=== PATIENT | female | born 1960 | race Asian ===

== ENCOUNTER 2022-07-06 08:22 | Outpatient (REF) | payer MEDICAID, SELFPAY ==
[2022-07-06 11:43] LABS: Cholesterol 134 mg/dL; HDL Cholesterol 52 mg/dL; LDL Cholesterol Calculated 68 mg/dl; Triglycerides 71 mg/dL
== END 2022-07-06 08:23 | disposition home or self-care (01) ==
LOC: HO.HMGCLDS 08:22
PROVIDERS: PCP Family Medicine; Visit Provider Family Medicine
DX: E78.2 Mixed hyperlipidemia (principal)
CPT/HCPCS: 36415; 80061

== ENCOUNTER 2022-10-05 15:08 | Outpatient (REF) | payer MEDICAID, SELFPAY ==
--- NOTE | ~2022-10-05 | XR_ITS ---
EXAMINATION: XR FOOT, RIGHT CLINICAL INFORMATION: Bunion of great toe of right foot COMPARISON: None available. TECHNIQUE: AP, lateral, and oblique views of the right foot. FINDINGS: Bones are diffusely demineralized. Metatarsus adductus, hallux valgus. Mild degenerative changes first metatarsophalangeal joint with joint space narrowing, and hypertrophic change. Tiny plantar calcaneal spur. XR/XR foot RT min 3V IMPRESSION: Metatarsus adductus, hallux valgus with mild degenerative changes first metatarsophalangeal joint. No displaced fracture. Recommend follow-up imaging in 10-14 days if fracture is suspected.
== END 2022-10-05 15:09 | disposition home or self-care (01) ==
LOC: HO.HMGCX 15:08
PROVIDERS: PCP Family Medicine; Visit Provider Family Medicine
DX: M21.611 Bunion of right foot (principal)
CPT/HCPCS: 73630

== ENCOUNTER 2023-01-04 08:44 | Outpatient (REF) | payer MEDICAID, OTHER, SELFPAY ==
[2023-01-04 14:29] LABS: MANUAL DIFF FLAG NO
[2023-01-04 14:40] LABS: Basophils Percent Auto 0.8 % (0-2); Eosinophils Absolute Auto 0.1 X10*3/uL (0.0-0.4); Eosinophils Percent Auto 1.1 % (0-4); Hematocrit 39.4 % (37.0-47.0); Imm Gran Abs Auto 0.01 X10*3/uL (0.00-0.03); Imm Gran Pct Auto 0.2 % (0.0-0.4); Lymphocytes Absolute Auto 1.7 X10*3/uL (1.2-4.9); Lymphocytes Percent Auto 36.1 % (20-40); Mean Corpuscular Hemoglobin 27.2 pg (27.0-33.0); Mean Corpuscular Volume 82.4 fL (80.0-98.0); Mean Platelet Volume 10.3 fL (9.4-12.3); Monocytes Absolute Auto 0.3 X10*3/uL (0.1-1.2); Monocytes Percent Auto 6.1 % (2-11); Neutrophils Absolute Auto 2.7 x10*3/uL (2.0-8.3); Neutrophils Percent Auto 55.7 % (45-73); Platelet Count 214 X10*3/uL (160-400); Red Blood Count 4.78 X10*6/uL (4.20-5.50); Red Cell Distribution Width 11.7 % (11.0-16.0); White Blood Count 4.8 X10*3/uL (4.8-10.8)
[2023-01-04 14:44] LABS: Estimated Average Glucose 154 mg/dL
[2023-01-04 15:02] LABS: Alanine Aminotransferase 19 U/L (0-31); Albumin Level 4.6 g/dL (3.5-5.0); Alkaline Phosphatase 57 U/L (39-117); Anion Gap 13 (12-20); Aspartate Amino Transferase 18 U/L (5-31); Bilirubin Total 0.6 mg/dL (0.0-1.0); Blood Urea Nitrogen 14 mg/dL (9-16); Calcium 9.6 mg/dL (8.4-10.2); Carbon Dioxide 26 mmol/L (22-29); Chloride 105 mmol/L (96-108); Cholesterol 132 mg/dL (<200); Estimated Glomerular Filt Rate > 60; Glucose Fasting 119 mg/dL (60-99); HDL Cholesterol 56 mg/dL (>40); LDL Cholesterol Calculated 59 mg/dL (<100); Potassium 3.8 mmol/L (3.3-5.1); Sodium 140 mmol/L (135-145); Total Protein 7.2 g/dL (6.5-8.0); Triglycerides 88 mg/dL (<150)
== END 2023-01-04 08:45 | disposition home or self-care (01) ==
LOC: HO.CHCLDS 08:44
PROVIDERS: Visit Provider Family Medicine
DX: E11.65 Type 2 diabetes mellitus with hyperglycemia (principal)
CPT/HCPCS: 36415; 80053; 80061; 83036; 85025

== ENCOUNTER 2023-01-11 11:16 | Outpatient (REF) | payer OTHER, SELFPAY ==
[2023-01-11 14:41] LABS: Uric Acid 4.4 mg/dL (2.4-5.7)
== END 2023-01-11 11:17 | disposition home or self-care (01) ==
LOC: HO.CHCLDS 11:16
PROVIDERS: Visit Provider Family Medicine
DX: M25.50 Pain in unspecified joint (principal)
CPT/HCPCS: 36415; 84550

== ENCOUNTER 2023-02-08 13:01 | Outpatient (REF) | payer OTHER, SELFPAY ==
--- NOTE | ~2023-02-08 | XR_ITS ---
EXAMINATION: XR BILATERAL HANDS CLINICAL INFORMATION: Numbness and tingling COMPARISON: None available. TECHNIQUE: AP, lateral, and oblique views of the bilateral hands. FINDINGS: RIGHT HAND: No displaced fracture. Mild degenerative changes in the second metacarpophalangeal joint with hypertrophic change. Moderate degenerative changes in the first carpometacarpal joint with joint space narrowing and hypertrophic change. LEFT HAND: No displaced fracture. Mild degenerative changes in the second metacarpophalangeal joint with hypertrophic change. Moderate degenerative changes in the first carpometacarpal joint with joint space narrowing and hypertrophic change. XR/XR hand RT min 3V IMPRESSION: 1. Moderate degenerative changes in the bilateral first carpometacarpal joints. 2. No displaced fracture. Recommend follow-up imaging in 10-14 days if fracture is suspected.
--- NOTE | ~2023-02-08 | XR_ITS ---
EXAMINATION: XR BILATERAL HANDS CLINICAL INFORMATION: Numbness and tingling COMPARISON: None available. TECHNIQUE: AP, lateral, and oblique views of the bilateral hands. FINDINGS: RIGHT HAND: No displaced fracture. Mild degenerative changes in the second metacarpophalangeal joint with hypertrophic change. Moderate degenerative changes in the first carpometacarpal joint with joint space narrowing and hypertrophic change. LEFT HAND: No displaced fracture. Mild degenerative changes in the second metacarpophalangeal joint with hypertrophic change. Moderate degenerative changes in the first carpometacarpal joint with joint space narrowing and hypertrophic change. XR/XR hand LT min 3V IMPRESSION: 1. Moderate degenerative changes in the bilateral first carpometacarpal joints. 2. No displaced fracture. Recommend follow-up imaging in 10-14 days if fracture is suspected.
== END 2023-02-08 13:02 | disposition home or self-care (01) ==
LOC: HO.HMGCX 13:01
PROVIDERS: PCP Family Medicine; Visit Provider Family Medicine
DX: R20.0 Anesthesia of skin (principal); R20.2 Paresthesia of skin
CPT/HCPCS: 73130

== ENCOUNTER → 2023-05-17 08:51 | Outpatient (REF) | payer OTHER, SELFPAY ==
--- NOTE | 2023-05-17 08:55 | ECG_ITS ---
Test Reason : PALPITATIONS Blood Pressure : / mmHG Vent. Rate : 063 BPM Atrial Rate : 063 BPM P-R Int : 166 ms QRS Dur : 078 ms QT Int : 438 ms P-R-T Axes : 058 031 055 degrees QTc Int : 448 ms Normal sinus rhythm T wave abnormality, consider anterior ischemia Abnormal ECG No previous ECGs available Referred By: Naomi Montague Electronically Signed By:VOLODYMYR HUFF MD
--- NOTE | 2023-05-17 09:01 | HM_ITS ---
* Total monitoring time 1 day. * Underlying rhythm is sinus with an average ventricular rate of 62/Min. Range 45 to 123/Min. * Very rare supraventricular ectopy. * No significant pauses or AV blocks. * No patient markers or diary events. MTDD
== END ==
LOC: HO.CARD 08:51
PROVIDERS: PCP Family Medicine; Visit Provider Family Medicine
DX: R00.2 Palpitations (principal)
CPT/HCPCS: 93005; 93225

== ENCOUNTER → 2023-05-17 08:55 | Outpatient (BNV) | payer OTHER, SELFPAY | PROVIDERS: PCP Family Medicine; Visit Provider Internal Medicine Cardiovascular Disease | DX: I47.10 Supraventricular tachycardia, unspecified (principal) | CPT/HCPCS: 93227 ==

== ENCOUNTER 2023-07-23 08:07 | Outpatient (REF) | payer OTHER, SELFPAY ==
[2023-07-23 14:27] LABS: MANUAL DIFF FLAG NO
[2023-07-23 14:37] LABS: Estimated Average Glucose 146 mg/dL; Hemoglobin A1c % 6.7 % (<6.0)
[2023-07-23 14:50] LABS: Basophils Absolute Auto 0.1 X10*3/uL (0.0-0.2); Basophils Percent Auto 0.9 % (0-2); Eosinophils Absolute Auto 0.1 X10*3/uL (0.0-0.4); Eosinophils Percent Auto 1.6 % (0-4); Hemoglobin 12.4 g/dl (12.0-16.0); Imm Gran Abs Auto 0.01 X10*3/uL (0.00-0.03); Imm Gran Pct Auto 0.2 % (0.0-0.4); Lymphocytes Absolute Auto 2.2 X10*3/uL (1.2-4.9); Lymphocytes Percent Auto 38.3 % (20-40); Mean Corpuscular HGB Conc 33.5 g/dl (31.0-35.0); Mean Corpuscular Hemoglobin 27.2 pg (27.0-33.0); Mean Corpuscular Volume 81.1 fL (80.0-98.0); Mean Platelet Volume 10.1 fL (9.4-12.3); Monocytes Absolute Auto 0.3 X10*3/uL (0.1-1.2); Monocytes Percent Auto 5.2 % (2-11); Neutrophils Percent Auto 53.8 % (45-73); Platelet Count 213 X10*3/uL (160-400); Red Blood Count 4.56 X10*6/uL (4.20-5.50); White Blood Count 5.6 X10*3/uL (4.8-10.8)
[2023-07-23 14:51] LABS: Alanine Aminotransferase 18 U/L (0-31); Albumin Level 4.6 g/dL (3.5-5.0); Alkaline Phosphatase 57 U/L (39-117); Anion Gap 15 (12-20); Aspartate Amino Transferase 16 U/L (5-31); Bilirubin Total 0.6 mg/dL (0.0-1.0); Blood Urea Nitrogen 12 mg/dL (9-16); Calcium 9.5 mg/dL (8.4-10.2); Carbon Dioxide 27 mmol/L (22-29); Chloride 105 mmol/L (96-108); Cholesterol 122 mg/dL (<200); Estimated Glomerular Filt Rate > 60; Glucose Random 100 mg/dL (60-115); HDL Cholesterol 53 mg/dL (>40); LDL Cholesterol Calculated 54 mg/dL (<100); Potassium 3.7 mmol/L (3.3-5.1); Sodium 143 mmol/L (135-145); Total Protein 7.3 g/dL (6.5-8.0); Triglycerides 75 mg/dL (<150)
[2023-07-23 15:08] LABS: TSH reflex Free T4 1.86 uIU/mL (0.32-4.0)
== END 2023-07-23 08:08 | disposition home or self-care (01) ==
LOC: HO.CHCLDS 08:07
PROVIDERS: Visit Provider Family Medicine
DX: E11.65 Type 2 diabetes mellitus with hyperglycemia (principal)
CPT/HCPCS: 36415; 80053; 80061; 83036; 84443; 85025

== ENCOUNTER 2024-03-27 09:45 | Outpatient (REF) | payer OTHER, SELFPAY ==
[2024-03-27 14:18] LABS: MANUAL DIFF FLAG NO
[2024-03-27 14:23] LABS: Basophils Absolute Auto 0.1 X10*3/uL (0.0-0.2); Basophils Percent Auto 1.1 % (0-2); Eosinophils Absolute Auto 0.2 X10*3/uL (0.0-0.4); Eosinophils Percent Auto 3.6 % (0-4); Hemoglobin 12.9 g/dl (12.0-16.0); Imm Gran Abs Auto 0.01 X10*3/uL (0.00-0.03); Imm Gran Pct Auto 0.2 % (0.0-0.4); Lymphocytes Absolute Auto 1.8 X10*3/uL (1.2-4.9); Mean Corpuscular HGB Conc 33.1 g/dl (31.0-35.0); Mean Corpuscular Hemoglobin 27.3 pg (27.0-33.0); Mean Corpuscular Volume 82.6 fL (80.0-98.0); Monocytes Absolute Auto 0.3 X10*3/uL (0.1-1.2); Monocytes Percent Auto 5.6 % (2-11); Neutrophils Percent Auto 56.5 % (45-73); Platelet Count 208 X10*3/uL (160-400); Red Blood Count 4.72 X10*6/uL (4.20-5.50); Red Cell Distribution Width 11.7 % (11.0-16.0); White Blood Count 5.3 X10*3/uL (4.8-10.8)
[2024-03-27 14:34] LABS: Estimated Average Glucose 146 mg/dL; Hemoglobin A1C 166.9097 umol/L; Hemoglobin A1c % 6.7 % (<6.0)
[2024-03-27 14:42] LABS: Albumin Level 4.7 g/dL (3.5-5.0); Anion Gap 13 (12-20); Aspartate Amino Transferase 25 U/L (5-31); Bilirubin Total 0.5 mg/dL (0.0-1.0); Blood Urea Nitrogen 11 mg/dL (9-16); Calcium 9.4 mg/dL (8.4-10.2); Carbon Dioxide 27 mmol/L (22-29); Chloride 106 mmol/L (96-108); Cholesterol 114 mg/dL (<200); Estimated Glomerular Filt Rate > 60; Glucose Random 110 mg/dL (60-115); HDL Cholesterol 53 mg/dL (>40); LDL Cholesterol Calculated 46 mg/dL (<100); Lipase 33 U/L (8-78); Sodium 142 mmol/L (135-145); Triglycerides 77 mg/dL (<150)
[2024-03-27 15:01] LABS: Alanine Aminotransferase 25 U/L (0-31); Alkaline Phosphatase 57 U/L (39-117)
[2024-03-27 15:05] LABS: TSH reflex Free T4 1.83 uIU/mL (0.32-4.0)
== END 2024-03-27 09:46 | disposition home or self-care (01) ==
LOC: HO.CHCLDS 09:45
PROVIDERS: Visit Provider Family Medicine
DX: E11.65 Type 2 diabetes mellitus with hyperglycemia (principal); R10.11 Right upper quadrant pain
CPT/HCPCS: 36415; 80053; 80061; 83036; 83690; 84443; 85025

== ENCOUNTER 2024-04-10 07:41 | Outpatient (REF) | payer OTHER, SELFPAY ==
--- NOTE | ~2024-04-10 | US_ITS ---
EXAMINATION: US ABDOMEN COMPLETE CLINICAL INFORMATION: Right upper quadrant pain. COMPARISON: None available. TECHNIQUE: Real-time imaging of the abdominal viscera. Limited visualization due to bowel gas. FINDINGS: PANCREAS: Limited visualization. Imaged portion of the pancreas demonstrates heterogeneous echotexture. ABDOMINAL AORTA: Limited visualization of the distal abdominal aorta. Imaged portion of mid to proximal aorta unremarkable. INFERIOR VENA CAVA: Visualized portions are normal. LIVER: Increased hepatic parenchymal heterogeneity and echogenicity could be associated with hepatocellular disease/hepatic steatosis and substantially limits visualization. Correlation with liver function tests and clinical exam recommended to determine further management. Multiple complex hepatic cysts, many with multiple septations. 5.7 x 3.7 x 5.9 cm left hepatic lobe with multiple thin and thick septations with possible nodular components. 2.8 x 1.9 x 2.4 cm right lower hepatic lobe with thin septations. GALLBLADDER: No gallstones. No gallbladder wall thickening. COMMON BILE DUCT: Normal in caliber measuring 0.4 cm in diameter. RIGHT KIDNEY: Right renal 0.2 cm midpole calculus. No hydronephrosis. Scattered tiny renal echogenic foci may represent punctate calcifications. Limited visualization. The kidney measures 11.2 cm in maximum dimension. LEFT KIDNEY: No hydronephrosis. Scattered tiny renal echogenic foci may represent punctate calcifications. Limited visualization. The kidney measures 11.8 cm in maximum dimension. SPLEEN: The spleen measures 10.3 cm in maximum dimension. FREE FLUID: None. US/US abdomen complete IMPRESSION: 1. Increased hepatic parenchymal heterogeneity and echogenicity could be associated with hepatocellular disease/hepatic steatosis and substantially limits visualization. Correlation with liver function tests and clinical exam recommended to determine further management. 2. Multiple complex hepatic cysts, many with multiple septations. 5.7 x 3.7 x 5.9 cm left hepatic lobe with multiple thin and thick septations with possible nodular components. 2.8 x 1.9 x 2.4 cm right lower hepatic lobe with thin septations. 3. Right renal 0.2 cm midpole calculus. No hydronephrosis. 4. Bilateral tiny scattered renal echogenic foci may represent punctate calcifications. No hydronephrosis. 5. Limited visualization of the pancreas, although imaged portion of the pancreas demonstrates heterogeneous echotexture. 6. CT scan recommended for further evaluation. Electronically signed by: Geovanna Vega MD 04/12/2024 10:10 AM EST
== END 2024-04-10 07:42 | disposition home or self-care (01) ==
LOC: HO.US 07:41
PROVIDERS: PCP Family Medicine; Visit Provider Family Medicine
DX: R10.11 Right upper quadrant pain (principal)
CPT/HCPCS: 76700

== ENCOUNTER 2024-06-05 23:22 | Emergency (ER) | payer OTHER, SELFPAY ==
--- NOTE | ~2024-06-05 | CT_ITS ---
CLINICAL HISTORY: epigastric pain Exam: CT abdomen and pelvis with intravenous contrast. Comparison: Abdominal ultrasound April 10, 2024. Findings: CT abdomen: No infiltrates within the lung bases. Bones are osteopenic. No acute fracture. Mild de leon chamber cardiac dilation. Concentric wall thickening distal esophagus with small hiatal hernia. [id number] fluid distention of the stomach with areas of gastric wall thickening along the proximal to mid gastric body. Fluid-filled loops of borderline dilated small bowel is seen within the abdomen pelvis. Small bowel loops are dilated to 0.8 cm. There are scattered small bowel air-fluid levels. Small-bowel wall thickening and small-bowel wall hyperenhancement is seen in association with these fluid-filled loops of small bowel. Generalized low attenuation throughout the liver indicative of fatty infiltration. Numerous hypodense lesions within the liver corresponding to the ultrasound abnormalities. The largest is within the lateral segment of the left lobe measuring 6.5 x 6.9 cm in size. These are all fluid attenuation lesions. No solid hepatic mass lesions identified. Main portal vein is patent. Spleen, pancreas, gallbladder, and adrenal glands are unremarkable. Symmetric enhancement of the kidneys without mass or hydronephrosis. CT pelvis: Suture material seen of the anal rectal junction. Mild fluid distention of the cecum and ascending colon. Fluid-filled small bowel is seen within the pelvis as discussed above. Appendix is normal. No free fluid or free air. Uterus is surgically absent. Fluid attenuation structure is seen at the level of the vaginal cuff measuring 4.2 x 2.5 x 2.6 cm in size. No enlarged lymph nodes. Impression: 1. Wall thickening of the distal esophagus extending to the proximal to mid gastric body with fluid distention of the stomach. This suggest gastritis and esophagitis. 2. Fluid-filled small bowel with liquid stool within the proximal colon. Infectious or inflammatory enterocolitis is favored. 3. Prior hysterectomy with nonspecific cystic collection at the vaginal cuff. Clinical correlation advised with the timing of the patient's hysterectomy. Pelvic ultrasound could further evaluate. This document has been electronically signed by: Glen Ivy MD on 06/06/2024 02:50:08
[2024-06-05 23:33] VITALS: BP 142/68; PULSE 73; RESP 18; TEMP 36.7; O2SAT 95; BMI 27.3
[2024-06-05 23:51] LABS: MANUAL DIFF FLAG NO
[2024-06-05 23:52] LABS: Basophils Absolute Auto 0.1 X10*3/uL (0.0-0.2); Basophils Percent Auto 0.5 % (0-2); Eosinophils Absolute Auto 0.2 X10*3/uL (0.0-0.4); Eosinophils Percent Auto 0.9 % (0-4); Hematocrit 39.8 % (37.0-47.0); Hemoglobin 14.2 g/dl (12.0-16.0); Imm Gran Pct Auto 0.5 % (0.0-0.4); Lymphocytes Absolute Auto 4.8 X10*3/uL (1.2-4.9); Lymphocytes Percent Auto 23.7 % (20-40); Mean Corpuscular HGB Conc 35.7 g/dl (31.0-35.0); Mean Corpuscular Hemoglobin 27.8 pg (27.0-33.0); Mean Platelet Volume 9.7 fL (9.4-12.3); Monocytes Absolute Auto 0.9 X10*3/uL (0.1-1.2); Monocytes Percent Auto 4.7 % (2-11); Neutrophils Percent Auto 69.7 % (45-73); Platelet Count 233 X10*3/uL (160-400); Red Cell Distribution Width 11.7 % (11.0-16.0)
[2024-06-06 00:07] LABS: Alanine Aminotransferase 38 U/L (0-31); Albumin Level 4.8 g/dL (3.5-5.0); Alkaline Phosphatase 78 U/L (39-117); Anion Gap 16 (12-20); Aspartate Amino Transferase 28 U/L (5-31); Bilirubin Total 0.5 mg/dL (0.0-1.0); Blood Urea Nitrogen 19 mg/dL (9-16); Carbon Dioxide 23 mmol/L (22-29); Chloride 107 mmol/L (96-108); Creatinine Clr Calc Pharmacy 64.6; Estimated Glomerular Filt Rate > 60; Glucose Random 211 mg/dL (60-115); Lipase 45 U/L (8-78); Potassium 3.5 mmol/L (3.3-5.1); Sodium 142 mmol/L (135-145); Total Protein 8.1 g/dL (6.5-8.0)
--- NOTE | 2024-06-06 00:08 | ECG_ITS ---
Test Reason : ABDOMINAL PAIN Blood Pressure : */* mmHG Vent. Rate : 65 BPM Atrial Rate : 65 BPM P-R Int : 160 ms QRS Dur : 84 ms QT Int : 452 ms P-R-T Axes : -23 36 43 degrees QTcB Int : 470 ms Normal sinus rhythm T wave abnormality, consider anterior ischemia Prolonged QT Abnormal ECG When compared with ECG of 17-May-2023 09:07, No significant change was found Referred By: Kristen Medrano Electronically Signed By: OLYA ALLRED
--- NOTE | 2024-06-06 00:16 | ED.ABDPAIN ---
HPI - Abdominal Pain General Chief Complaint: Abdominal Pain Stated Complaint: n/v, abd pain Time Seen by Provider: 06/06/24 00:07 Source: patient and family Mode of arrival: ambulatory Limitations: no limitations History of Present Illness ED Provider: Dr. Kristen Medrano HPI narrative: Patient comes to the emergency room complaining of epigastric pain, nausea vomiting and diarrhea that started approximately 3 hours ago. Patient states that she has been having epigastric burning sensation and pain for several months. Patient states that she has an appointment pending in couple of months with gastroenterology. Patient does not take any medication for GERD. Patient denies any lower abdominal pain, denies any flank pain or burning with urination. Denies fever or chills. Related Data Previous Rx's ?Medication ?Instructions ?Recorded amoxicillin 500 mg-potassium 1 tab PO BID #14 tabs 06/06/24 clavulanate 125 mg tablet (Augmentin) omeprazole 40 mg capsule,delayed 40 mg PO DAILY #30 caps 06/06/24 release tramadol 50 mg tablet 50 mg PO BID PRN pain #7 tabs 06/06/24 Allergies Allergy/AdvReac Type Severity Reaction Status Date / Time No Known Allergies Allergy Verified 06/05/24 23:35 Review of Systems Review of Systems Constitutional : No Weight loss, No Fever, No Chills, No Night Sweats, No Fatigue, No Malaise ENT/Mouth : No Hearing loss, No Ear Pain, No Nasal Congestion, No Sinus Pain, No Hoarseness, No sore throat, No Rhinorrhea, No Swallowing Difficulty Eyes: No Eye Pain, No Swelling, No Redness, No Foreign Body, No Discharge, No Vision Changes Cardiovascular : No Chest Pain, No SOB, No Dyspnea on Exertion, No Orthopnea, No Edema, No Palpitations Respiratory : No Cough, No Sputum, No Wheezing, No Smoke Exposure, No Dyspnea Gastrointestinal : Complaining of nausea vomiting and diarrhea, complaining of epigastric pain. Genitourinary : no irregular bleeding, No Dysuria, No Urinary Frequency, No Hematuria, No Urinary Incontinence, No Urgency, No Flank Pain, No Urinary Flow Changes, No Hesitancy Musculoskeletal : No joint pain, No Myalgias, No Joint Swelling Skin : No Skin Lesions, No rash Neuro : No Weakness, No Numbness, No Paresthesias, No Loss of Consciousness, No Dizziness, No Headache Psych : No Anxiety/Panic, No Depression, No SI/HI/AH/VH, No Social Issues, Heme/Lymph: No Bruising, No Bleeding,No Lymphadenopathy Endocrine : No Polyuria, No Polydipsia, No Temperature Intolerance [facility] Past Medical History Medical History (Updated 06/06/24 @ 03:42 by Kristen Medrano MD) Hyperlipidemia Hypertension Social History Social History Smoked in Last 30 Days: No Use of substances other than those prescribed or required for medical reasons: No Advance Directives: No Advance Directives Information Provided: Yes Patient : No Physical Exam ED Vital Signs: Vital Signs - 24 hr 06/05/24 23:33 06/06/24 00:59 06/06/24 02:04 Temperature 98.0 F 98.8 F Pulse Rate 73 69 76 Respiratory Rate 18 16 16 Blood Pressure 142/68 H 135/56 L 127/58 L Pulse Oximetry 95 96 96 Oxygen Delivery Method Room Air Room Air Room Air BMI result Body Mass Index 27.3 Const Other: Appearance: Alert. Oriented X3. A bit uncomfortable Eyes: Pupils equal, round and reactive to light. ENT: Pharynx normal. Neck: Normal inspection. Neck supple. No lymph nodes noted. No crepitus CVS: Normal heart rate and rhythm. Pulses normal. Normal S1 and S2 Respiratory: No respiratory distress. Breath sounds normal. No Wheezing. No rales Abdomen: Soft , moderate tenderness to palpation in epigastric area, no rebound or guarding. Skin: Skin warm and dry. Normal skin color. Normal skin turgor. Extremities: No lower extremity edema. No Lacerations. No Rash Neuro: Oriented X 3. No motor deficit. No sensory deficit. Moving all extremities. No slurred speech. CN 2 through 12 grossly intact Psych: calm, cooperative, normal affect Course Course Course Narrative: Patient receiving IV fluids, Zofran and morphine for symptomatic relief Some of patient's labs pending CT scan pending Medical Decision Making Medical Decision Making [facility] Narrative: My interpretation of labs: Patient's white blood cell count 20, rest of hematology no significant acute abnormality, chemistry within normal limits, glucose slightly bumped at 02:11, LFTs normal, lipase normal, troponin negative EKG: My interpretation of EKG: Normal sinus rhythm, heart rate 65, no ST segment depressions or elevations, T-wave inversions in V3 to V5, chronic, QTC 470, previous changes seen on EKGs from May of 2023 CT scan of the abdomen shows wall thickening of the distal esophagus extending into the proximal mid gastric body with fluid distention of the stomach. Which will small bowel with liquid stool within the proximal colon, infectious or infectious enterocolitis Patient was given Augmentin and omeprazole in the emergency room. 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 06/05/24 23:45 06/05/24 23:45 Labs: Lab Results 06/05/24 06/06/24 06/06/24 Range/Units 23:45 00:36 02:06 WBC 20.0 H (4.8-10.8) X10*3/uL RBC 5.10 (4.20-5.50) X10*6/uL Hgb 14.2 (12.0-16.0) g/dl Hct 39.8 (37.0-47.0) % MCV 78.0 L (80.0-98.0) fL MCH 27.8 (27.0-33.0) pg MCHC 35.7 H (31.0-35.0) g/dl RDW 11.7 (11.0-16.0) % Plt Count 233 (160-400) X10*3/uL MPV 9.7 (9.4-12.3) fL Immature Gran % (Auto) 0.5 H (0.0-0.4) % Neut % (Auto) 69.7 (45-73) % Lymph % (Auto) 23.7 (20-40) % [place] % (Auto) 4.7 (2-11) % Eos % (Auto) 0.9 (0-4) % Baso % (Auto) 0.5 (0-2) % Lymph # (Auto) 4.8 (1.2-4.9) X10*3/uL [place] # (Auto) 0.9 (0.1-1.2) X10*3/uL Eos # (Auto) 0.2 (0.0-0.4) X10*3/uL Baso # (Auto) 0.1 (0.0-0.2) X10*3/uL Abs Immat Gran (auto) 0.10 H (0.00-0.03) X10*3/uL Absolute Neuts (auto) 14.0 H (2.0-8.3) x10*3/uL Absolute Nucleated RBC 0.000 (0.0-0.012) X10*3/uL Nucleated RBC % (auto) 0.0 (0.0-0.2) /100WBC Sodium 142 (135-145) mmol/L Potassium 3.5 (3.3-5.1) mmol/L Chloride 107 (96-108) mmol/L Carbon Dioxide 23 (22-29) mmol/L Anion Gap 16 (12-20) BUN 19 H (9-16) mg/dL Creatinine 0.76 (0.5-1.4) mg/dL Estim Creat Clear Calc 64.6 Estimated GFR > 60 Random Glucose 211 H (60-115) mg/dL Lactic Acid 2.1 H* (0.5-2.0) mmol/L Lactic Acid F/U @ 2Hr (0.5-2.0) mmol/L Calcium 10.0 D (8.4-10.2) mg/dL Total Bilirubin 0.5 (0.0-1.0) mg/dL AST 28 (5-31) U/L ALT 38 H (0-31) U/L Alkaline Phosphatase 78 (39-117) U/L Troponin I High Sens < 2.7 (<3.5-17.0) ng/L Total Protein 8.1 H (6.5-8.0) g/dL Albumin 4.8 (3.5-5.0) g/dL Lipase 45 (8-78) U/L Urine Color Yellow Urine Appearance Clear Urine pH 6.5 (5.0-9.0) Ur Specific [place] >= 1.030 H (1.005-1.025) Urine Protein Trace (Neg-Trace) mg/dL Urine Glucose (UA) Negative (Negative) mg/dL Urine Ketones Negative (Negative) mg/dL Urine Blood Negative (Negative) Urine Nitrite Negative (Negative) Ur Leukocyte Esterase Negative (Negative) Urine RBC 0-2 (0-2) /HPF Urine WBC 0-5 (0-5) /HPF Ur Squamous Epith Cells 0-2 (0-2) /HPF Urine Bacteria None Seen (None Seen) Hyaline Casts 0-2 (0-2) /LPF Influenza Type A (PCR) NEGATIVE (Negative) Influenza Type B (PCR) NEGATIVE (Negative) RSV RNA Qual (PCR) NEGATIVE (Negative) SARS-CoV-2 RNA (RT-PCR) NEGATIVE (Negative) 06/06/24 Range/Units 03:06 WBC (4.8-10.8) X10*3/uL RBC (4.20-5.50) X10*6/uL Hgb (12.0-16.0) g/dl Hct (37.0-47.0) % MCV (80.0-98.0) fL MCH (27.0-33.0) pg MCHC (31.0-35.0) g/dl RDW (11.0-16.0) % Plt Count (160-400) X10*3/uL MPV (9.4-12.3) fL Immature Gran % (Auto) (0.0-0.4) % Neut % (Auto) (45-73) % Lymph % (Auto) (20-40) % [place] % (Auto) (2-11) % Eos % (Auto) (0-4) % Baso % (Auto) (0-2) % Lymph # (Auto) (1.2-4.9) X10*3/uL [place] # (Auto) (0.1-1.2) X10*3/uL Eos # (Auto) (0.0-0.4) X10*3/uL Baso # (Auto) (0.0-0.2) X10*3/uL Abs Immat Gran (auto) (0.00-0.03) X10*3/uL Absolute Neuts (auto) (2.0-8.3) x10*3/uL Absolute Nucleated RBC (0.0-0.012) X10*3/uL Nucleated RBC % (auto) (0.0-0.2) /100WBC Sodium (135-145) mmol/L Potassium (3.3-5.1) mmol/L Chloride (96-108) mmol/L Carbon Dioxide (22-29) mmol/L Anion Gap (12-20) BUN (9-16) mg/dL Creatinine (0.5-1.4) mg/dL Estim Creat Clear Calc Estimated GFR Random Glucose (60-115) mg/dL Lactic Acid (0.5-2.0) mmol/L Lactic Acid F/U @ 2Hr 1.8 (0.5-2.0) mmol/L Calcium (8.4-10.2) mg/dL Total Bilirubin (0.0-1.0) mg/dL AST (5-31) U/L ALT (0-31) U/L Alkaline Phosphatase (39-117) U/L Troponin I High Sens (<3.5-17.0) ng/L Total Protein (6.5-8.0) g/dL Albumin (3.5-5.0) g/dL Lipase (8-78) U/L Urine Color Urine Appearance Urine pH (5.0-9.0) Ur Specific [place] (1.005-1.025) Urine Protein (Neg-Trace) mg/dL Urine Glucose (UA) (Negative) mg/dL Urine Ketones (Negative) mg/dL Urine Blood (Negative) Urine Nitrite (Negative) Ur Leukocyte Esterase (Negative) Urine RBC (0-2) /HPF Urine WBC (0-5) /HPF Ur Squamous Epith Cells (0-2) /HPF Urine Bacteria (None Seen) Hyaline Casts (0-2) /LPF Influenza Type A (PCR) (Negative) Influenza Type B (PCR) (Negative) RSV RNA Qual (PCR) (Negative) SARS-CoV-2 RNA (RT-PCR) (Negative) Independent Interpretation I performed an independent interpretation of an: CT Scan Radiology Impression Discussion of test interpretation with radiology: I have reviewed the radiologist's reading. Radiologist Impression: No infiltrates within the lung bases. Bones are osteopenic. No acute fracture. Mild de leon chamber cardiac dilation. Concentric wall thickening distal esophagus with small hiatal hernia. [id number] fluid distention of the stomach with areas of gastric wall thickening along the proximal to mid gastric body. Fluid-filled loops of borderline dilated small bowel is seen within the abdomen pelvis. Small bowel loops are dilated to 0.8 cm. There are scattered small bowel air-fluid levels. Small-bowel wall thickening and small-bowel wall hyperenhancement is seen in association with these fluid-filled loops of small bowel. Generalized low attenuation throughout the liver indicative of fatty infiltration. Numerous hypodense lesions within the liver corresponding to the ultrasound abnormalities. The largest is within the lateral segment of the left lobe measuring 6.5 x 6.9 cm in size. These are all fluid attenuation lesions. No solid hepatic mass lesions identified. Main portal vein is patent. Spleen, pancreas, gallbladder, and adrenal glands are unremarkable. Symmetric enhancement of the kidneys without mass or hydronephrosis. CT pelvis: Suture material seen of the anal rectal junction. Mild fluid distention of the cecum and ascending colon. Fluid-filled small bowel is seen within the pelvis as discussed above. Appendix is normal. No free fluid or free air. Uterus is surgically absent. Fluid attenuation structure is seen at the level of the vaginal cuff measuring 4.2 x 2.5 x 2.6 cm in size. No enlarged lymph nodes. Impression: 1. Wall thickening of the distal esophagus extending to the proximal to mid gastric body with fluid distention of the stomach. This suggest gastritis and esophagitis. 2. Fluid-filled small bowel with liquid stool within the proximal colon. Infectious or inflammatory enterocolitis is favored. 3. Prior hysterectomy with nonspecific cystic collection at the vaginal cuff. Clinical correlation advised with the timing of the patient's hysterectomy. Pelvic ultrasound could further evaluate. Medications Administered Discontinued Medications Generic Name Dose Route Start Last Admin Trade Name Freq PRN Reason Stop Dose Admin Sodium Chloride 1,000 mls @ 999 mls/hr 06/06/24 00:17 06/06/24 02:32 Ns IVCONT 06/06/24 01:17 Infused .Q1H1M ONE Infusion Iohexol 85 ml 06/06/24 01:17 06/06/24 01:18 Iohexol 350 Mg/Ml 100 Ml Infus..Btl IV 06/06/24 01:18 85 ml ONCE ONE Administration Morphine Sulfate 2 mg 06/06/24 00:17 06/06/24 01:02 Morphine Sulfate 2 Mg/Ml Cartridge IVPUSH 06/06/24 00:18 2 mg ONCE ONE Administration Protocol Ondansetron HCl 4 mg 06/06/24 00:17 06/06/24 01:02 Ondansetron Hcl 4 Mg/2 Ml Vial IVPUSH 06/06/24 00:18 4 mg ONCE ONE Administration Critical Care Time Critical Care Time Critical Care Time: Yes Total Critical Care Time: 45 Attestation: I have personally provided critical care time. Time includes review of lab data, radiology results, discussion with consultants, and monitoring for potential decompensation. Intervention performed as documented. Discharge Plan Discharge Clinical Impression: Esophagitis with gastritis, Enteritis Patient Disposition: Home, Self-Care Instructions: Gastritis (ED), Enteritis (ED) Additional Instructions: Please follow-up with your primary care physician tomorrow. If you have any worsening or new symptoms, please return to the emergency room or call 911 Prescriptions: New amoxicillin-pot clavulanate [Augmentin] 500-125 mg tablet 1 tab PO BID Qty: 14 0RF omeprazole 40 mg capsule,delayed release(DR/EC) 40 mg PO DAILY Qty: 30 2RF tramadol 50 mg tablet 50 mg PO BID PRN (Reason: pain) Qty: 7 0RF Print Language: [place]ican
[2024-06-06 00:29] LABS: Influenza A PCR NEGATIVE (Negative); Influenza B PCR NEGATIVE (Negative); Resp Syncy Virus RNA Qual PCR NEGATIVE (Negative); SARS COV2 PCR INHOUSE NEGATIVE (Negative)
[2024-06-06 00:54] LABS: Troponin-I High Sensitivity < 2.7 ng/L (<3.5-17.0)
[2024-06-06 00:59] VITALS: BP 135/56; PULSE 69; RESP 16; TEMP 37.1; O2SAT 96
[2024-06-06] MEDS: 0.9 % Sodium Chloride 1,000 ML 999 ML IVCONT (01:01)
[2024-06-06] MEDS: ondansetron HCL 4 MG/2 ML VIAL IVPUSH (01:02)
[2024-06-06] MEDS: Morphine Sulfate 2 MG/ML CARTRIDGE IVPUSH (01:02)
[2024-06-06 01:18] LABS: Lactic Acid 2.1 mmol/L (0.5-2.0)
[2024-06-06] MEDS: iohexoL 350 MG/ML 100 ML INFUS..BTL 85 ML IV (01:18)
--- OUTSIDE RECORDS SUMMARY | 2024-06-06 01:31 | XMS_ITS | Encounter Summary ---
Author Organization [employer] Address [address] [facility] [address] [place] [address] Care Team Providers Care School Bus Attendant Name Role Phone Naomi Montague MD Primary Care Provider [phone] Reason for Visit * Reason Comments Med Refill Encounter Details Date Type Department Care Team ([facility] Contact Info) Description 05/30/2024 Refill [facility] CHC MED & PEDS [address] [place] [address] Naomi Montague MD [address] [place] [address] Social History Tobacco Use Types Packs/Day Years Used Date Smoking Tobacco: Never Passive Smoke Exposure: Never Smokeless Tobacco: Never Alcohol Use Standard Drinks/Week Comments Never 0 (1 standard drink = 0.6 oz pur e alcohol) Depression Answer Date Recorded Patient Health Questionnaire-9 Score 2 04/30/2024 Patient Health Questionnaire-9 Score 2 04/30/2024 Last PHQ-9: Questionnaire Data Not on file 0 04/30/2024 Housing Stability Answer Date Recorded What is your housing situation today? I have conrado marin 04/30/[address] you li ve. Do you have problems with any of the following? None of the above 04/30/2024 Food Insecurity Answer Date Recorded Within the past 12 months, y ou worried that your food would run out before you got money to buy more: Never True 04/30/2024 Within the past 12 months,th e food you bought just didn't last and you didn't have enough money to get more: Never True Transportation Answer Date Recorded In the past 12 months, has l ack of transportation kept you from medical appts, meetings, work or from getting things needed for daily living? No 04/30/2024 Utilities Answer Date Recorded In the past 12 months, has t he electric, gas, oil or water company threatened to shut off services in your home? No 04/30/2024 Depression Answer Date Recorded Patient Health Questionnaire-2 Score 0 04/30/2024 Internet Access Answer Date Recorded Internet Access Q1 Yes 04/30/2024 Internet Access Q2 Not on file 04/30/2024 Comments Unknown Sex and Gender Information Value Date Recorded Sex Assigned at Female 02/12/2022 10:40 AM EDT Legal Sex Female 10:40 AM EDT Gender Identity Female 02/12/2022 10:40 AM EDT Sexual Orientation Don't know 02/12/2022 10 :40 AM EDT documented as of this encounter Plan of Treatment Upcoming Encounters Date Type Department Care Team (Late st Contact Info) Description 06/19/2024 3:30 PM EST Office Visit [facility] OPTOMETRY [address] [place] [address] Kristi Craty, OD [address] [place] [address] 07/24/2024 10:00 AM EDT Office Visit [facility] CHC ADULT DENTAL [address] [place] [address] Gaurang Stevenson documented as of this encounter Visit Diagnoses Not on filedocumented in this encounter Additional Health Concerns Assessment Noted Time PHQ-9 Depression Total Score: 2 04/30/19 25 9:35 AM EST documented as of this encounter Care Teams School Bus Attendant Relationship Specialty Start Date End Date Naomi Montague MD [address] [place] [address] PCP - General Family Medicine 02/01/22 documented as of this encounter
--- OUTSIDE RECORDS SUMMARY | 2024-06-06 01:31 | XMS_ITS | Encounter Summary ---
Author Organization [employer] Address [address] [facility] [address] [place] [address] Care Team Providers Care Seo Manager Name Role Phone Naomi Montague MD Primary Care Provider [phone] Reason for Visit * Reason Comments Med Refill Encounter Details Date Type Department Care Team ([facility] Contact Info) Description 05/14/2024 Refill [facility] CHC MED & PEDS [address] [place] [address] Pushpa Osorio MD [address] [place] [address] Mixed hyperlipidemia Social History Tobacco Use Types Packs/Day Years [...] Description 06/19/2024 3:30 PM EST Office Visit [facility] OPTOMETRY [address] [place] [address] Kristi Carty, OD [address] [place] [address] 07/24/2024 10:00 AM EDT Office Visit [facility] CHC ADULT DENTAL [address] [place] [address] Gaurang Stevenson documented as of this encounter Visit Diagnoses Diagnosis Mixed hyperlipidemia documented in this encounter Additional Health Concerns Assessment Noted Time PHQ-9 Depression Total Score: 2 04/30/19 25 9:35 AM EST documented as of this encounter Care Teams Seo Manager Relationship Specialty Start Date End Date Naomi Montague MD [address] [place] [address] PCP - General Family Medicine 02/01/22 documented as of this encounter
--- OUTSIDE RECORDS SUMMARY | 2024-06-06 01:31 | XMS_ITS | Clinical Summary ---
Author Organization [employer] Address [address] [facility] [address] [place] [address] Care Team Providers Care Manager Policy Name Role Phone Naomi Montague MD Primary Care Provider [phone] Allergies Active Allergy Reactions Criticality Noted Date Comments Tolterodine Swelling 04/02/2022 Ubidecarenone Itching 02/08/2023 Medications Lancets 33G misc Use to check blood sugar daily as directed Active Blood Glucose Monitoring Suppl (FreeStyle [place] Lite) w/Device kit TEST BLOOD SUGAR DAILY 02/02/20 22 Active cetirizine (ZyrTEC) 10 MG tabletIndications: Cough, unspecified type Take 1 tablet (10 mg) by mouth in the morning. 30 tablet 2 02/09/20 23 Active cholecalciferol (Vitamin D-3) 50 MCG (1999 UT) tablet TAKE ONE TABLET DAILY 120 tablet 4 08/08/19 24 Active FREESTYLE LITE test strip TEST BLOOD SUGAR DAILY DIRECTED 50 strip 11 11/28/19 24 Active doxepin (SINEquan) 10 MG capsuleIndications :Primary insomnia Take 1 capsule (10 mg) by mouth at bedtime. 90 capsule 1 03/27/20 24 Active rosuvastatin (Crestor) 10 MG tabletIndications: Mixed hyperlipidemia TAKE ONE TABLET BY MOUTH EVERY DAY 90 tablet 1 05/15/19 25 Active metFORMIN XR (Glucophage-XR) 750 MG 24 hr tablet TAKE ONE TABLET TWICE DAILY. DO NOT BREAK, CRUSH, DISSOLVE OR CHEW 60 tablet 2 06/02/19 25 Active rosuvastatin (Crestor) 10 MG tabletIndications: Mixed hyperlipidemia TAKE ONE TABLET DAILY 90 tablet 1 10/25/19 24 025 Discontinued metFORMIN XR (Glucophage-XR) 750 MG 24 hr tablet TAKE ONE TABLET BY MOUTH TWICE DAILY DO NOT BREAK, CRUSH, DISSOLVE OR CHEW 60 tablet 2 03/09/20 24 025 Discontinued Active Problems Problem Noted Date Diagnosed Date Primary insomnia 03/27/2024 Overview (03/27/2024): Sleep latency issues Assessment & Plan (04/30/2024 10:10 AM EST): Continue current medications. Follow up in 4 months. Assessment & Plan (03/27/2024 9:22 AM EST): Prescribing Sinequan for Sx. Follow up on 04/30 via telephone. RUQ pain 03/27/2024 Assessment & Plan (03/27/2024 9:22 AM EST): Ordering lab work and US of Abdomen for further evaluation. Palpitations 05/10/2023 Assessment & Plan (05/14/2023 9:47 AM EST): Patient that presented visit with concerns of palpitations will be sent for a 24 hr Holter monitor, and an ECG. Followup with results, consider referral to cards. Left wrist pain 05/10/2023 Assessment & Plan (05/14/2023 9:47 AM EST): Patient presents visit with complaints of L wrist pain, reviewed x ray with patient, declined OT, referred to ortho. Eye swelling, right 02/08/2023 Numbness and tingling in both hands 02/08/2023 Assessment & Plan (02/08/2023 10:55 AM EDT): Patient will be sent for hand X-Rays. Recommended patient to use braise at nighttime to diminish the numbness and pain. Acute viral syndrome 02/08/2023 Plantar fasciitis of right foot 01/11/2023 Bunion of great toe of right foot 01/11/2023 Mass of upper outer quadrant of right breast Mass of neck 05/21/2022 Assessment & Plan (10/05/2022 2:46 PM EDT): Patient seen by smocker and had FNA done for mass on neck. Biopsy results given to patient and was recommended for surgery with no diagnoses. Per insurance account representative at [facility], Appointment scheduled with general surgeon for Jan 04 @ 9:30 Dr. Connolly at [facility], General surgeon specialty in thyroid. Assessment & Plan (05/21/2022 5:34 PM EST): Reports has not had FNA given office she was referred does not have an MD, will refer elsewhere since this referral was submitted since Feb 2022 and we still don't have an appt. Mixed hyperlipidemia 05/21/2022 Assessment & Plan (05/21/2022 5:36 PM EST): Reviewed labs at this moment will start on low-mod intensity statin. Mixed stress and urge urinary incontinence 05/21 Assessment & Plan (05/21/2022 5:35 PM EST): Patient reports side effects with mybetriq, reports she felt hunger when trying. Reports hives with tolterodine. At this moment printed referral for urology for them to call and do appt. Type 2 diabetes mellitus wit h hyperglycemia, without long-term current use of insulin 05/21/2022 Assessment & Plan (03/27/2024 9:23 AM EST): A1c is at 6.7%, not at goal yet but much improved. Ordering lab work for further evaluation. Assessment & Plan (08/02/2023 3:01 PM EDT): Continue on current medications, f/u in 4 months. Assessment & Plan (05/10/2023 9:31 AM EST): Uncontrolled: A1C levels are above 8%. As a result, patient will have an increase of medication, and recommended to keep monitoring glucose levels at home. in addition, patient will be sent for labs for further evaluation. -Labs: CBC, Comp. Metabolic Panel, Hem. A1C, Lipid Panel, TSH/FT4. Assessment & Plan (02/08/2023 10:55 AM EDT): Uncontrolled: will keep treating with medications. Recommended to keep monitoring at home. Assessment & Plan (10/05/2022 2:47 PM EDT): Uncontrolled. Glucose at time of visit 221 mg/dL. POC a1c 6.9%. At this point will start on metformin 500 mg, nightly. Will follow up in 3 month to re evaluate. Assessment & Plan (05/21/2022 5:36 PM EST): POC a1c 6.1%, improved. Continue lifestyle and diet control, repeat a1c in 3 months Feeling grief 05/21/2022 Assessment & Plan (05/21/2022 5:38 PM EST): Recent passing of mother, episode of hyperalertness and also some heart racing, these are normal reactions given her situation. She had a close del angel with her mother and had lived with her for 15 years. Will f/u in 6 weeks to assess how she is doing. Encounters Date Type Department Care Team Description 05/30/2024 Refill [facility] [address] [place] [address] Naomi Montague MD 05/14/2024 Refill [facility] [address] [place] [address] Pushpa Osorio MD Mixed hyperlipidemia 04/30/2024 10:00 AM EST Telemedicine [facility] [address] [place] [address] Naomi Montague MD Hepatic cyst (Primary Dx); Breast cancer screening by mammogram; Primary insomnia 04/30/2024 Travel 04/24/2024 9:00 AM EST Office Visit [facility] [address] [place], [place] [phone] Kristi Carty, OD Diabetes type 2, no ocular involvement (CMS/HCC) (Primary Dx); Peripapillary atrophy of both eyes; Reduced visual acuity; Nuclear sclerotic cataract of both eyes; Myopia of both eyes 04/24/2024 Telephone [facility] [address] [place] [address] Naomi Montague MD CHART PREP 04/24/2024 Travel 04/10/2024 Orders Only [facility] [address] [facility] [place] [address] Naomi Montague MD 03/27/2024 8:45 AM EST Office Visit [facility] [address] [facility] [place] [address] Naomi Montague MD Type 2 diabetes mellitus with hyperglycemia, without long-term current use of insulin ([facility]) (Primary Dx); Primary insomnia; RUQ pain; Encounter for immunization 03/27/2024 Travel 03/25/2024 Telephone [facility] [address] [facility] [place] [address] Naomi Montague MD CHART PREP 03/17/2024 Patient Outreach [facility] [address] [facility] [place] [address] Naomi Montague MD Pre-visit Planning ([facility] unable to reach [facility]) 03/09/2024 Refill [facility] [address] [place] [address] Naomi Montague MD from Last 3 Months Immunizations Name Administration Dates Next Due Hep A, Adult 06/22/2015 Hep A, Unspecified 12/28/2015 Hep B, Unspecified 12/28/2015,08/17/2015 Hep B, adult 06/22/2015 Influenza Injectable Quadriv alant Preservative Free IIV4 MDCK 06/28/2023 Influenza injectable quadriv alent preservative free 01/11/2023,02/01/2022,01/27/2021,2019 Influenza, seasonal, injecta ble, preservative free 03/27/2024 Pfizer Covid-19 Vaccine 12+ 07/12/2023,1 05/18/2020,08/13/2020,2020 Pneumococcal Conjugate PCV 20 03/27/2024 RSV Bivalent 06/28/2023 Tdap 03/27/2024,10/29/2011 Zoster, Recombinant 04/06/2022,02/02/2022 Family History Medical History Relation Name Comments Colon cancer Brother Pancreatic cancer Father Diabetes Mother Heart failure Mother Hypertension Mother Relation Name Status Comments Brother Father Mother Social History Tobacco Use Types Packs/Day Years Used Date Smoking Tobacco: Never Passive Smoke Exposure: Never Smokeless Tobacco: Never Tobacco Cessation:Counseling Given: Not Answered Alcohol Use Standard Drinks/Week Comments Never 0 [...] Don't know 02/12/2022 10 :40 AM EDT Last Filed Vital Signs Vital Sign Reading Time Taken Comments Blood Pressure 128/70 03/27/2024 8:48 AM EST Pulse 61 03/27/2024 8:48 AM EST Temperature 36.5 ??C (97.7 ??F) 03/27/2024 8:48 AM ES T Respiratory Rate 20 03/27/2024 8:48 AM EST Oxygen Saturation 98% 03/27/2024 8:48 AM EST Inhaled Oxygen Concentration - - Weight 62.6 kg (138 lb) 03/27/2024 8:48 AM EST Height 161 cm (5' 3.39 ) 03/27/2024 8:48 AM EST Body Mass Index 24.15 03/27/2024 8:48 AM EST Plan of Treatment Upcoming Encounters Date Type Department Care Team (Late st Contact Info) Description 06/19/2024 3:30 PM EST Office Visit [facility] [address] [place], [place] [phone] Carloz, Kristi, OD [address] [place] [address] 07/24/2024 10:00 AM EDT Office Visit [facility] [address] [place] [address] Gaurang Stevenson Health Maintenance Due Date Last Done Comments CT Colonography 1960 Colonoscopy 1960 FIT 1960 FOBT 1960 HIV Screening 1960 Sigmoidoscopy 1960 Hepatitis C Screening 1980 Pap Smear 07/28/1983 HPV/Cotest 1992 Diabetes: Foot Exam 12/19/2022 Diabetes: Urine Protein Screening 02/02/2023 02/02/2022 COVID-19 Vaccine ( season) 2023 07/12/2023, 03/10/2022, 03/17/2021, Additional history exists Dental Oral Exam 07/18/2024 01/17/2024, , 11/30/2022 Dental Prophylaxis 07/18/2024 01/17/2024, 0 07/12/2023, 11/30/2022 Diabetes: Hemoglobin A1C 09/25/2024 024, 03/27/2024, 07/23/2023, Additional history exists Dental X-Ray: Bitewings 01/17/2025 01/17/2024, 11/30 Mammogram 01/30/2025 Lipid Panel 03/27/2025 03/27/2024, 04/0 12/2023, 01/04/2023, Additional history exists Alcohol/Substance Use Screening 04/30/2025 04/30/2024 Depression Screening 04/30/2025 04/30/2024, 04/30/19 25 SDOH Screening 04/30/2025 04/30/2024 Tobacco Screening 05/08/2025 05/08/2024 Dental X-Ray: Full Mouth 12/01/2025 11/30/2022 Colorectal Cancer Screening 02/05/2026 FIT DNA/Cologuard 02/05/2026 02/05/2023 Eye Exam 04/24/2026 04/24/2024, 04/15, 04/24/2024, Additional history exists DTaP/Tdap/Td Vaccines (3 - Td or Tdap) 03/27/2034 03/27/2024, 10/29/2011 Hepatitis A Vaccines Completed 12/28/2015, 06/22/19 16 Hepatitis B Vaccines Completed 12/28/2015, 08/17/2015, 06/22/2015 Zoster Vaccines Completed 04/06/2022, 02/02/2022 RSV Patients and Patients Aged 60 years or older Completed 06/28/2023 Influenza Vaccine Completed 03/27/2024, , 01/11/2023, Additional history exists Pneumococcal Vaccine: 50+ Years Completed 03/27/2024 Cervical Cancer Screening Discontinued HIB Vaccines Aged Out No longer eligi ble based on patient's age to complete this topic HPV Vaccines Aged Out No longer eligi ble based on patient's age to complete this topic IPV Vaccines Aged Out No longer eligi ble based on patient's age to complete this topic Meningococcal Vaccine Aged Out No dinah mayuri eligible based on patient's age to complete this topic RSV under 20 months Aged Out No longe r eligible based on patient's age to complete this topic Rotavirus Vaccines Aged Out No longer eligible based on patient's age to complete this topic Procedures Procedure Name Priority Date/Time Associated Diagnosis Comments OCT, RETINA - OU - BOTH EYES Routine 04/24/2024 9:00 AM EST Reduced visual acuity US ABDOMEN COMPLETE Routine 04/10/2024 8 :04 AM EST POCT GLUCOSE Routine 03/27/2024 10:18 AM EST Type 2 diabetes mellitus with hyperglycemia, without long-term current use of insulin (CMS/HCC) POCT GLYCATED HEMOGLOBIN, TOTAL Routine 03/27/2024 10:17 AM EST Type 2 diabetes mellitus with hyperglycemia, without long-term current use of insulin (CMS/HCC) LIPASE Routine 03/27/2024 9:46 AM EST RUQ pain LIPID PANEL, STANDARD Routine 03/27/2024 9:46 AM EST Type 2 diabetes mellitus with hyperglycemia, without long-term current use of insulin (CMS/HCC) HEMOGLOBIN A1C Routine 03/27/2024 9:46 AM EST Type 2 diabetes mellitus with hyperglycemia, without long-term current use of insulin (CMS/HCC) TSH W/REFLEX TO FT4 Routine 03/27/2024 9 :46 AM EST Type 2 diabetes mellitus with hyperglycemia, without long-term current use of insulin (CMS/HCC) COMPREHENSIVE METABOLIC PANEL Routine 03/27/2024 9:46 AM EST Type 2 diabetes mellitus with hyperglycemia, without long-term current use of insulin (CMS/HCC) CBC WITH AUTO DIFFERENTIAL Routine 03/27/2024 9:46 AM EST Type 2 diabetes mellitus with hyperglycemia, without long-term current use of insulin (CMS/HCC) Full PROPHYLAXIS - ADULT Routine 01/17/2024 8:00 AM EDT BITEWINGS - 4 RADIOGRAPHIC IMAGES Routine 01/17/2024 8:00 AM EDT PERIODIC ORAL EVALUATION - ESTABLISHED PATIENT Routine 01/17/2024 8:00 AM EDT LAB COLOGUARD?? COLON CANCER SCREEN Routine 02/05/2023 5:40 AM EDT Colon cancer screening INTRAORAL - COMPLETE SERIES OF RADIOGRAPHIC IMAGES Routine 11/30/2022 8:00 AM EDT ALBUMIN, RANDOM URINE W/CREATININE Routine 02/02/2022 8:49 AM EDT from Last 3 Months or Most Recently Relevant to Health Maintenance Results * US Abdomen Complete (04/10/2024 8:04 AM EST) Anatomical Region Laterality Modality Abdomen Ultrasound 04/10/2024 8:04 AM EST Narrative 04/12/2024 10:13 AM EST ? [facility] ?[address] ?[place] [address] ? Ultrasound Report ? Signed ? Patient: Chi,Ru ?MR#: [id number] ? : 1960 ?Acct:[id number] ? Age/Sex: 63 / F ?ADM Date: 04/10/24 ? Loc: HO.US ? Attending Dr: Naomi Montague MD ? Ordering Physician: Naomi Montague MD ?? Date of Service: 04/10/24 ?? Procedure(s): US abdomen complete ?? Accession Number(s): [id number] ? cc: Naomi Montague MD ? EXAMINATION: ?? US ABDOMEN COMPLETE ? CLINICAL INFORMATION: ?? Right upper quadrant pain. ? COMPARISON: ?? None available. ? TECHNIQUE: ?? Real-time imaging of the abdominal viscera. Limited visualization due ?? to bowel gas. ? FINDINGS: ? PANCREAS: Limited visualization. Imaged portion of the pancreas ?? demonstrates heterogeneous echotexture. ? ABDOMINAL AORTA: Limited visualization of the distal abdominal aorta. ?? Imaged portion of mid to proximal aorta unremarkable. ? INFERIOR VENA CAVA: Visualized portions are normal. ? LIVER: Increased hepatic parenchymal heterogeneity and echogenicity ?? could be associated with hepatocellular disease/hepatic steatosis and ?? substantially limits visualization. Correlation with liver function ?? tests and clinical exam recommended to determine further management. ? Multiple complex hepatic cysts, many with multiple septations. 5.7 x ?? 3.7 x 5.9 cm left hepatic lobe with multiple thin and thick septations ?? with possible nodular components. 2.8 x 1.9 x 2.4 cm right lower ?? hepatic lobe with thin septations. ? GALLBLADDER: No gallstones. No gallbladder wall thickening. ? COMMON BILE DUCT: Normal in caliber measuring 0.4 cm in diameter. ? RIGHT KIDNEY: Right renal 0.2 cm midpole calculus. No hydronephrosis. ?? Scattered tiny renal echogenic foci may represent punctate ?? calcifications. Limited visualization. The kidney measures 11.2 cm in ?? maximum dimension. ? LEFT KIDNEY: No hydronephrosis. Scattered tiny renal echogenic foci may ?? represent punctate calcifications. Limited visualization. The kidney ?? measures 11.8 cm in maximum dimension. ? SPLEEN: The spleen measures 10.3 cm in maximum dimension. ? FREE FLUID: None. ? US/US abdomen complete ?? IMPRESSION: ?? 1. Increased hepatic parenchymal heterogeneity and echogenicity could ?? be associated with hepatocellular disease/hepatic steatosis and ?? substantially limits visualization. Correlation with liver function ?? tests and clinical exam recommended to determine further management. ? 2. Multiple complex hepatic cysts, many with multiple septations. 5.7 x ?? 3.7 x 5.9 cm left hepatic lobe with multiple thin and thick septations ?? with possible nodular components. 2.8 x 1.9 x 2.4 cm right lower ?? hepatic lobe with thin septations. ? 3. Right renal 0.2 cm midpole calculus. No hydronephrosis. ? 4. Bilateral tiny scattered renal echogenic foci may represent punctate ?? calcifications. No hydronephrosis. ? 5. Limited visualization of the pancreas, although imaged portion of ?? the pancreas demonstrates heterogeneous echotexture. ? 6. CT scan recommended for further evaluation. ? Electronically signed by: ??Geovanna Vega MD ??04/12/2024 10:10 AM EST ?? RP ? Dictated By: ?Geovanna Vega MD ? Signed By: ?<Electronically signed by Geovanna Vega MD in OV> ? 04/12/24 1010 ? DD/ 0804 ? TD/TT: 04/10/24 0832 ? Take Out Waiter: ? Procedure Note Mayelin Daley - 04/12/2024 [address] [place] [address] Ultrasound Report Signed Patient: Raciel SunAnita#: [id number] : 1960Acct:[id number] Age/Sex: 63 / FADM Date: 04/10/24 Loc: HO.US Attending Dr: Naomi Montague MD Ordering Physician: Naomi Montague MD Date of Service: 04/10/24 Procedure(s): US abdomen complete Accession Number(s): [id number] cc: Naomi Montague MD EXAMINATION: US ABDOMEN COMPLETE CLINICAL INFORMATION: Right upper quadrant pain. COMPARISON: None available. TECHNIQUE: Real-time imaging of the abdominal viscera. Limited visualization due to bowel gas. FINDINGS: PANCREAS: Limited visualization. Imaged portion of the pancreas demonstrates heterogeneous echotexture. ABDOMINAL AORTA: Limited visualization of the distal abdominal aorta. Imaged portion of mid to proximal aorta unremarkable. INFERIOR VENA CAVA: Visualized portions are normal. LIVER: Increased hepatic parenchymal heterogeneity and echogenicity could be associated with hepatocellular disease/hepatic steatosis and substantially limits visualization. Correlation with liver function tests and clinical exam recommended to determine further management. Multiple complex hepatic cysts, many with multiple septations. 5.7 x 3.7 x 5.9 cm left hepatic lobe with multiple thin and thick septations with possible nodular components. 2.8 x 1.9 x 2.4 cm right lower hepatic lobe with thin septations. GALLBLADDER: No gallstones. No gallbladder wall thickening. COMMON BILE DUCT: Normal in caliber measuring 0.4 cm in diameter. RIGHT KIDNEY: Right renal 0.2 cm midpole calculus. No hydronephrosis. Scattered tiny renal echogenic foci may represent punctate calcifications. Limited visualization. The kidney measures 11.2 cm in maximum dimension. LEFT KIDNEY: No hydronephrosis. Scattered tiny renal echogenic foci may represent punctate calcifications. Limited visualization. The kidney measures 11.8 cm in maximum dimension. SPLEEN: The spleen measures 10.3 cm in maximum dimension. FREE FLUID: None. US/US abdomen complete IMPRESSION: 1. Increased hepatic parenchymal heterogeneity and echogenicity could be associated with hepatocellular disease/hepatic steatosis and substantially limits visualization. Correlation with liver function tests and clinical exam recommended to determine further management. 2. Multiple complex hepatic cysts, many with multiple septations. 5.7 x 3.7 x 5.9 cm left hepatic lobe with multiple thin and thick septations with possible nodular components. 2.8 x 1.9 x 2.4 cm right lower hepatic lobe with thin septations. 3. Right renal 0.2 cm midpole calculus. No hydronephrosis. 4. Bilateral tiny scattered renal echogenic foci may represent punctate calcifications. No hydronephrosis. 5. Limited visualization of the pancreas, although imaged portion of the pancreas demonstrates heterogeneous echotexture. 6. CT scan recommended for further evaluation. Electronically signed by: Geovanna Vega MD 04/12/2024 10:10 AM EST Dictated By: Geovanna Vega MD Signed By: <Electronically signed by Geovanna Vega MD in OV> 04/12/24 1010 DD/ 0804 TD/TT: 04/10/24 0832 Take Out Waiter: Naomi Montague MD IMG US PROCEDURES Final Resul t * POCT Glucose (03/27/2024 10:18 AM EST) Pathologist [facility] Glucose Blood, POC 129 60 - 200 mg/dL QC Media Lot # [id number] Comment:fasting Lot# Expiration Date [id number] ,222,[id number] 00,000,000 Blood Capillary blood specimen / Unknown 03/27/2024 10:18 AM EST Result [facility] Naomi Montague MD POINT OF CARE TEST ENTER/EDIT ORDERABLES Final Result * (ABNORMAL) POCT HGB A1C (03/27/2024 10:17 AM EST) [facility] Hemoglobin A1C 6.7(A) 4.0 - 6.0 % QC Media Lot # [id number] Lot# Expiration Date [id number] Blood 03/27/2024 10:1 7 AM EST Naomi Montague MD POINT OF CARE TEST ENTER/EDIT ORDERABLES Final Result * TSH W/Reflex to FT4 (03/27/2024 9:46 AM EST) Pathologist [facility] TSH reflex Free T4 1.83 0.32 - 4.0 uIU/mL [facility] Blood Venous blood specimen / Unknown 03/27/2024 9:46 AM EST 03/27/2024 2:18 PM EST us Naomi Montague MD LAB BLOOD ORDERABLES Final Re sult [facility] [address] [place] [address] [phone] * CBC auto differential (03/27/2024 9:46 AM EST) White Blood Count 5.3 4.8 - 10.8 X10*3/uL [facility] Red Blood Count 4.72 4.20 - 5.50 X10*6/uL [facility] Hemoglobin 12.9 12.0 - 16.0 g/dl [facility] Hematocrit 39.0 37.0 - 47.0 % [facility] Mean Corpuscular Volume 82.6 80.0 - 98.0 fL [facility] Mean Corpuscular Hemoglobin 27.3 27.0 - 33.0 pg [facility] Mean Corpuscular HGB Conc 33.1 31.0 - 35.0 g/dl [facility] Red Cell Distribution Width 11.7 11.0 - 16.0 % [facility] Platelet Count 208 160 - 400 X10*3/uL [facility] Mean Platelet Volume 10.0 9.4 - 12.3 fL [facility] Neutrophils Percent Auto 56.5 45 - 73 % [facility] Imm Gran Pct Auto 0.2 0.0 - 0.4 % [facility] Lymphocytes Percent Auto 33.0 20 - 40 % [facility] Monocytes Percent Auto 5.6 2 - 11 % [facility] Eosinophils Percent Auto 3.6 0 - 4 % [facility] Basophils Percent Auto 1.1 0 - 2 % [facility] NRBC Pct Auto 0.0 0.0 - 0.2 /100WBC [facility] Neutrophils Absolute Auto 3.0 2.0 - 8.3 x10*3/uL [facility] Imm Gran Abs Auto 0.01 0.00 - 0.03 X10*3/uL [facility] Lymphocytes Absolute Auto 1.8 1.2 - 4.9 X10*3/uL [facility] Monocytes Absolute Auto 0.3 0.1 - 1.2 X10*3/uL [facility] Eosinophils Absolute Auto 0.2 0.0 - 0.4 X10*3/uL [facility] Basophils Absolute Auto 0.1 0.0 - 0.2 X10*3/uL [facility] NRBC Abs Auto 0.000 0.0 - 0.012 X10*3/uL [facility] Blood Venous blood specimen / Unknown 03/27/2024 9:46 AM EST 03/27/2024 2:14 PM EST Naomi Montague MD LAB BLOOD ORDERABLES Final Re sult Performing Organization Address City/[facility]/ZIP Co de Phone Number [facility] [address] [place] [phone] * Lipase (03/27/2024 9:46 AM EST) Lipase 33 8 - 78 U/L [facility] Blood Venous blood specimen / Unknown 03/27/2024 9:46 AM EST 03/27/2024 2:18 PM EST Naomi Montague MD LAB BLOOD ORDERABLES Final Re sult Performing Organization Address City/[facility]/ZIP Co de Phone Number [facility] [address] [place] [address] [phone] * (ABNORMAL) Hemoglobin A1c (03/27/2024 9:46 AM EST) Hemoglobin A1c 6.7(H) <6.0 % [facility] Comment:Hemoglobin A1C Refer ence Range Adults: 4.8 - 6.0 % Non diabetic: < 6.0 % Goal: < 7.0 %Additional Action Suggested: > 8.0 %Note: Hemoglobin A1c results are invalid for patients with abnormal amounts of HbF. Blood transfusions may impact the HbA1c concentration in the patient sample. Estimated Average Glucose 146 mg/dL [facility] Comment:eAG = Estimated ave rage glucose which is %A1C expressed asaverage glucose, using the formula of the I4N-TjvdeniHsnjpul Glucose study (ADAG), Diabetes Care, Vol.31,#8,2007 Blood Venous blood specimen / Unknown 03/27/2024 9:46 AM EST 03/27/2024 2:14 PM EST us Naomi Montague MD LAB BLOOD ORDERABLES Final Re sult [facility] [address] [place] [address] [phone] * Lipid Panel, Standard (03/27/2024 9:46 AM EST) Triglycerides 77 <150 mg/dL [facility] Comment:Desirable Triglyceri de: less than 150 mg/dLBorderline High Triglyceride 150-199 mg/dLHigh Triglyceride: 200-499 mg/dLVery High Triglyceride: greater than or equal to 5OO mg/dL Cholesterol 114 <200 mg/dL [facility] Comment:Desirable Cholestero l: less than 200 mg/dLBorderline High Cholesterol: 200-239 mg/dLHigh Cholesterol: greater than 239 mg/dL LDL Cholesterol Calculated 46 <100 mg/dL [facility] Comment:Desirable LDL: less than 100 mg/dLNear Optimal/Above Optimal LDL: 110- 129 mg/dLBorderline High LDL: 130-159 mg/dLHigh LDL: 160-189 mg/dLVery High LDL: greater than or equal to 190 mg/dL HDL Cholesterol 53 >40 mg/dL [facility] Comment:Desirable HDL: great er than 40 mg/dL Note: This HDL assay may give artificially low results in patients with liver disease. Blood Venous blood specimen / Unknown 03/27/2024 9:46 AM EST 03/27/2024 2:18 PM EST us Naomi Montague MD LAB BLOOD ORDERABLES Final Re sult [facility] [address] [place] [address] [phone] * Comprehensive Metabolic Panel (03/27/2024 9:46 AM EST) Sodium 142 135 - 145 mmol/L [facility] Potassium 4.0 3.3 - 5.1 mmol/L [facility] Chloride 106 96 - 108 mmol/L [facility] Carbon Dioxide 27 22 - 29 mmol/L [facility] Anion Gap 13 12 - 20 [facility] Urea Nitrogen (BUN) 11 9 - 16 mg/dL [facility] Creatinine, Serum 0.83 0.5 - 1.4 mg/dL [facility] Estimated Glomerular Filt Rate >60 [facility] Comment:Chronic Kidney Disea se: Estimated GFR < 60 mL/min/[id number] Kidney Disease: Estimated GFR < 15 mL/min/1.73m2 Glucose 110 60 - 115 mg/dL [facility] Calcium 9.4 8.4 - 10.2 mg/dL [facility] Bilirubin, Total 0.5 0.0 - 1.0 mg/dL [facility] Aspartate Amino Transferase 25 5 - 31 U/L [facility] Alanine Aminotransferase 25 0 - 31 U/L [facility] Total Protein 7.0 6.5 - 8.0 g/dL [facility] Albumin Level 4.7 3.5 - 5.0 g/dL [facility] Alkaline Phosphatase 57 39 - 117 U/L [facility] Blood Venous blood specimen / Unknown 03/27/2024 9:46 AM EST 03/27/2024 2:18 PM EST us Naomi Montague MD LAB BLOOD ORDERABLES Final Re sult [facility] [address] [place] [address] [phone] * Cologuard?? colon cancer screening (02/05/2023 5:40 AM EDT) Cologuard Result Negative Negative 02/14/20 2:34 AM EDT [facility] (CLIA #:[id number]) Comment: NEGATIVE TEST RESULT. A negative Cologuard result indicates a low likelihood that a colorectal cancer (CRC) or advanced adenoma (adenomatous polyps with more advanced pre-malignant features) ??is present. The chance that a person with a negative Cologuard test has a colorectal cancer is less than 1 in 1500 (negative predictive value >99.9%) or has an ??advanced adenoma is less than ??5.3% (negative predictive value 94.7%). These data are based on a prospective cross-sectional study of 10,000 individuals at average risk for colorectal cancer who were screened with both Cologuard and colonoscopy. (Dickson Ruiz. et al, N Engl J Med 2014;370(14):1286- 1297) The normal value (reference range) for this assay is negative. COLOGUARD RE-SCREENING RECOMMENDATION: Periodic colorectal cancer screening is an important part of preventive healthcare for asymptomatic individuals at average risk for colorectal cancer. ??Following a negative Cologuard result, the [place] Cancer Society and U.S. Multi-Society Task Force screening guidelines recommend a Cologuard re-screening interval of 3 years. References: [employer] Cancer Society Guideline for Colorectal Cancer Screening: https://www.cancer.org/cancer/jaxuf-oppdll-kpzfoy/wmhpepubk-jiqdojxgc-nxkfbfc/ac s-rec ommendations.html.; Abdulkadir ISAACS, Zi FERNANDEZ, Luzmaria PrakashK, Colorectal Cancer Screening: Recommendations for Physicians and Patients from the U.S. Multi-Society Task Force on Colorectal Cancer Screening , Am J Gastroenterology 2017; 112:7946-5133. TEST DESCRIPTION: Composite algorithmic analysis of stool DNA-biomarkers with hemoglobin immunoassay. ?? Quantitative values of individual biomarkers are not reportable and are not associated with individual biomarker result reference ranges. Cologuard is intended for colorectal cancer screening of adults of either sex, 45 years or older, who are at average-risk for colorectal cancer (CRC). Cologuard has been approved for use by the U.S. FDA. The performance of Cologuard was established in a cross sectional study of average-risk adults aged 50-84. Cologuard performance in patients ages 45 to 49 years was estimated by sub-group analysis of near-age groups. Colonoscopies performed for a positive result may find as the most clinically significant lesion: colorectal cancer [4.0%], advanced adenoma (including sessile serrated polyps greater than or equal to 1cm diameter) [20%] or non- advanced adenoma [31%]; or no colorectal neoplasia [45%]. These estimates are derived from a prospective cross-sectional screening study of 10,000 individuals at average risk for colorectal cancer who were screened with both Cologuard and colonoscopy. (Dickson Sampson al, N Engl J Med 2014;370(14):2615-5483.) Cologuard may produce a false negative or false positive result (no colorectal cancer or precancerous polyp present at colonoscopy follow up). A negative Cologuard test result does not guarantee the absence of CRC or advanced adenoma (pre-cancer). The current Cologuard screening interval is every 3 years. ([employer] Cancer Society and U.S. Multi-Society Task Force). Cologuard performance data in a 10,000 patient pivotal study using colonoscopy as the reference method can be accessed at the following location: www.iList/results. Additional description of the Cologuard test process, warnings and precautions can be found at www.[employer].com. Stool specimen (specimen) 02/05/2023 5:40 AM EDT 02/06/2023 9:11 PM EDT us Naomi Montague MD LAB MOLECULAR DIAGNOSTICS ORD ERABLES Final Result [facility] (CLIA #:[id number]) [place] [address], [place] [phone] * ALBUMIN, RANDOM URINE W/CREATININE (02/02/2022 8:49 AM EDT) Microalbumin Urine 1.0 See Note: mg/dL [facility] Comment: Reference Range: ?? Reference Range Not established Microalb/Creat Ratio 9 <30 mcg/mg creat [facility] Comment: ?? The ADA defines abnormalities in albumin excretion as follows: ?? Albuminuria Category ?Result (mcg/mg creatinine) ?? Normal to Mildly increased ?? <30 Moderately increased ? 30-299 ?? Severely increased ? > OR = 300 ?? The ADA recommends that at least two of three specimens collected within a 3-6 month period be abnormal before considering a patient to be within a diagnostic category. Creatinine, Urine 109 20 - 275 mg/dL [facility] 02/02/2022 8:49 AM EDT us Naomi Montague MD LAB URINE ORDERABLES Final Re sult [facility] from Last 3 Months or Most Recently Relevant to Health Maintenance Insurance [facility] DENT[facility] - HSN PARTIAL (MEDICAID) DENTAL - HSN PARTIAL (MEDICAID) Care Teams Manager Policy Relationship Specialty Start Date End Date Naomi Montague MD [address] [place] [phone] PCP - General Family Medicine 02/01/22
[2024-06-06 02:04] VITALS: BP 127/58; PULSE 76; RESP 16; O2SAT 96
[2024-06-06 02:17] LABS: Appearance Urine Clear; Color Urine Yellow; Glucose Urine UA Negative (Negative); Leukocyte Esterase Urine Negative (Negative); Nitrite Urine Negative (Negative); PH 6.5 (5.0-9.0); Specific Gravity - Urine >= 1.030 (1.005-1.025); Urine Blood Negative (Negative); Urine Ketones Negative (Negative); Urine Protein Trace mg/dL (Neg-Trace)
[2024-06-06 02:23] LABS: Bacteria Urine None Seen (None Seen); Hyaline Casts Urine 0-2 /LPF (0-2); RBC Urine 0-2 /HPF (0-2); Squamous Epithelial Cell Urine 0-2 /HPF (0-2); WBC Urine 0-5 /HPF (0-5)
[2024-06-06 02:41] LABS: Reflex Lactate? Lactic Acid Added
[2024-06-06 03:24] LABS: ~Lactic Acid-LAB USE ONLY 1.8 mmol/L (0.5-2.0)
[2024-06-06] MEDS: Omeprazole 40 MG CAPSULE.DR PO (03:52)
[2024-06-06] MEDS: Amoxicillin/Potassium Clav 500 MG TABLET PO (03:52)
[2024-06-06 03:54] VITALS: BP 123/54; PULSE 71; RESP 16; TEMP 36.9; O2SAT 96
== END 2024-06-06 03:55 | disposition home or self-care (01) ==
PROVIDERS: Emergency Provider Emergency Medicine; PCP Family Medicine
DX: K52.9 Noninfective gastroenteritis and colitis, unspecified (principal); K20.90 Esophagitis, unspecified without bleeding; K29.70 Gastritis, unspecified, without bleeding; R11.2 Nausea with vomiting, unspecified; Z03.818 Encounter for observation for suspected exposure to other biological agents ruled out; I10 Essential (primary) hypertension; E78.5 Hyperlipidemia, unspecified
CPT/HCPCS: 0241U; 36415; 74177; 80053; 81001; 83605; 83690; 84484; 85025; 87040; 93005; 96361; 96374; 96375; 99284; J2270; J2405; Q9967

== ENCOUNTER → 2024-06-06 00:08 | Outpatient (BNV) | payer OTHER, SELFPAY | PROVIDERS: Emergency Provider Emergency Medicine; PCP Family Medicine; Visit Provider Internal Medicine | DX: R94.31 Abnormal electrocardiogram [ECG] [EKG] (principal) | CPT/HCPCS: 93010 ==

== ENCOUNTER → 2024-06-06 00:09 | Outpatient (BNV) | payer OTHER, SELFPAY | PROVIDERS: Emergency Provider Emergency Medicine; PCP Family Medicine; Visit Provider Radiology Diagnostic Radiology | DX: R10.13 Epigastric pain (principal); K29.70 Gastritis, unspecified, without bleeding; K20.90 Esophagitis, unspecified without bleeding | CPT/HCPCS: 74177 ==

== ENCOUNTER 2024-07-24 12:07 | Outpatient (REF) | payer OTHER, SELFPAY ==
--- OUTSIDE RECORDS SUMMARY | 2024-07-24 13:44 | XMS_ITS | Clinical Summary ---
Author Organization [employer] Address [address] [facility] [address] [place] [address] Care Team Providers Care Beer Maker Name Role Phone Naomi Montague MD Primary Care Provider [phone] Allergies Active Allergy Reactions Criticality Noted Date Comments Tolterodine Swelling 04/02/2022 Ubidecarenone Itching 02/08/2023 Medications Lancets 33G misc Use to check blood sugar daily as directed Active Blood Glucose Monitoring Suppl (FreeStyle [place] Lite) w/Device kit TEST BLOOD SUGAR DAILY [...] (10/05/2022 2:46 PM EDT): Patient seen by ball sorter and had FNA done for mass on neck. Biopsy results given to patient and was recommended for surgery with no diagnoses. Per field representative at [facility], Appointment scheduled with general surgeon for Jan 04 @ 9:30 Dr. Connolly at [facility], General surgeon specialty in thyroid. Assessment [...] Description 06/19/2024 3:30 PM EST Office Visit [facility] [address] [place] [address] Carloz, Kristi, OD Peripapillary atrophy of both eyes (Primary Dx) 06/19/2024 Travel 06/16/2024 Telephone [facility] [address] [place] [address] Naomi Montague MD came to clinic with questions about CT Pelvis 06/06/2024 Orders Only [facility] External Provider, [facility] 05/30/2024 Refill [facility] [address] [place] [address] Naomi Montague MD 05/14/2024 Refill [facility] [address] [place] [address] Pushpa Osorio MD Mixed hyperlipidemia 04/30/2024 10:00 AM EST Telemedicine [facility] [address] [place] [address] Naomi Montague MD Hepatic cyst (Primary Dx); [...] Description 08/21/2024 9:00 AM EDT Office Visit [facility] [address] [place] [address] Gaurang Stevenson 10/23/2024 3:00 PM EDT Office Visit [facility] [address] [place] [address] Carloz, Kristi, OD [address] [place] [address] Health Maintenance Due Date Last Done Comments [...] Acid 1.8 0.5 - 2.0 mmol/L [facility] 06/06/2024 3:06 AM EST 06/06/2024 3:08 AM EST us Generic External Data Provider LAB BLOOD ORDERAB LES Final Result [facility] [address] [place] [phone] * CT Abdomen Pelvis w/ Contrast (06/06/2024 2:50 AM EST) Anatomical Region Laterality Modality Body, Pelvis, Abdomen Computed T omography 06/06/2024 2:50 AM EST Narrative 06/06/2024 2:51 AM EST ? [facility] ?[address] ?[place] [address] ? CT Scan Report ? Signed ? Patient: Chi,Ru ?MR#: [id number] ? : 1960 ?Acct:[id number] ? Age/Sex: 63 / F ?ADM Date: 06/06/24 ? Loc: HO.ED ? Attending Dr: ? Ordering Physician: Kristen Medrano MD ?? Date of Service: 06/06/24 ?? Procedure(s): CT abdomen pelvis w IV con ?? Accession Number(s): [id number] ? cc: Kristen Medrano MD; Naomi Montague MD ? Report Number: ?? [id number]: Total DLP = ??438.00 mGy-cm ? CLINICAL HISTORY: epigastric pain ? Exam: CT abdomen and pelvis with intravenous contrast. ? Comparison: Abdominal ultrasound April 10, 2024. ? Findings: ? CT abdomen: ? No infiltrates within the lung bases. ?? Bones are osteopenic. No acute fracture. ?? Mild de leon chamber cardiac dilation. ?? Concentric wall thickening distal esophagus with small hiatal hernia. ?? Adsb-ft-txkfzwoo fluid distention of the stomach with areas [...] DD/ 0250 ? TD/TT: 06/06/24 0250 ? Neonatal Nurse Practitioner: ? Procedure Note Mayelin Daley - 06/06/[address] [place] [id number] [address] Scan Report Signed Patient: Ricky Sun#: [id number] : 1960Acct:[id number] Age/Sex: 63 / FADM Date: 06/06/24 Loc: HO.ED Attending Dr: Ordering Physician: Kristen Medrano MD Date of Service: 06/06/24 Procedure(s): CT abdomen pelvis w IV con Accession Number(s): [id number] cc: Kristen Medrano MD; Naomi Montague MD Report Number: [id number]: Total DLP = 438.00 mGy-cm CLINICAL HISTORY: epigastric pain Exam: CT abdomen and pelvis with intravenous contrast. Comparison: Abdominal ultrasound April 10, 2024. Findings: CT abdomen: No infiltrates within the lung bases. Bones are osteopenic. No acute fracture. Mild de leon chamber cardiac dilation. Concentric wall thickening distal esophagus with small hiatal hernia. Bojx-ld-thqailoh fluid distention of the stomach with areas [...] OV> 06/06/24 0251 DD/ 9 TD/TT: 06/06/24249 Neonatal Nurse Practitioner: [facility] External Provider IMG CT PROCEDURES Final Result * (ABNORMAL) Urinalysis, Complete, with Reflex to Culture (06/06/2024 2:06 AM EST) Color Urine Yellow [facility] Appearance Urine Clear [facility] PH 6.5 5.0 - 9.0 [facility] Glucose Urine UA Negative Negative mg/dL [facility] Urine Blood Negative Negative [facility] Specific [place] - Urine >=1.030(H) 1.005 - 1.025 [facility] Urine Protein Trace Neg-Trace mg/dL [facility] Urine Ketones Negative Negative mg/dL [facility] Nitrite Urine Negative Negative [facility] Leukocyte Esterase Urine Negative Negative [facility] RBC Urine 0-2 0 - 2 /HPF [facility] Urine WBC 0-5 0 - 5 /HPF [facility] Urine Squamous Epithelial Cell 0-2 0 - 2 /HPF [facility] Urine Bacteria None Seen None Seen [facility] Hyaline Casts, Urine 0-2 0 - 2 /LPF [facility] 06/06/2024 2:06 AM EST 06/06/2024 2:11 AM EST Narrative [facility] - 06/06/2024 2:23 AM EST Urine, Clean Catch Generic External Data Provider LAB URINE ORDERAB LES Final Result [facility] [address] [place] [address] [phone] * (ABNORMAL) POCT HGB A1C (03/27/2024 10:17 AM EST) Hemoglobin A1C 6.7(A) 4.0 - 6.0 % [employer] Media Lot # [id number] Lot# Expiration Date [id number] Blood 03/27/2024 10:1 7 AM EST Naomi Montague MD POINT OF CARE TEST ENTER/EDIT ORDERABLES Final Result * Lipid Panel, Standard (03/27/2024 9:46 AM EST) Triglycerides 77 <150 mg/dL [facility] Comment:Desirable Triglyceri de: less than 150 mg/dLBorderline High Triglyceride 150-199 mg/dLHigh Triglyceride: 200-499 mg/dLVery High Triglyceride: greater than or equal to 5OO mg/dL Cholesterol 114 <200 mg/dL [facility] Comment:Desirable Cholestero l: less than 200 mg/dLBorderline High Cholesterol: 200-239 mg/dLHigh Cholesterol: greater than 239 mg/dL LDL Cholesterol Calculated 46 <100 mg/dL [facility] Comment:Desirable LDL: less than 100 mg/dLNear Optimal/Above Optimal LDL: 110- 129 mg/dLBorderline High LDL: 130-159 mg/dLHigh LDL: 160-189 mg/dLVery High LDL: greater than or equal to 190 mg/dL HDL Cholesterol 53 >40 mg/dL [facility] Comment:Desirable HDL: great er than 40 mg/dL Note: This HDL assay may give artificially low results in patients with liver disease. Blood Venous blood specimen / Unknown 03/27/2024 9:46 AM EST 03/27/2024 2:18 PM EST Naomi Montague MD LAB BLOOD ORDERABLES Final Re sult [facility] [address] [place] [phone] * Cologuard?? colon cancer screening (02/05/2023 5:40 AM EDT) Cologuard Result Negative Negative 02/14/20 2:34 AM EDT [employer] (CLIA #:[id number]) Comment: NEGATIVE TEST RESULT. A negative Cologuard [...] cancer. ??Following a negative Cologuard result, the [place] Cancer Society and U.S. Multi-Society Task Force screening guidelines recommend a Cologuard re-screening interval of 3 years. References: [place] [employer] Guideline for Colorectal Cancer Screening: https://www.cancer.org/cancer/qkxjr-fbshjf-flxcgh/gohubiqkr-juwfchnwd-obnakbb/ac s-rec ommendations.html.; Abdulkadir DK, Zi CR, Luzmaria PrakashK, Colorectal Cancer Screening: Recommendations for Physicians and Patients from the U.S. Multi-Society Task Force on Colorectal Cancer Screening , Am J Gastroenterology 2017; 112:2449-8464. TEST DESCRIPTION: Composite algorithmic analysis of stool [...] (Dickson Sampson al, N Engl J Med 2014;370(14):7908-8889.) Cologuard may produce a false negative or false positive result (no colorectal cancer or precancerous polyp present at colonoscopy follow up). A negative Cologuard test result does not guarantee the absence of CRC or advanced adenoma (pre-cancer). The current Cologuard screening interval is every 3 years. ([place] [employer] and U.S. Multi-Society Task Force). Cologuard performance data in a 10,000 patient pivotal study using colonoscopy as the reference method can be accessed at the following location: www.AboutOne.KelBillet/results. Additional description of the Cologuard test process, warnings and precautions can be found at www.[employer]rd.KelBillet. Stool specimen (specimen) 02/05/2023 5:40 AM EDT 02/06/2023 9:11 PM EDT Naomi Montague MD LAB MOLECULAR DIAGNOSTICS ORD ERABLES Final Result [employer] (CLIA #:[id number]) [place] [address], * ALBUMIN, RANDOM URINE W/CREATININE (02/02/2022 8:49 [...] Most Recently Relevant to Health Maintenance Insurance [facility] - HSN PARTIAL (MEDICAID) [place] DENTAL - HSN PARTIAL (MEDICAID) Care Teams Beer Maker Relationship Specialty Start Date End Date Naomi Montague MD [address] [place] [phone] PCP - General Family Medicine 02/01/22
--- OUTSIDE RECORDS SUMMARY | 2024-07-24 13:44 | XMS_ITS | Encounter Summary ---
Author Organization [employer] Address [address] [place] [address] [address] [place] [address] Care Team Providers Care Manager Analysis Name Role Phone Naomi Montague MD Primary Care Provider [phone] Reason for Visit * Reason Onset Date Comments Returning Call Back 10/10/2022 Encounter Details Date Type Department Care Team ([facility] st Contact Info) Description 10/10/2022 Telephone [facility] [address] [place] [address] Naomi Montague MD [address] [place] [address] Returning Call Back Social History Tobacco Use [...] spouse returning call back, regarding message below. Comic Book Artist let him know a nurse will call back with an senior quality analyst he stated she's at work they can call him. Comic Book Artist doesn't see any HIPPA information. documented in this encounter Plan of Treatment Upcoming Encounters Date Type Department Care Team (Late st Contact Info) Description 08/21/2024 9:00 AM EDT Office Visit [facility] [address] [place] [address] Gaurang Stevenson 10/23/2024 3:00 PM EDT Office Visit [facility] [address] [place], [place] [phone] Carloz, Kristi, OD [address] [place] [address] documented as of this encounter Visit Diagnoses Not on filedocumented in this encounter Additional Health Concerns Assessment Noted Time PHQ-9 Depression Total Score: 0 06/30/19 23 2:19 PM EDT documented as of this encounter Care Teams Manager Analysis Relationship Specialty Start Date End Date Naomi Montague MD [address] [place] [address] PCP - General Family Medicine 02/01/22 documented as of this encounter
[2024-07-24 14:28] LABS: Hematocrit 37.2 % (37.0-47.0); Hemoglobin 12.9 g/dl (12.0-16.0); Mean Corpuscular HGB Conc 34.7 g/dl (31.0-35.0); Mean Corpuscular Hemoglobin 27.2 pg (27.0-33.0); Mean Corpuscular Volume 78.5 fL (80.0-98.0); Mean Platelet Volume 9.9 fL (9.4-12.3); Platelet Count 207 X10*3/uL (160-400); Red Blood Count 4.74 X10*6/uL (4.20-5.50); Red Cell Distribution Width 11.7 % (11.0-16.0); White Blood Count 5.6 X10*3/uL (4.8-10.8)
[2024-07-24 14:53] LABS: Prothrombin Time 11.3 SEC (10.9-12.4)
[2024-07-24 15:08] LABS: Alanine Aminotransferase 37 U/L (0-31); Albumin Level 4.7 g/dL (3.5-5.0); Alkaline Phosphatase 73 U/L (39-117); Anion Gap 11 (12-20); Aspartate Amino Transferase 25 U/L (5-31); Bilirubin Total 0.4 mg/dL (0.0-1.0); Blood Urea Nitrogen 12 mg/dL (9-16); Calcium 9.4 mg/dL (8.4-10.2); Carbon Dioxide 28 mmol/L (22-29); Chloride 108 mmol/L (96-108); Estimated Glomerular Filt Rate > 60; Glucose Random 170 mg/dL (60-115); Potassium 3.8 mmol/L (3.3-5.1); Sodium 143 mmol/L (135-145); Total Protein 7.3 g/dL (6.5-8.0)
[2024-07-27 08:32] LABS: HBS Num1 > 1000.00 mIU/mL (0-7.99); HBc Num1 5.59 S/CO (0.00-0.79); HBsAGNum1 0.24 S/CO (0.00-0.99); Hepatitis B Surface Antigen Negative (Negative); ~HepC Num1 0.09 S/CO (0.00-0.79); ~Hepatitis B Surface Antibody REACTIVE (Nonreactive); ~Hepatitis C Antibody Nonreactive (Nonreactive)
[2024-07-27 09:24] LABS: HBc Num2 6.05 S/CO; HBc Num3 6.07 S/CO; Hepatitis B Core Antibody Reactive (Nonreactive)
[2024-07-27 11:59] LABS: TS Negative Control Passed; TS Panel A 34; TS Panel B 16; TS Positive Control Passed; TSpotTB Positive (Negative)
[2024-07-28 08:21] LABS: Hepatitis A Antibody IgG REACTIVE (Nonreactive)
== END 2024-07-24 12:08 | disposition home or self-care (01) ==
LOC: HO.LAB 12:07
PROVIDERS: PCP Family Medicine; Visit Provider Internal Medicine
DX: K76.89 Other specified diseases of liver (principal); Z11.59 Encounter for screening for other viral diseases; Z83.1 Family history of other infectious and parasitic diseases
CPT/HCPCS: 36415; 80053; 85027; 85610; 86481; 86704; 86706; 86708; 86803; 87177; 87209; 87340; 99202

== ENCOUNTER 2024-07-24 12:07 | Outpatient (AMB) | payer OTHER, SELFPAY ==
--- NOTE | 2024-07-24 12:12 | MHC.OFFVIS ---
Vital Signs 07/24/24 12:14 Height 5 ft Weight 141 lb 1.533 oz BMI 27.6 BP 119/55 L Blood Pressure Location Lt brachial Position Sitting Pulse 67 Intake Visit Reasons: Hepatic Cyst Intake Note: Ru presents in the office as a new patient for Hepatic Cyst. CC: She states she was having symptoms last week but today she is feeling okay. 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 Seen with the help of [employer] per diem interpreter. present as well. Pt herself reports hx of abd pain with N/V/D back in may that prompted ER visit. Resolved within 2 weeks. Currently asymptomatic. No abd pain, N,V, dysphagia or regurgitation. When pt seen in ER she had US done that showed complex liver cysts. This was then followed up with a CT see below. CT abdomen: No infiltrates within the lung bases. Bones are osteopenic. No acute fracture. Mild de leon chamber cardiac dilation. Concentric wall thickening distal esophagus with small hiatal hernia. Ocwl-ca-jzsaudio fluid distention of the stomach with areas of gastric wall thickening along the proximal to mid gastric body. Fluid-filled loops of borderline dilated small bowel is seen within the abdomen pelvis. Small bowel loops are dilated to 0.8 cm. There are scattered small bowel air-fluid levels. Small-bowel wall thickening and small-bowel wall hyperenhancement is seen in association with these fluid-filled loops of small bowel. Generalized low attenuation throughout the liver indicative of fatty infiltration. Numerous hypodense lesions within the liver corresponding to the ultrasound abnormalities. The largest is within the lateral segment of the left lobe measuring 6.5 x 6.9 cm in size. These are all fluid attenuation lesions. No solid hepatic mass lesions identified. Main portal vein is patent. Spleen, pancreas, gallbladder, and adrenal glands are unremarkable. Symmetric enhancement of the kidneys without mass or hydronephrosis. CT pelvis: Suture material seen of the anal rectal junction. Mild fluid distention of the cecum and ascending colon. Fluid-filled small bowel is seen within the pelvis as discussed above. Appendix is normal. No free fluid or free air. Uterus is surgically absent. Fluid attenuation structure is seen at the level of the vaginal cuff measuring 4.2 x 2.5 x 2.6 cm in size. No enlarged lymph nodes. No fam hx of gastric or esophageal ca. Father: cholangiocarcinoma - pt not aware if he had liver fluke infection Pt does not smoke. Occ wine use. Has hx of hysterectomy as well as recent hemorrhoidectomy. PFSH Medical History (Updated 07/24/24 @ 13:10 by Brittny Jean-Baptiste MD) Hyperlipidemia Hypertension Surgical History (Updated 07/24/24 @ 12:16 by ANGELLA Mckeon) Hx of colonoscopy History of esophagogastroduodenoscopy (EGD) Family History (Updated 07/24/24 @ 12:17 by ANGELLA Mckeon) Brother Colon cancer Review of Systems Const All systems reviewed & are unremarkable except as noted in HPI and below Physical Exam Vital Signs: Last Vital Signs Pulse 67 07/24/24 12:14 BP 119/55 L 07/24/24 12:14 BMI result Body Mass Index 27.6 No apparent distress Nonicteric Abdomen soft, nondistended Alert and oriented x3, normal gait Assessment & Plan Assessment & Plan (1) Hepatic cyst: Code(s): K76.89 - Other specified diseases of liver Category: Medical (2) Need for hepatitis B screening test: Code(s): Z11.59 - Encounter for screening for other viral diseases Category: Medical (3) Family history of tuberculosis: Code(s): Z83.1 - Family history of other infectious and parasitic diseases Category: Medical (4) Family history of cholangiocarcinoma: Code(s): Z80.0 - Family history of malignant neoplasm of digestive organs Category: Medical Plan 1. liver cysts: Differentials for liver cysts include simple cyst versus hydatid cysts especially given patient originally from [place]. Interesting to note that father had cholangiocarcinoma- known risk factor is fasciola/liver [place] gisele in [place]. Plan: -urgent MRI liver protocol -O&P x3 -if O&P negative low threshold to proceed with fasciola hepatica KILEY test 2. History of gastritis Noted on CT abdomen and pelvis. Unclear if acute in the setting of infectious gastroenteritis versus chronic. Patient currently asymptomatic. Will need upper endoscopy for luminal evaluation, as well as for mapping biopsy to screen for GIM in a high-risk pt for gastric cancer based on epidemiology. Will await MRI results, in case need ERCP as well, in which case we will do EGD and ERCP together. 3. High-risk for hepatitis-B Patient from endemic hep B area. Ultrasound liver slightly abnormal. Plan: -hepatitis serology ordered. Close follow-up in 4-6 weeks after results of the MRI Orders: Orders MR abdomen wo/w con Today K76.89 - Other specified diseases of liver Comprehensive Met. Panel Today K76.89 - Other specified diseases of liver T Spot TB Today Z83.1 - Family history of other infectious and parasitic diseases Hepatitis B Surface Antibody Today Z11.59 - Encounter for screening for other viral diseases Hepatitis C Antibody Today Z11.59 - Encounter for screening for other viral diseases Ova and Parasite 07/26/24 K76.89 - Other specified diseases of liver Complete Blood Count no Diff Today K76.89 - Other specified diseases of liver Prothrombin Time INR Today K76.89 - Other specified diseases of liver Hepatitis A IgG Today Z11.59 - Encounter for screening for other viral diseases Hepatitis B Core Antibody Today Z11.59 - Encounter for screening for other viral diseases Hepatitis B Surface Antigen Today Z11.59 - Encounter for screening for other viral diseases Ova and Parasite Today K76.89 - Other specified diseases of liver Ova and Parasite 07/25/24 K76.89 - Other specified diseases of liver Coding Level of Care Code New Pt Level 4 (35625) Complex EM visit Add On G2211 Diagnoses Hepatic cyst K76.89 Need for hepatitis B screening test Z11.59 Family history of tuberculosis Z83.1 Family history of cholangiocarcinoma Z80.0
[2024-07-24 12:14] VITALS: BP 119/55; PULSE 67; BMI 27.6
--- OUTSIDE RECORDS SUMMARY | 2024-07-24 12:56 | XMS_ITS | Encounter Summary ---
Author Organization [facility] [employer] Address [address] [place] [address] [address] [place] [address] Care Team Providers Care Bottom Cager Name Role Phone Naomi Montague MD Primary Care Provider Reason for Visit * Reason Onset Date Comments Returning Call Back 10/10/2022 Encounter Details Date Type Department Care Team ([facility] st Contact Info) Description 10/10/2022 Telephone [facility] PEDS [address] [place] [address] Naomi Montague MD [address] [place] [address] Returning Call Back Social History Tobacco Use Types Packs/Day Years Used Date Smoking Tobacco: Never Passive Smoke Exposure: Never Smokeless Tobacco: Never Alcohol Use Standard Drinks/Week Comments Never 0 (1 standard drink = 0.6 oz pur e alcohol) Depression Answer Date Recorded Patient Health Questionnaire-9 Score 0 06/29/2022 Depression Answer Date Recorded Patient Health Questionnaire-2 Score 0 06/29/2022 Comments Unknown Sex and Gender Information Value Date Recorded Sex Assigned at Female 02/12/2022 10:40 AM EDT Legal Sex Female 10:40 AM EDT Gender Identity Female 02/12/2022 10:40 AM EDT Sexual Orientation Don't know 02/12/2022 10 :40 AM EDT COVID-19 Exposure Response Date Recorded In the last 10 days, have yo u been in contact with someone who was confirmed or suspected to have Coronavirus/COVID-19? No / Unsure 10/05/2022 1:50 PM EDT documented as of this encounter Miscellaneous Notes * Telephone Encounter - Gabby Nielson - 10/10/2022 10:41 AM EDT Tc from patients spouse returning call back, regarding message below. Receiver Stocker let him know a nurse will call back with an stoner hand he stated she's at work they can call him. Receiver Stocker doesn't see any HIPPA information. documented in this encounter Plan of Treatment Upcoming Encounters Date Type Department Care Team (Late st Contact Info) Description 08/21/2024 9:00 AM EDT Office Visit [facility]ULT D[facility] [address] [place] [address] Gaurang Stevenson 10/23/2024 3:00 PM EDT Office Visit [facility] OPTOMETRY [address] [place], [place] [id number] Carloz, Kristi, OD [address] [place] [address] documented as of this encounter Visit Diagnoses Not on filedocumented in this encounter Additional Health Concerns Assessment Noted Time PHQ-9 Depression Total Score: 0 06/30/19 23 2:19 PM EDT documented as of this encounter Care Teams Bottom Cager Relationship Specialty Start Date End Date Naomi Montague MD [address] [place] [address] PCP - General Family Medicine 02/01/22 documented as of this encounter
--- OUTSIDE RECORDS SUMMARY | 2024-07-24 12:56 | XMS_ITS | Clinical Summary ---
Author Organization [employer] Address [address] [facility] [address] [place] [address] Care Team Providers Care Manager Transmission Name Role Phone Naomi Montague MD Primary Care Provider [phone] Allergies Active Allergy Reactions Criticality Noted Date Comments Tolterodine Swelling 04/02/2022 Ubidecarenone Itching 02/08/2023 Medications Lancets 33G misc Use to check blood sugar daily as directed Active Blood Glucose Monitoring Suppl (FreeStyle [place] Lite) w/Device kit TEST BLOOD SUGAR DAILY 2 Active cetirizine (ZyrTEC) 10 MG tabletIndications:C ough, unspecified type Take 1 tablet (10 mg) by mouth in the morning. 30 tablet 2 3 Active cholecalciferol (Vitamin D-3) 50 MCG (1999) tablet TAKE ONE TABLET DAILY 120 tablet 4 4 Active FREESTYLE LITE test strip TEST BLOOD SUGAR DAILY DIRECTED 50 strip 11 4 Active doxepin (SINEquan) 10 MG capsuleIndications: Primary insomnia Take 1 capsule (10 mg) by mouth at bedtime. 90 capsule 1 4 Active rosuvastatin (Crestor) 10 MG tabletIndications:M ixed hyperlipidemia TAKE ONE TABLET BY MOUTH EVERY DAY 90 tablet 1 5 Active metFORMIN XR (Glucophage-XR) 750 MG 24 hr tablet TAKE ONE TABLET TWICE DAILY. DO NOT BREAK, CRUSH, DISSOLVE OR CHEW 60 tablet 2 5 Active omeprazole (PriLOSEC) [address] capsule Take 1 capsule by mouth Once per day. 5 Active Active Problems Problem Noted Date Diagnosed Date [...] (10/05/2022 2:46 PM EDT): Patient seen by motor route carrier and had FNA done for mass on neck. Biopsy results given to patient and was recommended for surgery with no diagnoses. Per outbound call center representative at [facility], Appointment scheduled with general surgeon for Jan 04 @ 9:30 Dr. Connolly at [facility], General surgeon specialty in thyroid. Assessment [...] Encounters Date Type Department Care Team Description 06/19/2024 3:30 PM EST Office Visit [facility] OPTOMETRY [address] [place] [address] Carloz, Kristi, OD Peripapillary atrophy of both eyes (Primary Dx) 06/19/2024 Travel 06/16/2024 Telephone [facility] [address] [place] [address] Naomi Montague MD came to clinic with questions about CT Pelvis 06/06/2024 Orders Only [facility] External Provider, [facility] 05/30/2024 Refill [facility] [address] [place] [address] Naomi Montague MD 05/14/2024 Refill [facility] [address] [place] [address] Pushpa Osorio MD Mixed hyperlipidemia 04/30/2024 10:00 AM EST Telemedicine [facility] [address] [place] [address] Naomi Montague MD Hepatic cyst (Primary Dx); Breast cancer screening by mammogram; Primary insomnia 04/30/2024 Travel from Last 3 Months Immunizations Name Administration [...] Description 08/21/2024 9:00 AM EDT Office Visit [facility] ADULT DENTAL [address] [place] [address] Gaurang Stevenson 10/23/2024 3:00 PM EDT Office Visit [facility] OPTOMETRY [address] [place] [address] Carloz, Kristi, OD [address] [place] [address] Health Maintenance Due Date Last Done Comments [...] 25 SDOH Screening 04/30/2025 04/30/2024 Tobacco Screening 07/03/2025 07/03/2024 Dental X-Ray: Full Mouth 12/01/2025 11/30/2022 Colorectal [...] Procedure Name Priority Date/Time Associated Diagnosis Comments AUTOMATED VISUAL FIELD, EXTENDED - OU - BOTH EYES Routine 06/19/2024 3:30 PM EST Peripapillary atrophy of both eyes LACTIC ACID LAB USE ONLY Routine 06/06/2024 3:[address] ABDOMEN PELVIS W CONTRAST Routine 06/06/2024 2:50 AM EST URINALYSIS, COMPLETE, WITH REFLEX TO CULTURE Routine 06/06/2024 2:06 AM EST POCT GLYCATED HEMOGLOBIN, TOTAL Routine 03/27/2024 10:17 AM EST Type 2 diabetes mellitus with hyperglycemia, without long-term current use of insulin (CMS/HCC) LIPID PANEL, STANDARD Routine 03/27/2024 9:46 AM [...] Recently Relevant to Health Maintenance Results * Automated Visual Field, Extended - OU - Both Eyes (06/19/2024 3:30 PM EST) Narrative Kristi Carty, OD - 07/03/2024 10:56 AM EDT VISUAL FIELD INTERPRETATION Visual Field Interpretation Test Details: Octopus G P Pulsar/200/TOP Reliability Indices: False positive errors OD: 0/11 OS: 0/10 False negative errors OD: 0/11 OS: 0/10 Statistical Indices: MS [src]: OD: 16.2 OS: 16.3 MD [< 2.0 src]: OD: 5.4 OS: 5.3 sLV [< 2.5 src]: OD: 3.9 OS: 4.6 Impression: Reason for testing: 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 No false negatives or positives in both eyes, however there was likely difficulty with learning test taking procedure for the right eye. Fatigue while testing the left eye was also observed. Impression: OD: Overall depression with nonspecific scattered defects most dense superotemporal OS: Overall temporal depression with dense defects around optic nerve extending into temporal portion of central vision. Progression: No other tests available for comparison Management Plan: Will have patient return in 3-4 months to repeat the field. If findings are consistent or vision is further reduced, will consider an MRI. us Kristi Carty OD OPHTH VISUAL FIELD Final Resu lt * Lactic Acid (06/06/2024 3:06 AM EST) Lactic Acid 1.8 0.5 - 2.0 mmol/L [facility] 06/06/2024 3:06 AM EST 06/06/2024 3:08 AM EST us Generic External Data Provider LAB BLOOD ORDERAB LES Final Result [facility] [address] [place] [phone] * CT Abdomen Pelvis w/ Contrast (06/06/2024 2:50 AM EST) Anatomical Region Laterality Modality Body, Pelvis, Abdomen Computed T omography 06/06/2024 2:50 AM EST Narrative 06/06/2024 2:51 AM EST ? [facility] ?[address] ?[place] [address] ? CT Scan Report ? Signed ? Patient: Chi,Ru ?MR#: [id number] ? : 1960 ?Acct:[id number] ? Age/Sex: 63 / F ?ADM Date: 06/06/24 ? Loc: HO.ED ? Attending Dr: ? Ordering Physician: Kristen Medrano MD ?? Date of Service: 06/06/24 ?? Procedure(s): CT abdomen pelvis w IV con ?? Accession Number(s): [id number] ? cc: Kristen Medrano MD; Naomi Montague MD ? Report Number: ?? [id number]: Total DLP = ??438.00 mGy-cm ? CLINICAL HISTORY: epigastric pain ? Exam: CT abdomen and pelvis with intravenous contrast. ? Comparison: Abdominal ultrasound April 10, 2024. ? Findings: ? CT abdomen: ? No infiltrates within the lung bases. ?? Bones are osteopenic. No acute fracture. ?? Mild de leon chamber cardiac dilation. ?? Concentric wall thickening distal esophagus with small hiatal hernia. ?? Kjir-ky-sojmaznu fluid distention of the stomach with areas of gastric ?? wall thickening along the proximal to mid gastric body. ?? Fluid-filled loops of borderline dilated small bowel is seen within the ?? abdomen pelvis. Small bowel loops are dilated to 0.8 cm. There are ?? scattered small bowel air-fluid levels. Small-bowel wall thickening and ?? small-bowel wall hyperenhancement is seen in association with these ?? fluid-filled loops of small bowel. ? Generalized low attenuation throughout the liver indicative of fatty ?? infiltration. Numerous hypodense lesions within the liver corresponding to ?? the ultrasound abnormalities. The largest is within the lateral segment of ?? the left lobe measuring 6.5 x 6.9 cm in size. These are all fluid ?? attenuation lesions. No solid hepatic mass lesions identified. Main portal ?? vein is patent. ?? Spleen, pancreas, gallbladder, and adrenal glands are unremarkable. ?? Symmetric enhancement of the kidneys without mass or hydronephrosis. ? CT pelvis: ? Suture material seen of the anal rectal junction. ?? Mild fluid distention of the cecum and ascending colon. Fluid-filled small ?? bowel is seen within the pelvis as discussed above. ?? Appendix is normal. ?? No free fluid or free air. ?? Uterus is surgically absent. Fluid attenuation structure is seen at the ?? level of the vaginal cuff measuring 4.2 x 2.5 x 2.6 cm in size. ?? No enlarged lymph nodes. ? Impression: ? 1. Wall thickening of the distal esophagus extending to the proximal to ?? mid gastric body with fluid distention of the stomach. This suggest ?? gastritis and esophagitis. ?? 2. Fluid-filled small bowel with liquid stool within the proximal colon. ?? Infectious or inflammatory enterocolitis is favored. ?? 3. Prior hysterectomy with nonspecific cystic collection at the vaginal ?? cuff. Clinical correlation advised with the timing of the patient's ?? hysterectomy. Pelvic ultrasound could further evaluate. ? This document has been electronically signed by: Glen Ivy MD on ?? 06/06/2024 02:50:08 ? Dictated By: ?Glen Ivy MD ? Signed By: ?<Electronically signed by Glen Ivy MD in OV> ? 06/06/24 0251 ? DD/ 0250 ? TD/TT: 06/06/24 0250 ? Linux Kernel Developer: ? Procedure Note Mayelin Daley - 06/06/[address] [place] [address] [address] Scan Report Signed Patient: Ricky Sun#: [id number] : 1960Acct:[id number] Age/Sex: 63 / FADM Date: 06/06/24 Loc: HO.ED Attending Dr: Ordering Physician: Kristen Medrano MD Date of Service: 06/06/24 Procedure(s): CT abdomen pelvis w IV con Accession Number(s): [id number] cc: Kristen Medrano MD; Naomi Montague MD Report Number: [id number]: Total DLP = 438.00 mGy-cm CLINICAL HISTORY: epigastric pain Exam: CT abdomen and pelvis with intravenous contrast. Comparison: Abdominal ultrasound April 10, 2024. Findings: CT abdomen: No infiltrates within the lung bases. Bones are osteopenic. No acute fracture. Mild de leon chamber cardiac dilation. Concentric wall thickening distal esophagus with small hiatal hernia. Splw-bu-jqrgzpao fluid distention of the stomach with areas of gastric wall thickening along the proximal to mid gastric body. Fluid-filled loops of borderline dilated small bowel is seen within the abdomen pelvis. Small bowel loops are dilated to 0.8 cm. There are scattered small bowel air-fluid levels. Small-bowel wall thickening and small-bowel wall hyperenhancement is seen in association with these fluid-filled loops of small bowel. Generalized low attenuation throughout the liver indicative of fatty infiltration. Numerous hypodense lesions within the liver corresponding to the ultrasound abnormalities. The largest is within the lateral segment of the left lobe measuring 6.5 x 6.9 cm in size. These are all fluid attenuation lesions. No solid hepatic mass lesions identified. Main portal vein is patent. Spleen, pancreas, gallbladder, and adrenal glands are unremarkable. Symmetric enhancement of the kidneys without mass or hydronephrosis. CT pelvis: Suture material seen of the anal rectal junction. Mild fluid distention of the cecum and ascending colon. Fluid-filled small bowel is seen within the pelvis as discussed above. Appendix is normal. No free fluid or free air. Uterus is surgically absent. Fluid attenuation structure is seen at the level of the vaginal cuff measuring 4.2 x 2.5 x 2.6 cm in size. No enlarged lymph nodes. Impression: 1. Wall thickening of the distal esophagus extending to the proximal to mid gastric body with fluid distention of the stomach. This suggest gastritis and esophagitis. 2. Fluid-filled small bowel with liquid stool within the proximal colon. Infectious or inflammatory enterocolitis is favored. 3. Prior hysterectomy with nonspecific cystic collection at the vaginal cuff. Clinical correlation advised with the timing of the patient's hysterectomy. Pelvic ultrasound could further evaluate. This document has been electronically signed by: Glen Ivy MD on 06/06/2024 02:50:08 Dictated By: Glen Ivy MD Signed By: <Electronically signed by Glen Ivy MD in OV> 06/06/24 0251 DD/ 9 TD/TT: 06/06/24249 Linux Kernel Developer: [facility] External Provider IMG CT PROCEDURES Final Result * (ABNORMAL) Urinalysis, Complete, with Reflex to Culture (06/06/2024 2:06 AM EST) Color Urine Yellow [facility] Appearance Urine Clear [facility] PH 6.5 5.0 - 9.0 [facility] Glucose Urine UA Negative Negative mg/dL [facility] Urine Blood Negative Negative [facility] Specific [place] - Urine >=1.030(H) 1.005 - 1.025 [facility] Urine Protein Trace Neg-Trace mg/dL [facility] Urine Ketones Negative Negative mg/dL [facility] Nitrite Urine Negative Negative [facility] Leukocyte Esterase Urine Negative Negative [facility] RBC Urine 0-2 0 - 2 /HPF [facility] Urine WBC 0-5 0 - 5 /HPF [facility] Urine Squamous Epithelial Cell 0-2 0 - 2 /HPF [facility] Urine Bacteria None Seen None Seen [facility] Hyaline Casts, Urine 0-2 0 - 2 /LPF [facility] 06/06/2024 2:06 AM EST 06/06/2024 2:11 AM EST Narrative [facility] - 06/06/2024 2:23 AM EST Urine, Clean Catch Generic External Data Provider LAB URINE ORDERAB LES Final Result [facility] [address] [place] [address] [phone] * (ABNORMAL) POCT HGB A1C (03/27/2024 10:17 AM EST) Hemoglobin A1C 6.7(A) 4.0 - 6.0 % QC Media Lot # [id number] Lot# Expiration Date [id number] Blood 03/27/2024 10:1 7 AM EST Naomi Montague MD POINT OF CARE TEST ENTER/EDIT ORDERABLES Final Result * Lipid Panel, Standard (03/27/2024 9:46 AM EST) Triglycerides 77 <150 mg/dL [facility] Comment:Desirable Triglyceri de: less than 150 mg/dLBorderline High Triglyceride 150-199 mg/dLHigh Triglyceride: 200-499 mg/dLVery High Triglyceride: greater than or equal to 5OO mg/dL Cholesterol 114 <200 mg/dL [facility] Comment:Desirable Cholestero l: less than 200 mg/dLBorderline High Cholesterol: 200-239 mg/dLHigh Cholesterol: greater than 239 mg/dL LDL Cholesterol Calculated 46 <100 mg/dL [facility] Comment:Desirable LDL: less than 100 mg/dLNear Optimal/Above Optimal LDL: 110- 129 mg/dLBorderline High LDL: 130-159 mg/dLHigh LDL: 160-189 mg/dLVery High LDL: greater than or equal to 190 mg/dL HDL Cholesterol 53 >40 mg/dL [facility] Comment:Desirable HDL: great er than 40 mg/dL Note: This HDL assay may give artificially low results in patients with liver disease. Blood Venous blood specimen / Unknown 03/27/2024 9:46 AM EST 03/27/2024 2:18 PM EST Naomi Montague MD LAB BLOOD ORDERABLES Final Re sult [facility] [address] [place] [phone] * Cologuard?? colon cancer screening (02/05/2023 5:40 AM EDT) Cologuard Result Negative Negative 02/14/20 2:34 AM EDT [facility] [employer] [facility] (CLIA #:[id number]) Comment: NEGATIVE TEST RESULT. A negative Cologuard [...] (Dickson Sampson al, N Engl J Med 2014;370(14):1286- 1297) The normal value (reference range) for this assay is negative. COLOGUARD RE-SCREENING RECOMMENDATION: Periodic colorectal cancer screening is an important part of preventive healthcare for asymptomatic individuals at average risk for colorectal cancer. ??Following a negative Cologuard result, the [place] [employer] Society and U.S. Multi-Society Task Force screening guidelines recommend a Cologuard re-screening interval of 3 years. References: [place] [employer] Guideline for Colorectal Cancer Screening: https://www.cancer.org/cancer/xxsnc-reqcyp-syefsj/fhexlcpiz-ejryoihko-wnraxmd/ac s-rec ommendations.html.; Abdulkadir DK, Zi CR, Luzmaria PrakashK, Colorectal Cancer Screening: Recommendations for Physicians and Patients from the U.S. Multi-Society Task Force on Colorectal Cancer Screening , Am J Gastroenterology 2017; 112:3914-0319. TEST DESCRIPTION: Composite algorithmic analysis of stool [...] (Dickson Sampson al, N Engl J Med 2014;370(14):7820-5079.) Cologuard may produce a false negative or false positive result (no colorectal cancer or precancerous polyp present at colonoscopy follow up). A negative Cologuard test result does not guarantee the absence of CRC or advanced adenoma (pre-cancer). The current Cologuard screening interval is every 3 years. ([employer] Society and U.S. Multi-Society Task Force). Cologuard performance data in a 10,000 patient pivotal study using colonoscopy as the reference method can be accessed at the following location: www.[employer].Work4ce.me/results. Additional description of the Cologuard test process, warnings and precautions can be found at www.[employer].Work4ce.me. Stool specimen (specimen) 02/05/2023 5:40 AM EDT 02/06/2023 9:11 PM EDT Naomi Montague MD LAB MOLECULAR DIAGNOSTICS ORD ERABLES Final Result [facility] [employer] [facility] (CLIA #:[id number]) [place] [address], * ALBUMIN, RANDOM URINE W/CREATININE (02/02/2022 8:49 [...] [facility] 02/02/2022 8:49 AM EDT Naomi Montague MD LAB URINE ORDERABLES Final Re sult [facility] from Last 3 Months or Most Recently Relevant to Health Maintenance Insurance [facility] - [place] PARTIAL (MEDICAID) [place] DENTAL - [place] PARTIAL (MEDICAID) Care Teams Manager Transmission Relationship Specialty Start Date End Date Naomi Montague MD [address] [place] [id number] PCP - General Family Medicine 02/01/22
== END 2024-07-24 13:12 | disposition home or self-care (01) ==
PROVIDERS: PCP Family Medicine; Visit Provider Internal Medicine
DX: K76.89 Other specified diseases of liver (principal); Z11.59 Encounter for screening for other viral diseases; Z83.1 Family history of other infectious and parasitic diseases; Z80.0 Family history of malignant neoplasm of digestive organs
CPT/HCPCS: 99204; G2211

== ENCOUNTER 2024-07-25 | Outpatient (REF) | payer OTHER, SELFPAY ==
--- OUTSIDE RECORDS SUMMARY | 2024-07-27 10:24 | XMS_ITS | Encounter Summary ---
Author Organization [employer] Address [address] [place] [address] [address] [place] [address] Care Team Providers Care Tablet Tester Name Role Phone Naomi Montague MD Primary Care Provider [phone] Reason for Visit * Reason Onset Date Comments Returning Call Back 10/10/2022 Encounter Details Date Type Department Care Team ([facility] st Contact Info) Description 10/10/2022 Telephone [facility] [address] [place] [address] Naomi Montague MD [address] [place] [address] Returning Call Back Social History Tobacco Use [...] spouse returning call back, regarding message below. [employer] let him know a nurse will call back with an integrative medicine physician he stated she's at work they can call him. [employer] doesn't see any HIPPA information. documented in this encounter Plan of Treatment Upcoming Encounters Date Type Department Care Team (Late st Contact Info) Description 08/21/2024 9:00 AM EDT Office Visit [facility] [address] [place] [address] Gaurang Stevenson 10/23/2024 3:00 PM EDT Office Visit [facility] [address] [place], [place] [address] Carloz, Kristi, OD [address] [place] [address] documented as of this encounter Visit Diagnoses Not on filedocumented in this encounter Additional Health Concerns Assessment Noted Time PHQ-9 Depression Total Score: 0 06/30/19 23 2:19 PM EDT documented as of this encounter Care Teams Tablet Tester Relationship Specialty Start Date End Date Naomi Montague MD [address] [place] [address] PCP - General Family Medicine 02/01/22 documented as of this encounter
--- OUTSIDE RECORDS SUMMARY | 2024-07-27 10:24 | XMS_ITS | Clinical Summary ---
Author Organization [employer] Address [address] [facility] 7[address] [place] [address] Care Team Providers Care Rehab Spec Name Role Phone Naomi Montague MD Primary Care Provider [phone] Allergies Active Allergy Reactions Criticality Noted Date Comments Tolterodine Swelling 04/02/2022 Ubidecarenone Itching 02/08/2023 Medications Lancets 33G misc Use to check blood sugar daily as directed Active Blood Glucose Monitoring Suppl (FreeStyle [place] Lite) w/Device kit TEST BLOOD SUGAR DAILY [...] (10/05/2022 2:46 PM EDT): Patient seen by machine precision engraver and had FNA done for mass on neck. Biopsy results given to patient and was recommended for surgery with no diagnoses. Per financial services sales representative at [facility], Appointment scheduled with general surgeon for Jan 04 @ 9:30 Dr. Connolly at [facility], General surgeon specialty in thyroid. Assessment [...] Encounters Date Type Department Care Team Description 07/24/2024 Orders Only GENERIC EXTERNAL DATA DEPARTMENT Provider, Generic External Data 06/19/2024 3:30 PM EST Office Visit [facility] [address] [place] [address] Carloz, Kristi, OD Peripapillary atrophy of both eyes (Primary Dx) 06/19/2024 Travel 06/16/2024 Telephone [facility] [address] [place] [address] Naomi Montague MD came to clinic with questions about CT Pelvis 06/06/2024 Orders Only [facility] External Provider, [facility] 05/30/2024 Refill [facility] [address] [place] [address] Naomi Montague MD 05/14/2024 Refill [facility] [address] [place] [address] Pushpa Osorio MD Mixed hyperlipidemia 04/30/2024 10:00 AM EST Telemedicine [facility] [address] [place] [address] Naomi Montague MD Hepatic cyst (Primary Dx); [...] Description 08/21/2024 9:00 AM EDT Office Visit [facility] ADULT DENTAL [address] [place] [address] Gaurang Stevenson 10/23/2024 3:00 PM EDT Office Visit [facility] [address] [place] [address] Carloz, Kristi, OD [address] [place] [address] Health Maintenance Due Date Last Done Comments CT Colonography 1960 Colonoscopy 1960 FIT 1960 FOBT 1960 HIV Screening 1960 Sigmoidoscopy 1960 Pap Smear 07/28/1983 HPV/Cotest 1992 Diabetes: Foot [...] exists Pneumococcal Vaccine: 50+ Years Completed 03/27/2024 Hepatitis C Screening Completed 07/24/2024 Cervical Cancer Screening Discontinued HIB Vaccines Aged [...] Procedure Name Priority Date/Time Associated Diagnosis Comments HEPATITIS B CORE AB TOTAL Routine 07/24/2024 1:38 PM EDT HEPATITIS B SURFACE ANTIGEN, EIA Routine 07/24/2024 1:38 PM EDT HEPATITIS C ANTIBODY Routine 07/24/2024 1:38 PM EDT HEPATITIS B SURFACE ANTIBODY, QUALITATIVE Routine 07/24/2024 1:38 PM EDT COMPREHENSIVE METABOLIC PANEL Routine 07/24/2024 1:38 PM EDT PROTHROMBIN TIME-INR Routine 07/24/2024 1:38 PM EDT CBC Routine 07/24/2024 1:38 PM EDT AUTOMATED VISUAL FIELD, EXTENDED - OU - [...] Recently Relevant to Health Maintenance Results * Hepatitis C Ab (07/24/2024 1:38 PM EDT) Pathologist [facility] Hepatitis C Antibody Nonreactive Nonreactive [facility] Comment:Antibodies to HCV no t detected; does not exclude early acuteHCV infection. 07/24/2024 1:38 PM EDT 07/24/2024 1:38 PM EDT us Generic External Data Provider LAB BLOOD ORDERAB LES Final Result [facility] [address] [place] [phone] * Hepatitis B surface antigen, EIA (07/24/2024 1:38 PM EDT) Pathologist [facility] Hepatitis B Surface Ag Negative Negative [facility] 07/24/2024 1:38 PM EDT 07/24/2024 1:38 PM EDT Generic External Data Provider LAB BLOOD ORDERAB LES Final Result Performing Organization Address [facility] Co de Phone Number [facility] [address] [place] [phone] * Hepatitis B Core Antibody, Total (07/24/2024 1:38 PM EDT) Hepatitis B Core Antibody Reactive Nonreactive [facility] Comment:Presumptive evidence of anti-HBc. 07/24/2024 1:38 PM EDT 07/24/2024 1:38 PM EDT Generic External Data Provider LAB BLOOD ORDERAB LES Final Result Performing Organization Address [facility] de Phone Number [facility] [address] [place] [phone] * Hepatitis B Surface Antibody, Qualitative (07/24/2024 1:38 PM EDT) ~Hepatitis B Surface Antibody REACTIVE Nonreactive [facility] Comment:REACTIVE: > 11.99 mI U/mL 07/24/2024 1:38 PM EDT 07/24/2024 1:38 PM EDT Generic External Data Provider LAB BLOOD ORDERAB LES Final Result Performing Organization Address [facility] de Phone Number [facility] [address] [place] [phone] * Prothrombin Time-INR (07/24/2024 1:38 PM EDT) Prothrombin Time 11.3 10.9 - 12.4 SEC [facility] INTERNATIONAL NORM RATIO 1.0 0.9 - 1.1 [facility] Comment:INTERNATIONAL NORMAL IZED RATIO (INR) REFERENCE RANGES Reference RangeFor patients not on anticoagulant therapy: 0.9 - 1.1INR ranges for oral anticoagulanttherapy:For prevention and treatment of venous thrombosis and pulmonary embolism: 2.0 - 3.0For acute myocardial infarction with aspirin therapy: 2.0 - 3.0For acute myocardial infarction without aspirin therapy: 3.0 - 4.0For patients with mechanical prosthetic heart valves: 2.5 - 3.5 07/24/2024 1:38 PM EDT 07/24/2024 1:38 PM EDT us Generic External Data Provider LAB BLOOD ORDERAB LES Final Result [facility] [address] [place] [address] [phone] * (ABNORMAL) CBC (07/24/2024 1:38 PM EDT) White Blood Count 5.6 4.8 - 10.8 X10*3/uL [facility] Red Blood Count 4.74 4.20 - 5.50 X10*6/uL [facility] Hemoglobin 12.9 12.0 - 16.0 g/dl [facility] Hematocrit 37.2 37.0 - 47.0 % [facility] Mean Corpuscular Volume 78.5(L) 80.0 - 98.0 fL [facility] Mean Corpuscular Hemoglobin 27.2 27.0 - 33.0 pg [facility] Mean Corpuscular HGB Conc 34.7 31.0 - 35.0 g/dl [facility] Red Cell Distribution Width 11.7 11.0 - 16.0 % [facility] Platelet Count 207 160 - 400 X10*3/uL [facility] Mean Platelet Volume 9.9 9.4 - 12.3 fL [facility] NRBC Pct Auto 0.0 0.0 - 0.2 /100WBC [facility] NRBC Abs Auto 0.000 0.0 - 0.012 X10*3/uL [facility] 07/24/2024 1:38 PM EDT 07/24/2024 1:38 PM EDT us Generic External Data Provider LAB BLOOD ORDERAB LES Final Result Performing Organization Address City/[facility]/ZIP Co de Phone Number [facility] [address] [place] [phone] * (ABNORMAL) Comprehensive Metabolic Panel (07/24/2024 1:38 PM EDT) Sodium 143 135 - 145 mmol/L [facility] Potassium 3.8 3.3 - 5.1 mmol/L [facility] Chloride 108 96 - 108 mmol/L [facility] Carbon Dioxide 28 22 - 29 mmol/L [facility] Anion Gap 11(L) 12 - 20 [facility] Urea Nitrogen (BUN) 12 9 - 16 mg/dL [facility] Creatinine, Serum 0.67 0.5 - 1.4 mg/dL [facility] Estimated Glomerular Filt Rate >60 [facility] Comment:Chronic Kidney Disea se: Estimated GFR < 60 mL/min/1.17j9Spavre Kidney Disease: Estimated GFR < 15 mL/min/1.73m2 Glucose 170(H) 60 - 115 mg/dL [facility] Calcium 9.4 8.4 - 10.2 mg/dL [facility] Bilirubin, Total 0.4 0.0 - 1.0 mg/dL [facility] Aspartate Amino Transferase 25 5 - 31 U/L [facility] Alanine Aminotransferase 37(H) 0 - 31 U/L [facility] Total Protein 7.3 6.5 - 8.0 g/dL [facility] Albumin Level 4.7 3.5 - 5.0 g/dL [facility] Alkaline Phosphatase 73 39 - 117 U/L [facility] 07/24/2024 1:38 PM EDT 07/24/2024 1:38 PM EDT us Generic External Data Provider LAB BLOOD ORDERAB LES Final Result Performing Organization Address City/[facility]/ZIP Co de Phone Number [facility] [address] [place] [phone] * Automated Visual Field, Extended - OU - Both Eyes (06/19/2024 3:30 PM EST) Kristi Grande, OD - 07/03/2024 10:56 AM EDT VISUAL [...] Lactic Acid 1.8 0.5 - 2.0 mmol/L [facility] 06/06/2024 3:06 AM EST 06/06/2024 3:08 AM EST us Generic External Data Provider LAB BLOOD ORDERAB LES Final Result [facility] [address] [place] [phone] * CT Abdomen Pelvis w/ Contrast (06/06/2024 2:50 AM EST) Anatomical Region Laterality Modality Body, Pelvis, Abdomen Computed T omography 06/06/2024 2:50 AM EST Narrative 06/06/2024 2:51 AM EST ? [facility] ?[address] ?[place] [address] ? CT Scan Report ? Signed ? Patient: Chi,Ru ?MR#: [id number] ? : 1960 ?Acct:[id number] ? Age/Sex: 63 / F ?ADM Date: 06/06/24 ? Loc: HO.ED ? Attending Dr: ? Ordering Physician: Kristen Medrano MD ?? Date of Service: 06/06/24 ?? Procedure(s): CT abdomen pelvis w IV con ?? Accession Number(s): [id number] ? cc: Kristen Medrano MD; Naomi Montague MD ? Report Number: ?? [id number]: Total DLP = ??438.00 mGy-cm ? CLINICAL HISTORY: epigastric pain ? Exam: CT abdomen and pelvis with intravenous contrast. ? Comparison: Abdominal ultrasound April 10, 2024. ? Findings: ? CT abdomen: ? No infiltrates within the lung bases. ?? Bones are osteopenic. No acute fracture. ?? Mild de leon chamber cardiac dilation. ?? Concentric wall thickening distal esophagus with small hiatal hernia. ?? Oekx-zx-evdngwig fluid distention of the stomach with areas [...] DD/ 0250 ? TD/TT: 06/06/24 0250 ? Leadership Recruiter: ? Procedure Note Mayelin Daley - 06/06/[address] [place] [id number] [address] Scan Report Signed Patient: Ricky Sun#: [id number] : 1960Acct:[id number] Age/Sex: 63 / FADM Date: 06/06/24 Loc: HO.ED Attending Dr: Ordering Physician: Kristen Medrano MD Date of Service: 06/06/24 Procedure(s): CT abdomen pelvis w IV con Accession Number(s): [id number] cc: Kristen Medrano MD; Naomi Montague MD Report Number: [id number]: Total DLP = 438.00 mGy-cm CLINICAL HISTORY: epigastric pain Exam: CT abdomen and pelvis with intravenous contrast. Comparison: Abdominal ultrasound April 10, 2024. Findings: CT abdomen: No infiltrates within the lung bases. Bones are osteopenic. No acute fracture. Mild de leon chamber cardiac dilation. Concentric wall thickening distal esophagus with small hiatal hernia. Rgmd-io-tvwaroeg fluid distention of the stomach with areas [...] signed by Glen Ivy MD in OV> 06/06/24250 DD/ 9 TD/TT: 06/06/24249 Leadership Recruiter: [facility] External Provider IMG CT PROCEDURES Final Result * (ABNORMAL) Urinalysis, Complete, with Reflex to Culture (06/06/2024 2:06 AM EST) Color Urine Yellow [facility] Appearance Urine Clear [facility] PH 6.5 5.0 - 9.0 [facility] Glucose Urine UA Negative Negative mg/dL [facility] Urine Blood Negative Negative [facility] Specific [place] - Urine >=1.030(H) 1.005 - 1.025 [facility] Urine Protein Trace Neg-Trace mg/dL [facility] Urine Ketones Negative Negative mg/dL [facility] Nitrite Urine Negative Negative [facility] Leukocyte Esterase Urine Negative Negative [facility] RBC Urine 0-2 0 - 2 /HPF [facility] Urine WBC 0-5 0 - 5 /HPF [facility] Urine Squamous Epithelial Cell 0-2 0 - 2 /HPF [facility] Urine Bacteria None Seen None Seen [facility] Hyaline Casts, Urine 0-2 0 - 2 /LPF [facility] 06/06/2024 2:06 AM EST 06/06/2024 2:11 AM EST Narrative [facility] - 06/06/2024 2:23 AM EST Urine, Clean Catch us Generic External Data Provider LAB URINE ORDERAB LES Final Result Performing Organization Address City/State/[facility] Co de Phone Number [facility] [address] [place] [phone] * (ABNORMAL) POCT HGB A1C (03/27/2024 10:17 AM EST) Hemoglobin A1C 6.7(A) 4.0 - 6.0 % QC Media Lot # [id number] Lot# Expiration Date [id number] Blood 03/27/2024 10:1 7 AM EST us Naomi Montague MD POINT OF CARE TEST ENTER/EDIT ORDERABLES Final Result * Lipid Panel, Standard (03/27/2024 9:46 AM EST) Triglycerides 77 <150 mg/dL [facility] Comment:Desirable Triglyceri de: less than 150 mg/dLBorderline High Triglyceride 150-199 mg/dLHigh Triglyceride: 200-499 mg/dLVery High Triglyceride: greater than or equal to 5OO mg/dL Cholesterol 114 <200 mg/dL [facility] Comment:Desirable Cholestero l: less than 200 mg/dLBorderline High Cholesterol: 200-239 mg/dLHigh Cholesterol: greater than 239 mg/dL LDL Cholesterol Calculated 46 <100 mg/dL [facility] Comment:Desirable LDL: less than 100 mg/dLNear Optimal/Above Optimal LDL: 110- 129 mg/dLBorderline High LDL: 130-159 mg/dLHigh LDL: 160-189 mg/dLVery High LDL: greater than or equal to 190 mg/dL HDL Cholesterol 53 >40 mg/dL [facility] Comment:Desirable HDL: great er than 40 mg/dL Note: This HDL assay may give artificially low results in patients with liver disease. Blood Venous blood specimen / Unknown 03/27/2024 9:46 AM EST 03/27/2024 2:18 PM EST us Naomi Montague MD LAB BLOOD ORDERABLES Final Re sult [facility] [address] [place] [address] [phone] * Cologuard?? colon cancer screening (02/05/2023 5:40 AM EDT) Cologuard Result Negative Negative 02/14/20 2:34 AM EDT [facility] (CLIA #:[id number]) Comment: NEGATIVE TEST RESULT. A negative Cologuard [...] cancer. ??Following a negative Cologuard result, the [place] [employer] and U.S. Multi-Society Task Force screening guidelines recommend a Cologuard re-screening interval of 3 years. References: [place] [employer] Guideline for Colorectal Cancer Screening: https://www.cancer.org/cancer/xayoo-tulkyh-qazcya/egbcjdgio-cjjjzwfgy-pyhkksz/ac s-rec ommendations.html.; Abdulkadir DK, Zi FERNANDEZ, Luzmaria PrakashK, Colorectal Cancer Screening: Recommendations for Physicians and Patients from the U.S. Multi-Society Task Force on Colorectal Cancer Screening , Am J Gastroenterology 2017; 112:7751-4332. TEST DESCRIPTION: Composite algorithmic analysis of stool [...] (Dickson Sampson al, N Engl J Med 2014;370(14):2337-0746.) Cologuard may produce a false negative or false positive result (no colorectal cancer or precancerous polyp present at colonoscopy follow up). A negative Cologuard test result does not guarantee the absence of CRC or advanced adenoma (pre-cancer). The current Cologuard screening interval is every 3 years. ([place] [employer] and U.S. Multi-Society Task Force). Cologuard performance data in a 10,000 patient pivotal study using colonoscopy as the reference method can be accessed at the following location: www.[employer].com/results. Additional description of the Cologuard test process, warnings and precautions can be found at www.[employer].com. Stool specimen (specimen) 02/05/2023 5:40 AM EDT 02/06/2023 9:11 PM EDT us Naomi Montague MD LAB MOLECULAR DIAGNOSTICS ORD ERABLES Final Result [facility] (CLIA #:[id number]) [place] [address] [place] [address], * ALBUMIN, RANDOM URINE W/CREATININE (02/02/2022 8:49 [...] Most Recently Relevant to Health Maintenance Insurance [facility] EYE MED DENTAL - HSN PARTIAL (MEDICAID) [place], [place] DENTAL - [place]SN PARTIAL (MEDICAID) Care Teams Rehab Spec Relationship Specialty Start Date End Date Naomi Montague MD [address] [place] [phone] PCP - General Family Medicine 02/01/22
--- OUTSIDE RECORDS SUMMARY | 2024-07-27 10:25 | XMS_ITS | Encounter Summary ---
Author Organization [employer] Address [address] [facility] [address] [place] [address] Care Team Providers Care Slurry Control Operator Helper Name Role Phone Naomi Montague MD Primary Care Provider [phone] Encounter Details Date Type Department Care Team ([facility] Contact Info) Description 07/24/2024 Orders Only GENERIC EXTERNAL DATA DEPARTMENT Provider, Generic External Data Social History Tobacco Use Types Packs/Day Years [...] Description 08/21/2024 9:00 AM EDT Office Visit [facility]ULT [facility] [address] [place] [address] Gaurang Stevenson 10/23/2024 3:00 PM EDT Office Visit [facility] OPTOM[facility] [address] [place], [place] [phone] CarlozAbiodunn, OD [address] [place] [address] documented as of this encounter Procedures Procedure Name Priority Date/Time Associated Diagnosis Comments HEPATITIS C ANTIBODY Routine 07/24/2024 1:38 PM EDT HEPATITIS B SURFACE ANTIGEN, EIA Routine 07/24/2024 1:38 PM EDT HEPATITIS B CORE AB TOTAL Routine 07/24/2024 1:38 PM EDT HEPATITIS B SURFACE ANTIBODY, QUALITATIVE Routine 07/24/2024 1:38 PM EDT PROTHROMBIN TIME-INR Routine 07/24/2024 1:38 PM EDT CBC Routine 07/24/2024 1:38 PM EDT COMPREHENSIVE METABOLIC PANEL Routine 07/24/2024 1:38 PM EDT documented in this encounter Results * Hepatitis B Core Antibody, Total (07/24/2024 1:38 PM EDT) Hepatitis B Core Antibody Reactive Nonreactive [facility] Comment:Presumptive evidence of anti-HBc. 07/24/2024 1:38 PM EDT 07/24/2024 1:38 PM EDT Generic External Data Provider LAB BLOOD ORDERAB LES Final Result Performing Organization Address [facility] Co de Phone Number [facility] [address] [place] [phone] * Hepatitis B surface antigen, EIA (07/24/2024 1:38 PM EDT) [facility] Hepatitis B Surface Ag Negative Negative [facility] 07/24/2024 1:38 PM EDT 07/24/2024 1:38 PM EDT Generic External Data Provider LAB BLOOD ORDERAB LES Final Result Performing Organization Address [facility] Phone Number [facility] [address] [place] [phone] * Hepatitis C Ab (07/24/2024 1:38 PM EDT) [facility] Hepatitis C Antibody Nonreactive Nonreactive [facility] Comment:Antibodies to HCV no t detected; does not exclude early acuteHCV infection. 07/24/2024 1:38 PM EDT 07/24/2024 1:38 PM EDT Generic External Data Provider LAB BLOOD ORDERAB LES Final Result Performing Organization Address [facility] de Phone Number [facility] [address] [place] [phone] * Hepatitis B Surface Antibody, Qualitative (07/24/2024 1:38 PM EDT) Pathologist [facility] ~Hepatitis B Surface Antibody REACTIVE Nonreactive [facility] Comment:REACTIVE: > 11.99 mI U/mL 07/24/2024 1:38 PM EDT 07/24/2024 1:38 PM EDT us Generic External Data Provider LAB BLOOD ORDERAB LES Final Result Performing Organization Address City/[facility]/ZIP Co de Phone Number [facility] [address] [place] [phone] * (ABNORMAL) Comprehensive Metabolic Panel (07/24/2024 1:38 PM EDT) Sodium 143 135 - 145 mmol/L [facility] Potassium 3.8 3.3 - 5.1 mmol/L [facility] Chloride 108 96 - 108 mmol/L [facility] Carbon Dioxide 28 22 - 29 mmol/L [facility] Anion Gap 11(L) 12 - 20 [facility] Urea Nitrogen (BUN) 12 9 - 16 mg/dL [facility] Creatinine, Serum 0.67 0.5 - 1.4 mg/dL [facility] Estimated Glomerular Filt Rate >60 [facility] Comment:Chronic Kidney Disea se: Estimated GFR < 60 mL/min/1.96e8Kbghlb Kidney Disease: Estimated GFR < 15 mL/min/1.73m2 Glucose 170(H) 60 - 115 mg/dL [facility] Calcium 9.4 8.4 - 10.2 mg/dL [facility] Bilirubin, Total 0.4 0.0 - 1.0 mg/dL [facility] Aspartate Amino Transferase 25 5 - 31 U/L [facility] Alanine Aminotransferase 37(H) 0 - 31 U/L [facility] Total Protein 7.3 6.5 - 8.0 g/dL [facility] Albumin Level 4.7 3.5 - 5.0 g/dL [facility] Alkaline Phosphatase 73 39 - 117 U/L [facility] 07/24/2024 1:38 PM EDT 07/24/2024 1:38 PM EDT us Generic External Data Provider LAB BLOOD ORDERAB LES Final Result [facility] [address] [place] [phone] * Prothrombin Time-INR (07/24/2024 1:38 PM EDT) [facility] Prothrombin Time 11.3 10.9 - 12.4 SEC [facility] INTERNATIONAL NORM RATIO 1.0 0.9 - 1.1 [facility] Comment:INTERNATIONAL NORMAL IZED RATIO (INR) REFERENCE [...] ORDERAB LES Final Result Performing Organization Address [facility] Co de Phone Number [facility] [address] [place] [phone] * (ABNORMAL) CBC (07/24/2024 1:38 PM EDT) [facility] White Blood Count 5.6 4.8 - 10.8 X10*3/uL [facility] Red Blood Count 4.74 4.20 - 5.50 X10*6/uL [facility] Hemoglobin 12.9 12.0 - 16.0 g/dl [facility] Hematocrit 37.2 37.0 - 47.0 % [facility] Mean Corpuscular Volume 78.5(L) 80.0 - 98.0 fL [facility] Mean Corpuscular Hemoglobin 27.2 27.0 - 33.0 pg [facility] Mean Corpuscular HGB Conc 34.7 31.0 - 35.0 g/dl [facility] Red Cell Distribution Width 11.7 11.0 - 16.0 % [facility] Platelet Count 207 160 - 400 X10*3/uL [facility] Mean Platelet Volume 9.9 9.4 - 12.3 fL [facility] NRBC Pct Auto 0.0 0.0 - 0.2 /100WBC [facility] NRBC Abs Auto 0.000 0.0 - 0.012 X10*3/uL [facility] 07/24/2024 1:38 PM EDT 07/24/2024 1:38 PM EDT us Generic External Data Provider LAB BLOOD ORDERAB LES Final Result Performing Organization Address City/State/[facility] Co de Phone Number [facility] [address] [place] [phone] documented in this encounter Visit Diagnoses Not on filedocumented in this encounter Additional Health Concerns Assessment Noted Time PHQ-9 Depression Total Score: 2 04/30/19 25 9:35 AM EST documented as of this encounter Care Teams Slurry Control Operator Helper Relationship Specialty Start Date End Date Naomi Montague MD [address] [place] [phone] PCP - General Family Medicine 02/01/22 documented as of this encounter
== END 2024-07-25 00:01 | disposition home or self-care (01) ==
LOC: HO.LNP
PROVIDERS: Visit Provider Internal Medicine
DX: K76.89 Other specified diseases of liver (principal)
CPT/HCPCS: 87177; 87209

== ENCOUNTER 2024-07-31 09:09 | Outpatient (REF) | payer OTHER, SELFPAY ==
--- NOTE | ~2024-07-31 | MR_ITS ---
EXAMINATION: MRI Abdomen without and with contrast HISTORY: K76.89 - Other specified diseases of liver COMPARISON: Correlation is made with a CT of the abdomen with contrast dated 06/06/2024 and an abdominal ultrasound dated 04/10/2024. TECHNIQUE: Axial in and out of phase T1-weighted gradient echo, axial diffusion weighted, and axial and coronal HASTE T2 with fat saturation images were obtained through the abdomen. Subsequently, fat suppressed axial and coronal T1-weighted images were obtained after the intravenous administration of 6.5 mL Gadavist. FINDINGS: There is heterogeneous loss of signal intensity within the liver on opposed phase imaging, consistent with steatosis. There are numerous cysts within the liver. The largest cyst is in the left lobe measuring 6.8 x 6.2 x 5.5 cm. Multiple cysts, including the largest cyst, demonstrate multiple septations. The largest cyst also demonstrates mildly heterogeneous T2 signal intensity with possible internal debris. Several of the cysts demonstrate T2 hypointense rims and thin rim enhancement. The classic appearance of multiple daughter cysts or numerous floating membranes is not seen. There is no definite restricted diffusion. No enhancing liver mass is identified. There is no intrahepatic biliary ductal dilatation. The gallbladder is contracted. The common bile duct is normal in caliber. No intraluminal filling defects are identified. The pancreas, spleen, and adrenals are unremarkable. There are tiny cysts in the kidneys. No retroperitoneal lymphadenopathy or ascites is identified in the upper abdomen. The visualized bones demonstrate normal marrow signal intensity. MR/MR abdomen wo/w con IMPRESSION: Hepatic steatosis. Multiple hepatic cysts, some of which are complex, as described above. While this does not fit the classic appearance of hydatid disease, hydatid disease is not excluded. If this remains a clinical concern, cyst aspiration could be performed. Electronically signed by: Ko Omer MD 07/31/2024 10:58 AM EDT
--- OUTSIDE RECORDS SUMMARY | 2024-07-31 09:57 | XMS_ITS | Encounter Summary ---
Author Organization [employer] Address [address] [place] [address] [address] [place] [address] Care Team Providers Care Velocity Shooter Name Role Phone Naomi Montague MD Primary Care Provider [phone] Reason for Visit * Reason Onset Date Comments Returning Call Back 10/10/2022 Encounter Details Date Type Department Care Team ([facility] st Contact Info) Description 10/10/2022 Telephone [facility] MED [facility] PEDS [address] [place] [address] Naomi Montague MD [address] [place] [address] Returning Call Back Social History Tobacco Use [...] spouse returning call back, regarding message below. Storage Specialist let him know a nurse will call back with an condenser tester he stated she's at work they can call him. Storage Specialist doesn't see any HIPPA information. documented in this encounter Plan of Treatment Upcoming Encounters Date Type Department Care Team (Late st Contact Info) Description 08/21/2024 9:00 AM EDT Office Visit [facility] ADULT DENTAL [address] [place] [address] Gaurang Stevenson 10/23/2024 3:00 PM EDT Office Visit [facility] OPTOMETRY [address] [place], [place] [phone] Carloz, Kristi, OD [address] [place] [address] documented as of this encounter Visit Diagnoses Not on filedocumented in this encounter Additional Health Concerns Assessment Noted Time PHQ-9 Depression Total Score: 0 06/30/19 23 2:19 PM EDT documented as of this encounter Care Teams Velocity Shooter Relationship Specialty Start Date End Date Naomi Montague MD [address] [place] [address] PCP - General Family Medicine 02/01/22 documented as of this encounter
--- OUTSIDE RECORDS SUMMARY | 2024-07-31 09:57 | XMS_ITS | Clinical Summary ---
Author Organization [employer] Address [address] [facility] [address] [place] [address] Care Team Providers Care Rawhide Trimmer Name Role Phone Naomi Montague MD Primary Care Provider [phone] Allergies Active Allergy Reactions Criticality Noted Date Comments Tolterodine Swelling 04/02/2022 Ubidecarenone Itching 02/08/2023 Medications Lancets 33G misc Use to check blood sugar daily as directed Active Blood Glucose Monitoring Suppl (FreeStyle [place] Lite) w/Device kit TEST BLOOD SUGAR DAILY [...] (10/05/2022 2:46 PM EDT): Patient seen by nascar pit crew person and had FNA done for mass on neck. Biopsy results given to patient and was recommended for surgery with no diagnoses. Per apparel trimmings sales representative at [facility], Appointment scheduled with general surgeon for Jan 04 @ 9:30 Dr. Connolly at [facility], General surgeon specialty in thyroid. Assessment [...] Data 06/19/2024 3:30 PM EST Office Visit [facility] OPTOMETRY [address] [place] [address] Carloz, Kristi, OD Peripapillary atrophy of both eyes (Primary Dx) 06/19/2024 Travel 06/16/2024 Telephone [facility] MED & PEDS [address] [place] [address] Naomi Montague MD came to clinic with questions about CT Pelvis 06/06/2024 Orders Only [facility] External Provider, [facility] 05/30/2024 Refill [facility] [address] [place] [address] Naomi Montague MD 05/14/2024 Refill [facility] [address] [place] [address] uPshpa Osorio MD Mixed hyperlipidemia from Last 3 Months Immunizations Name Administration [...] Description 08/21/2024 9:00 AM EDT Office Visit [facility] ADULT DENTAL [address] [place] [address] Gaurang Stevenson 10/23/2024 3:00 PM EDT Office Visit [facility] OPTOMETRY [address] [place] [address] Carloz, Kristi, OD [address] [place] [address] Health Maintenance Due Date Last Done Comments [...] Name Priority Date/Time Associated Diagnosis Comments HEPATITIS A ANTIBODY, TOTAL Routine 07/24/2024 1:38 PM EDT T-SPOT(R).TB Routine 07/24/2024 1:38 PM EDT HEPATITIS B [...] Hepatitis C Ab (07/24/2024 1:38 PM EDT) [facility] Hepatitis C Antibody Nonreactive Nonreactive [facility] Comment:Antibodies to HCV no t detected; does not exclude early acuteHCV infection. 07/24/2024 1:38 PM EDT 07/24/2024 1:38 PM EDT us Generic External Data Provider LAB BLOOD ORDERAB LES Final Result [facility] [address] [place] [phone] * (ABNORMAL) T-SPOT??.TB (07/24/2024 1:38 PM EDT) Pathologist [facility] T Spot TB Positive( A) Negative [facility] Comment: Diagnosing or excluding tuberculosis (TB) disease andassessing the probability of latent TB infection (LTBI)requires a combination of epidemiological, historical,medical and diagnostic findings that should be takeninto consideration when interpreting T-SPOT.TB testresults. A positive test result does not rule in activeTB disease caused by Mycobacterium tuberculosis(M. tuberculosis); active TB disease should beconfirmed by other tests such as sputum smear andculture, PCR, and chest radiography.Uncommonly, a positive T-SPOT.TB result may be due toinfection with other Mycobacterium species includingM. kansasii, M. szulgai, M. gordonae, or M. marinum.Alternative tests would be required if these infectionsare suspected.The T-SPOT.TB test is qualitative and results arereported as positive, borderline, or negative, giventhat the test controls perform as expected. In linewith the Centers for Disease Control and Prevention's2010 recommendation to report quantitative measurementsalongside the qualitative result, the laboratoryprovides spot counts for informational purposes only.The T-SPOT.TB test should not be interpreted as aquantitative test. TS PANEL A 34 [facility] TS PANEL B 16 [facility] Negative Control Passed [facility] Positive Control Passed [facility] Comment:For additional infor mation, please refer tohttp://education.SugarCRM/faq/MJE251(This link is being provided for informational/educational purposes only.)THIS TEST WAS PERFORMED AT:[id number] [place] [address]JVIUYQZMARGARET PASTOR MD,PHD 07/24/2024 1:38 PM EDT 07/24/2024 1:38 PM EDT us Generic External Data Provider LAB BLOOD ORDERAB LES Final Result [facility] [address] [place] [phone] * Hepatitis A Antibody, Total (07/24/2024 1:38 PM EDT) Hepatitis A Antibody IgG REACTIVE Nonreactive [facility] Comment:The presence of IgG anti-HAV implies past HAV infection(recent or distant) or vaccination against HAV. 07/24/2024 1:38 PM EDT 07/24/2024 1:38 PM EDT Generic External Data Provider LAB BLOOD ORDERAB LES Final Result Performing Organization Address [facility] de Phone Number [facility] [address] [place] [phone] * Hepatitis B surface antigen, EIA (07/24/2024 1:38 PM EDT) Hepatitis B Surface Ag Negative Negative [facility] 07/24/2024 1:38 PM EDT 07/24/2024 1:38 PM EDT Generic External Data Provider LAB BLOOD ORDERAB LES Final Result Performing Organization Address [facility] Phone Number [facility] [address] [place] [phone] * Hepatitis B Core Antibody, Total (07/24/2024 1:38 PM EDT) Hepatitis B Core Antibody Reactive Nonreactive [facility] Comment:Presumptive evidence of anti-HBc. 07/24/2024 1:38 PM EDT 07/24/2024 1:38 PM EDT Generic External Data Provider LAB BLOOD ORDERAB LES Final Result Performing Organization Address [facility] de Phone Number [facility] [address] [place] [phone] * Hepatitis B Surface Antibody, Qualitative (07/24/2024 1:38 PM EDT) ~Hepatitis B Surface Antibody REACTIVE Nonreactive [facility] Comment:REACTIVE: > 11.99 mI U/mL 07/24/2024 1:38 PM EDT 07/24/2024 1:38 PM EDT Generic External Data Provider LAB BLOOD ORDERAB LES Final Result Performing Organization Address [facility] Co de Phone Number [facility] [address] [place] [phone] * Prothrombin Time-INR (07/24/2024 1:38 PM EDT) [facility] Prothrombin Time 11.3 10.9 - 12.4 SEC [facility] INTERNATIONAL NORM RATIO 1.0 0.9 - 1.1 [facility] Comment:INTERNATIONAL NORMAL IZED RATIO (INR) REFERENCE [...] ORDERAB LES Final Result Performing Organization Address [facility] de Phone Number [facility] [address] [place] [phone] * (ABNORMAL) CBC (07/24/2024 1:38 PM EDT) [facility] White Blood Count 5.6 4.8 - 10.8 X10*3/uL [facility] Red Blood Count 4.74 4.20 - 5.50 X10*6/uL [facility] Hemoglobin 12.9 12.0 - 16.0 g/dl [facility] Hematocrit 37.2 37.0 - 47.0 % [facility] Mean Corpuscular Volume 78.5(L) 80.0 - 98.0 fL [facility] Mean Corpuscular Hemoglobin 27.2 27.0 - 33.0 pg [facility] Mean Corpuscular HGB Conc 34.7 31.0 - 35.0 g/dl [facility] Red Cell Distribution Width 11.7 11.0 - 16.0 % [facility] Platelet Count 207 160 - 400 X10*3/uL [facility] Mean Platelet Volume 9.9 9.4 - 12.3 fL [facility] NRBC Pct Auto 0.0 0.0 - 0.2 /100WBC [facility] NRBC Abs Auto 0.000 0.0 - 0.012 X10*3/uL [facility] 07/24/2024 1:38 PM EDT 07/24/2024 1:38 PM EDT us Generic External Data Provider LAB BLOOD ORDERAB LES Final Result [facility] [address] [place] [phone] * (ABNORMAL) Comprehensive Metabolic Panel (07/24/2024 1:38 PM EDT) Sodium 143 135 - 145 mmol/L [facility] Potassium 3.8 3.3 - 5.1 mmol/L [facility] Chloride 108 96 - 108 mmol/L [facility] Carbon Dioxide 28 22 - 29 mmol/L [facility] Anion Gap 11(L) 12 - 20 [facility] Urea Nitrogen (BUN) 12 9 - 16 mg/dL [facility] Creatinine, Serum 0.67 0.5 - 1.4 mg/dL [facility] Estimated Glomerular Filt Rate >60 [facility] Comment:Chronic Kidney Disea se: Estimated GFR < 60 mL/min/1.60k7Golhun Kidney Disease: Estimated GFR < 15 mL/min/1.73m2 Glucose 170(H) 60 - 115 mg/dL [facility] Calcium 9.4 8.4 - 10.2 mg/dL [facility] Bilirubin, Total 0.4 0.0 - 1.0 mg/dL [facility] Aspartate Amino Transferase 25 5 - 31 U/L [facility] Alanine Aminotransferase 37(H) 0 - 31 U/L [facility] Total Protein 7.3 6.5 - 8.0 g/dL [facility] Albumin Level 4.7 3.5 - 5.0 g/dL [facility] Alkaline Phosphatase 73 39 - 117 U/L [facility] 07/24/2024 1:38 PM EDT 07/24/2024 1:38 PM EDT us Generic External Data Provider LAB BLOOD ORDERAB LES Final Result [facility] [address] [place] [phone] * Automated Visual Field, Extended - [...] Lactic Acid 1.8 0.5 - 2.0 mmol/L [facility] 06/06/2024 3:06 AM EST 06/06/2024 3:08 AM EST us Generic External Data Provider LAB BLOOD ORDERAB LES Final Result [facility] [address] [place] [address] [phone] * CT Abdomen Pelvis w/ Contrast (06/06/2024 2:50 AM EST) Anatomical Region Laterality Modality Body, Pelvis, Abdomen Computed T omography 06/06/2024 2:50 AM EST Narrative 06/06/2024 2:51 AM EST ? [facility] ?[address] ?[place] [address] ? CT Scan Report ? Signed ? Patient: Ru Sun ?MR#: [id number] ? : 1960 ?Acct:[id number] ? Age/Sex: 63 / F ?ADM Date: 06/06/24 ? Loc: HO.ED ? Attending Dr: ? Ordering Physician: Kristen Medrano MD ?? Date of Service: 06/06/24 ?? Procedure(s): CT abdomen pelvis w IV con ?? Accession Number(s): [id number] ? cc: Kristen Medrano MD; Naomi Montague MD ? Report Number: ?? [id number]: Total DLP = ??438.00 mGy-cm ? CLINICAL HISTORY: epigastric pain ? Exam: CT abdomen and pelvis with intravenous contrast. ? Comparison: Abdominal ultrasound April 10, 2024. ? Findings: ? CT abdomen: ? No infiltrates within the lung bases. ?? Bones are osteopenic. No acute fracture. ?? Mild de leon chamber cardiac dilation. ?? Concentric wall thickening distal esophagus with small hiatal hernia. ?? Zhpt-mh-fqouradm fluid distention of the stomach with areas [...] DD/ 0250 ? TD/TT: 06/06/24 0250 ? Lead Former: ? Procedure Note Thuy, Image - 06/06/[address] [address] [address] Scan Report Signed Patient: Ricky Sun#: [id number] : 1960Acct:[id number] Age/Sex: 63 / FADM Date: 06/06/24 Loc: HO.ED Attending Dr: Ordering Physician: Kristen Medrano MD Date of Service: 06/06/24 Procedure(s): CT abdomen pelvis w IV con Accession Number(s): [id number] cc: Kristen Medrano MD; Naomi Montague MD Report Number: [id number]: Total DLP = 438.00 mGy-cm CLINICAL HISTORY: epigastric pain Exam: CT abdomen and pelvis with intravenous contrast. Comparison: Abdominal ultrasound April 10, 2024. Findings: CT abdomen: No infiltrates within the lung bases. Bones are osteopenic. No acute fracture. Mild de leon chamber cardiac dilation. Concentric wall thickening distal esophagus with small hiatal hernia. Xrjb-en-zqiixtno fluid distention of the stomach with areas [...] in OV> 06/06/24250 DD/ 9 TD/TT: 06/06/24249 Lead Former: [facility] External Provider IMG CT PROCEDURES Final Result * (ABNORMAL) Urinalysis, Complete, with Reflex to Culture (06/06/2024 2:06 AM EST) Color Urine Yellow [facility] Appearance Urine Clear [facility] PH 6.5 5.0 - 9.0 [facility] Glucose Urine UA Negative Negative mg/dL [facility] Urine Blood Negative Negative [facility] Specific [place] - Urine >=1.030(H) 1.005 - 1.025 [facility] Urine Protein Trace Neg-Trace mg/dL [facility] Urine Ketones Negative Negative mg/dL [facility] Nitrite Urine Negative Negative [facility] Leukocyte Esterase Urine Negative Negative [facility] RBC Urine 0-2 0 - 2 /HPF [facility] Urine WBC 0-5 0 - 5 /HPF [facility] Urine Squamous Epithelial Cell 0-2 0 - 2 /HPF [facility] Urine Bacteria None Seen None Seen [facility] Hyaline Casts, Urine 0-2 0 - 2 /LPF [facility] 06/06/2024 2:06 AM EST 06/06/2024 2:11 AM EST Narrative [facility] - 06/06/2024 2:23 AM EST Urine, Clean Catch us Generic External Data Provider LAB URINE ORDERAB LES Final Result [facility] [address] [place], [place] [phone] * (ABNORMAL) POCT HGB A1C (03/27/2024 10:17 AM EST) Hemoglobin A1C 6.7(A) 4.0 - 6.0 % QC Media Lot # [id number] Lot# Expiration Date [id number] Blood 03/27/2024 10:1 7 AM EST us Naomi Montague MD POINT OF CARE TEST ENTER/EDIT ORDERABLES Final Result * Lipid Panel, Standard (03/27/2024 9:46 AM EST) Triglycerides 77 <150 mg/dL [facility] Comment:Desirable Triglyceri de: less than 150 mg/dLBorderline High Triglyceride 150-199 mg/dLHigh Triglyceride: 200-499 mg/dLVery High Triglyceride: greater than or equal to 5OO mg/dL Cholesterol 114 <200 mg/dL [facility] Comment:Desirable Cholestero l: less than 200 mg/dLBorderline High Cholesterol: 200-239 mg/dLHigh Cholesterol: greater than 239 mg/dL LDL Cholesterol Calculated 46 <100 mg/dL [facility] Comment:Desirable LDL: less than 100 mg/dLNear Optimal/Above Optimal LDL: 110- 129 mg/dLBorderline High LDL: 130-159 mg/dLHigh LDL: 160-189 mg/dLVery High LDL: greater than or equal to 190 mg/dL HDL Cholesterol 53 >40 mg/dL [facility] Comment:Desirable HDL: great er than 40 mg/dL Note: This HDL assay may give artificially low results in patients with liver disease. Blood Venous blood specimen / Unknown 03/27/2024 9:46 AM EST 03/27/2024 2:18 PM EST us Naomi Montague MD LAB BLOOD ORDERABLES Final Re sult [facility] [address] [place] [phone] * Cologuard?? colon cancer screening (02/05/2023 5:40 AM EDT) Cologuard Result Negative Negative 02/14/20 2:34 AM EDT [facility] (CLIA #:[id number]) Comment: NEGATIVE TEST RESULT. A negative Cologuard [...] cancer. ??Following a negative Cologuard result, the [place] [employer] and U.S. Multi-Society Task Force screening guidelines recommend a Cologuard re-screening interval of 3 years. References: [place] [employer] Guideline for Colorectal Cancer Screening: https://www.cancer.org/cancer/llixx-ppnznq-jprqlm/fkxlkupfa-nxlsgyixl-ukmtxkf/ac s-rec ommendations.html.; Abdulkadir DK, Zi CR, Luzmaria PrakashK, Colorectal Cancer Screening: Recommendations for Physicians and Patients from the U.S. Multi-Society Task Force on Colorectal Cancer Screening , Am J Gastroenterology 2017; 112:4862-3699. TEST DESCRIPTION: Composite algorithmic analysis of stool [...] screened with both Cologuard and colonoscopy. (Dickson Monte et al, N Engl J Med 2014;370(14):0968-5177.) Cologuard may produce a false negative or false positive result (no colorectal cancer or precancerous polyp present at colonoscopy follow up). A negative Cologuard test result does not guarantee the absence of CRC or advanced adenoma (pre-cancer). The current Cologuard screening interval is every 3 years. ([place] [employer] and U.S. Multi-Society Task Force). Cologuard performance data in a 10,000 patient pivotal study using colonoscopy as the reference method can be accessed at the following location: [email or web address].Kickfire.Nexis Vision/results. Additional description of the Cologuard test process, warnings and precautions can be found at www.[employer] Food[employer]Jou[employer]d.com. Stool specimen (specimen) 02/05/2023 5:40 AM EDT 02/06/2023 9:11 PM EDT us Naomi Montague MD LAB MOLECULAR DIAGNOSTICS ORD ERABLES Final Result [facility] (CLIA #:[id number]) [place] [address], * ALBUMIN, RANDOM URINE W/CREATININE (02/02/2022 8:49 [...] Relevant to Health Maintenance Insurance [facility] [place] DENTAL - HSN PARTIAL (MEDICAID) [place] - [place]SN PARTIAL (MEDICAID) Care Teams Rawhide Trimmer Relationship Specialty Start Date End Date Naomi Montague MD [address] [place] [address] PCP - General Family Medicine 02/01/22
[2024-07-31] MEDS: gadobutroL 7.5 ML VIAL IVPUSH (10:26)
== END 2024-07-31 09:10 | disposition home or self-care (01) ==
LOC: HO.MRI 09:09
PROVIDERS: PCP Family Medicine; Visit Provider Internal Medicine
DX: K76.89 Other specified diseases of liver (principal)
CPT/HCPCS: 74183; A9585

== ENCOUNTER → 2024-07-31 09:34 | Outpatient (BNV) | payer OTHER, SELFPAY | PROVIDERS: PCP Family Medicine; Visit Provider Radiology Diagnostic Radiology | DX: K76.89 Other specified diseases of liver (principal); K76.0 Fatty (change of) liver, not elsewhere classified | CPT/HCPCS: 74183 ==

== ENCOUNTER 2024-08-07 15:22 | Outpatient (AMB) | payer OTHER, SELFPAY ==
--- NOTE | 2024-08-07 15:35 | MHC.OFFVIS ---
Vital Signs 08/07/24 15:40 Height 5 ft Weight 147 lb BMI 28.7 Pulse 63 Pulse Source Pulse Oximeter Pulse Oximetry (%) 97 Oxygen Delivery Method Room Air Intake Visit Reasons: / Latent TB Allergies No Known Allergies Allergy (Verified 08/07/24 15:40) HPI HPI / Latent TB: Details: She was sent for rx consideration latent TB. She has been treated along with her with 3-4 drugs 3-4 years ago in [facility]. They moved to [place] two years ago. She finished course TB meds. She has no hemoptysis or lymphadopathy. CXR has been unremarkable. T spot here is positive. They came from [place]. She getting workup from GI for cyst in liver and ruling out flukes. PFSH Medical History Hyperlipidemia Hypertension Surgical History Hx of colonoscopy History of esophagogastroduodenoscopy (EGD) Family History Brother Colon cancer Review of Systems Const All systems reviewed & are unremarkable except as noted in HPI and below Physical Exam Vital Signs: Last Vital Signs Pulse 63 08/07/24 15:40 Pulse Ox 97 08/07/24 15:40 Oxygen Delivery Method Room Air 08/07/24 15:40 BMI result Body Mass Index 28.7 Const General: cooperative Orientation/consciousness: patient oriented x3 HEENT Head: Yes normal to inspection Mouth: Normal oral and palatal mucosa present Eyes General: appearance normal, both eyes and all related structures Pupils: Equal, round and reactive pupils present Resp Effort & Inspection: normal respiratory effort Cardio Rate: regular rate Rhythm: regular rhythm GI Palpation (GI): Soft to palpation and nontender General: Yes no CVA tenderness Back/Spine/Pelvis Back: no CVA tenderness Skin General skin exam: no rashes or lesions noted Neuro General: patient oriented x3 Cranial nerves: Yes CN's II-XII intact bilaterally and Yes Equal, round and reactive pupils present Extrem General: Yes normal to inspection Psych Appearance: grossly normal Assessment & Plan Assessment & Plan (1) Positive QuantiFERON-TB Gold test: Comment: No signs of active tuberculosis. She had received latent TB treatment and completed course. Code(s): R76.12 - Nonspecific reaction to cell mediated immunity measurement of gamma interferon antigen response without active tuberculosis Category: Medical Plan: No further treatment at this time unless some changes in status. No further check IGRA ,will remain positive for life. 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
[2024-08-07 15:40] VITALS: PULSE 63; O2SAT 97; BMI 28.7
--- OUTSIDE RECORDS SUMMARY | 2024-08-07 15:54 | XMS_ITS | Encounter Summary ---
Author Organization [employer] Address [address] [place] [address] [address] [place] [address] Care Team Providers Care Bottle Blowing Machine Tender Name Role Phone Naomi Montague MD Primary Care Provider Reason for Visit * Reason Onset Date Comments Returning Call Back 10/10/2022 Encounter Details Date Type Department Care Team ([facility] st Contact Info) Description 10/10/2022 Telephone [facility] PEDS [address] [place] [address] Naomi Montague MD [address] [place] [address] Returning Call Back Social History Tobacco Use [...] spouse returning call back, regarding message below. Financial Services Technician let him know a nurse will call back with an angle shear operator he stated she's at work they can call him. Financial Services Technician doesn't see any HIPPA information. documented in this encounter Plan of Treatment Upcoming Encounters Date Type Department Care Team (Late st Contact Info) Description 08/21/2024 9:00 AM EDT Office Visit [facility] ADULT DENTAL [address] [place] [address] Gaurang Stevenson 10/23/2024 3:00 PM EDT Office Visit [facility] OPTOMETRY [address] [place], [place] [id number] Carloz, Kristi, OD [address] [place] [address] documented as of this encounter Visit Diagnoses Not on filedocumented in this encounter Additional Health Concerns Assessment Noted Time PHQ-9 Depression Total Score: 0 06/30/19 23 2:19 PM EDT documented as of this encounter Care Teams Bottle Blowing Machine Tender Relationship Specialty Start Date End Date Naomi Montague MD [address] [place] [address] PCP - General Family Medicine 02/01/22 documented as of this encounter
--- OUTSIDE RECORDS SUMMARY | 2024-08-07 15:54 | XMS_ITS | Clinical Summary ---
Author Organization [facility] [employer] Address [address] [facility] [address] [place] [address] Care Team Providers Care Bread Racker Name Role Phone Naomi Montague MD Primary Care Provider [phone] Allergies Active Allergy Reactions Criticality Noted Date Comments Tolterodine Swelling 04/02/2022 Ubidecarenone Itching 02/08/2023 Medications Lancets 33G misc Use to check blood sugar daily as directed Active Blood Glucose Monitoring Suppl (FreeStyle [place] Lite) w/Device kit TEST BLOOD SUGAR DAILY [...] (10/05/2022 2:46 PM EDT): Patient seen by slotter operator and had FNA done for mass on neck. Biopsy results given to patient and was recommended for surgery with no diagnoses. Per guest experience representative at [facility], Appointment scheduled with general surgeon for Jan 04 @ 9:30 Dr. Connolly at [facility], General surgeon specialty in thyroid. Assessment & [...] Data 06/19/2024 3:30 PM EST Office Visit [facility] [address] [place] [address] Carloz, Kristi, OD Peripapillary atrophy of both eyes (Primary Dx) 06/19/2024 Travel 06/16/2024 Telephone [facility] [address] [place] [address] Naomi Montague MD came to clinic with questions about CT Pelvis 06/06/2024 Orders Only [facility] External Provider, [facility] 05/30/2024 Refill [facility] [address] [place] [address] Naomi Montague MD 05/14/2024 Refill [facility] [address] [place] [address] Pushpa Osorio MD Mixed hyperlipidemia from Last 3 [...] Description 08/21/2024 9:00 AM EDT Office Visit [facility] [address] [place] [address] Gaurang Stevenson 10/23/2024 3:00 PM EDT Office Visit [facility] [address] [place] [address] Carloz, Kristi, OD [address] [place] [address] Health Maintenance Due Date Last Done Comments [...] Procedure Name Priority Date/Time Associated Diagnosis Comments MR ABDOMEN W AND WO CONTRAST Routine 07/31/2024 9:44 AM EDT OVA AND PARASITES, CONC AND PERM SMEAR Routine 07/24/2024 6:45 PM EDT HEPATITIS A ANTIBODY, TOTAL Routine 07/24/2024 1:38 [...] Recently Relevant to Health Maintenance Results * MR Abdomen w/ and w/o Contrast (07/31/2024 9:44 AM EDT) Anatomical Region Laterality Modality Abdomen Magnetic Resonan ce 07/31/2024 9:44 AM EDT Narrative 07/31/2024 11:01 AM EDT ? [facility] ?[address] ?[place] [address] ? Magnetic Resonance Report ? Signed ? Patient: Chi,Ru ?MR#: [id number] ? : 1960 ?Acct:[id number] ? Age/Sex: 64 / F ?ADM Date: 04/18/25 ? Loc: HO.MRI ? Attending Dr: Brittny Jean-Baptiste MD ? Ordering Physician: Brittny Jean-Baptiste MD ?? Date of Service: 07/31/24 ?? Procedure(s): MR abdomen wo/w con ?? Accession Number(s): [id number] ? cc: Naomi Montague MD; Brittny Jean-Baptiste MD ? EXAMINATION: ??MRI Abdomen without and with contrast ? HISTORY: K76.89 - Other specified diseases of liver ? COMPARISON: ??Correlation is made with a CT of the abdomen with contrast ?? dated 06/06/2024 and an abdominal ultrasound dated 04/10/2024. ? TECHNIQUE: Axial in and out of phase T1-weighted gradient echo, axial ?? diffusion weighted, and axial and coronal HASTE T2 with fat saturation ?? images were obtained through the abdomen. Subsequently, fat suppressed ?? axial and coronal T1-weighted images were obtained after the ?? intravenous administration of 6.5 mL Gadavist. ? FINDINGS: ??There is heterogeneous loss of signal intensity within the ?? liver on opposed phase imaging, consistent with steatosis. There are ?? numerous cysts within the liver. The largest cyst is in the left lobe ?? measuring 6.8 x 6.2 x 5.5 cm. Multiple cysts, including the largest ?? cyst, demonstrate multiple septations. The largest cyst also ?? demonstrates mildly heterogeneous T2 signal intensity with possible ?? internal debris. Several of the cysts demonstrate T2 hypointense rims ?? and thin rim enhancement. The classic appearance of multiple daughter ?? cysts or numerous floating membranes is not seen. There is no definite ?? restricted diffusion. No enhancing liver mass is identified. There is ?? no intrahepatic biliary ductal dilatation. ? The gallbladder is contracted. The common bile duct is normal in ?? caliber. No intraluminal filling defects are identified. The pancreas, ?? spleen, and adrenals are unremarkable. There are tiny cysts in the ?? kidneys. No retroperitoneal lymphadenopathy or ascites is identified in ?? the upper abdomen. The visualized bones demonstrate normal marrow ?? signal intensity. ? MR/MR abdomen wo/w con ?? IMPRESSION: ? Hepatic steatosis. Multiple hepatic cysts, some of which are complex, ?? as described above. While this does not fit the classic appearance of ?? hydatid disease, hydatid disease is not excluded. If this remains a ?? clinical concern, cyst aspiration could be performed. ? Electronically signed by: ??Ko Omer MD ??07/31/2024 10:58 AM EDT ? Dictated By: ?Ko Omer MD ? Signed By: ?<Electronically signed by Ko Omer MD in OV> ?07/31/24 1058 ? DD/ 0944 ? TD/TT: 07/31/24 1007 ? Double Needle Operator Lockstitch: ? Procedure Note Donotuseinterpreter, Image - 07/31/2024 [place] [id number] Magnetic Resonance Report Signed Patient: Ricky Sun#: [id number] : 1960Acct:[id number] Age/Sex: 64 / FADM Date: 07/31/24 Loc: HO.MRI Attending Dr: Brittny Jean-Baptiste MD Ordering Physician: Brittny Jean-Baptiste MD Date of Service: 07/31/24 Procedure(s): MR abdomen wo/w con Accession Number(s): [id number] cc: Naomi Montague MD; Brittny Jean-Baptiste MD EXAMINATION: MRI Abdomen without and with contrast HISTORY: K76.89 - Other specified diseases of liver COMPARISON: Correlation is made with a CT of the abdomen with contrast dated 06/06/2024 and an abdominal ultrasound dated 04/10/2024. TECHNIQUE: Axial in and out of phase T1-weighted gradient echo, axial diffusion weighted, and axial and coronal HASTE T2 with fat saturation images were obtained through the abdomen. Subsequently, fat suppressed axial and coronal T1-weighted images were obtained after the intravenous administration of 6.5 mL Gadavist. FINDINGS: There is heterogeneous loss of signal intensity within the liver on opposed phase imaging, consistent with steatosis. There are numerous cysts within the liver. The largest cyst is in the left lobe measuring 6.8 x 6.2 x 5.5 cm. Multiple cysts, including the largest cyst, demonstrate multiple septations. The largest cyst also demonstrates mildly heterogeneous T2 signal intensity with possible internal debris. Several of the cysts demonstrate T2 hypointense rims and thin rim enhancement. The classic appearance of multiple daughter cysts or numerous floating membranes is not seen. There is no definite restricted diffusion. No enhancing liver mass is identified. There is no intrahepatic biliary ductal dilatation. The gallbladder is contracted. The common bile duct is normal in caliber. No intraluminal filling defects are identified. The pancreas, spleen, and adrenals are unremarkable. There are tiny cysts in the kidneys. No retroperitoneal lymphadenopathy or ascites is identified in the upper abdomen. The visualized bones demonstrate normal marrow signal intensity. MR/MR abdomen wo/w con IMPRESSION: Hepatic steatosis. Multiple hepatic cysts, some of which are complex, as described above. While this does not fit the classic appearance of hydatid disease, hydatid disease is not excluded. If this remains a clinical concern, cyst aspiration could be performed. Electronically signed by: Ko Omer MD 07/31/2024 10:58 AM EDT RP Dictated By: Ko Omer MD Signed By: <Electronically signed by Ko Omer MD in OV> 07/31/24 1058 DD/ 0944 TD/TT: 07/31/24 1007 Double Needle Operator Lockstitch: [facility] External Provider IMG MRI PROCEDURES Edited Result - Final * Ova and Parasites,??Concentrate and Permanent Smear (07/24/2024 6:45 PM EDT) Ova and Parasite Trichrome SEE NOTE [facility] Comment: ??OVA AND PARASITES, CONC AND PERM SMEAR ??Micro Number: ?[id number] ??Test Status: ? Final ??Specimen Source: ?? Stool ??Specimen Quality: ??Adequate ??CONCENTRATION 1: ?? No ova or parasites seen ??TRICHROME 1: ? No ova or parasites seen ? Routine Ova and Parasite exam may not detect some ? parasites that occasionally cause diarrheal ? illness. Cryptosporidium Antigen and/or Cyclospora ? and Isospora Exam may be ordered to detect these ? parasites. One negative sample does not ? necessarily rule out the presence of a parasitic ? infection. ? For additional information, please refer to ? https://[employer] [employer]/faq/IQI716 ? (This link is being provided for informational/ ? educational purposes only.)THIS TEST WAS PERFORMED AT:[facility] [place] [address] ??[id number] FRENCH MD 07/24/2024 6:45 PM EDT 2024 9:23 AM EDT Generic External Data Provider LAB MICROBIOLOGY - GENERAL ORDERABLES Final Result Performing Organization Address [facility] Phone Number [facility] [address] [place] [address] [phone] * Hepatitis C Ab (07/24/2024 1:38 PM EDT) Hepatitis C Antibody Nonreactive Nonreactive [facility] Comment:Antibodies to HCV no t detected; does not exclude early acuteHCV infection. 07/24/2024 1:38 PM EDT 07/24/2024 1:38 PM EDT Generic External Data Provider LAB BLOOD ORDERAB LES Final Result Performing Organization Address City/[facility]/ZIP Co de Phone Number [facility] [address] [place] [phone] * (ABNORMAL) T-SPOT??.TB (07/24/2024 1:38 PM EDT) T Spot TB Positive( A) Negative [facility] Comment: Diagnosing or excluding tuberculosis (TB) [...] as aquantitative test. TS PANEL A 34 [facility] TS PANEL B 16 [facility] Negative Control Passed [facility] Positive Control Passed [facility] Comment:For additional infor jimena, please refer tohttp://education.[place] [employer]/faq/XBQ202(This link is being provided for informational/educational purposes only.)THIS TEST WAS PERFORMED AT:[facility]/[employer] [facility] [employer] [id number] [place] [id number] PASTOR MD,PHD 07/24/2024 1:38 PM EDT 07/24/2024 1:38 PM EDT us Generic External Data Provider LAB BLOOD ORDERAB LES Final Result Performing Organization Address [facility] Co de Phone Number [facility] [address] [place] [phone] * Hepatitis A Antibody, Total (07/24/2024 1:38 PM EDT) Hepatitis A Antibody IgG REACTIVE Nonreactive [facility] Comment:The presence of IgG anti-HAV implies past HAV infection(recent or distant) or vaccination against HAV. 07/24/2024 1:38 PM EDT 07/24/2024 1:38 PM EDT us Generic External Data Provider LAB BLOOD ORDERAB LES Final Result Performing Organization Address [facility] Co Pending sale to [facility] Number [facility] [address] [place] [phone] * Hepatitis B surface antigen, EIA (07/24/2024 1:38 PM EDT) Hepatitis B Surface Ag Negative Negative [facility] 07/24/2024 1:38 PM EDT 07/24/2024 1:38 PM EDT us Generic External Data Provider LAB BLOOD ORDERAB LES Final Result Performing Organization Address [facility] Co de Phone Number [facility] [address] [place] [phone] * Hepatitis B Core Antibody, Total (07/24/2024 1:38 PM EDT) Hepatitis B Core Antibody Reactive Nonreactive [facility] Comment:Presumptive evidence of anti-HBc. 07/24/2024 1:38 PM EDT 07/24/2024 1:38 PM EDT us Generic External Data Provider LAB BLOOD ORDERAB LES Final Result Performing Organization Address [facility]/ZIP Co de Phone Number [facility] [address] [place] [phone] * Hepatitis B Surface Antibody, Qualitative (07/24/2024 1:38 PM EDT) Pathologist [facility] ~Hepatitis B Surface Antibody REACTIVE Nonreactive [facility] Comment:REACTIVE: > 11.99 mI U/mL 07/24/2024 1:38 PM EDT 07/24/2024 1:38 PM EDT Generic External Data Provider LAB BLOOD ORDERAB LES Final Result Performing Organization Address [facility] Co de Phone Number [facility] [address] [place] [phone] * Prothrombin Time-INR (07/24/2024 1:38 PM EDT) [facility] Prothrombin Time 11.3 10.9 - 12.4 SEC [facility] INTERNATIONAL NORM RATIO 1.0 0.9 - 1.1 [facility] Comment:INTERNATIONAL NORMAL IZED RATIO (INR) REFERENCE [...] ORDERAB LES Final Result Performing Organization Address [facility] Co de Phone Number [facility] [address] [place] [phone] * (ABNORMAL) CBC (07/24/2024 1:38 PM EDT) Pathologist [facility] White Blood Count 5.6 4.8 - 10.8 X10*3/uL [facility] Red Blood Count 4.74 4.20 - 5.50 X10*6/uL [facility] Hemoglobin 12.9 12.0 - 16.0 g/dl [facility] Hematocrit 37.2 37.0 - 47.0 % [facility] Mean Corpuscular Volume 78.5(L) 80.0 - 98.0 fL [facility] Mean Corpuscular Hemoglobin 27.2 27.0 - 33.0 pg [facility] Mean Corpuscular HGB Conc 34.7 31.0 - 35.0 g/dl [facility] Red Cell Distribution Width 11.7 11.0 - 16.0 % [facility] Platelet Count 207 160 - 400 X10*3/uL [facility] Mean Platelet Volume 9.9 9.4 - 12.3 fL [facility] NRBC Pct Auto 0.0 0.0 - 0.2 /100WBC [facility] NRBC Abs Auto 0.000 0.0 - 0.012 X10*3/uL [facility] 07/24/2024 1:38 PM EDT 07/24/2024 1:38 PM EDT us Generic External Data Provider LAB BLOOD ORDERAB LES Final Result [facility] [address] [place] [address] [phone] * (ABNORMAL) Comprehensive Metabolic Panel (07/24/2024 1:38 PM EDT) Sodium 143 135 - 145 mmol/L [facility] Potassium 3.8 3.3 - 5.1 mmol/L [facility] Chloride 108 96 - 108 mmol/L [facility] Carbon Dioxide 28 22 - 29 mmol/L [facility] Anion Gap 11(L) 12 - 20 [facility] Urea Nitrogen (BUN) 12 9 - 16 mg/dL [facility] Creatinine, Serum 0.67 0.5 - 1.4 mg/dL [facility] Estimated Glomerular Filt Rate >60 [facility] Comment:Chronic Kidney Disea se: Estimated GFR < 60 mL/min/1.83o9Yuhpgk Kidney Disease: Estimated GFR < 15 mL/min/1.73m2 Glucose 170(H) 60 - 115 mg/dL [facility] Calcium 9.4 8.4 - 10.2 mg/dL [facility] Bilirubin, Total 0.4 0.0 - 1.0 mg/dL [facility] Aspartate Amino Transferase 25 5 - 31 U/L [facility] Alanine Aminotransferase 37(H) 0 - 31 U/L [facility] Total Protein 7.3 6.5 - 8.0 g/dL [facility] Albumin Level 4.7 3.5 - 5.0 g/dL [facility] Alkaline Phosphatase 73 39 - 117 U/L [facility] 07/24/2024 1:38 PM EDT 07/24/2024 1:38 PM EDT us Generic External Data Provider LAB BLOOD ORDERAB LES Final Result [facility] [address] [place] [phone] * Automated Visual Field, Extended - OU - Both Eyes (06/19/2024 3:30 PM EST) Narrative Kristi Carty, OD - 07/03/2024 10:56 AM EDT VISUAL FIELD INTERPRETATION Visual Field Interpretation Test Details: Octopus G P Pulsar/200/TOP Reliability Indices: False positive errors OD: 011 OS: 0/10 False negative errors OD: 011 OS: 0/10 Statistical Indices: MS [src]: OD: [...] reduced, will consider an MRI. us Kristi Galeanaadelfo OD OPHTH VISUAL FIELD Final Resu lt * Lactic Acid (06/06/2024 3:06 AM EST) Lactic Acid 1.8 0.5 - 2.0 mmol/L [facility] 06/06/2024 3:06 AM EST 06/06/2024 3:08 AM EST us Generic External Data Provider LAB BLOOD ORDERAB LES Final Result [facility] [address] [place] [address] [phone] * CT Abdomen Pelvis w/ Contrast (06/06/2024 2:50 AM EST) Anatomical Region Laterality Modality Body, Pelvis, Abdomen Computed T omography 06/06/2024 2:50 AM EST Narrative 06/06/2024 2:51 AM EST ? [facility] ?[address] ?[place] [address] ? CT Scan Report ? Signed ? Patient: Chi,Ru ?MR#: [id number] ? : 1960 ?Acct:[id number] ? Age/Sex: 63 / F ?ADM Date: 02/22/25 ? Loc: HO.ED ? Attending Dr: ? Ordering Physician: Kristen Medrano MD ?? Date of Service: 06/06/24 ?? Procedure(s): CT abdomen pelvis w IV con ?? Accession Number(s): [id number] ? cc: Kristen Medrano MD; Naomi Montague MD ? Report Number: ?? [id number]: Total DLP = ??438.00 mGy-cm ? CLINICAL HISTORY: epigastric pain ? Exam: CT abdomen and pelvis with intravenous contrast. ? Comparison: Abdominal ultrasound April 10, 2024. ? Findings: ? CT abdomen: ? No infiltrates within the lung bases. ?? Bones are osteopenic. No acute fracture. ?? Mild de leon chamber cardiac dilation. ?? Concentric wall thickening distal esophagus with small hiatal hernia. ?? Whaz-mj-chqflwrw fluid distention of the stomach with areas [...] Glen Ivy MD in OV> ? 06/06/24 025 ? DD/ 0250 ? TD/TT: 06/06/24 0250 ? Double Needle Operator Lockstitch: ? Procedure Note Donotuseinterpreter, Image - 06/06/[address] [address] [address] Scan Report Signed Patient: Ricky Sun#: [id number] : 1960Acct:[id number] Age/Sex: 63 / FADM Date: 06/06/24 Loc: HO.ED Attending Dr: Ordering Physician: Kristen Medrano MD Date of Service: 06/06/24 Procedure(s): CT abdomen pelvis w IV con Accession Number(s): [id number] cc: Kristen Medrano MD; Naomi Montague MD Report Number: [id number]: Total DLP = 438.00 mGy-cm CLINICAL HISTORY: epigastric pain Exam: CT abdomen and pelvis with intravenous contrast. Comparison: Abdominal ultrasound April 10, 2024. Findings: CT abdomen: No infiltrates within the lung bases. Bones are osteopenic. No acute fracture. Mild de leon chamber cardiac dilation. Concentric wall thickening distal esophagus with small hiatal hernia. Legi-lf-rjzytegk fluid distention of the stomach with areas [...] Ivy MD in OV> 06/06/24 0251 DD/ 0250 TD/TT: 06/06/24 0250 Double Needle Operator Lockstitch: [facility] External Provider IMG CT PROCEDURES Final Result * (ABNORMAL) Urinalysis, Complete, with Reflex to Culture (06/06/2024 2:06 AM EST) Color Urine Yellow [facility] Appearance Urine Clear [facility] PH 6.5 5.0 - 9.0 [facility] Glucose Urine UA Negative Negative mg/dL [facility] Urine Blood Negative Negative [facility] Specific [place] - Urine >=1.030(H) 1.005 - 1.025 [facility] Urine Protein Trace Neg-Trace mg/dL [facility] Urine Ketones Negative Negative mg/dL [facility] Nitrite Urine Negative Negative [facility] Leukocyte Esterase Urine Negative Negative [facility] RBC Urine 0-2 0 - 2 /HPF [facility] Urine WBC 0-5 0 - 5 /HPF [facility] Urine Squamous Epithelial Cell 0-2 0 - 2 /HPF [facility] Urine Bacteria None Seen None Seen [facility] Hyaline Casts, Urine 0-2 0 - 2 /LPF [facility] 06/06/2024 2:06 AM EST 06/06/2024 2:11 AM EST Narrative [facility] - 06/06/2024 2:23 AM EST Urine, Clean Catch us Generic External Data Provider LAB URINE ORDERAB LES Final Result [facility] [address] [place] [phone] * (ABNORMAL) POCT HGB A1C (03/27/2024 10:17 AM EST) Hemoglobin A1C 6.7(A) 4.0 - 6.0 % QC Media Lot # [id number] Lot# Expiration Date [id number] Blood 03/27/2024 10:1 7 AM EST us Naomi Montague MD POINT OF CARE TEST ENTER/EDIT ORDERABLES Final Result * Lipid Panel, Standard (03/27/2024 9:46 AM EST) Triglycerides 77 <150 mg/dL [facility] Comment:Desirable Triglyceri de: less than 150 mg/dLBorderline High Triglyceride 150-199 mg/dLHigh Triglyceride: 200-499 mg/dLVery High Triglyceride: greater than or equal to 5OO mg/dL Cholesterol 114 <200 mg/dL [facility] Comment:Desirable Cholestero l: less than 200 mg/dLBorderline High Cholesterol: 200-239 mg/dLHigh Cholesterol: greater than 239 mg/dL LDL Cholesterol Calculated 46 <100 mg/dL [facility] Comment:Desirable LDL: less than 100 mg/dLNear Optimal/Above Optimal LDL: 110- 129 mg/dLBorderline High LDL: 130-159 mg/dLHigh LDL: 160-189 mg/dLVery High LDL: greater than or equal to 190 mg/dL HDL Cholesterol 53 >40 mg/dL [facility] Comment:Desirable HDL: great er than 40 mg/dL Note: This HDL assay may give artificially low results in patients with liver disease. Blood Venous blood specimen / Unknown 03/27/2024 9:46 AM EST 03/27/2024 2:18 PM EST us Naomi Montague MD LAB BLOOD ORDERABLES Final Re sult [facility] [address] [place] [phone] * Cologuard?? colon cancer screening (02/05/2023 5:40 AM EDT) Cologuard Result Negative Negative 02/14/20 2:34 AM EDT [facility] (CLIA #:[id number]) Comment: NEGATIVE TEST RESULT. A negative Cologuard [...] cancer. ??Following a negative Cologuard result, the [place] [employer] and U.S. Multi-Society Task Force screening guidelines recommend a Cologuard re-screening interval of 3 years. References: [place] [employer] Guideline for Colorectal Cancer Screening: https://www.cancer.org/cancer/miezz-uaymsm-ddcmdp/bvlcnycpk-pkztspoov-edrkeem/ac s-rec ommendations.html.; Abdulkadir DK, Zi CR, Luzmaria PrakashK, Colorectal Cancer Screening: Recommendations for Physicians and Patients from the U.S. Multi-Society Task Force on Colorectal Cancer Screening , Am J Gastroenterology 2017; 112:4762-0730. TEST DESCRIPTION: Composite algorithmic analysis of stool [...] (Dickson Sampson al, N Engl J Med 2014;370(14):5807-7484.) Cologuard may produce a false negative or false positive result (no colorectal cancer or precancerous polyp present at colonoscopy follow up). A negative Cologuard test result does not guarantee the absence of CRC or advanced adenoma (pre-cancer). The current Cologuard screening interval is every 3 years. ([place] [employer] and U.S. Multi-Society Task Force). Cologuard performance data in a 10,000 patient pivotal study using colonoscopy as the reference method can be accessed at the following location: www.[employer].com/results. Additional description of the Cologuard test process, warnings and precautions can be found at www.[employer].com. Stool specimen (specimen) 02/05/2023 5:40 AM EDT 02/06/2023 9:11 PM EDT Naomi Montague MD LAB MOLECULAR DIAGNOSTICS ORD ERABLES Final Result Performing Organization Address [facility] Co de Phone Number [facility] (CLIA #:[id number]) [place] [address], [place] [phone] * ALBUMIN, RANDOM URINE W/CREATININE (02/02/2022 8:49 [...] MD LAB URINE ORDERABLES Final Re sult Performing Organization Address [facility] de Phone Number CONVERTED LEGACY LABS from Last 3 Months or Most Recently Relevant to Health Maintenance Insurance [facility] EYE MED DENTAL - HSN PARTIAL (MEDICAID) DENTAL - HSN PARTIAL (MEDICAID) * Guarantor: Ru [employer] Account Type Relation to Patient Date of Phone Billing Address Personal/Family Self [place], [place] Care Teams Bread Racker Relationship Specialty Start Date End Date Naomi Montague MD [address] [place] [id number] PCP - General Family Medicine 02/01/22
== END 2024-08-07 16:13 | disposition home or self-care (01) ==
LOC: HO.HID 15:22
PROVIDERS: PCP Family Medicine; Visit Provider Internal Medicine
DX: R76.12 Nonspecific reaction to cell mediated immunity measurement of gamma interferon antigen response without active tuberculosis (principal); K76.89 Other specified diseases of liver
CPT/HCPCS: 99203

== ENCOUNTER → 2024-08-07 15:22 | Outpatient (BNVA) | payer OTHER, SELFPAY | PROVIDERS: PCP Family Medicine; Visit Provider Internal Medicine | DX: R76.12 Nonspecific reaction to cell mediated immunity measurement of gamma interferon antigen response without active tuberculosis (principal); K76.89 Other specified diseases of liver | CPT/HCPCS: 99202 ==

== ENCOUNTER 2024-09-16 10:48 | Day surgery (SDC) | payer OTHER, SELFPAY ==
--- OUTSIDE RECORDS SUMMARY | 2024-09-01 13:55 | XMS_ITS | Encounter Summary ---
Author Organization [email or web address] Address [address] [facility] [address] [place] [address] Care Team Providers Care Industrial Sociologist Name Role Phone Naomi Montague MD Primary Care Provider [phone] Reason for Visit * Reason Comments Med Refill Encounter Details Date Type Department Care Team ([facility] Contact Info) Description 08/29/2024 Refill [facility] [address] [place] [address] Jossy Stevenson MD [address] [place] [address] Social History Tobacco Use Types Packs/Day Years [...] Care Team (Late st Contact Info) Description 10/23/2024 3:00 PM EDT Office Visit [facility] [address] [place] [address] Carloz, Kristi, OD [address] [place] [address] 02/26/2025 10:00 AM EST Office Visit [facility] [address] [place] [address] Gaurang Stevenson documented as of this encounter Visit Diagnoses Not on filedocumented in this encounter Additional Health Concerns Assessment Noted Time PHQ-9 Depression Total Score: 2 04/30/19 25 9:35 AM EST documented as of this encounter Care Teams Industrial Sociologist Relationship Specialty Start Date End Date Naomi Montague MD [address] [place] [address] PCP - General Family Medicine 02/01/22 documented as of this encounter
--- OUTSIDE RECORDS SUMMARY | 2024-09-01 13:55 | XMS_ITS | Encounter Summary ---
Author Organization [employer] Address [address] [place] [address] [address] [place] [address] Care Team Providers Care Extruder Operator Helper Name Role Phone Naomi Montague MD Primary Care Provider [phone] Reason for Visit * Reason Onset Date Comments Returning Call Back 10/10/2022 Encounter Details Date Type Department Care Team ([facility] st Contact Info) Description 10/10/2022 Telephone [facility] [address] [place] [address] Naomi Montague MD [address] [place] [address] Returning Call Back Social History Tobacco Use [...] spouse returning call back, regarding message below. Meter Installer And Remover let him know a nurse will call back with an crime scene investigator he stated she's at work they can call him. Meter Installer And Remover doesn't see any HIPPA information. documented in this encounter Plan of Treatment Upcoming Encounters Date Type Department Care Team (Late st Contact Info) Description 10/23/2024 3:00 PM EDT Office Visit [facility] [address] [place], [place] [id number] Carloz, Kristi, OD [address] [place] [address] 02/26/2025 10:00 AM EST Office Visit [facility] [address] [place] [address] Gaurang Stevenson documented as of this encounter Visit Diagnoses Not on filedocumented in this encounter Additional Health Concerns Assessment Noted Time PHQ-9 Depression Total Score: 0 06/30/19 23 2:19 PM EDT documented as of this encounter Care Teams Extruder Operator Helper Relationship Specialty Start Date End Date Naomi Montague MD [address] [place] [address] PCP - General Family Medicine 02/01/22 documented as of this encounter
--- OUTSIDE RECORDS SUMMARY | 2024-09-01 13:55 | XMS_ITS | Clinical Summary ---
Author Organization [employer] Address [address] [place] [address] [address] [place] [address] Care Team Providers Care Curb Attendant Name Role Phone Naomi Montague MD Primary Care Provider [phone] Allergies Active Allergy Reactions Criticality Noted Date Comments Tolterodine Swelling 04/02/2022 Ubidecarenone Itching 02/08/2023 Medications Lancets 33G misc Use to check blood sugar daily as directed Active Blood Glucose Monitoring Suppl (FreeStyle [place] Lite) w/Device kit TEST BLOOD SUGAR DAILY 02/02/20 22 Active cetirizine (ZyrTEC) 10 MG tabletIndications: Cough, unspecified type Take 1 tablet (10 mg) by mouth in the morning. 30 tablet 2 02/09/20 23 Active FREESTYLE LITE test strip TEST BLOOD SUGAR DAILY DIRECTED 50 strip 11 11/28/19 24 Active doxepin (SINEquan) 10 MG capsuleIndications :Primary insomnia Take 1 capsule (10 mg) by mouth at bedtime. 90 capsule 1 03/27/20 24 Active rosuvastatin (Crestor) 10 MG tabletIndications: Mixed hyperlipidemia TAKE ONE TABLET BY MOUTH EVERY DAY 90 tablet 1 05/15/19 25 Active omeprazole (PriLOSEC) [address] capsule Take 1 capsule by mouth Once per day. 06/06/19 25 Active cholecalciferol VITAMIN D (Vitamin D-3) 50 MCG (1999) tablet TAKE ONE TABLET DAILY 90 tablet 3 08/26/19 25 Active metFORMIN XR (Glucophage-XR) 750 MG 24 hr tablet TAKE ONE TABLET TWICE DAILY. DO NOT BREAK, CRUSH, DISSOLVE OR CHEW 180 tablet 1 09/01/19 25 Active cholecalciferol (Vitamin D-3) 50 MCG (2000 UT) tablet TAKE ONE TABLET DAILY 120 tablet 4 08/08/19 24 025 Discontinued metFORMIN XR (Glucophage-XR) 750 MG 24 hr tablet TAKE ONE TABLET TWICE DAILY. DO NOT BREAK, CRUSH, DISSOLVE OR CHEW 60 tablet 2 06/02/19 25 025 Discontinued Active Problems Problem Noted Date [...] (10/05/2022 2:46 PM EDT): Patient seen by investigative shopper and had FNA done for mass on neck. Biopsy results given to patient and was recommended for surgery with no diagnoses. Per risk control field representative at [facility], Appointment scheduled with general surgeon for Jan 04 @ 9:30 Dr. Connolly at [facility], General surgeon specialty in thyroid. Assessment [...] Encounters Date Type Department Care Team Description 08/29/2024 Refill [facility] [address] [place] [address] Jossy Stevenson MD 08/24/2024 Refill [facility] [address] [place] [address] Naomi Montague MD 08/21/2024 9:00 AM EDT Office Visit [facility] [address] [place] [address] Gaurang Stevenson Dental calculus (Primary Dx) 07/24/2024 Orders Only GENERIC EXTERNAL DATA DEPARTMENT Provider, Generic External Data 06/19/2024 3:30 PM EST Office Visit [facility] [address] [place] [address] Carloz, Kristi, OD Peripapillary atrophy of both eyes (Primary Dx) 06/19/2024 Travel 06/16/2024 Telephone [facility] [address] [place] [address] Naomi Montague MD came to clinic with questions about CT Pelvis 06/06/2024 Orders Only [facility] External Provider, [facility] from Last 3 Months Immunizations Immunization Administration Dates Next Due Hep A, Adult [...] Sign Reading Time Taken Comments Blood Pressure 126/64 08/21/2024 8:06 AM EDT Pulse 65 08/21/2024 8:06 AM EDT Temperature 36.5 ??C (97.7 ??F) 03/27/2024 8:48 [...] Description 10/23/2024 3:00 PM EDT Office Visit [facility] [address] [place] [address] Carloz, Kristi, OD [address] [place] [address] 02/26/2025 10:00 AM EST Office Visit [facility] ADULT DENTAL [address] [place] [address] Biju Stevensonouard Health Maintenance Due Date Last Done Comments CT Colonography 1960 Colonoscopy 1960 FIT 1960 FOBT 1960 HIV Screening 1960 Sigmoidoscopy 1960 Disability Screening 1960 Pap Smear 07/28/1983 HPV/Cotest 1992 Diabetes: Foot Exam 12/19/2022 Diabetes: Urine Protein Screening 02/02/2023 02/02/2022 COVID-19 Vaccine ( season) 2023 07/12/2023, 03/10/2022, 03/17/2021, Additional history exists Diabetes: Hemoglobin A1C 09/25/2024 024, 03/27/2024, 07/23/2023, Additional history exists Mammogram 01/30/2025 Dental Oral Exam 02/22/2025 08/21/2024, 07/2023, 07/12/2023, Additional history exists Dental Prophylaxis 02/22/2025 08/21/2024, 1 , 07/12/2023, Additional history exists Lipid Panel 03/27/2025 03/27/2024, 04/0 12/2023, 01/04/2023, Additional history exists Alcohol/Substance Use Screening 04/30/2025 04/30/2024 Depression Screening 04/30/2025 04/30/2024, 04/30/19 SDOH Screening 04/30/2025 04/30/2024 Tobacco Screening 08/21/2025 08/21/2024 Dental X-Ray: Bitewings 08/22/2025 08/22/19 25, 01/17/2024, 11/30/2022 Dental X-Ray: Full Mouth 12/01/2025 11/30/2022 Colorectal Cancer Screening 02/05/2026 FIT DNA/Cologuard 02/05/2026 02/05/2023 Eye Exam 04/24/2026 04/24/2024, 04/15, 04/24/2024, Additional history exists DTaP/Tdap/Td Vaccines (3 - Td or Tdap) 03/27/2034 03/27/2024, 10/29/2011 Hepatitis A Vaccines Completed 12/28/2015, 06/22/19 Hepatitis B Vaccines Completed 12/28/2015, 08/17/2015, 06/22/2015 [...] patient's age to complete this topic Meningococcal B Vaccine Aged Out No l onger eligible based on patient's age to complete [...] Procedure Name Priority Date/Time Associated Diagnosis Comments PERIODIC ORAL EVALUATION - ESTABLISHED PATIENT Routine 08/21/2024 9:00 AM EDT ORAL HYGIENE INSTRUCTIONS Routine 08/21/2024 9:00 AM EDT BITEWINGS - 2 RADIOGRAPHIC IMAGES Routine 08/21/2024 9:00 AM EDT CASE PRESENTATION, DETAILED AND EXTENSIVE TREATMENT PLANNING Routine 08/21/2024 9:00 AM EDT PROPHYLAXIS - ADULT Routine 08/21/2024 9 :00 AM EDT MR ABDOMEN W AND WO CONTRAST Routine [...] without long-term current use of insulin (CMS/HCC) LAB COLOGUARD?? COLON CANCER SCREEN Routine 02/05/2023 [...] EDT Narrative 07/31/2024 11:01 AM EDT ? [facility] ?[address] ?[place] [address] ? Magnetic Resonance Report ? Signed ? Patient: Dino,Ru ?MR#: [id number] ? : 1960 ?Acct:[id number] ? Age/Sex: 64 / F ?ADM Date: 07/31/24 ? Loc: HO.MRI ? Attending Dr: Brittny Jean-Baptiste MD ? Ordering Physician: Brittny Jean-Baptiste MD ?? Date of Service: 07/31/24 ?? Procedure(s): MR abdomen wo/w con ?? Accession Number(s): [id number] ? cc: Naomi Montague MD; Brittny Jean-Baptiste [...] DD/ 0944 ? TD/TT: 07/31/24 1007 ? Molasses Coloring Operator: ? Procedure Note Thuy, Image - 07/31/2024 [place] [address] Magnetic Resonance Report Signed Patient: Ricky Sun#: [id number] : 1960Acct:[id number] Age/Sex: 64 / FADM Date: 07/31/24 Loc: HO.MRI Attending Dr: Brittny Jean-Baptiste MD Ordering Physician: Brittny Jean-Baptiste MD Date of Service: 07/31/24 Procedure(s): MR abdomen wo/w con Accession Number(s): [id number] cc: Naomi Montague MD; Brittny Jean-Baptiste MD [...] Ko Omer MD 07/31/2024 10:58 AM EDT Dictated By: Ko Omer MD Signed By: <Electronically signed by Ko Omer MD in OV> 07/31/24 1058 DD/ 0944 TD/TT: 07/31/24 1007 Molasses Coloring Operator: [facility] External Provider IMG MRI PROCEDURES Edited Result - Final * Ova and Parasites,??Concentrate and Permanent Smear (07/24/2024 6:45 PM EDT) Ova and Parasite Trichrome SEE NOTE [facility] Comment: ??OVA AND PARASITES, CONC AND PERM SMEAR ??Micro Number: ?[id number] ??Test Status: ? Final ??Specimen Source: ?? [...] For additional information, please refer to ? https://education.Pirq.ImpactGames/faq/ZPN697 ? (This link is being provided for informational/ ? educational purposes only.)THIS TEST WAS PERFORMED AT:[employer] [address] ??[id number] FRENCH MD 07/24/2024 6:45 PM EDT 2024 9:23 AM EDT Generic External Data Provider LAB MICROBIOLOGY - GENERAL ORDERABLES Final Result Performing Organization Address [facility] Co de Phone Number [facility] [address] [place] [phone] * Hepatitis C Ab (07/24/2024 1:38 PM EDT) Pathologist [facility] [place] Hepatitis C Antibody Nonreactive Nonreactive [facility] Comment:Antibodies to HCV no t detected; does not exclude early acuteHCV infection. 07/24/2024 1:38 PM EDT 07/24/2024 1:38 PM EDT Generic External Data Provider LAB BLOOD ORDERAB LES Final Result Performing Organization Address [facility] Number [facility] [address] [place] [phone] * (ABNORMAL) T-SPOT??.TB (07/24/2024 1:38 PM EDT) [facility] T Spot TB Positive( A) Negative [facility] Comment: Diagnosing or excluding tuberculosis (TB) [...] as aquantitative test. TS PANEL A 34 [facility] TS PANEL B 16 [facility] Negative Control Passed [facility] Positive Control Passed [facility] Comment:For additional infor jimena, please refer tohttp://education.Ala-Septic/faq/QVS638(This link is being provided for informational/educational purposes only.)THIS TEST WAS PERFORMED AT:[employer] [id number] [place] [id number] PASTOR MD,PHD 07/24/2024 1:38 PM EDT 07/24/2024 1:38 PM EDT Generic External Data Provider LAB BLOOD ORDERAB LES Final Result Performing Organization Address [facility] Co de Phone Number [facility] [address] [place] [phone] * Hepatitis A Antibody, Total (07/24/2024 1:38 PM EDT) Hepatitis A Antibody IgG REACTIVE Nonreactive [facility] Comment:The presence of IgG anti-HAV implies past HAV infection(recent or distant) or vaccination against HAV. 07/24/2024 1:38 PM EDT 07/24/2024 1:38 PM EDT Generic External Data Provider LAB BLOOD ORDERAB LES Final Result Performing Organization Address [facility] Co de Phone Number [facility] [address] [place] [phone] * Hepatitis B surface antigen, EIA (07/24/2024 1:38 PM EDT) Hepatitis B Surface Ag Negative Negative [facility] 07/24/2024 1:38 PM EDT 07/24/2024 1:38 PM EDT Generic External Data Provider LAB BLOOD ORDERAB LES Final Result Performing Organization Address [facility] de Phone Number [facility] [address] [place] [phone] * Hepatitis B Core Antibody, Total (07/24/2024 1:38 PM EDT) Hepatitis B Core Antibody Reactive Nonreactive [facility] Comment:Presumptive evidence of anti-HBc. 07/24/2024 1:38 PM EDT 07/24/2024 1:38 PM EDT Generic External Data Provider LAB BLOOD ORDERAB LES Final Result Performing Organization Address [facility] Phone Number [facility] [address] [place] [phone] * Hepatitis B Surface Antibody, Qualitative (07/24/2024 1:38 PM EDT) Pathologist [facility] [place] ~Hepatitis B Surface Antibody REACTIVE Nonreactive [facility] Comment:REACTIVE: > 11.99 mI U/mL 07/24/2024 1:38 PM EDT 07/24/2024 1:38 PM EDT Generic External Data Provider LAB BLOOD ORDERAB LES Final Result Performing Organization Address [facility] de Phone Number [facility] [address] [place] [phone] * Prothrombin Time-INR (07/24/2024 1:38 PM EDT) Pathologist [facility] [place] Prothrombin Time 11.3 10.9 - 12.4 SEC [facility] INTERNATIONAL NORM RATIO 1.0 0.9 - 1.1 [facility] Comment:INTERNATIONAL NORMAL IZED RATIO (INR) [...] Provider LAB BLOOD ORDERAB LES Final Result [facility] [address], [place] [phone] * (ABNORMAL) CBC (07/24/2024 1:38 PM EDT) White Blood Count 5.6 4.8 - 10.8 X10*3/uL [facility] Red Blood Count 4.74 4.20 - 5.50 X10*6/uL [facility] Hemoglobin 12.9 12.0 - 16.0 g/dl [facility] Hematocrit 37.2 37.0 - 47.0 % [facility] Mean Corpuscular Volume 78.5(L) 80.0 - 98.0 fL [facility] Mean Corpuscular Hemoglobin 27.2 27.0 - 33.0 pg [facility] Mean Corpuscular HGB Conc 34.7 31.0 - 35.0 g/dl [facility] Red Cell Distribution Width 11.7 11.0 - 16.0 % [facility] Platelet Count 207 160 - 400 X10*3/uL [facility] Mean Platelet Volume 9.9 9.4 - 12.3 fL [facility] NRBC Pct Auto 0.0 0.0 - 0.2 /100WBC [facility] NRBC Abs Auto 0.000 0.0 - 0.012 X10*3/uL [facility] 07/24/2024 1:38 PM EDT 07/24/2024 1:38 PM EDT us Generic External Data Provider LAB BLOOD ORDERAB LES Final Result Performing Organization Address City/[facility]/ZIP Co de Phone Number [facility] [address] [place] [phone] * (ABNORMAL) Comprehensive Metabolic Panel (07/24/2024 1:38 PM EDT) Sodium 143 135 - 145 mmol/L [facility] Potassium 3.8 3.3 - 5.1 mmol/L [facility] Chloride 108 96 - 108 mmol/L [facility] Carbon Dioxide 28 22 - 29 mmol/L [facility] Anion Gap 11(L) 12 - 20 [facility] Urea Nitrogen (BUN) 12 9 - 16 mg/dL [facility] Creatinine, Serum 0.67 0.5 - 1.4 mg/dL [facility] Estimated Glomerular Filt Rate >60 [facility] Comment:Chronic Kidney Disea se: Estimated GFR < 60 mL/min/1.45a8Ymlsmw Kidney Disease: Estimated GFR < 15 mL/min/1.73m2 Glucose 170(H) 60 - 115 mg/dL [facility] Calcium 9.4 8.4 - 10.2 mg/dL [facility] Bilirubin, Total 0.4 0.0 - 1.0 mg/dL [facility] Aspartate Amino Transferase 25 5 - 31 U/L [facility] Alanine Aminotransferase 37(H) 0 - 31 U/L [facility] Total Protein 7.3 6.5 - 8.0 g/dL [facility] Albumin Level 4.7 3.5 - 5.0 g/dL [facility] Alkaline Phosphatase 73 39 - 117 U/L [facility] 07/24/2024 1:38 PM EDT 07/24/2024 1:38 PM EDT us Generic External Data Provider LAB BLOOD ORDERAB LES Final Result Performing Organization Address City/[facility]/ZIP Co de Phone Number [facility] [address] [place] [address] [phone] * Automated Visual Field, Extended - [...] Lactic Acid 1.8 0.5 - 2.0 mmol/L [facility] 06/06/2024 3:06 AM EST 06/06/2024 3:08 AM EST us Generic External Data Provider LAB BLOOD ORDERAB LES Final Result [facility] [address] [place] [phone] [phone] * CT Abdomen Pelvis w/ Contrast (06/06/2024 2:50 AM EST) Anatomical Region Laterality Modality Body, Pelvis, Abdomen Computed T omography 06/06/2024 2:50 AM EST Narrative 06/06/2024 2:51 AM EST ? [facility] ?[address] ?[place] [address] ? CT Scan Report ? Signed ? Patient: Chi,Ru ?MR#: [id number] ? : 1960 ?Acct:[id number] ? Age/Sex: 63 / F ?ADM Date: 06/06/24 ? Loc: HO.ED ? Attending Dr: ? Ordering Physician: Kristen Medrano MD ?? Date of Service: 06/06/24 ?? Procedure(s): CT abdomen pelvis w IV con ?? Accession Number(s): [id number] ? cc: Kristen Medrano MD; Naomi Montague MD ? Report Number: ?? [id number]: Total DLP = ??438.00 mGy-cm ? CLINICAL HISTORY: epigastric pain ? Exam: CT abdomen and pelvis with intravenous contrast. ? Comparison: Abdominal ultrasound April 10, 2024. ? Findings: ? CT abdomen: ? No infiltrates within the lung bases. ?? Bones are osteopenic. No acute fracture. ?? Mild de leon chamber cardiac dilation. ?? Concentric wall thickening distal esophagus with small hiatal hernia. ?? Shvq-my-gcjuazvb fluid distention of the stomach with areas [...] DD/ 0250 ? TD/TT: 06/06/24 0250 ? Molasses Coloring Operator: ? Procedure Note Rameznegintezruthy, Image - 06/06/[address] [place] [address] [address] Scan Report Signed Patient: Ricky Sun#: [id number] : 1960Acct:[id number] Age/Sex: 63 / FADM Date: 06/06/24 Loc: HO.ED Attending Dr: Ordering Physician: Kristen Medrano MD Date of Service: 06/06/24 Procedure(s): CT abdomen pelvis w IV con Accession Number(s): [id number] cc: Kristen Medrano MD; Naomi Montague MD Report Number: [id number]: Total DLP = 438.00 mGy-cm CLINICAL HISTORY: epigastric pain Exam: CT abdomen and pelvis with intravenous contrast. Comparison: Abdominal ultrasound April 10, 2024. Findings: CT abdomen: No infiltrates within the lung bases. Bones are osteopenic. No acute fracture. Mild de leon chamber cardiac dilation. Concentric wall thickening distal esophagus with small hiatal hernia. Nuvb-ve-butehyjh fluid distention of the stomach with areas [...] by Glen Ivy MD in OV> 06/06/24 025 DD/ 9 TD/TT: 06/06/24 025 Molasses Coloring Operator: [facility] External Provider IMG CT PROCEDURES Final Result * (ABNORMAL) Urinalysis, Complete, with Reflex to Culture (06/06/2024 2:06 AM EST) Color Urine Yellow [facility] Appearance Urine Clear [facility] PH 6.5 5.0 - 9.0 [facility] Glucose Urine UA Negative Negative mg/dL [facility] Urine Blood Negative Negative [facility] Specific [place] - Urine >=1.030(H) 1.005 - 1.025 [facility] Urine Protein Trace Neg-Trace mg/dL [facility] Urine Ketones Negative Negative mg/dL [facility] Nitrite Urine Negative Negative [facility] Leukocyte Esterase Urine Negative Negative [facility] RBC Urine 0-2 0 - 2 /HPF [facility] Urine WBC 0-5 0 - 5 /HPF [facility] Urine Squamous Epithelial Cell 0-2 0 - 2 /HPF [facility] Urine Bacteria None Seen None Seen [facility] Hyaline Casts, Urine 0-2 0 - 2 /LPF [facility] 06/06/2024 2:06 AM EST 06/06/2024 2:11 AM EST Narrative [facility] - 06/06/2024 2:23 AM EST Urine, Clean Catch Generic External Data Provider LAB URINE ORDERAB LES Final Result Performing Organization Address City/State/[facility] Co de Phone Number [facility] [address] [place] [phone] * (ABNORMAL) POCT HGB A1C (03/27/2024 10:17 AM EST) Hemoglobin A1C 6.7(A) 4.0 - 6.0 % QC Media Lot # [id number] Lot# Expiration Date [id number] Blood 03/27/2024 10:1 7 AM EST Naomi Montague MD POINT OF CARE TEST ENTER/EDIT ORDERABLES Final Result * Lipid Panel, Standard (03/27/2024 9:46 AM EST) Triglycerides 77 <150 mg/dL [facility] Comment:Desirable Triglyceri de: less than 150 mg/dLBorderline High Triglyceride 150-199 mg/dLHigh Triglyceride: 200-499 mg/dLVery High Triglyceride: greater than or equal to 5OO mg/dL Cholesterol 114 <200 mg/dL [facility] Comment:Desirable Cholestero l: less than 200 mg/dLBorderline High Cholesterol: 200-239 mg/dLHigh Cholesterol: greater than 239 mg/dL LDL Cholesterol Calculated 46 <100 mg/dL [facility] Comment:Desirable LDL: less than 100 mg/dLNear Optimal/Above Optimal LDL: 110- 129 mg/dLBorderline High LDL: 130-159 mg/dLHigh LDL: 160-189 mg/dLVery High LDL: greater than or equal to 190 mg/dL HDL Cholesterol 53 >40 mg/dL [facility] Comment:Desirable HDL: great er than 40 mg/dL Note: This HDL assay may give artificially low results in patients with liver disease. Blood Venous blood specimen / Unknown 03/27/2024 9:46 AM EST 03/27/2024 2:18 PM EST us Naomi Montague MD LAB BLOOD ORDERABLES Final Re sult [facility] [address], [place] [phone] * Cologuard?? colon cancer screening (02/05/2023 5:40 AM EDT) Cologuard Result Negative Negative 02/14/20 2:34 AM EDT [facility] (CLIA #:[id number]) Comment: NEGATIVE TEST RESULT. A negative Cologuard [...] cancer. ??Following a negative Cologuard result, the [place] [employer] and U.S. Multi-Society Task Force screening guidelines recommend a Cologuard re-screening interval of 3 years. References: [place] [employer] Guideline for Colorectal Cancer Screening: https://www.cancer.org/cancer/forje-udmdgr-jmhoap/wcwfowrzn-sxqhxpziz-mrbodmc/ac s-rec ommendations.html.; Abdulkadir DK, Zi FERNANDEZ, Luzmaria PrakashK, Colorectal Cancer Screening: Recommendations for Physicians and Patients from the U.S. Multi-Society Task Force on Colorectal Cancer Screening , Am J Gastroenterology 2017; 112:2874-8464. TEST DESCRIPTION: Composite algorithmic analysis of stool [...] (Dickson Sampson al, N Engl J Med 2014;370(14):4970-2181.) Cologuard may produce a false negative or false positive result (no colorectal cancer or precancerous polyp present at colonoscopy follow up). A negative Cologuard test result does not guarantee the absence of CRC or advanced adenoma (pre-cancer). The current Cologuard screening interval is every 3 years. ([place] [employer] and U.S. Multi-Society Task Force). Cologuard performance data in a 10,000 patient pivotal study using colonoscopy as the reference method can be accessed at the following location: www.Sporterpilot/results. Additional description of the Cologuard test process, warnings and precautions can be found at www.Evestrard.ImpactGames. Stool specimen (specimen) 02/05/2023 5:40 AM EDT 02/06/2023 9:11 PM EDT us Naomi Montague MD LAB MOLECULAR DIAGNOSTICS ORD ERABLES Final Result [facility] (CLIA #:[id number]) [place] [place] [address], * ALBUMIN, RANDOM URINE W/CREATININE (02/02/2022 8:49 [...] Most Recently Relevant to Health Maintenance Insurance [facility] [id number] [place] [address] EYE MED DENTAL - HSN PARTIAL (MEDICAID) DENTAL - HSN PARTIAL (MEDICAID) Care Teams Curb Attendant Relationship Specialty Start Date End Date Naomi Montague MD [address] [place] [phone] PCP - General Family Medicine 02/01/22
[2024-09-16] VITALS (14 sets, daily range): BP systolic 129–169; BP diastolic 56–73; PULSE 56–66; RESP 10–18; TEMP 36.4–36.8; O2SAT 96–100; BMI 25.1
--- NOTE | ~2024-09-16 | CT_ITS ---
PROCEDURE: CT GUIDED ASPIRATION, LIVER CLINICAL INFORMATION: Liver cyst(s). Rule out Hydatid disease. PROCEDURES: 1. Limited preprocedure CT scan without contrast of the abdomen. Permanent images saved in PACS. 2. CT-guided aspiration of a suspected liver cyst. CLINICIANS: Shakeel Henderson NP MEDICATIONS: -Versed , Fentanyl , and lidocaine 1% 10 mL SQ -Antibiotics: None -For additional details, please see nursing flowsheet. COMPLICATIONS: None ESTIMATED BLOOD LOSS: < 5 ml CONTRAST: None SPECIMENS: 20 cc of clear aspirate sent for pathology and 20 cc of clear aspirate sent for microbiology MODERATE SEDATION TIME: 45 min PROCEDURE NOTE: The procedure, risks, benefits, and alternatives were carefully explained to the patient and written informed consent was obtained. The patient was placed supine on the exam table. A timeout was performed. A limited CT scan without contrast of the abdomen was performed to localize a large liver cyst-like structure and choose appropriate needle entry and trajectory. The patient was prepped and draped in usual sterile fashion. The skin and deeper soft tissues were anesthetized with lidocaine. Under CT guidance, a 5 Swazi by 7 cm Yueh catheter was advanced to the localized cyst like structure until clear fluid was aspirated. A total of 40 cc were taken. The Yueh was removed. A limited post procedure CT scan was then performed. Images were saved in PACS. A dry dressing was applied and secured with Tegaderm. There were no immediate complications. The patient was stable after the procedure and was transferred to the post anesthesia care unit. The procedure was done under moderate sedation with a dedicated nurse for monitoring of vital signs. CT/CT biopsy liver Impression: CT-guided aspiration of a suspected cyst. This procedure was performed by Shakeel Henderson NP and supervised by David Sweeney and . Electronically signed by: David Sweeney MD 09/22/2024 02:46 PM EDT
[2024-09-16 11:41] LABS: MANUAL DIFF FLAG NO
[2024-09-16 11:49] LABS: Basophils Absolute Auto 0.1 X10*3/uL (0.0-0.2); Basophils Percent Auto 0.8 % (0-2); Eosinophils Absolute Auto 0.2 X10*3/uL (0.0-0.4); Hematocrit 36.7 % (37.0-47.0); Hemoglobin 12.6 g/dl (12.0-16.0); Imm Gran Abs Auto 0.01 X10*3/uL (0.00-0.03); Imm Gran Pct Auto 0.2 % (0.0-0.4); Lymphocytes Absolute Auto 2.6 X10*3/uL (1.2-4.9); Lymphocytes Percent Auto 43.1 % (20-40); Mean Corpuscular HGB Conc 34.3 g/dl (31.0-35.0); Mean Corpuscular Hemoglobin 27.7 pg (27.0-33.0); Mean Corpuscular Volume 80.7 fL (80.0-98.0); Mean Platelet Volume 10.1 fL (9.4-12.3); Monocytes Absolute Auto 0.3 X10*3/uL (0.1-1.2); Monocytes Percent Auto 5.5 % (2-11); Neutrophils Absolute Auto 2.9 x10*3/uL (2.0-8.3); Neutrophils Percent Auto 47.4 % (45-73); Platelet Count 196 X10*3/uL (160-400); Red Blood Count 4.55 X10*6/uL (4.20-5.50); Red Cell Distribution Width 11.9 % (11.0-16.0); White Blood Count 6.1 X10*3/uL (4.8-10.8)
[2024-09-16 11:50] LABS: Prothrombin Time 11.9 SEC (10.9-12.4)
[2024-09-16 11:53] LABS: Partial Thromboplastin Time 34.3 SEC (26.0-36.8)
[2024-09-16 12:05] LABS: Anion Gap 11 (12-20); Blood Urea Nitrogen 13 mg/dL (9-16); Calcium 9.7 mg/dL (8.4-10.2); Carbon Dioxide 31 mmol/L (22-29); Chloride 107 mmol/L (96-108); Estimated Glomerular Filt Rate > 60; Glucose Random 110 mg/dL (60-115); Sodium 145 mmol/L (135-145)
[2024-09-16 13:44] LABS: Glucose, Whole Blood 106 mg/dL (60-115)
[2024-09-16] MEDS: Midazolam HCl 2 MG/2 ML VIAL 0.5 MG IVPUSH (13:55)
[2024-09-16] MEDS: fentaNYL citrate/PF 100 MCG/2 ML VIAL 25 MCG IVPUSH (13:56)
[2024-09-16] MEDS: Lidocaine HCl 1 % MPF 30 ML VIAL 10 ML SUBCUT (15:07)
== END 2024-09-16 15:55 | disposition home or self-care (01) ==
LOC: HO.SSS 10:49
PROVIDERS: Radiology Diagnostic Radiology; PCP Family Medicine; Visit Provider Internal Medicine
DX: K76.89 Other specified diseases of liver (principal); Z80.0 Family history of malignant neoplasm of digestive organs; I10 Essential (primary) hypertension; E78.5 Hyperlipidemia, unspecified
CPT/HCPCS: 36415; 47000; 77012; 80048; 82947; 85025; 85610; 85730; 87070; 87073; 87205; 88112; 99152; C1729; J2003; J2250; J2310; J3010

== ENCOUNTER → 2024-09-16 13:36 | Outpatient (BNV) | payer OTHER, SELFPAY | PROVIDERS: PCP Family Medicine | DX: K76.89 Other specified diseases of liver (principal) | CPT/HCPCS: 47000; 77012 ==

== ENCOUNTER 2024-10-21 11:26 | Outpatient (AMB) | payer OTHER, SELFPAY ==
--- NOTE | 2024-10-21 11:59 | MHC.OFFVIS ---
Vital Signs 10/21/24 12:34 Height 5 ft Weight 140 lb BMI 27.3 BP 134/64 Blood Pressure Location Rt brachial Position Sitting Pulse 64 Pulse Source Pulse Oximeter Pulse Oximetry (%) 98 Oxygen Delivery Method Room Air Intake Visit Reasons: f/u ultrasound Intake Note: Ru presents in the office as a follow up ultrasound. CC: C.O. persistence of chronic N+V. Pt is not taking PPI as originally instructed. Patient Advocate Required: No Accompanied by: Self / Same As Patient Allergies No Known Allergies Allergy (Verified 10/21/24 12:33) HPI Comments Details: 63 y.o Cantonese speaking female (originally from [place]) who was referred to our office for multiple liver cysts. Seen with the help of [employer] enterprise software developer. present as well. Pt herself reports hx of abd pain with N/V/D back in may that prompted ER visit. Resolved within 2 weeks. Currently asymptomatic. No abd pain, N,V, dysphagia or regurgitation. When pt seen in ER she had US done that showed complex liver cysts. This was then followed up with a CT see below. CT abdomen: No infiltrates within the lung bases. Bones are osteopenic. No acute fracture. Mild de leon chamber cardiac dilation. Concentric wall thickening distal esophagus with small hiatal hernia. Tlvt-eg-limfjito fluid distention of the stomach with areas of gastric wall thickening along the proximal to mid gastric body. Fluid-filled loops of borderline dilated small bowel is seen within the abdomen pelvis. Small bowel loops are dilated to 0.8 cm. There are scattered small bowel air-fluid levels. Small-bowel wall thickening and small-bowel wall hyperenhancement is seen in association with these fluid-filled loops of small bowel. Generalized low attenuation throughout the liver indicative of fatty infiltration. Numerous hypodense lesions within the liver corresponding to the ultrasound abnormalities. The largest is within the lateral segment of the left lobe measuring 6.5 x 6.9 cm in size. These are all fluid attenuation lesions. No solid hepatic mass lesions identified. Main portal vein is patent. Spleen, pancreas, gallbladder, and adrenal glands are unremarkable. Symmetric enhancement of the kidneys without mass or hydronephrosis. CT pelvis: Suture material seen of the anal rectal junction. Mild fluid distention of the cecum and ascending colon. Fluid-filled small bowel is seen within the pelvis as discussed above. Appendix is normal. No free fluid or free air. Uterus is surgically absent. Fluid attenuation structure is seen at the level of the vaginal cuff measuring 4.2 x 2.5 x 2.6 cm in size. No enlarged lymph nodes. No fam hx of gastric or esophageal ca. Father: cholangiocarcinoma - pt not aware if he had liver fluke infection Pt does not smoke. Occ wine use. Has hx of hysterectomy as well as hemorrhoidectomy. 10/21/24: Here for follow up. Cyst aspiration results reviewed. No mucinous or cancerous cells identified. No echinococcal parasites identified. Reviewed with the pt that could possible have polycystic liver disease. No renal cysts. Will refer to dedicated liver center for any further evaluation. She also has abnormal colon wall and stomach wall thickening. Will be set up for EGD/colo. PFSH Medical History Hyperlipidemia Hypertension Surgical History Hx of colonoscopy History of esophagogastroduodenoscopy (EGD) Family History Brother Colon cancer Social History Are you a primary manager long term care to a significant other at home: No Do you presently have visiting nurse or other home services: No Patient Tobacco Use Status: Never used Tobacco Physical Exam Vital Signs: Last Vital Signs Pulse 64 10/21/24 12:34 BP 134/64 10/21/24 12:34 Pulse Ox 98 10/21/24 12:34 Oxygen Delivery Method Room Air 10/21/24 12:34 BMI result Body Mass Index 27.3 Assessment & Plan Assessment & Plan (1) Hepatic cyst: Code(s): K76.89 - Other specified diseases of liver Category: Medical (2) Family history of cholangiocarcinoma: Code(s): Z80.0 - Family history of malignant neoplasm of digestive organs Category: Medical (3) Gastric wall thickening: Code(s): K31.89 - Other diseases of stomach and duodenum Category: Medical (4) Colon wall thickening: Code(s): K63.9 - Disease of intestine, unspecified Category: Medical (5) Family history of tuberculosis: Code(s): Z83.1 - Family history of other infectious and parasitic diseases Category: Medical (6) Positive QuantiFERON-TB Gold test: Code(s): R76.12 - Nonspecific reaction to cell mediated immunity measurement of gamma interferon antigen response without active tuberculosis Category: Medical (7) Hepatitis B core antibody positive: Code(s): R76.8 - Other specified abnormal immunological findings in serum Category: Medical Plan 1. liver cysts: Ddx including polycytic liver disease. No echinoccocus isolated from cyst aspiration. Also neg for fasciola. Will refer to dedicated hepatology center for further eval. Plan: - [facility] hepatology referral requested 2. Gastritis/ N/V Wall thickening noted on CT abdomen and pelvis. Unclear if acute in the setting of infectious gastroenteritis versus chronic. Patient reports intermittent post prandial nausea and vomiting. Will need upper endoscopy for luminal evaluation, as well as for mapping biopsy to screen for GIM in a high-risk pt for gastric cancer based on epidemiology. Plan: - Omeprazole 20 ocne daily - Zofean as needed - EGD to be booked with mapping bx 3. Colon wall thickening Could possibly have been acute due to GI infectious illness however, since due for screening anyway, will schedule colo at the same time as EGD. Plan: - PEG prep Rxed - handout provided - EGD/colo to be booked as above 3. HBV surface and core Ab positive: HBV s Ag negative. Immune controlled. No further action needed at this time. Follow up after scopes Orders: Referrals Gastroenterology Referral K76.89 - Other specified diseases of liver, Z80.0 - Family history of malignant neoplasm of digestive organs Medications: New peg 3350-electrolytes 236-22.74-6.74 -5.86 gram (Golytely) as per split prep instructions, until fecal effluent is clear 240 mL PO Q10M 4,000 mL 0RF colonoscopy ondansetron 4 mg PO BID-TID PRN 20 tabs 0RF nausea and vomiting omeprazole 20 mg PO DAILY 90 caps 0RF 90 days Coding Level of Care Code Est Pt Level 5 (25921) Complex EM visit Add On G2211 Diagnoses Hepatic cyst K76.89 Family history of cholangiocarcinoma Z80.0 Gastric wall thickening K31.89 Colon wall thickening K63.9 Family history of tuberculosis Z83.1 Positive QuantiFERON-TB Gold test R76.12 Hepatitis B core antibody positive R76.8
[2024-10-21 12:34] VITALS: BP 134/64; PULSE 64; O2SAT 98; BMI 27.3
--- OUTSIDE RECORDS SUMMARY | 2024-10-21 12:38 | XMS_ITS | Encounter Summary ---
Author Organization [employer] Address [address] [place] [address] [address] [place] [address] Care Team Providers Care Farm Operations Technical Director Name Role Phone Naomi Montague MD Primary Care Provider [phone] Reason for Visit * Reason Onset Date Comments Returning Call Back 10/10/2022 Encounter Details Date Type Department Care Team ([facility] st Contact Info) Description 10/10/2022 Telephone C [facility] [address] [place] [address] Naomi Montague MD [address] [place] [address] Returning Call Back Social History Tobacco Use [...] spouse returning call back, regarding message below. 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 Green Meat Grader doesn't see any HIPPA information. documented in this encounter Plan of Treatment Upcoming Encounters Date Type Department Care Team (Late st Contact Info) Description 10/23/2024 3:00 PM EDT Office Visit [facility] OPTOMETRY [address] [place] [address] Carloz, Kristi, OD [address] [place] [address] 10/30/2024 9:00 AM EDT Office Visit [facility] MED & PEDS [address] [place] [address] Naomi Montague MD [address] [place] [address] 02/26/2025 10:00 AM EST Office Visit [facility] ADULT DENTAL [address] [place] [address] Gaurang Stevenson documented as of this encounter Visit Diagnoses Not on filedocumented in this encounter Additional Health Concerns Assessment Noted Time PHQ-9 Depression Total Score: 0 06/30/19 23 2:19 PM EDT documented as of this encounter Care Teams Farm Operations Technical Director Relationship Specialty Start Date End Date Naomi Montague MD [address] [place] [address] PCP - General Family Medicine 02/01/22 documented as of this encounter
== END 2024-10-21 14:03 | disposition home or self-care (01) ==
LOC: HO.HGI 11:26
PROVIDERS: PCP Family Medicine; Visit Provider Internal Medicine
DX: K76.89 Other specified diseases of liver (principal); Z80.0 Family history of malignant neoplasm of digestive organs; K31.89 Other diseases of stomach and duodenum; K63.9 Disease of intestine, unspecified; Z83.1 Family history of other infectious and parasitic diseases; R76.12 Nonspecific reaction to cell mediated immunity measurement of gamma interferon antigen response without active tuberculosis; R76.8 Other specified abnormal immunological findings in serum
CPT/HCPCS: 99214

== ENCOUNTER → 2024-10-21 11:26 | Outpatient (BNVA) | payer OTHER, SELFPAY | PROVIDERS: PCP Family Medicine; Visit Provider Internal Medicine | DX: Z71.2 Person consulting for explanation of examination or test findings (principal); K76.89 Other specified diseases of liver; K31.89 Other diseases of stomach and duodenum; K63.9 Disease of intestine, unspecified; Z80.0 Family history of malignant neoplasm of digestive organs; R76.12 Nonspecific reaction to cell mediated immunity measurement of gamma interferon antigen response without active tuberculosis; R76.8 Other specified abnormal immunological findings in serum | CPT/HCPCS: 99212 ==

== ENCOUNTER 2024-11-20 06:38 | Day surgery (SDC) | payer OTHER, SELFPAY ==
--- OUTSIDE RECORDS SUMMARY | 2024-11-09 10:51 | XMS_ITS | Clinical Summary ---
Author Organization [facility] Address [address] [place] [address] Phone Care Team Providers Care Loading Shovel Oiler Name Role Phone Swapna Maravilla MD Primary Care Provider + Allergies No known active allergies Medications oxyCODONE 5 MG immediate release tablet Take 1 tablet (5 mg total) by mouth every 4 (four) hours as needed for moderate pain. 10 tablet 7 Active Additional Information Patient not taking.Reported on 02/14/2017 Ca cit-D3-mag#11-z lki-[id number]-[id number]-ronni r (CALTRATE 600+D) 600 mg calcium- 800 unit-50 mg Tab Take 1 tablet by mouth daily. Active calcium gluconate 500 mg (45 mg elemental) Tab Take 500 mg by mouth daily. Active cholecalciferol (VITAMIN D3) 2,000 unit tablet Take 1,000 Units by mouth daily. Active ferrous sulfate 143 mg (45 mg elemental) TbER Take 143 mg by mouth daily with breakfast. Active Social History Tobacco Use Types Packs/Day Years Used Date Smoking Tobacco: Never Smokeless Tobacco: Never Alcohol Use Standard Drinks/Week Comments Yes 2 (1 standard drink = 0.6 oz pur e alcohol) 2 glasses per week Education Answer Date Recorded Are you interested in more education? Not on lisa e 08/10/2022 Are you concerned about learning? Not on file 08/10/2022 No 08/10/2022 No 08/10/2022 Digital Access Answer Date Recorded No 09/07/2022 No 09/07/2022 No 09/07/2022 Reliable internet access at home? Not on file 09/07/2022 Device with a working camera? Not on file Comments No Sex and Gender Information Value Date Recorded Sex Assigned at Not on file Legal Sex Female 10:18 AM EDT Gender Identity Not on file Sexual Orientation Not on file Last Filed Vital Signs Vital Sign Reading Time Taken Comments Blood Pressure 114/60 03/11/2017 1:38 PM EST Pulse 81 02/20/2017 2:00 PM EST Temperature 36.7 C (98 F) 02/20/2017 3:01 PM EST Respiratory Rate 16 02/20/2017 3:01 PM EST Oxygen Saturation 99% 02/20/2017 3:01 PM EST Inhaled Oxygen Concentration - - Weight 68 kg (150 lb) 03/11/2017 1:38 PM EST Height 157.5 cm (5' 2 ) 03/11/2017 1:38 PM EST Body Mass Index 27.44 03/11/2017 1:38 PM EST Plan of Treatment Health Maintenance Due Date Last Done Comments Adult Td,Tdap Booster 1962 LIPID PANEL 1962 DEPRESSION SCREENING 1974 HEPATITIS C SCREENING 1980 HIV ONE-TIME SCREENING (18-6 5 YEARS) 1980 PAP SMEAR 07/28/1983 MAMMOGRAM 2002 COLOGUARD 07/28/2007 COLONOSCOPY 07/28/2007 COLORECTAL CANCER SCREENING 07/28/2007 FIT TEST 07/28/2007 FOBT 07/28/2007 SIGMOIDOSCOPY 07/28/2007 VIRTUAL COLONOSCOPY 07/28/2007 PNEUMOCOCCAL VACCINES (50+ years) (1 of 1 - PCV) 2012 ZOSTER VACCINES (1 of 2) 2012 COVID-19 VACCINE (3 - 2023-2 5 season) 2023 08/13/2020, 07/23/2020 RSV VACCINE (1 - 1-dose 75+ series) 2037 SMOKING STATUS SCREENING (On ce After 26 Yrs) Completed 03/11/2017 HEPATITIS A VACCINES Aged Out No long er eligible based on patient's age to complete this topic HIB VACCINES Aged Out No longer eligi ble based on patient's age to complete this topic MENINGOCOCCAL VACCINES (ACWY) Aged Out No longer eligible based on patient's age to complete this topic MENINGOCOCCAL VACCINES (B) Aged Out N o longer eligible based on patient's age to complete this topic Medical Devices Not on file Insurance [employer] Advance Directives For more information, please contact: [phone] (9AM - 5PM [facility], Saturday-Saturday) * Full Code (Presumed) (Latest Code Status on File) Date Activated Date Inactivated Comments 02/20/2017 6:24 AM 02/20/2017 7:04 PM Care Teams Loading Shovel Oiler Relationship Specialty Start Date End Date Swapna Maravilla MD [address] [place] [address] PCP - General Family Medicine 09/04/16 Additional Source Comments The information contained in this document represents components of the legal health record. It is not the complete legal health record.[facility]
--- OUTSIDE RECORDS SUMMARY | 2024-11-09 10:51 | XMS_ITS | Encounter Summary ---
Author Organization [employer] Address [address] [place] [address] [address] [place] [address] Care Team Providers Care Special Shopper Name Role Phone Naomi Montague MD Primary Care Provider Reason for Visit * Reason Onset Date Comments Returning Call Back 10/10/2022 Encounter Details Date Type Department Care Team ([facility] st Contact Info) Description 10/10/2022 Telephone C [facility] [address] [place] [address] Naomi Montague MD [address] [place] [address] Returning Call Back Social History Tobacco Use [...] spouse returning call back, regarding message below. Tower Loader Operator let him know a nurse will call back with an public health engineer he stated she's at work they can call him. Tower Loader Operator doesn't see any HIPPA information. documented in this encounter Plan of Treatment Upcoming Encounters Date Type Department Care Team (Late st Contact Info) Description 01/01/2025 9:45 AM EDT Office Visit [facility] [address] [place] [address] Naomi Montague MD [address] [place] [address] 02/26/2025 10:00 AM EST Office Visit [facility] ADULT DENTAL [address] [place] [address] Gaurang Stevenson 04/30/2025 1:00 PM EST Office Visit [facility] OPTOMETRY [address] [place] [address] Carloz, Kristi, OD [address] [place] [address] documented as of this encounter Visit Diagnoses Not on filedocumented in this encounter Additional Health Concerns Assessment Noted Time PHQ-9 Depression Total Score: 0 06/30/19 23 2:19 PM EDT documented as of this encounter Care Teams Special Shopper Relationship Specialty Start Date End Date Naomi Montague MD [address] [place] [address] PCP - General Family Medicine 02/01/22 documented as of this encounter
[2024-11-17 13:57] VITALS: BMI 27.3
--- NOTE | 2024-11-19 09:17 | HO.ANESPROP2 ---
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 Eval with [facility] infectious disease 07/2024. No further treatment at this time. PMFSH Active Problems Active Problems: All Active Problems Hepatitis B core antibody positive (Acute) Colon wall thickening (Acute) Gastric wall thickening (Acute) Positive QuantiFERON-TB Gold test (Acute) Family history of cholangiocarcinoma (Acute) Need for hepatitis B screening test (Acute) Family history of tuberculosis (Acute) Hepatic cyst (Acute) Past Medical History Medical History (Updated 11/17/24 @ 13:58 by Lourdes Cuellar, VIJAY) GERD (gastroesophageal reflux disease) Diabetes Hyperlipidemia Hypertension Family History Family History Brother Colon cancer Surgical History Surgical History (Updated 11/17/24 @ 12:14 by Lourdes Cuellar, VIJAY) History of surgery Hx of colonoscopy History of esophagogastroduodenoscopy (EGD) Social History Social History Are you a primary care management associate to a significant other at home: No Do you presently have visiting nurse or other home services: No Patient Tobacco Use Status: Never used Tobacco Meds Allergies Allergy/AdvReac Type Severity Reaction Status Date / Time No Known Allergies Allergy Verified 10/21/24 12:33 Home Medications ?Medication ?Instructions ?Recorded ?Confirmed ?Last Taken ?Type blood sugar diagnostic (FreeStyle #10 ea 07/24/24 Unknown History Lite Strips) cholecalciferol (vitamin D3) 50 50 mcg PO DAILY 07/24/24 11/17/24 Unknown History mcg (2,000 unit) tablet doxepin 10 mg capsule 10 mg PO BEDTIME 07/24/24 11/17/24 Unknown History metformin 750 mg tablet,extended 750 mg PO BID 07/24/24 11/17/24 Unknown History release 24 hr rosuvastatin 10 mg tablet 10 mg PO DAILY 07/24/24 11/17/24 Unknown History Exam Height,Weight and Vital Signs: Height 5 ft Weight 63.503 kg Pertinent Lab Results Pertinent Lab Results: Laboratory Tests 09/16/24 11:38 WBC 6.1 Hgb 12.6 Hct 36.7 L Plt Count 196 Sodium 145 Potassium 4.0 Chloride 107 Carbon Dioxide 31 H BUN 13 Creatinine 0.71 Assessment and Plan Assessment Anesthesia Assessment: Chart Reviewed
[2024-11-20 07:20] VITALS: BP 155/65; PULSE 57; RESP 16; TEMP 36.5; O2SAT 97
[2024-11-20 07:21] LABS: Glucose, Whole Blood 111 mg/dL (60-115)
[2024-11-20] MEDS: Lactated Ringers 1,000 ML 100 ML IVCONT (07:21)
--- NOTE | 2024-11-20 07:51 | P.CONAN_ITS ---
[facility], [facility] Active Problems Active Problems: All Active Problems (Updated 11/17/24 @ 13:58 by Lourdes Cuellar RN) Hepatitis B core antibody positive (Acute) Colon wall thickening (Acute) Gastric wall thickening (Acute) Positive QuantiFERON-TB Gold test (Acute) Family history of cholangiocarcinoma (Acute) Need for hepatitis B screening test (Acute) Family history of tuberculosis (Acute) Hepatic cyst (Acute) Past Medical History Medical History GERD (gastroesophageal reflux disease) Diabetes Hyperlipidemia Hypertension Family History Family History Brother Colon cancer Surgical History Surgical History History of surgery Hx of colonoscopy History of esophagogastroduodenoscopy (EGD) History of Problems with Anesthesia: No Social History Social History Are you a primary rn urgent care to a significant other at home: No Do you presently have visiting nurse or other home services: No Patient Tobacco Use Status: Never used Tobacco Use of substances other than those prescribed or required for medical reasons: No Advance Directives: No Advance Directives Information Provided: Yes Meds Allergies Allergy/AdvReac Type Severity Reaction Status Date / Time No Known Allergies Allergy Verified 10/21/24 12:33 Active Medications: Current Medications Lactated Ringer's (Lr) 1,000 mls @ 100 mls/hr IVCONT .Q10H BLANCA Last Admin: 11/20/24 07:21 Dose: 100 mls/hr Home Medications ?Medication ?Instructions ?Recorded ?Confirmed ?Last Taken ?Type blood sugar diagnostic (FreeStyle #10 ea 07/24/24 Unk nown History Lite Strips) cholecalciferol (vitamin D3) 50 50 mcg PO DAILY 11/17/24 Unknown History mcg (2,000 unit) tablet doxepin 10 mg capsule 10 mg PO BEDTIME 07/24/24 Unknown History metformin 750 mg tablet,extended 750 mg PO BID 5 11/17/24 Unknown History release 24 hr rosuvastatin 10 mg tablet 10 mg PO DAILY 07/24/24 0809/06 Unknown History Exam Height,Weight and Vital Signs: Height 5 ft Weight 63.503 kg Last Vital Signs Temp 97.7 F 11/20/24 07:20 Pulse 57 11/20/24 07:20 Resp 16 11/20/24 07:20 BP 155/65 H 11/20/24 07:20 Pulse Ox 97 11/20/24 07:20 O2 Del Method Room Air 11/20/24 07:20 Pertinent Lab Results Pertinent Lab Results: Laboratory Tests 11/20/24 07:18 POC Glucose 111 Airway Mallampati Class: II TM Dist: >3cm Neck ROM: Full Partial: Upper Loose/Missing/Broken Teeth: Yes and Upper Heart: RRR Lungs: CTA Assessment and Plan Assessment Anesthesia Assessment: Anesthesia Plan Discussed and Chart Reviewed Final Anesthetic Review History of Problems with Anesthesia: No NPO: Yes ASA Class: II Final Preanesthetic Review: Meds/Allgs Chart Reviewed, Consent Obtained/Reviewed and Anes Risks/Benef Reviewed Patient Risk: Low Procedure Risk: Intermediate Anesthetic Plan Anesthetic Plan: MAC: Disposition: Standard PACU
--- NOTE | 2024-11-20 08:14 | MHC.SHP ---
Pre-Procedural Eval Section A - 24 Hr Update-Section A only Date of Service: 11/20/24 Section B - Complete if H&P > 30 days Chief Complaint: Disease of intestine,hx malignant neoplasm Details of Present Illness: Hyperlipidemia Hypertension Surgical History Hx of colonoscopy History of esophagogastroduodenoscopy (EGD) Present Medications: see Short Stay Collaborative assessment Allergies: Allergies Allergy/AdvReac Type Severity Reaction Status Date / Time No Known Allergies Allergy Verified 10/21/24 12:33 Review of Systems Review of Systems Comment: Ten point ROS negative Exam Exam Comment: Gen appear: No acute distress HEENT: no icterus Chest: No overt resp distress Abd: soft, nontender, nondistended Psych: Stable affect, answering questions appropriately Neuro: A/Ox3 noted to move all extremities spontaneously Ext: no peripheral edema Plan Diagnosis/Plan: Unchanged I have reviewed the history and physical and performed a pertinent physical examination on my patient. No changes have occurred unless specified. Time Spent With Patient Time: Total time managing care of this patient today ____ minutes.
[2024-11-20 09:15] VITALS: BP 107/53; PULSE 55; RESP 18; TEMP 36.1; O2SAT 98
--- NOTE | 2024-11-20 09:22 | P.OPN-COLO_ITS ---
Colonoscopy Operative Note Operative Note Date of Service: 11/20/24 Narrative: Procedure: Upper endoscopy and colonoscopy Indication: N/V, colitis Endoscopist: Brittny Jean-Baptiste MD Anesthesia Provider: Dr Carlie Werner Anesthesia type: MAC Instrument: [id number] and [id number]-[id number] EGD Procedure:?? The procedure, indications, preparation and potential complications were reviewed with the patient, who indicated understanding and gave written informed consent to proceed. The endoscope was introduced through the mouth, and advanced to the 2nd part of the duodenum. The mucosa was carefully examined on slow withdrawal of the endoscope. The patient tolerated the procedure well. There were no immediate complications.? EGD Findings:? * Esophagus:? Normal esophageal mucosa was noted. The Z-line was at 38 cm. Cold forceps biopsies were taken from middle and lower esophagus to rule out eosinophilic esophagitis. * Stomach:? Normal gastric mucosa. Multiple polyps ranging from size 5-15 mm noted in the body and fundus of the stomach. Retroflexion was performed in the cardia. Cold forceps mapping biopsies were taken from the stomach as per Silvia protocol. Cold snare polypectomy was also done for polyps 10 mm and larger for histology. * Duodenum:? Mild erythema and edema in the duodenal bulb. Cold forceps biopsies were taken from the duodenal bulb and 2nd portion of the duodenum to rule out celiac sprue. Colonoscopy Procedure:? The patient was then turned for the colonoscopy. A digital rectal exam was performed which was normal.? A distal attachment cap was affixed to the tip of the scope and the colonoscope was then inserted through the anus and advanced through the colon and advanced to the cecum at 75 cm and terminal ileum.? Appendiceal orifice and ileocecal valve were identified. Mucosa was carefully examined under high definition white light as the instrument was slowly withdrawn in a retrograde panoramic fashion. Retroflexion was performed in rectum. The procedure was not difficult. The quality of the prep was BBPS: 2+3+2 = adequate Withdrawal time 10 minutes Limitations: No limitations Findings: Mucosa: Normal colon and terminal ileum mucosa. Cold forceps biopsies were taken from the right and left side of the colon. Protruding lesions: * One sessile polyp of size 2 mm noted in the sigmoid colon. Cold snare polypectomy was performed. The polyp was completely removed and retrieved. * Small internal hemorrhoids without stigmata of recent bleeding. Impression: 1. Normal esophagus (biopsy) 2. Normal stomach (biopsy) 3. Gastric polyps (polypectomy) 4. Duodenitis (biopsy) 5. Normal colon and terminal ileum mucosa (biopsy) 6. One polyp removed 7. Internal hemorrhoids Recommendations:?? * Follow-up path results * Cont omeprazole 20 daily * Avoid NSAIDs * H Pylori treatment if biopsies + * Repeat EGD contingent on presence of GIM * Repeat colonoscopy for CRC screening in 10 years.
[2024-11-20 09:30] VITALS: BP 134/66; PULSE 53; RESP 18; O2SAT 98
[2024-11-20 09:45] VITALS: BP 150/70; PULSE 53; RESP 18; TEMP 36.1; O2SAT 98
[2024-11-20 09:57] VITALS: BP 159/68; PULSE 51; RESP 18; TEMP 36.3; O2SAT 98
== END 2024-11-20 10:11 | disposition home or self-care (01) ==
PROVIDERS: PCP Family Medicine; Visit Provider Internal Medicine
PROC: (CPT 45385; principal; 2024-11-20 08:10)
DX: K63.9 Disease of intestine, unspecified (principal); Z80.0 Family history of malignant neoplasm of digestive organs; K63.5 Polyp of colon; K64.8 Other hemorrhoids; K52.9 Noninfective gastroenteritis and colitis, unspecified; R11.2 Nausea with vomiting, unspecified; K21.9 Gastro-esophageal reflux disease without esophagitis; K31.7 Polyp of stomach and duodenum; K31.89 Other diseases of stomach and duodenum; K29.50 Unspecified chronic gastritis without bleeding; K29.80 Duodenitis without bleeding; K76.89 Other specified diseases of liver; I10 Essential (primary) hypertension; E78.5 Hyperlipidemia, unspecified; E11.9 Type 2 diabetes mellitus without complications; R76.12 Nonspecific reaction to cell mediated immunity measurement of gamma interferon antigen response without active tuberculosis; Z83.1 Family history of other infectious and parasitic diseases; R76.8 Other specified abnormal immunological findings in serum; Z79.84 Long term (current) use of oral hypoglycemic drugs; Z79.899 Other long term (current) drug therapy; Z98.890 Other specified postprocedural states
CPT/HCPCS: 45385; 45380; 43251; 43239; 82947; 88305; 88342; J2003; J2704

== ENCOUNTER → 2024-11-20 06:38 | Outpatient (BNV) | payer OTHER, SELFPAY | PROVIDERS: PCP Family Medicine; Visit Provider Internal Medicine | DX: K52.9 Noninfective gastroenteritis and colitis, unspecified (principal); D12.5 Benign neoplasm of sigmoid colon; K64.8 Other hemorrhoids; R11.2 Nausea with vomiting, unspecified; K31.7 Polyp of stomach and duodenum; K29.80 Duodenitis without bleeding | CPT/HCPCS: 43239; 43251; 45385 ==

== ENCOUNTER 2024-11-21 11:53 | Emergency (ER) | payer OTHER, SELFPAY ==
--- NOTE | 2024-11-21 12:11 | ED.GENADULT ---
HPI - General Adult General Chief complaint: General Medical Stated complaint: procedure yest, dizzy, vomiting Time Seen by Provider: 11/21/24 12:47 Source: patient, family and rebrander ( request) Mode of arrival: ambulatory History of Present Illness ED Provider: Rola DORADO narrative: 64-year-old female who underwent upper and lower endoscopy yesterday by Dr. Almas Salmon, gastroenterology, she now reports that throughout the night she has had changing coloration of bowel movements with initial a little bit of red blood, pictures are supplied while gathering the HPI and then noted to become darker, last bowel movement which appeared black in nature was 0 900 this morning, patient has had nausea but denies any vomiting, she has tolerated oral intake, she denies any abdominal pain. Related Data Home Medications ?Medication ?Instructions ?Recorded ?Confirmed blood sugar diagnostic (FreeStyle #10 ea 07/24/24 Lite Strips) cholecalciferol (vitamin D3) 50 50 mcg PO DAILY 07/24/24 11/17/24 mcg (2,000 unit) tablet doxepin 10 mg capsule 10 mg PO BEDTIME 07/24/24 11/17/24 metformin 750 mg tablet,extended 750 mg PO BID 07/24/24 11/17/24 release 24 hr rosuvastatin 10 mg tablet 10 mg PO DAILY 07/24/24 11/17/24 Previous Rx's ?Medication ?Instructions ?Recorded omeprazole 20 mg capsule,delayed 20 mg PO DAILY 90 days #90 caps 10/21/24 release ondansetron 4 mg disintegrating 4 mg PO BID-TID PRN nausea and 10/21/24 tablet vomiting #20 tabs Allergies Allergy/AdvReac Type Severity Reaction Status Date / Time No Known Allergies Allergy Verified 11/21/24 12:19 Review of Systems Review of Systems: Pertinent positives and negatives as stated in HPI. PMF Past Medical History Source: nursing notes reviewed Medical History GERD (gastroesophageal reflux disease) Diabetes Hyperlipidemia Hypertension Surgical History History of surgery Hx of colonoscopy History of esophagogastroduodenoscopy (EGD) Family History Family History Brother Colon cancer Social History Social History Are you a primary career development engineer to a significant other at home: No Do you presently have visiting nurse or other home services: No Patient Tobacco Use Status: Never used Tobacco Smoked in Last 30 Days: No Use of substances other than those prescribed or required for medical reasons: No Advance Directives: No Advance Directives Information Provided: Yes Patient : No Physical Exam ED Exam Exam: VITAL SIGNS: Reviewed. GENERAL: Well developed, well nourished, in no acute distress. HEAD: Normocephalic/atraumatic EYES: PERRLA, EOMI EARS: Ext canals without abnormality NOSE: Nares patent bilateral OROPHARYNX: no oral lesions noted, posterior pharynx clear NECK: Supple, no adenopathy LUNGS: Normal breath sounds. No adventitious sounds or accessory muscle use. CARDIOVASCULAR: Regular rate and rhythm without noted murmurs ABDOMEN: Soft, non-tender, non-distended with bowel sounds. MUSCULOSKELETAL: No tenderness, deformities, or effusions noted on gross inspection. EXTREMITIES: No cyanosis, clubbing or edema. SKIN: Inspection of the skin reveals no rashes, pallor NEUROLOGIC: Alert and oriented x 4. Strength and sensation to light touch were grossly intact x 4. Vital Signs: Vital Signs - 24 hr 11/21/24 12:15 11/21/24 12:26 Temperature 98.8 F 97.7 F Pulse Rate 99 60 Respiratory Rate 18 18 Blood Pressure 94/50 L 103/49 L Pulse Oximetry 98 96 Oxygen Delivery Method Room Air Room Air BMI result Body Mass Index 24.8 Course Course Course Narrative: This is an RME: Additional HPI, ROS, PE not included below will be deferred to primary provider. RME assessment and note performed by: Tatyana Luke PA-C This is a 58-afma-lvs-female, hx of diabetes, hld, htn, GERD, who presents to the ER with a complaint of nausea, dizziness, abdominal pain, generalized weakness since this morning. Pt pale, diaphoretic, no CP or SOB. Had colonoscopy/endoscopy by Dr. Jean-Baptiste due to n/v and colitis symptoms. reports the procedure went well. Has continued to have multiple episodes of diarrhea since. Plan: Labs, EKG, further ER eval needed. Medications Administered Generic Name Dose Route Start Last Admin Trade Name Freq PRN Reason Stop Dose Admin Sodium Chloride 1,000 mls @ 999 mls/hr 11/21/24 13:15 11/21/24 13:15 Ns IV 11/21/24 14:15 999 mls/hr .Q1H1M BLANCA Administration Medical Decision Making Medical Decision Making MDM Narrative: 64-year-old female with history and clinical presentation, DD DX: Suspect some mild upper GI bleeding that has resulted in dark stools, patient otherwise appears well/nontoxic. Although blood pressure initially is noted to be low, heart rate is borderline and feel that this is likely a component of hypovolemia as well given prep prior to the upper and lower endoscopy evaluation. Clinical exam is benign in nature, abdomen is soft, nontender, patient has no obvious toxic appearance. No concern for gastric perforation. 1256: EKG by my interpretation is NSR, HR-74, no STEMI, KS/QRS is within normal limits, QTC -517 suspect secondary to medications. INTERVENTION: 1 L IV fluids. 1305: I have discussed the case with Dr. Thorpe, the covering pattern drafter, I do think that patient will likely benefit from watchful waiting and does not require admission at this time. 1337: I reviewed and interpreted all investigations and there is no leukocytosis, there is a microcytic anemia when compared to prior value of 12.5 in September of this year, there is no thrombocytopenia. There is no demonstrate HUA, however BUN is elevated and although could be indicative of an upper GI etiology which is already suspected given the presence of dark stool, there is also the possibility that this is reflective of underlying volume depletion from endoscopy prep. Otherwise there are no electrolyte or liver enzyme derangements. Hyperglycemia without evidence of HHS or DKA. Dr. Thorpe agrees with conservative/watchful waiting approach with strict return precautions given to the patient and her , otherwise patient is well appearing/nontoxic and stable for discharge to home. At this time no indication for inpatient admission. Differential Diagnosis Differential Diagnoses: The differential diagnosis associated with the presentation includes See above Admission/Observation See above Consult Healthcare Provider Management of the patient was discussed with: Deep Fat Fry Cook See above, Gastroenterology Lab Data MDM Lab Attestation statement: I reviewed the patient's lab results. See above 11/21/24 12:49 11/21/24 12:49 Labs: Lab Results 11/21/24 Range/Units 12:49 WBC 6.9 (4.8-10.8) X10*3/uL RBC 3.82 L (4.20-5.50) X10*6/uL Hgb 10.5 L (12.0-16.0) g/dl Hct 30.5 L (37.0-47.0) % MCV 79.8 L (80.0-98.0) fL MCH 27.5 (27.0-33.0) pg MCHC 34.4 (31.0-35.0) g/dl RDW 11.9 (11.0-16.0) % Plt Count 186 (160-400) X10*3/uL MPV 9.6 (9.4-12.3) fL Immature Gran % (Auto) 0.3 (0.0-0.4) % Neut % (Auto) 69.1 (45-73) % Lymph % (Auto) 24.2 (20-40) % [place] % (Auto) 5.1 (2-11) % Eos % (Auto) 0.7 (0-4) % Baso % (Auto) 0.6 (0-2) % Lymph # (Auto) 1.7 (1.2-4.9) X10*3/uL [place] # (Auto) 0.4 (0.1-1.2) X10*3/uL Eos # (Auto) 0.1 (0.0-0.4) X10*3/uL Baso # (Auto) 0.0 (0.0-0.2) X10*3/uL Abs Immat Gran (auto) 0.02 (0.00-0.03) X10*3/uL Absolute Neuts (auto) 4.8 (2.0-8.3) x10*3/uL Absolute Nucleated RBC 0.000 (0.0-0.012) X10*3/uL Nucleated RBC % (auto) 0.0 (0.0-0.2) /100WBC Sodium 141 (135-145) mmol/L Potassium 4.0 (3.3-5.1) mmol/L Chloride 106 (96-108) mmol/L Carbon Dioxide 25 (22-29) mmol/L Anion Gap 14 (12-20) BUN 36 H (9-16) mg/dL Creatinine 0.80 (0.5-1.4) mg/dL Estim Creat Clear Calc 65.4 Estimated GFR > 60 Random Glucose 206 H (60-115) mg/dL Calcium 9.1 D (8.4-10.2) mg/dL Magnesium 2.1 (1.6-2.6) mg/dL Total Bilirubin 0.3 (0.0-1.0) mg/dL Direct Bilirubin 0.1 (0.0-0.5) mg/dL AST 19 (5-31) U/L ALT 23 (0-31) U/L Alkaline Phosphatase 53 (39-117) U/L Troponin I High Sens 3.2 (<3.5-17.0) ng/L Total Protein 6.5 (6.5-8.0) g/dL Albumin 4.5 (3.5-5.0) g/dL Independent Interpretation I performed an independent interpretation of an: EKG Interpretation: See above Independent Historian Clinical information obtained from an independent historian. History obtained from or confirmed by: Spouse Provided interpretive services at his request External Record Review External record reviewed: Office record, Prior outpatient labs and Outside ED record I reviewed gastroenterology procedure note as well as prior lab work Chronic Conditions Patient?s care impacted by: Diabetes and Other Hepatitis B Discharge Plan Discharge Clinical Impression: Melena Patient Disposition: Home, Self-Care Instructions: Melena (ED) Additional Instructions: Resume home medications. [place] food until feeling improved, continue to drink plenty of fluids especially water. If you began having bright red blood poop for more than 2 hours please return to the emergency room, if you began to have multiple episodes of black poop, please return to the emergency room. If you experience significant abdominal pain, vomiting of blood, do not hesitate to return to the emergency room. Please follow-up with Dr. Jean-Baptiste on Saturday morning. Prescriptions: No Action metformin 750 mg tablet extended release 24 hr 750 mg PO BID cholecalciferol (vitamin D3) 50 mcg (2,000 unit) tablet 50 mcg PO DAILY rosuvastatin 10 mg tablet 10 mg PO DAILY doxepin 10 mg capsule 10 mg PO BEDTIME (DME) FreeStyle Lite Strips Strip See Rx Instructions .ROUTE DAILY Qty: 10 Rx Instructions: As directed omeprazole 20 mg capsule,delayed release(DR/EC) 20 mg PO DAILY 90 Days Qty: 90 0RF ondansetron 4 mg tablet,disintegrating 4 mg PO BID-TID PRN (Reason: nausea and vomiting) Qty: 20 0RF Referrals: Namoi Montague MD [Primary Care Provider, Medical] Brittny Jean-Baptiste MD [Physician, Gastroenterology] Print Language: Cantonese Amharic
--- NOTE | 2024-11-21 12:12 | ECG_ITS ---
Test Reason : WEAKNESS Blood Pressure : */* mmHG Vent. Rate : 74 BPM Atrial Rate : 74 BPM P-R Int : 156 ms QRS Dur : 80 ms QT Int : 466 ms P-R-T Axes : 52 41 44 degrees QTcB Int : 517 ms Normal sinus rhythm Nonspecific T wave abnormality Abnormal ECG When compared with ECG of 06-Jun-2024 00:43, No significant change was found Referred By: Tatyana Luke Electronically Signed By: OLYA ALLRED
[2024-11-21 12:15] VITALS: BP 94/50; PULSE 99; RESP 18; TEMP 37.1; O2SAT 98; BMI 24.8
[2024-11-21 12:26] VITALS: BP 103/49; PULSE 60; RESP 18; TEMP 36.5; O2SAT 96
--- OUTSIDE RECORDS SUMMARY | 2024-11-21 12:29 | XMS_ITS | Encounter Summary ---
Author Organization [employer] Address [address] [place] [address] [address] [place] [address] Care Team Providers Care Economic Research Assistant Name Role Phone Naomi Montague MD Primary Care Provider [phone] Reason for Visit * Reason Onset Date Comments Returning Call Back 10/10/2022 Encounter Details Date Type Department Care Team ([facility] st Contact Info) Description 10/10/2022 Telephone C [facility] [address] [place] [address] Naomi Montague MD [address] [place] [address] Returning Call Back Social History Tobacco Use [...] spouse returning call back, regarding message below. Hydrogen Plant Operator let him know a nurse will call back with an full time staff interpreter he stated she's at work they can call him. Hydrogen Plant Operator doesn't see any HIPPA information. documented in this encounter Plan of Treatment Upcoming Encounters Date Type Department Care Team (Late st Contact Info) Description 11/27/2024 8:00 AM EDT Office Visit [facility] [address] [place] [address] Patel Montague DDS [address] [place] [address] 01/01/2025 9:45 AM EDT Office Visit [facility] [address] [place] [address] Naomi Montague MD [address] [place] [address] 02/26/2025 10:00 AM EST Office Visit [facility] [address] [place] [address] Gaurang Stevenson 04/30/2025 1:00 PM EST Office Visit [facility] [address] [place] [address] Carloz, Kristi, OD [address] [place] [address] documented as of this encounter Visit Diagnoses Not on filedocumented in this encounter Additional Health Concerns Assessment Noted Time PHQ-9 Depression Total Score: 0 06/30/19 23 2:19 PM EDT documented as of this encounter Care Teams Economic Research Assistant Relationship Specialty Start Date End Date Naomi Montague MD [address] [place] [address] PCP - General Family Medicine 02/01/22 documented as of this encounter
--- NOTE | 2024-11-21 12:30 | PC.NURSE ---
64 F presents to ED with diarrhea, intermittent abdominal pain 5/10 since last night. Pt sts has had black stools, frequent diarrhea since her colonoscopy and endoscopy yesterday. A+Ox4, calm cooperative, a little weak but ambulated from wheelchair to bed, Pt appears a little pale. Pt denies SOB or CP, RR evenand unlabored.
[2024-11-21 12:53] LABS: MANUAL DIFF FLAG NO
[2024-11-21 12:55] LABS: Hematocrit 30.5 % (37.0-47.0); Hemoglobin 10.5 g/dl (12.0-16.0); Imm Gran Abs Auto 0.02 X10*3/uL (0.00-0.03); Imm Gran Pct Auto 0.3 % (0.0-0.4); Lymphocytes Absolute Auto 1.7 X10*3/uL (1.2-4.9); Mean Corpuscular HGB Conc 34.4 g/dl (31.0-35.0); Mean Corpuscular Hemoglobin 27.5 pg (27.0-33.0); Mean Corpuscular Volume 79.8 fL (80.0-98.0); NRBC Abs Auto 0.000 X10*3/uL (0.0-0.012); NRBC Pct Auto 0.0 /100WBC (0.0-0.2); Platelet Count 186 X10*3/uL (160-400); Red Blood Count 3.82 X10*6/uL (4.20-5.50); White Blood Count 6.9 X10*3/uL (4.8-10.8)
[2024-11-21 13:10] LABS: Alanine Aminotransferase 23 U/L (0-31); Albumin Level 4.5 g/dL (3.5-5.0); Alkaline Phosphatase 53 U/L (39-117); Anion Gap 14 (12-20); Aspartate Amino Transferase 19 U/L (5-31); Blood Urea Nitrogen 36 mg/dL (9-16); Calcium 9.1 mg/dL (8.4-10.2); Carbon Dioxide 25 mmol/L (22-29); Chloride 106 mmol/L (96-108); Creatinine Clr Calc Pharmacy 65.4; Estimated Glomerular Filt Rate > 60; Magnesium 2.1 mg/dL (1.6-2.6); Potassium 4.0 mmol/L (3.3-5.1); Sodium 141 mmol/L (135-145); Total Protein 6.5 g/dL (6.5-8.0)
[2024-11-21 13:17] LABS: Troponin-I High Sensitivity 3.2 ng/L (<3.5-17.0)
[2024-11-21 13:48] VITALS: BP 113/49; PULSE 69; RESP 15; TEMP 36.7; O2SAT 98
[2024-11-21 14:02] VITALS: BP 113/49; PULSE 69; RESP 15; TEMP 36.7; O2SAT 98
[2024-11-23 09:16] LABS: Glucose, Whole Blood 140 mg/dL (60-115)
== END 2024-11-21 14:04 | disposition home or self-care (01) ==
PROVIDERS: Physician Assistant Medical; Emergency Provider Student in an Organized Health Care Education/Training Program; PCP Family Medicine
DX: K92.1 Melena (principal); E11.9 Type 2 diabetes mellitus without complications; I10 Essential (primary) hypertension; E78.5 Hyperlipidemia, unspecified; K21.9 Gastro-esophageal reflux disease without esophagitis; Z79.84 Long term (current) use of oral hypoglycemic drugs; Z79.02 Long term (current) use of antithrombotics/antiplatelets; Z79.899 Other long term (current) drug therapy
CPT/HCPCS: 36415; 80048; 80076; 82947; 83735; 84484; 85025; 93005; 99283; 99284

== ENCOUNTER → 2024-11-21 12:12 | Outpatient (BNV) | payer OTHER, SELFPAY | PROVIDERS: Emergency Provider Student in an Organized Health Care Education/Training Program; PCP Family Medicine; Visit Provider Internal Medicine | DX: R94.31 Abnormal electrocardiogram [ECG] [EKG] (principal); R53.1 Weakness | CPT/HCPCS: 93010 ==

== ENCOUNTER 2024-11-23 12:55 | Outpatient (REF) | payer OTHER, SELFPAY ==
--- OUTSIDE RECORDS SUMMARY | 2024-11-23 12:59 | XMS_ITS | Clinical Summary ---
Author Organization [facility] Address [address] [place] [address] Phone Care Team Providers Care Central Supply Tech Name Role Phone Swapna Maravilla MD Primary Care Provider + Allergies No known active allergies Medications oxyCODONE 5 MG immediate release tablet Take 1 tablet (5 mg total) by mouth every 4 (four) hours as needed for moderate pain. 10 tablet 7 Active Additional Information Patient not taking.Reported on 02/14/2017 Ca cit-D3-mag#11-z [id number] (CALTRATE 600+D) 600 mg calcium- 800 [...] Advance Directives For more information, please contact: [phone] (9AM - 5PM [facility], Saturday-Saturday) * Full Code (Presumed) (Latest Code Status on File) Date Activated Date Inactivated Comments 02/20/2017 6:24 AM 02/20/2017 7:04 PM Care Teams Central Supply Tech Relationship Specialty Start Date End Date Swapna Maravilla MD [address] [place] [address] PCP - General Family Medicine 09/04/16 Additional Source Comments The information contained in this document represents components of the legal health record. It is not the complete legal health record.[facility]
--- OUTSIDE RECORDS SUMMARY | 2024-11-23 13:00 | XMS_ITS | Encounter Summary ---
Author Organization [employer] Address [address] [place] [address] [address] [place] [address] Care Team Providers Care Registered Public Surveyor Name Role Phone Naomi Montague MD Primary Care Provider [phone] Reason for Visit * Reason Onset Date Comments Returning Call Back 10/10/2022 Encounter Details Date Type Department Care Team ([facility] st Contact Info) Description 10/10/2022 Telephone C [facility] [address] [place] [address] Naomi Montague MD [address] [place] [address] Returning Call Back Social History Tobacco Use [...] spouse returning call back, regarding message below. Aids Nurse let him know a nurse will call back with an actuarial associate he stated she's at work they can call him. Aids Nurse doesn't see any HIPPA information. documented in this encounter Plan of Treatment Upcoming Encounters Date Type Department Care Team (Late st Contact Info) Description 11/27/2024 8:00 AM EDT Office Visit [facility] [address] [place] [address] Patel Montague DDS [address] [place] [address] 01/01/2025 9:45 AM EDT Office Visit [facility] [address] [place] [address] Naomi Montague MD [address] [place] [address] 02/26/2025 10:00 AM EST Office Visit [facility] [address] [place] [address] Gaurang Stevenson 04/30/2025 1:00 PM EST Office Visit [facility] [address] [place] [address] Carloz, Kristi, OD [address] [place] [address] documented as of this encounter Visit Diagnoses Not on filedocumented in this encounter Additional Health Concerns Assessment Noted Time PHQ-9 Depression Total Score: 0 06/30/19 23 2:19 PM EDT documented as of this encounter Care Teams Registered Public Surveyor Relationship Specialty Start Date End Date Naomi Montague MD [address] [place] [address] PCP - General Family Medicine 02/01/22 documented as of this encounter
[2024-11-23 13:23] LABS: MANUAL DIFF FLAG NO
[2024-11-23 13:52] LABS: Hematocrit 24.6 % (37.0-47.0); Hemoglobin 8.1 g/dl (12.0-16.0); Imm Gran Abs Auto 0.04 X10*3/uL (0.00-0.03); Imm Gran Pct Auto 0.7 % (0.0-0.4); Lymphocytes Absolute Auto 2.1 X10*3/uL (1.2-4.9); Mean Corpuscular HGB Conc 32.9 g/dl (31.0-35.0); Mean Corpuscular Hemoglobin 27.2 pg (27.0-33.0); Mean Corpuscular Volume 82.6 fL (80.0-98.0); NRBC Abs Auto 0.050 X10*3/uL (0.0-0.012); NRBC Pct Auto 0.9 /100WBC (0.0-0.2); Platelet Count 185 X10*3/uL (160-400); Red Blood Count 2.98 X10*6/uL (4.20-5.50); White Blood Count 5.7 X10*3/uL (4.8-10.8)
[2024-11-23 14:40] LABS: Alanine Aminotransferase 25 U/L (0-31); Albumin Level 4.3 g/dL (3.5-5.0); Alkaline Phosphatase 49 U/L (39-117); Anion Gap 10 (12-20); Aspartate Amino Transferase 22 U/L (5-31); Blood Urea Nitrogen 14 mg/dL (9-16); Calcium 8.9 mg/dL (8.4-10.2); Carbon Dioxide 29 mmol/L (22-29); Chloride 108 mmol/L (96-108); Cholesterol 128 mg/dL (<200); Estimated Glomerular Filt Rate > 60; HDL Cholesterol 34 mg/dL (>40); Iron 96 mcg/dL (30-160); Magnesium 2.2 mg/dL (1.6-2.6); Percent Iron Saturation 43 % (15-50); Potassium 3.5 mmol/L (3.3-5.1); Sodium 143 mmol/L (135-145); Total Iron Binding Capacity 221 mcg/dL (228-428); Total Protein 6.1 g/dL (6.5-8.0); Triglycerides 164 mg/dL (<150); Unsaturated Iron Binding 125 ug/dL
[2024-11-23 14:50] LABS: Ferritin 184 ng/mL (10-250)
[2024-11-23 15:06] LABS: Folate 10.8 ng/mL (> or = 4.0); Vitamin B12 237 pg/mL (200-900)
[2024-11-25 09:40] LABS: Hematocrit 25.9 % (35.0-45.0); Hemoglobin 8.2 g/dL (11.7-15.5); MCH 27.2 pg (27.0-33.0); MCV 85.8 fL (80.0-100.0); RBC 3.02 Million/uL (3.80-5.10); RDW 12.8 % (11.0-15.0)
== END 2024-11-23 12:56 | disposition home or self-care (01) ==
LOC: HO.LAB 12:55
PROVIDERS: PCP Family Medicine; Visit Provider Internal Medicine
DX: E11.65 Type 2 diabetes mellitus with hyperglycemia (principal); R71.8 Other abnormality of red blood cells; R25.2 Cramp and spasm; K62.5 Hemorrhage of anus and rectum
CPT/HCPCS: 36415; 80053; 80061; 82607; 82728; 82746; 83020; 83540; 83735; 84443; 85014; 85018; 85025; 85041

== ENCOUNTER 2024-11-23 17:00 | Inpatient (IN) | payer OTHER, SELFPAY ==
[2024-11-23 17:41] VITALS: BP 135/60; PULSE 80; RESP 16; TEMP 36.3; O2SAT 99; BMI 24.8
--- NOTE | 2024-11-23 17:43 | ED_ITS ---
HPI - General Adult General Chief complaint: GI Bleed Stated complaint: sent by Dr mayorga blood count after procedure Time Seen by Provider: 11/23/24 18:55 Source: patient and family Mode of arrival: ambulatory Limitations: no limitations History of Present Illness ED Provider: HPI narrative: Patient is 64 years old otherwise healthy had colonoscopy on 11/20 status post polypectomy since then patient has been having blood in his stool initially now having leg stool for last 2 days which are decreasing been feeling weak and dizzy patient has baseline hemoglobin 12.6 next day of procedure patient's hemoglobin was 10.5 and today earlier was 8.1 now in the ER 7.8 patient not on any anticoagulant does not diffuse abdominal cramps no history of any ulcer no chest pain or palpitation Related Data Home Medications ?Medication ?Instructions ?Recorded ?Confirmed blood sugar diagnostic (FreeStyle #10 ea 07/24/24 Lite Strips) cholecalciferol (vitamin D3) 50 50 mcg PO DAILY 11/17/24 mcg (2,000 unit) tablet doxepin 10 mg capsule 10 mg PO BEDTIME 07/24/24 metformin 750 mg tablet,extended 750 mg PO BID 5 11/17/24 release 24 hr rosuvastatin 10 mg tablet 10 mg PO DAILY 07/24/2409/06 Previous Rx's ?Medication ?Instructions ?Recorded omeprazole 20 mg capsule,delayed 20 mg PO DAILY 90 day s #90 caps 10/21/24 release ondansetron 4 mg disintegrating 4 mg PO BID-TID PRN na usea and 10/21/24 tablet vomiting #20 tabs Allergies Allergy/AdvReac Type Severity Reaction Status Date / Time No Known Allergies Allergy Verified 11/23/24 17:41 Review of Systems 2 Review of Systems: Yes all other systems are reviewed and are negative [facility] Past Medical History Medical History GERD (gastroesophageal reflux disease) Diabetes Hyperlipidemia Hypertension Surgical History History of surgery Hx of colonoscopy History of esophagogastroduodenoscopy (EGD) Family History Family History Brother Colon cancer Social History Social History Are you a primary direct care provider to a significant other at home: No Do you presently have visiting nurse or other home services: No Alcohol intake: current Alcohol intake frequency: holidays/special occasions only Patient Tobacco Use Status: Never used Tobacco Smoked in Last 30 Days: No Use of substances other than those prescribed or required for medical reasons: No Advance Directives: No Advance Directives Information Provided: Yes Patient : No Physical Exam ED Vital Signs: Vital Signs - 24 hr 11/23/24 17:41 11/23/24 20:33 11/23/24 20:48 Temperature 97.4 F 97.7 F 98.4 F Pulse Rate 80 68 66 Respiratory Rate 16 16 18 Blood Pressure 135/60 112/52 L 112/52 L Pulse Oximetry 99 Oxygen Delivery Method Room Air 11/23/24 20:49 Temperature 98.4 F Pulse Rate 66 Respiratory Rate 18 Blood Pressure 110/52 L Pulse Oximetry Oxygen Delivery Method BMI result Body Mass Index 24.8 Const Other: Appearance: Alert. Oriented X3. No acute distress. Eyes: PERRLA, No Nystagmus pallor+ ENT: Pharynx normal. Oral Mucosa moist Neck: Normal inspection. Neck supple. CVS: Normal heart rate and rhythm. Pulses normal. Respiratory: No respiratory distress. Equal air entry bilateral, no wheezing/rales/rhonchi Abdomen: Soft and diffuse deep tenderness lower abdomen. Bowel sounds are present, no mass palpable, no CVA tenderness Skin: Skin warm and dry. Normal skin color. Normal skin turgor. Extremities: No lower extremity edema. No calf tenderness Neuro: Oriented X 3. No motor deficit. No sensory deficit.No cerebellar signs , cranial nerves II-XII intact Course Course Course Narrative: This is a rapid medical exam performed by Eugenio Dc NP: Additional HPI, ROS, PE not included below will be deferred to primary provider. Patient is a 64-year-old Cantonese speaking female presenting with complaint of rectal bleeding. Had endoscopy/colonoscopy on Saturday, seen in this ED on Saturday, dx with melena. Received call from Dr. Jean-Baptiste today telling her to return to the ED for low H&H (had labs done today.) Feels lightheaded with standing. H&H on 11/21 10.5/30.5, today 8.1/24.6. Plan: repeat labs, T&S Medications Administered Generic Name Dose Route Start Last Admin Trade Name Freq PRN Reason Stop Dose Admin Insulin Human Lispro 0 unit 11/24/24 00:00 11/24/24 00:41 Insulin Lispro 100 Unit/Ml 3 Ml Vial SUBCUT Not Given Q6H BLANCA Protocol Sodium Chloride 3 ml 11/24/24 00:00 11/24/24 00:41 0.9 % Sodium Chloride Flush 3 Ml Syringe IVFLUSH Not Given QSHIFT BLANCA Discontinued Medications Generic Name Dose Route Start Last Admin Trade Name Freq PRN Reason Stop Dose Admin Lactated Ringer's 1,000 mls @ 999 mls/hr 11/23/24 23:15 11/24/24 01:10 Lr IV 11/24/24 00:15 0 mls/hr .Q1H1M BLANCA Infusion Medical Decision Making Medical Decision Making [facility] Narrative: Patient's post colonoscopy post polypectomy GI bleed with significant drop in hemoglobin symptoms symptomatic dizziness and weakness will give 2 units of blood transfusion case discussed GI will re-evaluate patient in the a.m. continues mid to colonoscopy No more bowel movement in the ER vitals are stable patient has received 2 units of blood admit to medical service Differential Diagnosis Differential Diagnoses: The differential diagnosis associated with the presentation includes Admission/Observation Consideration of admission/observation: Escalation of care including admission/observation considered Consult Healthcare Provider Management of the patient was discussed with: Hospitalist Lab Data MDM Lab Attestation statement: I reviewed the patient's lab results. 11/23/24 18:37 11/23/24 18:38 Labs: Lab Results 11/23/24 11/23/24 Range/Units 18:37 18:38 WBC 7.3 (4.8-10.8) X10*3/uL RBC 2.79 L (4.20-5.50) X10*6/uL Hgb 7.8 L (12.0-16.0) g/dl Hct 22.7 L (37.0-47.0) % MCV 81.4 (80.0-98.0) fL MCH 28.0 (27.0-33.0) pg MCHC 34.4 (31.0-35.0) g/dl RDW 12.1 (11.0-16.0) % Plt Count 173 (160-400) X10*3/uL MPV 9.8 (9.4-12.3) fL Immature Gran % (Auto) 0.3 (0.0-0.4) % Neut % (Auto) 64.1 (45-73) % Lymph % (Auto) 28.6 (20-40) % [place] % (Auto) 4.3 (2-11) % Eos % (Auto) 1.9 (0-4) % Baso % (Auto) 0.8 (0-2) % Lymph # (Auto) 2.1 (1.2-4.9) X10*3/uL [place] # (Auto) 0.3 (0.1-1.2) X10*3/uL Eos # (Auto) 0.1 (0.0-0.4) X10*3/uL Baso # (Auto) 0.1 (0.0-0.2) X10*3/uL Abs Immat Gran (auto) 0.02 (0.00-0.03) X10*3/uL Absolute Neuts (auto) 4.7 (2.0-8.3) x10*3/uL Absolute Nucleated RBC 0.000 (0.0-0.012) X10*3/uL Nucleated RBC % (auto) 0.0 (0.0-0.2) /100WBC Sodium 143 (135-145) mmol/L Potassium 4.3 D (3.3-5.1) mmol/L Chloride 110 H (96-108) mmol/L Carbon Dioxide 26 (22-29) mmol/L Anion Gap 11 L (12-20) BUN 20 H (9-16) mg/dL Creatinine 0.61 (0.5-1.4) mg/dL Estim Creat Clear Calc 85.8 Estimated GFR > 60 Random Glucose 180 H (60-115) mg/dL Calcium 8.7 (8.4-10.2) mg/dL Total Bilirubin 0.2 (0.0-1.0) mg/dL AST 22 (5-31) U/L ALT 22 (0-31) U/L Alkaline Phosphatase 51 (39-117) U/L Total Protein 6.1 L (6.5-8.0) g/dL Albumin 4.3 (3.5-5.0) g/dL Blood Type B Positive Antibody Screen NEGATIVE Crossmatch See Detail Discharge Plan Discharge Clinical Impression: Lower gastrointestinal hemorrhage, Anemia Patient Disposition: Admitted As Inpatient
[2024-11-23 18:42] LABS: MANUAL DIFF FLAG NO
[2024-11-23 18:43] LABS: Hematocrit 22.7 % (37.0-47.0); Hemoglobin 7.8 g/dl (12.0-16.0); Imm Gran Abs Auto 0.02 X10*3/uL (0.00-0.03); Imm Gran Pct Auto 0.3 % (0.0-0.4); Lymphocytes Absolute Auto 2.1 X10*3/uL (1.2-4.9); Mean Corpuscular HGB Conc 34.4 g/dl (31.0-35.0); Mean Corpuscular Hemoglobin 28.0 pg (27.0-33.0); Mean Corpuscular Volume 81.4 fL (80.0-98.0); NRBC Abs Auto 0.000 X10*3/uL (0.0-0.012); NRBC Pct Auto 0.0 /100WBC (0.0-0.2); Platelet Count 173 X10*3/uL (160-400); Red Blood Count 2.79 X10*6/uL (4.20-5.50); White Blood Count 7.3 X10*3/uL (4.8-10.8)
[2024-11-23 18:58] LABS: Alanine Aminotransferase 22 U/L (0-31); Albumin Level 4.3 g/dL (3.5-5.0); Alkaline Phosphatase 51 U/L (39-117); Anion Gap 11 (12-20); Aspartate Amino Transferase 22 U/L (5-31); Blood Urea Nitrogen 20 mg/dL (9-16); Calcium 8.7 mg/dL (8.4-10.2); Carbon Dioxide 26 mmol/L (22-29); Chloride 110 mmol/L (96-108); Creatinine Clr Calc Pharmacy 85.8; Estimated Glomerular Filt Rate > 60; Potassium 4.3 mmol/L (3.3-5.1); Sodium 143 mmol/L (135-145); Total Protein 6.1 g/dL (6.5-8.0)
[2024-11-23 20:33] VITALS: BP 112/52; PULSE 68; RESP 16; TEMP 36.5
--- NOTE | 2024-11-23 20:42 | PC.NURSE ---
Pt presents after colonoscopy Saturday, feeling lightheaded, weak and having black stools. Pt H&H has had a decrease and MD assessed pt and ordered 2 units of RBC. t/w placed IV #20 in L-AC. Blood arrived and running per policy. Pt having no s&s of any adverse effects or reactions.
[2024-11-23 20:48] VITALS: BP 112/52; PULSE 66; RESP 18; TEMP 36.9
[2024-11-23 20:49] VITALS: BP 110/52; PULSE 66; RESP 18; TEMP 36.9
--- NOTE | 2024-11-23 22:23 | P.HPHOSP_ITS ---
History of Present Illness Date of Service: 11/23/24 Chief Complaint: Blood in stool This has a 64-year-old female with pertinent history of gastroesophageal reflux disease, yjl-xbjyhmg-aqggzhtyu type 2 diabetes mellitus, mixed hyperlipidemia who presents to the emergency department for evaluation of blood in stools. Patient underwent colonoscopy with polypectomy on 11/20 as an outpatient. She states that she has been having bright red blood stools since the colonoscopy. On the day of presentation, patient is complaining of dizziness and lightheadedness when trying to stand up from a seated position. Did not pass out. Also admits malaise and easy fatigability. No abdominal pain, nausea or vomiting. Patient's baseline hemoglobin is around 12 and on the day of presentation it was noted to be 8.1 outpatient so she was asked to come to the ER. No fever, chills, chest pain, palpitations, abdominal pain, changes in urinary habits. In the emergency department, hemoglobin found to be 7.8. Gastroenterology was consulted who requested 2 unit PRBC transfusion. Review of Systems 2 Constitutional: Constitutional: Reports fatigue, Reports lethargy and Reports malaise ENT: Reports dizziness Cardiovascular: Cardiovascular: Reports no additional cardiovascular complaints Respiratory: Respiratory: Reports no additional respiratory complaints Gastrointestinal: Gastrointestinal: Reports hematochezia Genitourinary: Genitourinary: Reports no additional female genitourinary complaints Neurologic: Reports dizziness Endocrine: Endocrine: Reports fatigue [facility] Medical History GERD (gastroesophageal reflux disease) Diabetes Hyperlipidemia Hypertension Family History Brother Colon cancer Surgical History History of surgery Hx of colonoscopy History of esophagogastroduodenoscopy (EGD) Social History Are you a primary behavioral health care coordinator to a significant other at home: No Do you presently have visiting nurse or other home services: No Alcohol intake: current Alcohol intake frequency: holidays/special occasions only Patient Tobacco Use Status: Never used Tobacco Smoked in Last 30 Days: No Use of substances other than those prescribed or required for medical reasons: No Advance Directives: No Advance Directives Information Provided: Yes Patient : No Meds Allergies Allergy/AdvReac Type Severity Reaction Status Date / Time No Known Allergies Allergy Verified 11/23/24 17:41 Home Medications ?Medication ?Instructions ?Recorded ?Confirmed ?Last Taken ?Type blood sugar diagnostic (FreeStyle #10 ea 07/24/24 Unk nown History Lite Strips) cholecalciferol (vitamin D3) 50 50 mcg PO DAILY 11/17/24 Unknown History mcg (2,000 unit) tablet doxepin 10 mg capsule 10 mg PO BEDTIME 07/24/24 Unknown History metformin 750 mg tablet,extended 750 mg PO BID 5 11/17/24 Unknown History release 24 hr rosuvastatin 10 mg tablet 10 mg PO DAILY 07/24/2409/06 Unknown History Physical Exam 2 Vital Signs and Narrative: Vital Signs: Last Vital Signs Temp 98.4 F 11/23/24 20:49 Pulse 66 11/23/24 20:49 Resp 18 11/23/24 20:49 BP 110/52 L 11/23/24 20:49 Pulse Ox 99 11/23/24 17:41 O2 Del Method Room Air 11/23/24 17:41 BMI result Body Mass Index 24.8 Const: Other: Middle-aged female lying in bed in no distress Neck supple, no JVD Regular rate and rhythm, S1-S2 heard Regular breath sounds bilaterally, no wheezing or crackles appreciated Abdomen soft nontender, no guarding, no rigidity Patient is awake, alert and oriented to self, place, time and person ; no focal motor deficit Psych: Normal mood No pedal edema Results Labs 11/23/24 18:37 11/23/24 18:38 Labs: Laboratory Results - last 24 hr 11/23/24 11/23/24 18:37 18:38 MCV 81.4 MCH 28.0 MCHC 34.4 RDW 12.1 Plt Count 173 MPV 9.8 Immature Gran % (Auto) 0.3 Neut % (Auto) 64.1 Lymph % (Auto) 28.6 [place] % (Auto) 4.3 Eos % (Auto) 1.9 Baso % (Auto) 0.8 Lymph # (Auto) 2.1 [place] # (Auto) 0.3 Eos # (Auto) 0.1 Baso # (Auto) 0.1 Abs Immat Gran (auto) 0.02 Absolute Neuts (auto) 4.7 Absolute Nucleated RBC 0.000 Nucleated RBC % (auto) 0.0 Anion Gap 11 L Estim Creat Clear Calc 85.8 Estimated GFR > 60 Random Glucose 180 H Calcium 8.7 Total Bilirubin 0.2 AST 22 ALT 22 Alkaline Phosphatase 51 Total Protein 6.1 L Albumin 4.3 Blood Type B Positive Antibody Screen NEGATIVE Crossmatch See Detail Assessment and Plan (1) Acute blood loss anemia: Status: Acute (2) Acute lower GI bleeding: Status: Acute Plan This has a 64-year-old female with pertinent history of gastroesophageal reflux disease, yyx-nvaoavu-ojokkqpqd type 2 diabetes mellitus, mixed hyperlipidemia who presents to the emergency department for evaluation of blood in stools. #. Acute lower GI bleed leading to acute blood loss anemia: Likely post polypectomy bleed as patient underwent colonoscopy with polypectomy on 11/20/2024. 2 unit PRBC ordered in the ER. Will keep patient NPO. Gastroenterology consult. #. Orthostatic presyncope in the setting of above #. Xqz-wupquha-npkkoynmb type 2 diabetes mellitus: Initiating Accu-Cheks with sliding scale insulin every 6 hours. Hold metformin #. Mixed hyperlipidemia: On statin Med rec pending DVT prophylaxis: SCDs Full code Admit as inpatient and will require two night minimum hospital stay for close monitoring of hemodynamics, H&H (as above), which is not possible in a lesser acute setting. Specialist consult pending Quality Stroke Does the patient have a stroke diagnosis?: No VTE Prior VTE?: No VTE Risk Level:: Medical - moderate - high VTE Device Contraindication: N/A - Device Ordered VTE Drug Contraindication: Treatment Not Indicated
[2024-11-23 22:55] VITALS: BP 101/47; PULSE 60; RESP 16; TEMP 36.6
[2024-11-23 23:33] VITALS: BP 99/52; PULSE 59; RESP 16; TEMP 36.8; O2SAT 97
[2024-11-23 23:43] LABS: Glucose, Whole Blood 136 mg/dL (60-115)
[2024-11-24] VITALS (13 sets, daily range): BP systolic 94–129; BP diastolic 43–60; PULSE 57–91; RESP 14–18; TEMP 36.3–37.1; O2SAT 95–98; BMI 25.0
--- NOTE | 2024-11-24 | ECG_ITS ---
Test Reason : RR Blood Pressure : */* mmHG Vent. Rate : 69 BPM Atrial Rate : 69 BPM P-R Int : 158 ms QRS Dur : 82 ms QT Int : 428 ms P-R-T Axes : 51 41 34 degrees QTcB Int : 458 ms Normal sinus rhythm T wave abnormality, consider anterolateral ischemia Abnormal ECG When compared with ECG of 21-Nov-2024 12:56, T wave inversion now evident in Anterior leads QT has shortened Referred By: Marta Conley Electronically Signed By: Alexis Pelayo
--- NOTE | 2024-11-24 00:32 | PC.NURSE ---
blood sent back to blood bank because unit number on antibodies and unit number on blood did not match. Spoke with Wai laura and she is aware.
[2024-11-24] MEDS: Lactated Ringers 1,000 ML 999 ML IV ×2 (00:36→15:50)
--- NOTE | 2024-11-24 01:06 | PC.NURSE ---
t/w spoke with Wai in blood bank and per Wai she spoke with the supervisosr and the blood that was issued was ok to use. The antibody tag that with incorrect unit number was removed and blood sent back to t/w. This delayed the start time of the issued blood. warp placer Trista aware of situation.
[2024-11-24 05:10] LABS: Hematocrit 25.5 % (37.0-47.0); Hemoglobin 8.6 g/dl (12.0-16.0); Mean Corpuscular HGB Conc 33.7 g/dl (31.0-35.0); Mean Corpuscular Hemoglobin 27.9 pg (27.0-33.0); Mean Corpuscular Volume 82.8 fL (80.0-98.0); NRBC Abs Auto 0.050 X10*3/uL (0.0-0.012); NRBC Pct Auto 0.8 /100WBC (0.0-0.2); Platelet Count 120 X10*3/uL (160-400); Red Blood Count 3.08 X10*6/uL (4.20-5.50); White Blood Count 6.1 X10*3/uL (4.8-10.8)
[2024-11-24 05:22] LABS: Anion Gap 9 (12-20); Blood Urea Nitrogen 21 mg/dL (9-16); Calcium 8.2 mg/dL (8.4-10.2); Carbon Dioxide 27 mmol/L (22-29); Chloride 111 mmol/L (96-108); Creatinine Clr Calc Pharmacy 88.7; Estimated Glomerular Filt Rate > 60; Potassium 4.2 mmol/L (3.3-5.1); Sodium 143 mmol/L (135-145)
[2024-11-24 05:41] LABS: Glucose, Whole Blood 130 mg/dL (60-115)
--- NOTE | 2024-11-24 07:06 | PC.NURSE ---
PT A&O X4 VSS No complaints at this time per daughter who is translating. Pt resting comfortably
--- NOTE | 2024-11-24 07:50 | P.PNIM_ITS ---
Subjective Subjective Date of Service: 11/24/24 Interval History: No bowel movements since admission. Resolution of orthostatic dizziness with 2 unit PRBC overnight Constitutional Constitutional: Reports fatigue ENT Ears, Nose, Mouth, and Throat: Reports dizziness Cardiovascular Cardiovascular: Reports no additional cardiovascular complaints Respiratory Respiratory: Reports no additional respiratory complaints Gastrointestinal Gastrointestinal: Reports hematochezia Neurologic Neurologic: Reports dizziness Endocrine Endocrine: Reports fatigue Physical Exam 2 Vital Signs: Vital Signs: Last Vital Signs Temp 98.8 F 11/24/24 07:01 Pulse 67 11/24/24 07:01 Resp 16 11/24/24 07:01 BP 128/45 L 11/24/24 07:01 Pulse Ox 96 11/24/24 07:01 O2 Del Method Room Air 11/24/24 07:01 BMI result Body Mass Index 24.8 Const: Other: Middle-aged female lying in bed in no distress Neck supple, no JVD Regular rate and rhythm, S1-S2 heard Regular breath sounds bilaterally, no wheezing or crackles appreciated Abdomen soft nontender, no guarding, no rigidity Patient is awake, alert and oriented to self, place, time and person ; no focal motor deficit Psych: Normal mood No pedal edema Objective Data Active Medications Acetaminophen (Acetaminophen 325 Mg Tablet) 650 mg PO Q6H PRN PRN Reason: Pain, Mild 1-3,fever,headache Calcium Carbonate (Calcium Carbonate 750 Mg Tab.Chew) 750 mg PO Q4H PRN PRN Reason: Heartburn Dextrose (Dextrose 50 % 25 Gm/50 Ml Syringe) 25 gm IVPUSH Q15M PRN; Protocol PRN Reason: per Hypoglycemia Standing Ord. Glucose (Glucose Gel 15 Gm Gel..Gram.) 15 gm PO Q15M PRN; Protocol PRN Reason: per Hypoglycemia Standing Ord. Insulin Human Lispro (Insulin Lispro 100 Unit/Ml 3 Ml Vial) 0 unit SUBCUT Q6H [facility]; Protocol Last Admin: 11/24/24 00:41 Dose: Not Given Documented By: EDWIN Non-Admin Reason: poc: 130's Magnesium Hydroxide (Milk Of Magnesia 30 Ml Oral.Susp) 30 ml PO DAILY PRN PRN Reason: Constipation Melatonin (Melatonin 3 Mg Tablet) 6 mg PO BEDTIME PRN PRN Reason: Insomnia Ondansetron HCl (Ondansetron Hcl 4 Mg/2 Ml Vial) 4 mg IVPUSH Q8H PRN PRN Reason: Nausea and Vomiting Sodium Chloride (0.9 % Sodium Chloride Flush 3 Ml Syringe) 3 ml IVFLUSH QSHIFT BLANCA Last Admin: 11/24/24 00:41 Dose: Not Given Documented By: EDWIN Non-Admin Reason: IV Running Labs 11/24/24 05:04 11/24/24 05:04 Labs: Laboratory Results - last 24 hr 11/23/24 11/23/24 11/23/24 18:37 18:38 23:38 MCV 81.4 MCH 28.0 MCHC 34.4 RDW 12.1 Plt Count 173 MPV 9.8 Immature Gran % (Auto) 0.3 Neut % (Auto) 64.1 Lymph % (Auto) 28.6 [place] % (Auto) 4.3 Eos % (Auto) 1.9 Baso % (Auto) 0.8 Lymph # (Auto) 2.1 [place] # (Auto) 0.3 Eos # (Auto) 0.1 Baso # (Auto) 0.1 Abs Immat Gran (auto) 0.02 Absolute Neuts (auto) 4.7 Absolute Nucleated RBC 0.000 Nucleated RBC % (auto) 0.0 Anion Gap 11 L Estim Creat Clear Calc 85.8 Estimated GFR > 60 POC Glucose 136 H Random Glucose 180 H Calcium 8.7 Total Bilirubin 0.2 AST 22 ALT 22 Alkaline Phosphatase 51 Total Protein 6.1 L Albumin 4.3 Blood Type B Positive Antibody Screen NEGATIVE Crossmatch See Detail 11/24/24 11/24/24 05:04 05:38 MCV 82.8 MCH 27.9 MCHC 33.7 RDW 13.7 Plt Count 120 L D MPV 9.9 Immature Gran % (Auto) Neut % (Auto) Lymph % (Auto) [place] % (Auto) Eos % (Auto) Baso % (Auto) Lymph # (Auto) [place] # (Auto) Eos # (Auto) Baso # (Auto) Abs Immat Gran (auto) Absolute Neuts (auto) Absolute Nucleated RBC 0.050 H Nucleated RBC % (auto) 0.8 H Anion Gap 9 L Estim Creat Clear Calc 88.7 Estimated GFR > 60 POC Glucose 130 H Random Glucose 141 H Calcium 8.2 L Total Bilirubin AST ALT Alkaline Phosphatase Total Protein Albumin Blood Type Antibody Screen Crossmatch Assessment and Plan (1) Acute lower GI bleeding: Status: Acute Plan This has a 64-year-old female with pertinent history of gastroesophageal reflux disease, mgw-dasevrr-nawpuoyzb type 2 diabetes mellitus, mixed hyperlipidemia who presents to the emergency department for evaluation of blood in stools. #. Acute lower GI bleed leading to acute blood loss anemia: Likely post polypectomy bleed as patient underwent colonoscopy with polypectomy on 11/20/2024. 2 unit PRBC ordered in the ER. Will keep patient NPO. Gastroenterology consult pending. #. Orthostatic presyncope in the setting of above: Resolved with 2 unit PRBC transfusion #. Hua-tgrqcpa-dqmzllubr type 2 diabetes mellitus: Initiating Accu-Cheks with sliding scale insulin every 6 hours. Hold metformin #. Mixed hyperlipidemia: On statin Med rec pending DVT prophylaxis: SCDs Full code Reason for continued hospitalization: close monitoring of hemodynamics, H&H (as above), which is not possible in a lesser acute setting. Awaiting GI eval Quality Stroke Does the patient have a stroke diagnosis?: No VTE Prior VTE?: No VTE Risk Level:: Medical - moderate - high VTE Device Contraindication: N/A - Device Ordered VTE Drug Contraindication: Treatment Not Indicated
--- NOTE | 2024-11-24 08:42 | PHA.MEDREC ---
Addendum entered by Silvia Kamara RPh 11/24/24 08:54: reviewed by [facility] Original Note: Pharmacy Consult ? Medication Reconciliation Pharmacy has completed the medication reconciliation. Spoke with pt at bedside and he had photos of pt rx bottles on his phone; he was able to confirm how the pt is taking the medications. Pt states the pt does not take Omeprazole and never has.
[2024-11-24 11:08] LABS: Glucose, Whole Blood 139 mg/dL (60-115)
--- NOTE | 2024-11-24 13:38 | PM.GICN ---
History of Present Illness Data of Consult Service Date: 11/24/24 Requesting physician: Zoey Marshall Primary Care Provider: Naomi Montague MD HPI Reason for consult: GI bleeding This is a 64-year-old female with past medical history hepatic cysts, who had EGD/colonoscopy for nausea vomiting and colitis. Patient presented to the ER over the weekend and then again last night for ongoing melena with significant drop in hemoglobin. EGD/colonoscopy 11/20 1. Normal esophagus (biopsy) 2. Normal stomach (biopsy) 3. Gastric polyps (polypectomy) 4. Duodenitis (biopsy) 5. Normal colon and terminal ileum mucosa (biopsy) 6. One polyp removed 7. Internal hemorrhoids Patient reports ongoing melena even today. Has had 2 bowel movements since morning that were black. Otherwise, no abdominal pain, nausea vomiting. Does report lightheadedness. Seen at bedside in the presence of her and daughter. Review of Systems Review of Systems: Yes all other systems are reviewed and are negative PMFSH Past Medical History Medical History GERD (gastroesophageal reflux disease) Diabetes Hyperlipidemia Hypertension Family History Family History Brother Colon cancer Surgical History Surgical History History of surgery Hx of colonoscopy History of esophagogastroduodenoscopy (EGD) Social History Social History Household Members: Spouse and Family Housing: House Are you a primary college and career counselor to a significant other at home: No Do you presently have visiting nurse or other home services: No Alcohol intake: current Alcohol intake frequency: holidays/special occasions only Patient Tobacco Use Status: Never used Tobacco Meds Allergies Allergy/AdvReac Type Severity Reaction Status Date / Time No Known Allergies Allergy Verified 11/23/24 17:41 Active Medications: Current Medications Acetaminophen (Acetaminophen 325 Mg Tablet) 650 mg PO Q6H PRN PRN Reason: Pain, Mild 1-3,fever,headache Calcium Carbonate (Calcium Carbonate 750 Mg Tab.Chew) 750 mg PO Q4H PRN PRN Reason: Heartburn Dextrose (Dextrose 50 % 25 Gm/50 Ml Syringe) 25 gm IVPUSH Q15M PRN; Protocol PRN Reason: per Hypoglycemia Standing Ord. Glucose (Glucose Gel 15 Gm Gel..Gram.) 15 gm PO Q15M PRN; Protocol PRN Reason: per Hypoglycemia Standing Ord. Insulin Human Lispro (Insulin Lispro 100 Unit/Ml 3 Ml Vial) 0 unit SUBCUT Q6H [facility]; Protocol Last Admin: 11/24/24 11:11 Dose: Not Given Magnesium Hydroxide (Milk Of Magnesia 30 Ml Oral.Susp) 30 ml PO DAILY PRN PRN Reason: Constipation Melatonin (Melatonin 3 Mg Tablet) 6 mg PO BEDTIME PRN PRN Reason: Insomnia Ondansetron HCl (Ondansetron Hcl 4 Mg/2 Ml Vial) 4 mg IVPUSH Q8H PRN PRN Reason: Nausea and Vomiting Last Admin: 11/24/24 12:46 Dose: 4 mg Pantoprazole Sodium (Pantoprazole Sodium 40 Mg/10 Ml Vial) 40 mg IVPUSH BID@0630,1630 [facility] Sodium Chloride (0.9 % Sodium Chloride Flush 3 Ml Syringe) 3 ml IVFLUSH QSHIFT [facility] Last Admin: 11/24/24 09:47 Dose: Not Given Home Medications ?Medication ?Instructions ?Recorded ?Confirmed ?Last Taken ?Type blood sugar diagnostic (FreeStyle #10 ea 07/24/24 Unknown History Lite Strips) cholecalciferol (vitamin D3) 50 50 mcg PO DAILY 07/24/24 11/24/24 11/22/24 History mcg (2,000 unit) tablet doxepin 10 mg capsule 10 mg PO BEDTIME 07/24/24 11/24/24 11/22/24 History metformin 750 mg tablet,extended 750 mg PO BID 07/24/24 11/24/24 11/22/24 History release 24 hr rosuvastatin 10 mg tablet 10 mg PO DAILY 07/24/24 11/24/24 11/22/24 History Physical Exam Exam: Exam: Pale appearing In no acute distress Abdomen soft, nontender, nondistended Overt shortness of breath No lower extremity edema Vital Signs: Vital Signs: Last Vital Signs Temp 97.3 F 11/24/24 12:49 Pulse 89 11/24/24 12:49 Resp 16 11/24/24 11:20 BP 108/53 L 11/24/24 12:49 Pulse Ox 98 11/24/24 12:49 O2 Del Method Room Air 11/24/24 12:49 BMI result Body Mass Index 25.0 Results Labs 11/24/24 05:04 11/24/24 05:04 Labs: Short CBC 11/23/24 11/24/24 Range/Units 18:37 05:04 WBC 7.3 6.1 (4.8-10.8) X10*3/uL Hgb 7.8 L 8.6 L (12.0-16.0) g/dl Hct 22.7 L 25.5 L (37.0-47.0) % Plt Count 173 120 L D (160-400) X10*3/uL BMP 11/23/24 11/24/24 18:38 05:04 Sodium 143 143 Potassium 4.3 D 4.2 Chloride 110 H 111 H Carbon Dioxide 26 27 BUN 20 H 21 H Creatinine 0.61 0.59 Calcium 8.7 8.2 L Liver Function 11/23/24 Range/Units 18:38 Total Bilirubin 0.2 (0.0-1.0) mg/dL AST 22 (5-31) U/L ALT 22 (0-31) U/L Alkaline Phosphatase 51 (39-117) U/L Albumin 4.3 (3.5-5.0) g/dL Assessment and Plan (1) Acute blood loss anemia: Status: Acute (2) GI bleeding: Status: Acute Plan Reviewed with the patient and family at bedside the based on her description and pictures off the bowel movement-black stool with maroon blood around it, it is difficult to certain whether this bleeding is from an upper versus lower source. She had multiple biopsies as well as polypectomies both in the upper endoscopy and colonoscopy as outlined above. Plan: -monitor CBC BID and transfuse for Hb <7 -recommend repeat EGD and colonoscopy tmrwfor relook -patient has not had any meaningful intake over the weekend, can do 50% PEG prep as long as stools are thin/watery. -start protonix 40 BID to mitigate any post polypectomy bleeding from stomach -clears today. NPO after MN Thank you for allowing me to participate in her care. Please do not hesitate to reach out for any questions or concerns. Procedures Date of Service Date of Service: 11/24/24
--- NOTE | 2024-11-24 14:42 | HO.ANESPROP2 ---
Documented by User: Carla Dutta NP 11/25/24 09:25 HPI - Anesthesia Eval Consult details Narrative: 64 yr old female for upper endoscopy, colonoscopy. 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 Eval with [facility] infectious disease 07/2024. No further treatment at this time. PMFSH Active Problems Active Problems: All Active Problems GI bleeding (Acute) Anemia (Acute) Lower gastrointestinal hemorrhage (Acute) Acute lower GI bleeding (Acute) Acute blood loss anemia (Acute) Hepatitis B core antibody positive (Acute) Colon wall thickening (Acute) Gastric wall thickening (Acute) Positive QuantiFERON-TB Gold test (Acute) Family history of cholangiocarcinoma (Acute) Need for hepatitis B screening test (Acute) Family history of tuberculosis (Acute) Hepatic cyst (Acute) Past Medical History Medical History GERD (gastroesophageal reflux disease) Diabetes Hyperlipidemia Hypertension Family History Family History Brother Colon cancer Surgical History Surgical History History of surgery Hx of colonoscopy History of esophagogastroduodenoscopy (EGD) History of Problems with Anesthesia: No Social History Social History Household Members: Spouse and Family Housing: House Are you a primary resident care aide to a significant other at home: No Do you presently have visiting nurse or other home services: No Alcohol intake: current Alcohol intake frequency: holidays/special occasions only Patient Tobacco Use Status: Never used Tobacco service: No Meds Allergies Allergy/AdvReac Type Severity Reaction Status Date / Time No Known Allergies Allergy Verified 11/23/24 17:41 Active Medications: Current Medications Acetaminophen (Acetaminophen 325 Mg Tablet) 650 mg PO Q6H PRN PRN Reason: Pain, Mild 1-3,fever,headache Calcium Carbonate (Calcium Carbonate 750 Mg Tab.Chew) 750 mg PO Q4H PRN PRN Reason: Heartburn Dextrose (Dextrose 50 % 25 Gm/50 Ml Syringe) 25 gm IVPUSH Q15M PRN; Protocol PRN Reason: per Hypoglycemia Standing Ord. Glucose (Glucose Gel 15 Gm Gel..Gram.) 15 gm PO Q15M PRN; Protocol PRN Reason: per Hypoglycemia Standing Ord. Insulin Human Lispro (Insulin Lispro 100 Unit/Ml 3 Ml Vial) 0 unit SUBCUT Q6H [facility]; Protocol Last Admin: 11/24/24 11:11 Dose: Not Given Magnesium Hydroxide (Milk Of Magnesia 30 Ml Oral.Susp) 30 ml PO DAILY PRN PRN Reason: Constipation Melatonin (Melatonin 3 Mg Tablet) 6 mg PO BEDTIME PRN PRN Reason: Insomnia Ondansetron HCl (Ondansetron Hcl 4 Mg/2 Ml Vial) 4 mg IVPUSH Q8H PRN PRN Reason: Nausea and Vomiting Last Admin: 11/24/24 12:46 Dose: 4 mg Pantoprazole Sodium (Pantoprazole Sodium 40 Mg/10 Ml Vial) 40 mg IVPUSH BID@0630,1630 [facility] Sodium Chloride (0.9 % Sodium Chloride Flush 3 Ml Syringe) 3 ml IVFLUSH QSHIFT [facility] Last Admin: 11/24/24 09:47 Dose: Not Given Home Medications ?Medication ?Instructions ?Recorded ?Confirmed ?Last Taken ?Type blood sugar diagnostic ([place] #10 ea 07/24/24 Unknown History Lite Strips) cholecalciferol (vitamin D3) 50 50 mcg PO DAILY 07/24/24 11/24/24 11/22/24 History mcg (2,000 unit) tablet doxepin 10 mg capsule 10 mg PO BEDTIME 07/24/24 11/24/24 11/22/24 History metformin 750 mg tablet,extended 750 mg PO BID 07/24/24 11/24/24 11/22/24 History release 24 hr rosuvastatin 10 mg tablet 10 mg PO DAILY 07/24/24 11/24/24 11/22/24 History Exam Height,Weight and Vital Signs: Height 5 ft 3 in Weight 64 kg Last Vital Signs Temp 97.3 F 11/24/24 12:49 Pulse 89 11/24/24 12:49 Resp 16 11/24/24 11:20 BP 108/53 L 11/24/24 12:49 Pulse Ox 98 11/24/24 12:49 O2 Del Method Room Air 11/24/24 12:49 Pertinent Lab Results Pertinent Lab Results: Laboratory Tests 11/23/24 11/23/24 11/23/24 18:37 18:38 23:38 WBC 7.3 RBC 2.79 L Hgb 7.8 L Hct 22.7 L MCV 81.4 MCH 28.0 MCHC 34.4 RDW 12.1 Plt Count 173 MPV 9.8 Immature Gran % (Auto) 0.3 Neut % (Auto) 64.1 Lymph % (Auto) 28.6 [place] % (Auto) 4.3 Eos % (Auto) 1.9 Baso % (Auto) 0.8 Lymph # (Auto) 2.1 [place] # (Auto) 0.3 Eos # (Auto) 0.1 Baso # (Auto) 0.1 Abs Immat Gran (auto) 0.02 Absolute Neuts (auto) 4.7 Absolute Nucleated RBC 0.000 Nucleated RBC % (auto) 0.0 Sodium 143 Potassium 4.3 D Chloride 110 H Carbon Dioxide 26 Anion Gap 11 L BUN 20 H Creatinine 0.61 Estim Creat Clear Calc 85.8 Estimated GFR > 60 POC Glucose 136 H Random Glucose 180 H Calcium 8.7 Total Bilirubin 0.2 AST 22 ALT 22 Alkaline Phosphatase 51 Total Protein 6.1 L Albumin 4.3 Blood Type B Positive Antibody Screen NEGATIVE Crossmatch See Detail 11/24/24 11/24/24 11/24/24 05:04 05:38 11:01 WBC 6.1 RBC 3.08 L Hgb 8.6 L Hct 25.5 L MCV 82.8 MCH 27.9 MCHC 33.7 RDW 13.7 Plt Count 120 L D MPV 9.9 Immature Gran % (Auto) Neut % (Auto) Lymph % (Auto) [place] % (Auto) Eos % (Auto) Baso % (Auto) Lymph # (Auto) [place] # (Auto) Eos # (Auto) Baso # (Auto) Abs Immat Gran (auto) Absolute Neuts (auto) Absolute Nucleated RBC 0.050 H Nucleated RBC % (auto) 0.8 H Sodium 143 Potassium 4.2 Chloride 111 H Carbon Dioxide 27 Anion Gap 9 L BUN 21 H Creatinine 0.59 Estim Creat Clear Calc 88.7 Estimated GFR > 60 POC Glucose 130 H 139 H Random Glucose 141 H Calcium 8.2 L Total Bilirubin AST ALT Alkaline Phosphatase Total Protein Albumin Blood Type Antibody Screen Crossmatch Narrative Narrative: EKG 11/20/24 Vent. Rate : 74 BPM Atrial Rate : 74 BPM P-R Int : 156 ms QRS Dur : 80 ms QT Int : 466 ms P-R-T Axes : 52 41 44 degrees QTcB Int : 517 ms Normal sinus rhythm Nonspecific T wave abnormality Abnormal ECG When compared with ECG of 06-Jun-2024 00:43, No significant change was found Assessment and Plan Final Anesthetic Review History of Problems with Anesthesia: No Documented by User: Dick Yeager MD 11/25/24 14:42 PMFSH Past Medical History Medical History GERD (gastroesophageal reflux disease) Diabetes Hyperlipidemia Hypertension Family History Family History Brother Colon cancer Family history of problems with anesthesia: No Surgical History Surgical History History of surgery Hx of colonoscopy History of esophagogastroduodenoscopy (EGD) Social History Social History Household Members: Spouse and Family Housing: House Are you a primary resident care aide to a significant other at home: No Do you presently have visiting nurse or other home services: No Alcohol intake: current Alcohol intake frequency: holidays/special occasions only Patient Tobacco Use Status: Never used Tobacco service: No Meds Allergies Allergy/AdvReac Type Severity Reaction Status Date / Time No Known Allergies Allergy Verified 11/23/24 17:41 Home Medications ?Medication ?Instructions ?Recorded ?Confirmed ?Last Taken ?Type blood sugar diagnostic (FreeStyle #10 ea 07/24/24 Unknown History Lite Strips) cholecalciferol (vitamin D3) 50 50 mcg PO DAILY 07/24/24 11/24/24 11/22/24 History mcg (2,000 unit) tablet doxepin 10 mg capsule 10 mg PO BEDTIME 07/24/24 11/24/24 11/22/24 History metformin 750 mg tablet,extended 750 mg PO BID 07/24/24 11/24/24 11/22/24 History release 24 hr rosuvastatin 10 mg tablet 10 mg PO DAILY 07/24/24 11/24/24 11/22/24 History Exam Airway Mallampati Class: II TM Dist: <=3cm Neck ROM: Full Loose/Missing/Broken Teeth: No Heart: ok Lungs: ok Assessment and Plan Assessment Anesthesia Assessment: Anesthesia Plan Discussed and Chart Reviewed Final Anesthetic Review Family History of Problems with Anesthesia: No NPO: Yes ASA Class: III Final Preanesthetic Review: No Changes in Pt Med Stat, Meds/Allgs Chart Reviewed, Consent Obtained/Reviewed and Anes Risks/Benef Reviewed Patient Risk: Intermediate Procedure Risk: Intermediate Anesthetic Plan Anesthetic Plan: Agree w/ Assess. and Plan and TIVA Disposition: Standard PACU
[2024-11-24 15:03] LABS: MANUAL DIFF FLAG NO
[2024-11-24 15:06] LABS: Hematocrit 23.8 % (37.0-47.0); Hemoglobin 8.0 g/dl (12.0-16.0); Imm Gran Abs Auto 0.06 X10*3/uL (0.00-0.03); Imm Gran Pct Auto 0.7 % (0.0-0.4); Lymphocytes Absolute Auto 1.9 X10*3/uL (1.2-4.9); Mean Corpuscular HGB Conc 33.6 g/dl (31.0-35.0); Mean Corpuscular Hemoglobin 27.7 pg (27.0-33.0); Mean Corpuscular Volume 82.4 fL (80.0-98.0); NRBC Abs Auto 0.100 X10*3/uL (0.0-0.012); Platelet Count 163 X10*3/uL (160-400); Red Blood Count 2.89 X10*6/uL (4.20-5.50); White Blood Count 8.2 X10*3/uL (4.8-10.8)
[2024-11-24 15:07] LABS: NRBC Pct Auto 1.2 /100WBC (0.0-0.2)
[2024-11-24 15:55] LABS: Glucose, Whole Blood 174 mg/dL (60-115)
[2024-11-24 16:32] LABS: Hematocrit 23.8 % (37.0-47.0); Hemoglobin 8.0 g/dl (12.0-16.0); Mean Corpuscular HGB Conc 33.6 g/dl (31.0-35.0); Mean Corpuscular Hemoglobin 28.0 pg (27.0-33.0); Mean Corpuscular Volume 83.2 fL (80.0-98.0); NRBC Abs Auto 0.250 X10*3/uL (0.0-0.012); NRBC Pct Auto 2.0 /100WBC (0.0-0.2); Platelet Count 191 X10*3/uL (160-400); Red Blood Count 2.86 X10*6/uL (4.20-5.50); White Blood Count 12.8 X10*3/uL (4.8-10.8)
[2024-11-24 16:50] LABS: Alanine Aminotransferase 14 U/L (0-31); Albumin Level 3.7 g/dL (3.5-5.0); Alkaline Phosphatase 37 U/L (39-117); Anion Gap 15 (12-20); Aspartate Amino Transferase 20 U/L (5-31); Blood Urea Nitrogen 32 mg/dL (9-16); Calcium 8.2 mg/dL (8.4-10.2); Carbon Dioxide 22 mmol/L (22-29); Chloride 110 mmol/L (96-108); Creatinine Clr Calc Pharmacy 84.7; Estimated Glomerular Filt Rate > 60; Potassium 3.5 mmol/L (3.3-5.1); Sodium 143 mmol/L (135-145); Total Protein 5.4 g/dL (6.5-8.0)
[2024-11-24 16:58] LABS: Troponin-I High Sensitivity < 2.7 ng/L (<3.5-17.0)
[2024-11-24] MEDS: 0.9 % Sodium Chloride Flush 3 ML SYRINGE IVFLUSH (17:02)
[2024-11-24 17:52] LABS: Glucose, Whole Blood 151 mg/dL (60-115)
[2024-11-24] MEDS: PEG 3350/Na Sulf,Bicarb,Cl/KCL 4,000 ML SOLN.RECON 2000 ML PO (18:05)
[2024-11-24 23:59] LABS: Glucose, Whole Blood 105 mg/dL (60-115)
[2024-11-25] VITALS (12 sets, daily range): BP systolic 91–143; BP diastolic 39–63; PULSE 63–87; RESP 14–18; TEMP 36.2–36.8; O2SAT 95–99
[2024-11-25 06:51] LABS: Glucose, Whole Blood 126 mg/dL (60-115)
[2024-11-25 07:02] LABS: MANUAL DIFF FLAG NO
[2024-11-25 07:12] LABS: Imm Gran Abs Auto 0.04 X10*3/uL (0.00-0.03); Imm Gran Pct Auto 0.8 % (0.0-0.4); Lymphocytes Absolute Auto 1.6 X10*3/uL (1.2-4.9); Mean Corpuscular HGB Conc 34.6 g/dl (31.0-35.0); Mean Corpuscular Hemoglobin 28.2 pg (27.0-33.0); Mean Corpuscular Volume 81.5 fL (80.0-98.0); NRBC Abs Auto 0.070 X10*3/uL (0.0-0.012); Platelet Count 132 X10*3/uL (160-400); Red Blood Count 2.27 X10*6/uL (4.20-5.50); White Blood Count 5.2 X10*3/uL (4.8-10.8)
[2024-11-25 07:31] LABS: Anion Gap 9 (12-20); Blood Urea Nitrogen 18 mg/dL (9-16); Calcium 8.1 mg/dL (8.4-10.2); Carbon Dioxide 28 mmol/L (22-29); Chloride 112 mmol/L (96-108); Creatinine Clr Calc Pharmacy 80.8; Estimated Glomerular Filt Rate > 60; Potassium 3.5 mmol/L (3.3-5.1); Sodium 145 mmol/L (135-145)
[2024-11-25 07:36] LABS: NRBC Pct Auto 1.3 /100WBC (0.0-0.2)
[2024-11-25 07:37] LABS: Hemoglobin 6.4 g/dl (12.0-16.0)
[2024-11-25 07:38] LABS: Hematocrit 18.5 % (37.0-47.0)
--- NOTE | 2024-11-25 09:36 | MHC.CM.PN ---
DX DIONI Lives at home with spouse and other family members. She is independent at baseline No DME A copy of HCP has been requested. Her Spouse + Dtr are the proxies. DP Home self care with transportation provided by her spouse. PCP Naomi Montague Primary language Cantonese. Her dtr speaks Bangladeshi.
[2024-11-25 11:00] LABS: Glucose, Whole Blood 122 mg/dL (60-115)
--- NOTE | 2024-11-25 12:16 | HO.PM.IMPN ---
Subjective Subjective Date of Service: 11/25/24 Interval History: dizzy Physical Exam Exam: Exam: General: AO X 3, no acute distress Resp: CTA bilateral, no accessory muscles used CVS: S1,S2,RRR GI: soft, non tender, non distended Neuro: motor grossly intact, alert Psych: appropriate affect, appropriate insight Vital Signs: Vital Signs: Last Vital Signs Temp 98.1 F 11/25/24 10:58 Pulse 65 11/25/24 10:58 Resp 16 11/25/24 10:58 BP 102/55 L 11/25/24 10:58 Pulse Ox 95 11/25/24 10:58 O2 Del Method Room Air 11/25/24 10:58 BMI result Body Mass Index 25.0 Objective Data Active Medications Acetaminophen (Acetaminophen 325 Mg Tablet) 650 mg PO Q6H PRN PRN Reason: Pain, Mild 1-3,fever,headache Atorvastatin Calcium (Atorvastatin Calcium 40 Mg Tablet) 40 mg PO DAILY [facility] Last Admin: 11/25/24 09:45 Dose: Not Given Documented By: FIDE Non-Admin Reason: NPO Calcium Carbonate (Calcium Carbonate 750 Mg Tab.Chew) 750 mg PO Q4H PRN PRN Reason: Heartburn Dextrose (Dextrose 50 % 25 Gm/50 Ml Syringe) 25 gm IVPUSH Q15M PRN; Protocol PRN Reason: per Hypoglycemia Standing Ord. Doxepin HCl (Doxepin Hcl 10 Mg Capsule) 10 mg PO BEDTIME [facility] Glucose (Glucose Gel 15 Gm Gel..Gram.) 15 gm PO Q15M PRN; Protocol PRN Reason: per Hypoglycemia Standing Ord. Insulin Human Lispro (Insulin Lispro 100 Unit/Ml 3 Ml Vial) 0 unit SUBCUT Q6H [facility]; Protocol Last Admin: 11/25/24 11:18 Dose: Not Given Documented By: FIDE Non-Admin Reason: No Insulin Coverage Magnesium Hydroxide (Milk Of Magnesia 30 Ml Oral.Susp) 30 ml PO DAILY PRN PRN Reason: Constipation Melatonin (Melatonin 3 Mg Tablet) 6 mg PO BEDTIME PRN PRN Reason: Insomnia Ondansetron HCl (Ondansetron Hcl 4 Mg/2 Ml Vial) 4 mg IVPUSH Q8H PRN PRN Reason: Nausea and Vomiting Last Admin: 11/24/24 12:46 Dose: 4 mg Documented By: FIDE Pantoprazole Sodium (Pantoprazole Sodium 40 Mg/10 Ml Vial) 40 mg IVPUSH BID@0630,1630 [facility] Last Admin: 11/25/24 06:36 Dose: 40 mg Documented By: LYNNETTE Sodium Chloride (0.9 % Sodium Chloride Flush 3 Ml Syringe) 3 ml IVFLUSH QSHIFT [facility] Last Admin: 11/25/24 09:47 Dose: Not Given Documented By: FIDE Non-Admin Reason: Previously Administered Labs 11/25/24 06:46 11/25/24 06:46 Labs: Laboratory Results - last 24 hr 11/23/24 11/24/24 11/24/24 18:37 14:57 15:46 MCV 82.4 MCH 27.7 MCHC 33.6 RDW 13.6 Plt Count 163 D MPV 10.7 Immature Gran % (Auto) 0.7 H Neut % (Auto) 69.7 Lymph % (Auto) 23.5 [place] % (Auto) 4.3 Eos % (Auto) 1.2 Baso % (Auto) 0.6 Lymph # (Auto) 1.9 [place] # (Auto) 0.4 Eos # (Auto) 0.1 Baso # (Auto) 0.1 Abs Immat Gran (auto) 0.06 H Absolute Neuts (auto) 5.7 Absolute Nucleated RBC 0.100 H Nucleated RBC % (auto) 1.2 H Anion Gap Estim Creat Clear Calc Estimated GFR POC Glucose 174 H Random Glucose Calcium Total Bilirubin AST ALT Alkaline Phosphatase Total Protein Albumin Blood Type B Positive Antibody Screen NEGATIVE Crossmatch See Detail 11/24/24 11/24/24 11/24/24 15:59 17:48 23:56 MCV 83.2 MCH 28.0 MCHC 33.6 RDW 13.5 Plt Count 191 MPV 10.6 Immature Gran % (Auto) Neut % (Auto) Lymph % (Auto) [place] % (Auto) Eos % (Auto) Baso % (Auto) Lymph # (Auto) [place] # (Auto) Eos # (Auto) Baso # (Auto) Abs Immat Gran (auto) Absolute Neuts (auto) Absolute Nucleated RBC 0.250 H Nucleated RBC % (auto) 2.0 H Anion Gap 15 Estim Creat Clear Calc 84.7 Estimated GFR > 60 POC Glucose 151 H 105 Random Glucose 215 H Calcium 8.2 L Total Bilirubin 0.4 AST 20 ALT 14 Alkaline Phosphatase 37 L Total Protein 5.4 L Albumin 3.7 Blood Type Antibody Screen Crossmatch 11/25/24 11/25/24 11/25/24 06:46 06:47 10:48 MCV 81.5 MCH 28.2 MCHC 34.6 RDW 13.9 Plt Count 132 L D MPV 10.3 Immature Gran % (Auto) 0.8 H Neut % (Auto) 61.0 Lymph % (Auto) 31.3 [place] % (Auto) 5.0 Eos % (Auto) 1.3 Baso % (Auto) 0.6 Lymph # (Auto) 1.6 [place] # (Auto) 0.3 Eos # (Auto) 0.1 Baso # (Auto) 0.0 Abs Immat Gran (auto) 0.04 H Absolute Neuts (auto) 3.2 Absolute Nucleated RBC 0.070 H Nucleated RBC % (auto) 1.3 H Anion Gap 9 L Estim Creat Clear Calc 80.8 Estimated GFR > 60 POC Glucose 126 H 122 H Random Glucose 138 H Calcium 8.1 L Total Bilirubin AST ALT Alkaline Phosphatase Total Protein Albumin Blood Type Antibody Screen Crossmatch Assessment and Plan (1) Hepatic cyst: Status: Acute Plan 64F PMH GERD, diabetes, hyperlipidemia, hepatic cysts presented with black stools found to have anemia Acute blood loss anemia Continue PPI, transfuse 2 units PRBC, hemoglobin down to 6.4 today we will give another unit. Plan for EGD and colonoscopy Monitor hemoglobin Orthostatic presyncope Due to above Diabetes Insulin sliding scale Hyperlipidemia Continue statin Mood disorder Doxepin dvt prophylaxis- mechanical due to gi bleed full code reason for continued hospitalization:egd, colon Quality Stroke Does the patient have a stroke diagnosis?: No VTE Prior VTE?: No VTE Risk Level:: Medical - moderate - high VTE Device Contraindication: N/A - Device Ordered VTE Drug Contraindication: Treatment Not Indicated
[2024-11-25 13:34] LABS: Glucose, Whole Blood 113 mg/dL (60-115)
--- NOTE | 2024-11-25 14:39 | MHC.SHP ---
Pre-Procedural Eval Section A - 24 Hr Update-Section A only Date of Service: 11/25/24 The patient is an INPATIENT: Yes The patient has been examined within 24 hours of the surgical procedure. The History & Physical has been completed within 30 days and I have reviewed it.: Yes Section B - Complete if H&P > 30 days Chief Complaint: GI bleed Allergies: Allergies Allergy/AdvReac Type Severity Reaction Status Date / Time No Known Allergies Allergy Verified 11/23/24 17:41 Plan Diagnosis/Plan: Unchanged I have reviewed the history and physical and performed a pertinent physical examination on my patient. No changes have occurred unless specified. Time Spent With Patient Time: Total time managing care of this patient today ____ minutes.
[2024-11-25 14:52] LABS: Hematocrit 23.1 % (37.0-47.0); Hemoglobin 8.3 g/dl (12.0-16.0); Mean Corpuscular HGB Conc 35.9 g/dl (31.0-35.0); Mean Corpuscular Hemoglobin 30.4 pg (27.0-33.0); Mean Corpuscular Volume 84.6 fL (80.0-98.0); NRBC Abs Auto 0.070 X10*3/uL (0.0-0.012); Platelet Count 117 X10*3/uL (160-400); Red Blood Count 2.73 X10*6/uL (4.20-5.50); White Blood Count 6.0 X10*3/uL (4.8-10.8)
[2024-11-25 14:54] LABS: NRBC Pct Auto 1.2 /100WBC (0.0-0.2)
--- NOTE | 2024-11-25 15:10 | P.OPN-COLO_ITS ---
Colonoscopy Operative Note Operative Note Date of Service: 11/25/24 Narrative: Procedure: Upper endoscopy and colonoscopy Indication: GI bleeding Endoscopist: Brittny Jean-Baptiste MD Anesthesia Provider: Dr Dick Yeager Anesthesia type: MAC Instrument: [id number] and [id number] EGD Procedure:?? The procedure, indications, preparation and potential complications were reviewed with the patient with the help of boat painter, who indicated understanding and gave written informed consent to proceed. The endoscope was introduced through the mouth, and advanced to the 2nd part of the duodenum. The mucosa was carefully examined on slow withdrawal of the endoscope. The patient tolerated the procedure well. There were no immediate complications.? EGD Findings:? * Esophagus:? Normal esophageal mucosa was noted. The Z-line was at 38 cm. * Stomach:? Erythema and edema noted at the site of previous polypectomies in the stomach. No active bleeding or stigmata of recent bleeding noted. Retroflexion was performed in the cardia. * Duodenum:? Normal duodenal mucosa. Colonoscopy Procedure:? The patient was then turned for the colonoscopy. A digital rectal exam was performed which was normal.? A distal attachment cap was affixed to the tip of the scope and the colonoscope was then inserted through the anus and advanced through the colon and advanced to the cecum at 75 cm and terminal ileum.? Appendiceal orifice and ileocecal valve were identified. Mucosa was carefully examined under high definition white light as the instrument was slowly withdrawn in a retrograde panoramic fashion. Retroflexion was performed in rectum. The procedure was not difficult. The quality of the prep was BBPS:2+3+3 = adequate Withdrawal time 9 minutes Limitations: No limitations Findings: Mucosa: A 6 mm ulcer with a visible vessel noted at the site of previous polypectomy in the sigmoid colon. This was not actively bleeding, however due to stigmata of recent bleeding (visible vessel) Resolution 360 Ulra clips x2 were placed to close the defect and for mechanical hemostasis. No active or old bleeding was noted at the time of the scope, including in the terminal ileum. Protruding lesions: * Small internal hemorrhoids without stigmata of recent bleeding. Impression: 1. Normal esophagus 2. Previous healing polypectomies in stomach 3. Normal duodenum 4. Post polypectomy ulcer in sigmoid colon (endoclips x 2) 5. Internal hemorrhoids Recommendations:?? * Bleeding likely secondary to post polypectomy ulcer. This had stopped at the time of procedure, however due to high-risk ulcer, Endoclips were placed. * Monitor CBC b.i.d. * Transfuse PRBC for hemoglobin less than 7 * Consider PO iron x 3 months at discharge
[2024-11-25 16:03] LABS: Glucose, Whole Blood 127 mg/dL (60-115)
[2024-11-25 17:18] LABS: Glucose, Whole Blood 121 mg/dL (60-115)
[2024-11-25] MEDS: 0.9 % Sodium Chloride Flush 3 ML SYRINGE IVFLUSH ×2 (17:27→21:36)
[2024-11-25 20:13] LABS: Hematocrit 23.1 % (37.0-47.0); Hemoglobin 8.2 g/dl (12.0-16.0)
[2024-11-26 00:23] LABS: Glucose, Whole Blood 126 mg/dL (60-115)
[2024-11-26 04:00] VITALS: BP 110/53; PULSE 59; RESP 16; TEMP 36.2; O2SAT 98
[2024-11-26 05:39] LABS: Glucose, Whole Blood 117 mg/dL (60-115)
[2024-11-26 07:11] VITALS: BP 123/58; PULSE 56; RESP 18; TEMP 36.4; O2SAT 97
[2024-11-26 08:05] LABS: Hematocrit 23.1 % (37.0-47.0); Hemoglobin 7.9 g/dl (12.0-16.0); Mean Corpuscular HGB Conc 34.2 g/dl (31.0-35.0); Mean Corpuscular Hemoglobin 29.3 pg (27.0-33.0); Mean Corpuscular Volume 85.6 fL (80.0-98.0); NRBC Abs Auto 0.080 X10*3/uL (0.0-0.012); Platelet Count 110 X10*3/uL (160-400); Red Blood Count 2.70 X10*6/uL (4.20-5.50); White Blood Count 5.0 X10*3/uL (4.8-10.8)
[2024-11-26 08:06] LABS: NRBC Pct Auto 1.6 /100WBC (0.0-0.2)
[2024-11-26 08:30] LABS: Anion Gap 10 (12-20); Blood Urea Nitrogen 12 mg/dL (9-16); Calcium 8.2 mg/dL (8.4-10.2); Carbon Dioxide 27 mmol/L (22-29); Chloride 109 mmol/L (96-108); Creatinine Clr Calc Pharmacy 80.8; Estimated Glomerular Filt Rate > 60; Potassium 3.9 mmol/L (3.3-5.1); Sodium 142 mmol/L (135-145)
--- NOTE | 2024-11-26 08:33 | HO.POSTANES ---
Post Anesthesia Evaluation Post Anesthesia Evaluation Date of Service: 11/26/24 Vital Signs: Vital Signs Temp Pulse Resp BP Pulse Ox O2 Del Method 11/26/24 07:11 97.5 F 56 18 123/58 L 97 Room Air 11/26/24 04:00 97.2 F 59 16 110/53 L 98 Room Air 11/25/24 23:48 97.9 F 66 18 131/61 96 Room Air Anesthesia: Monitored Mental Status: Awake Pain Control: Satisfactory Nausea/Vomiting: None Hydration: Adequate Anesthesia-Related Issues: No Anes. Related Issues
[2024-11-26] MEDS: 0.9 % Sodium Chloride Flush 3 ML SYRINGE IVFLUSH ×2 (10:30→16:59)
--- NOTE | 2024-11-26 10:50 | P.PNIM_ITS ---
Subjective Subjective Date of Service: 11/26/24 Interval History: No further bleeding Physical Exam 2 Exam: Exam: General: AO X 3, no acute distress Resp: CTA bilateral, no accessory muscles used CVS: S1,S2,RRR GI: soft, non tender, non distended Neuro: motor grossly intact, alert Psych: appropriate affect, appropriate insight Vital Signs: Vital Signs: Last Vital Signs Temp 97.5 F 11/26/24 07:11 Pulse 56 11/26/24 07:11 Resp 18 11/26/24 07:11 BP 123/58 L 11/26/24 07:11 Pulse Ox 97 11/26/24 07:11 O2 Del Method Room Air 11/26/24 07:11 BMI result Body Mass Index 25.0 Objective Data Active Medications Acetaminophen (Acetaminophen 325 Mg Tablet) 650 mg PO Q6H PRN PRN Reason: Pain, Mild 1-3,fever,headache Atorvastatin Calcium (Atorvastatin Calcium 40 Mg Tablet) 40 mg PO DAILY COUNTS INCLUDE 234 BEDS AT THE [facility] Last Admin: 11/26/24 10:28 Dose: 40 mg Documented By: CHELSEY Calcium Carbonate (Calcium Carbonate 750 Mg Tab.Chew) 750 mg PO Q4H PRN PRN Reason: Heartburn Dextrose (Dextrose 50 % 25 Gm/50 Ml Syringe) 25 gm IVPUSH Q15M PRN; Protocol PRN Reason: per Hypoglycemia Standing Ord. Doxepin HCl (Doxepin Hcl 10 Mg Capsule) 10 mg PO BEDTIME COUNTS INCLUDE 234 BEDS AT THE [facility] Last Admin: 11/25/24 21:35 Dose: 10 mg Documented By: LYNNETTE Glucose (Glucose Gel 15 Gm Gel..Gram.) 15 gm PO Q15M PRN; Protocol PRN Reason: per Hypoglycemia Standing Ord. Insulin Human Lispro (Insulin Lispro 100 Unit/Ml 3 Ml Vial) 0 unit SUBCUT Q6H COUNTS INCLUDE 234 BEDS AT THE [facility]; Protocol Last Admin: 11/26/24 05:42 Dose: Not Given Documented By: LYNNETTE Non-Admin Reason: POC 117 Magnesium Hydroxide (Milk Of Magnesia 30 Ml Oral.Susp) 30 ml PO DAILY PRN PRN Reason: Constipation Melatonin (Melatonin 3 Mg Tablet) 6 mg PO BEDTIME PRN PRN Reason: Insomnia Naloxone HCl (Naloxone Hcl 0.4 Mg/Ml Vial) 0.04 mg IVPUSH Q5M PRN PRN Reason: Excessive sedation or RR < 8 Ondansetron HCl (Ondansetron Hcl 4 Mg/2 Ml Vial) 4 mg IVPUSH Q8H PRN PRN Reason: Nausea and Vomiting Last Admin: 11/24/24 12:46 Dose: 4 mg Documented By: FIDE Pantoprazole Sodium (Pantoprazole Sodium 40 Mg/10 Ml Vial) 40 mg IVPUSH BID@0630,1630 COUNTS INCLUDE 234 BEDS AT THE [facility] Last Admin: 11/26/24 06:44 Dose: 40 mg Documented By: LYNNETTE Sodium Chloride (0.9 % Sodium Chloride Flush 3 Ml Syringe) 3 ml IVFLUSH QSHIFT COUNTS INCLUDE 234 BEDS AT THE [facility] Last Admin: 11/26/24 10:30 Dose: 3 ml Documented By: CHELSEY Labs 11/26/24 07:57 11/26/24 07:57 Labs: Laboratory Results - last 24 hr 11/23/24 11/25/24 11/25/24 18:37 06:46 10:48 MCV MCH MCHC RDW Plt Count MPV Absolute Nucleated RBC Nucleated RBC % (auto) Smear Path Review SEE NOTE Anion Gap Estim Creat Clear Calc Estimated GFR POC Glucose 122 H Random Glucose Calcium Crossmatch See Detail 11/25/24 11/25/24 11/25/24 13:30 14:42 15:58 MCV 84.6 MCH 30.4 MCHC 35.9 H RDW 16.2 H Plt Count 117 L MPV 10.2 Absolute Nucleated RBC 0.070 H Nucleated RBC % (auto) 1.2 H Smear Path Review Anion Gap Estim Creat Clear Calc Estimated GFR POC Glucose 113 127 H Random Glucose Calcium Crossmatch 11/25/24 11/25/24 11/26/24 17:15 23:50 05:12 MCV MCH MCHC RDW Plt Count MPV Absolute Nucleated RBC Nucleated RBC % (auto) Smear Path Review Anion Gap Estim Creat Clear Calc Estimated GFR POC Glucose 121 H 126 H 117 H Random Glucose Calcium Crossmatch 11/26/24 07:57 MCV 85.6 MCH 29.3 MCHC 34.2 RDW 15.5 Plt Count 110 L MPV 9.9 Absolute Nucleated RBC 0.080 H Nucleated RBC % (auto) 1.6 H Smear Path Review Anion Gap 10 L Estim Creat Clear Calc 80.8 Estimated GFR > 60 POC Glucose Random Glucose 137 H Calcium 8.2 L Crossmatch Assessment and Plan (1) Hepatic cyst: Status: Acute Plan 64F PMH GERD, diabetes, hyperlipidemia, hepatic cysts presented with black stools found to have anemia Acute blood loss anemia Continue PPI, transfused 3 units PRBC total, hemoglobin stable today 7.9 EGD and colonoscopy - colonic ulcer at polpectomy site clipped, wasnt actively bleeding Monitor hemoglobin Orthostatic presyncope Due to above pt eval Diabetes Insulin sliding scale Hyperlipidemia Continue statin Mood disorder Doxepin dvt prophylaxis- mechanical due to gi bleed full code reason for continued hospitalization:moinitor bleed Quality Stroke Does the patient have a stroke diagnosis?: No VTE Prior VTE?: No VTE Risk Level:: Medical - moderate - high VTE Device Contraindication: N/A - Device Ordered VTE Drug Contraindication: Treatment Not Indicated
[2024-11-26 11:05] LABS: Glucose, Whole Blood 144 mg/dL (60-115)
[2024-11-26 11:13] VITALS: BP 110/53; PULSE 68; RESP 18; TEMP 36.3; O2SAT 98
[2024-11-26 15:06] VITALS: BP 109/52; PULSE 67; RESP 18; TEMP 36.6; O2SAT 98
[2024-11-26] MEDS: Milk of Magnesia 30 ML ORAL.SUSP PO (17:06)
[2024-11-26 17:22] LABS: Glucose, Whole Blood 205 mg/dL (60-115)
[2024-11-26 19:21] VITALS: BP 100/53; PULSE 67; RESP 16; TEMP 36.4; O2SAT 94
[2024-11-26 23:04] VITALS: BP 143/63; PULSE 60; RESP 16; TEMP 36.3; O2SAT 96
[2024-11-26 23:11] LABS: Glucose, Whole Blood 149 mg/dL (60-115)
[2024-11-27 04:00] VITALS: BP 114/56; PULSE 59; RESP 16; TEMP 36.2; O2SAT 95
[2024-11-27 04:51] LABS: Glucose, Whole Blood 129 mg/dL (60-115)
[2024-11-27 07:13] VITALS: BP 115/56; PULSE 61; RESP 18; TEMP 36.3; O2SAT 98
[2024-11-27 07:28] LABS: Hematocrit 22.3 % (37.0-47.0); Hemoglobin 7.7 g/dl (12.0-16.0); Mean Corpuscular HGB Conc 34.5 g/dl (31.0-35.0); Mean Corpuscular Hemoglobin 29.8 pg (27.0-33.0); Mean Corpuscular Volume 86.4 fL (80.0-98.0); NRBC Abs Auto 0.060 X10*3/uL (0.0-0.012); Platelet Count 127 X10*3/uL (160-400); Red Blood Count 2.58 X10*6/uL (4.20-5.50); White Blood Count 5.0 X10*3/uL (4.8-10.8)
[2024-11-27 07:31] LABS: NRBC Pct Auto 1.2 /100WBC (0.0-0.2)
[2024-11-27 07:39] LABS: Anion Gap 9 (12-20); Blood Urea Nitrogen 10 mg/dL (9-16); Calcium 8.4 mg/dL (8.4-10.2); Carbon Dioxide 29 mmol/L (22-29); Chloride 109 mmol/L (96-108); Creatinine Clr Calc Pharmacy 83.3; Estimated Glomerular Filt Rate > 60; Potassium 4.0 mmol/L (3.3-5.1); Sodium 143 mmol/L (135-145)
[2024-11-27] MEDS: 0.9 % Sodium Chloride Flush 3 ML SYRINGE IVFLUSH (08:24)
--- NOTE | 2024-11-27 09:17 | MHC.CM.PN ---
Addendum entered by Aleida Gonzalez 11/27/24 10:58: Patient is discharged today. [facility] will provide home SN+PT. SN SOC scheduled for Saturday. A Family member will provide transportation home. Original Note: PT eval recommendation is Home services. Met with PT/Family preference is [facility]. A referral has been sent to [facility]. Discharge is anticipated today. Family will provide transportation ome at discharge.
--- NOTE | 2024-11-27 09:48 | P.PNGI_ITS ---
Subjective Subjective Date of Service: 11/27/24 Physical Exam 2 Vital Signs: Vital Signs: Last Vital Signs Temp 97.3 F 11/27/24 07:13 Pulse 61 11/27/24 07:13 Resp 18 11/27/24 07:13 BP 115/56 L 11/27/24 07:13 Pulse Ox 98 11/27/24 07:13 O2 Del Method Room Air 11/27/24 07:13 BMI result Body Mass Index 25.0 Objective Data Labs 11/27/24 06:40 11/27/24 06:40 Labs: Laboratory Results - last 24 hr 11/26/24 11/26/24 11/26/24 10:58 17:18 23:06 WBC RBC Hgb Hct MCV MCH MCHC RDW Plt Count MPV Absolute Nucleated RBC Nucleated RBC % (auto) Sodium Potassium Chloride Carbon Dioxide Anion Gap BUN Creatinine Estim Creat Clear Calc Estimated GFR POC Glucose 144 H 205 H 149 H Random Glucose Calcium 11/27/24 11/27/24 04:47 06:40 WBC 5.0 RBC 2.58 L Hgb 7.7 L Hct 22.3 L MCV 86.4 MCH 29.8 MCHC 34.5 RDW 15.9 Plt Count 127 L MPV 10.4 Absolute Nucleated RBC 0.060 H Nucleated RBC % (auto) 1.2 H Sodium 143 Potassium 4.0 Chloride 109 H Carbon Dioxide 29 Anion Gap 9 L BUN 10 Creatinine 0.63 Estim Creat Clear Calc 83.3 Estimated GFR > 60 POC Glucose 129 H Random Glucose 145 H Calcium 8.4 Procedures Date of Service Date of Service: 11/27/24 Progress Note: A&P Time Spent With Patient Time: Total time managing care of this patient today ____ minutes. Quality Stroke Does the patient have a stroke diagnosis?: No VTE Prior VTE?: No VTE Risk Level:: Medical - moderate - high VTE Device Contraindication: N/A - Device Ordered VTE Drug Contraindication: Treatment Not Indicated
--- NOTE | 2024-11-27 10:27 | P.F2F_ITS ---
Service Date Service Date: 11/27/24 Encounter Date of encounter: 11/27/24 Reasons for Services Signs and symptoms assessed: weakness on ambulation Reason for long-term: medication management, medication treatment and teach disease management Reason for physical therapy: home safety and mobility, therapeutic exercises and gait/transfer training Homebound: Leaving the home is medically contraindicated at this time without the asist of a device and/or another person due th the listed conditions above and below. Reason homebound: weakness related to hospital stay Certification: Based on the above findings, I certify that this patient is confined to the home and needs intermittent long-term care, physical therapy and/or speech therapy, or continues to need occupational therapy. The patient is under my care, and I have initiated the establishment of the plan of care. The patient will be followed by a physician who will periodically review the plan of care. Time Spent With Patient Time: Total time managing care of this patient today ____ minutes.
--- NOTE | 2024-11-27 10:28 | P.DS_ITS ---
DS: Providers Provider Date of Service: 11/27/24 Date of admission: 11/23/24 22:08 Date of discharge: 11/27/24 Primary care physician: Naomi Montague MD Consults: 11/23/24 23:04 Consult to Gastroenterology Routine Consulting Provider: Donavan Crabtree Reason for consultation: Acute lower GI bleed DS: Diagnosis Discharge Diagnosis (1) Hepatic cyst: Status: Acute DS: Summary Hospital Course Hospital Course: from initial hpi: 64-year-old female with pertinent history of gastroesophageal reflux disease, fom-[id number] type 2 diabetes mellitus, mixed hyperlipidemia who presents to the emergency department for evaluation of blood in stools. Patient underwent colonoscopy with polypectomy on 11/20 as an outpatient. She states that she has been having bright red blood stools since the colonoscopy. On the day of presentation, patient is complaining of dizziness and lightheadedness when trying to stand up from a seated position. Did not pass out. Also admits malaise and easy fatigability. No abdominal pain, nausea or vomiting. Patient's baseline hemoglobin is around 12 and on the day of presentation it was noted to be 8.1 outpatient so she was asked to come to the ER. No fever, chills, chest pain, palpitations, abdominal pain, changes in urinary habits. In the emergency department, hemoglobin found to be 7.8. Gastroenterology was consulted who requested 2 unit PRBC transfusion. hospital course: Patient was admitted for acute blood loss anemia. Was given 3 units total PRBC and hemoglobin has now remained stable between 7 and 8. Underwent EGD and colonoscopy which showed colonic ulcer at polypectomy site clipped and was not actively bleeding recommendations were to continue p.o. iron and to follow up with GI as outpatient. For orthostatic presyncope symptoms improved and patient was ambulating in hallway we will continue physical therapy at home. For diabetes was continued on insulin sliding scale. For hyperlipidemia continued on statin. For mood disorder continued on doxepin. Time Attestation Discharge Coordination Time (in mins): 32 Quality: Safe Use of Opioids Does Pt have an Active Cancer Diagnosis on the Problem List?: No Quality: Stroke Does the patient have a stroke diagnosis?: No Physical Exam Exam: Exam: General: AO X 3, no acute distress Resp: CTA bilateral, no accessory muscles used CVS: S1,S2,RRR GI: soft, non tender, non distended Neuro: motor grossly intact, alert Psych: appropriate affect, appropriate insight Vital Signs: Vital Signs: Last Vital Signs Temp 97.3 F 11/27/24 07:13 Pulse 61 11/27/24 07:13 Resp 18 11/27/24 07:13 BP 115/56 L 11/27/24 07:13 Pulse Ox 98 11/27/24 07:13 O2 Del Method Room Air 11/27/24 07:13 BMI result Body Mass Index 25.0 DS: Data Data Completed and Pending Labs on day of discharge: Laboratory Results - last 24 hr 11/26/24 11/26/24 11/26/24 10:58 17:18 23:06 WBC RBC Hgb Hct MCV MCH MCHC RDW Plt Count MPV Absolute Nucleated RBC Nucleated RBC % (auto) Sodium Potassium Chloride Carbon Dioxide Anion Gap BUN Creatinine Estim Creat Clear Calc Estimated GFR POC Glucose 144 H 205 H 149 H Random Glucose Calcium 11/27/24 11/27/24 04:47 06:40 WBC 5.0 RBC 2.58 L Hgb 7.7 L Hct 22.3 L MCV 86.4 MCH 29.8 MCHC 34.5 RDW 15.9 Plt Count 127 L MPV 10.4 Absolute Nucleated RBC 0.060 H Nucleated RBC % (auto) 1.2 H Sodium 143 Potassium 4.0 Chloride 109 H Carbon Dioxide 29 Anion Gap 9 L BUN 10 Creatinine 0.63 Estim Creat Clear Calc 83.3 Estimated GFR > 60 POC Glucose 129 H Random Glucose 145 H Calcium 8.4 Discharge Plan Discharge Anticipated Discharge Date/Time: 11/27/24 10:23 Patient Disposition: Home Health Service Discharge Diagnosis: gi bleed Referrals: Geri ALVARENGA [Outside] - 1 Week Naomi Montague MD [Primary Care Provider, Medical] - 1 Week Brittny Jean-Baptiste MD [Physician, Gastroenterology] - 1 Week Discharge Medications: New ferrous sulfate 325 mg (65 mg iron) tablet 325 mg PO DAILY Qty: 90 0RF Continued metformin 750 mg tablet extended release 24 hr 750 mg PO BID cholecalciferol (vitamin D3) 50 mcg (2,000 unit) tablet 50 mcg PO DAILY rosuvastatin 10 mg tablet 10 mg PO DAILY doxepin 10 mg capsule 10 mg PO BEDTIME (DME) FreeStyle Lite Strips Strip See Rx Instructions .ROUTE DAILY Qty: 10 Rx Instructions: As directed Discharge Orders: Discharge Order (Routine); Ordered 11/27/24 Ordered By: Yakov Degroot Diet: Advance to usual diet Activity on Discharge: As tolerated Stand Alone Forms: Patient Portal Discharge page Print Language: Cantonese Burkinan Care Plan Goals: Recovery Health Concerns: gi bleed Plan of Treatment: iron supplement, follow up with gi Assessment: see above
== END 2024-11-27 11:21 | disposition home health service (06) | DRG 810 ==
LOC: HO.ED 20:33 → HO.EDOVER 22:23 → HO.IMC 11-24 07:38
PROVIDERS: Internal Medicine; Registered Nurse Emergency; Student in an Organized Health Care Education/Training Program; Admitting Provider Student in an Organized Health Care Education/Training Program; Emergency Provider Internal Medicine; PCP Family Medicine; Visit Provider Internal Medicine
PROC: 0W3P8ZZ Control Bleeding in Gastrointestinal Tract, Via Natural or Artificial Opening Endoscopic (ICD-10-PCS; principal; 2024-11-25 14:40)
DX: K91.840 Postprocedural hemorrhage of a digestive system organ or structure following a digestive system procedure (principal); K63.3 Ulcer of intestine; E11.9 Type 2 diabetes mellitus without complications; D62 Acute posthemorrhagic anemia; F39 Unspecified mood [affective] disorder; K64.8 Other hemorrhoids; E78.2 Mixed hyperlipidemia; I95.1 Orthostatic hypotension; Z86.0100 Personal history of colon polyps, unspecified; Z79.84 Long term (current) use of oral hypoglycemic drugs; Z79.899 Other long term (current) drug therapy
CPT/HCPCS: 36415; 80048; 80053; 82947; 84484; 85014; 85018; 85025; 85027; 86850; 86900; 86901; 86923; 93005; 97162; 99285; J2003; J2405; J2470; J2704; J3010; J7120; P9016

== ENCOUNTER 2024-11-23 22:08 | Outpatient (BNV) | payer OTHER, SELFPAY | END 2024-11-24 15:59 | PROVIDERS: Admitting Provider Student in an Organized Health Care Education/Training Program; Emergency Provider Internal Medicine; PCP Family Medicine; Visit Provider Internal Medicine Cardiovascular Disease | DX: R94.31 Abnormal electrocardiogram [ECG] [EKG] (principal) | CPT/HCPCS: 93010 ==

== ENCOUNTER → 2024-11-23 22:08 | Outpatient (BNV) | payer OTHER, SELFPAY | PROVIDERS: Admitting Provider Student in an Organized Health Care Education/Training Program; Emergency Provider Internal Medicine; PCP Family Medicine; Visit Provider Student in an Organized Health Care Education/Training Program | DX: D62 Acute posthemorrhagic anemia (principal); K92.2 Gastrointestinal hemorrhage, unspecified | CPT/HCPCS: 99222; 99232 ==

== ENCOUNTER → 2024-11-23 22:08 | Outpatient (BNV) | payer OTHER, SELFPAY | PROVIDERS: Admitting Provider Student in an Organized Health Care Education/Training Program; Emergency Provider Internal Medicine; PCP Family Medicine; Visit Provider Internal Medicine | DX: D62 Acute posthemorrhagic anemia (principal); K92.2 Gastrointestinal hemorrhage, unspecified | CPT/HCPCS: 99232 ==

== ENCOUNTER 2024-12-01 14:24 | Outpatient (REF) | payer OTHER, SELFPAY ==
[2024-12-01 15:02] LABS: Hematocrit 27.5 % (37.0-47.0); Hemoglobin 9.3 g/dl (12.0-16.0); Mean Corpuscular HGB Conc 33.8 g/dl (31.0-35.0); Mean Corpuscular Hemoglobin 29.7 pg (27.0-33.0); Mean Corpuscular Volume 87.9 fL (80.0-98.0); NRBC Abs Auto 0.080 X10*3/uL (0.0-0.012); Platelet Count 147 X10*3/uL (160-400); Red Blood Count 3.13 X10*6/uL (4.20-5.50); White Blood Count 6.2 X10*3/uL (4.8-10.8)
[2024-12-01 15:05] LABS: NRBC Pct Auto 1.3 /100WBC (0.0-0.2)
--- OUTSIDE RECORDS SUMMARY | 2024-12-01 15:45 | XMS_ITS | Clinical Summary ---
Author Organization [facility] Address [address] [place] [address] Phone Care Team Providers Care Sharepoint Application Architect Name Role Phone Swapna Maravilla MD Primary Care Provider + Allergies No known active allergies Medications oxyCODONE 5 MG immediate release tablet Take 1 tablet (5 mg total) by mouth every 4 (four) hours as needed for moderate pain. 10 tablet 7 Active Additional Information Patient not taking.Reported on 02/14/2017 Ca cit-D3-mag#[id number] r (CALTRATE 600+D) 600 mg calcium- 800 [...] Advance Directives For more information, please contact: [phone] (9AM - 5PM [facility], Saturday-Saturday) * Full Code (Presumed) (Latest Code Status on File) Date Activated Date Inactivated Comments 02/20/2017 6:24 AM 02/20/2017 7:04 PM Care Teams Sharepoint Application Architect Relationship Specialty Start Date End Date Swapna Maravilla MD [address] [place] [address] PCP - General Family Medicine 09/04/16 Additional Source Comments The information contained in this document represents components of the legal health record. It is not the complete legal health record.[facility]
--- OUTSIDE RECORDS SUMMARY | 2024-12-01 15:45 | XMS_ITS | Encounter Summary ---
Author Organization [employer] Address [address] [facility] 7[address] [place] [address] Care Team Providers Care Signals Collection Technician Name Role Phone Naomi Montague MD Primary Care Provider [phone] Encounter Details Date Type Department Care Team (Late st Contact Info) Description 12/01/2024 Orders Only GENERIC EXTERNAL DATA DEPARTMENT Provider, [...] Care Team (Late st Contact Info) Description 12/17/2024 8:00 AM EDT Office Visit [facility] ADULT DENTAL [address] [place] [address] Patel Montague DDS [address] [place] [address] 01/01/2025 9:45 AM EDT Office Visit [facility] MED & PEDS [address] [place] [address] Naomi Montague MD [address] [place] [address] 02/26/2025 10:00 AM EST Office Visit [facility] ADULT DENTAL [address] [place] [address] Gaurang Stevenson 04/30/2025 1:00 PM EST Office Visit [facility] OPTOMETRY [address] [place] [address] Kristi Carty, OD [address] [place] [address] documented as of this encounter Procedures Procedure Name Priority Date/Time Associated Diagnosis Comments CBC Routine 12/01/2024 2:40 PM EDT TYPE AND SCREEN Routine 12/01/2024 2:40 PM EDT documented in this encounter Results * Type and screen (12/01/2024 2:40 PM EDT) Blood Type BP [facility] Antibody Screen NEGATIVE [facility] 12/01/2024 2:40 PM EDT 12/01/2024 2:54 PM EDT Narrative [facility] - 12/01/2024 3:37 PM EDT Witnessed by ABBASR us Generic External Data Provider LAB BLOOD BANK TE ST ORDERABLES Final Result [facility] [address] [place] [address] [phone] * (ABNORMAL) CBC (12/01/2024 2:40 PM EDT) White Blood Count 6.2 4.8 - 10.8 X10*3/uL [facility] Red Blood Count 3.13(L) 4.20 - 5.50 X10*6/uL [facility] Hemoglobin 9.3(L) 12.0 - 16.0 g/dl [facility] Hematocrit 27.5(L) 37.0 - 47.0 % [facility] Mean Corpuscular Volume 87.9 80.0 - 98.0 fL [facility] Mean Corpuscular Hemoglobin 29.7 27.0 - 33.0 pg [facility] Mean Corpuscular HGB Conc 33.8 31.0 - 35.0 g/dl [facility] Red Cell Distribution Width 15.9 11.0 - 16.0 % [facility] Platelet Count 147(L) 160 - 400 X10*3/uL [facility] Mean Platelet Volume 10.7 9.4 - 12.3 fL [facility] NRBC Pct Auto 1.3(H) 0.0 - 0.2 /100WBC [facility] NRBC Abs Auto 0.080(H) 0.0 - 0.012 X10*3/uL [facility] 12/01/2024 2:40 PM EDT 12/01/2024 2:48 PM EDT us Generic External Data Provider LAB BLOOD ORDERAB LES Final Result [facility] [address] [place] [address] [phone] documented in this encounter Visit Diagnoses Not on filedocumented in this encounter Additional Health Concerns Assessment Noted Time PHQ-9 Depression Total Score: 2 04/30/19 25 9:35 AM EST documented as of this encounter Care Teams Signals Collection Technician Relationship Specialty Start Date End Date Naomi Montague MD [address] [place] [address] PCP - General Family Medicine 02/01/22 documented as of this encounter
== END 2024-12-01 14:25 | disposition home or self-care (01) ==
LOC: HO.LAB 14:24
PROVIDERS: PCP Family Medicine; Visit Provider Internal Medicine
DX: Z01.84 Encounter for antibody response examination (principal); D64.9 Anemia, unspecified
CPT/HCPCS: 36415; 85027; 86850; 86900; 86901

== ENCOUNTER 2024-12-18 08:38 | Outpatient (REF) | payer OTHER, SELFPAY ==
--- OUTSIDE RECORDS SUMMARY | 2024-12-17 08:00 | XMS_ITS | Encounter Summary ---
Author Organization [employer] Address [address] [facility] [address] [place] [address] Care Team Providers Care Supervisor Slate Splitting Name Role Phone Naomi Montague MD Primary Care Provider [phone] Reason for Visit * Reason Comments Filling Encounter Details Date Type Department Care Team ([facility] st Contact Info) Description 12/17/2024 8:00 AM EDT Office Visit [facility] ADULT DENTAL [address] [place] [address] Patel Montague DDS [address] [place] [address] Social History Tobacco Use Types Packs/Day Years [...] y.o. female. Time Out: Date: 12/17/2024 Location: [facility] Tooth: 4, 29 Procedure: Exam Verified the above with patient, assistant community manager, and provider. Confirmed via patient's chart, intraorally and by radiographs. Public Policy Associate: Yes. Language: Cantonese. Public Policy Associate's Name: Patient's Doctor's Note: A 64 year [...] sought. NV: Lexi Provider: Patel Montague DDS Electronics Warfare Technician: Tr Zhao Attending: Dr. Rivera * Baudilio Rivera DMD - 12/17/2024 8:00 AM EDT I have reviewed the documentation and dental procedures made by the rendering provider, Patel Montague DDS, and approve their chart entries for this visit. Baudilio Rivera DMD documented in this encounter Plan of Treatment Upcoming Encounters Date Type Department Care Team (Late st Contact Info) Description 01/01/2025 9:45 AM EDT Office Visit [facility] MED & PEDS [address] [place] [address] Naomi Montague MD [address] [place] [address] 02/26/2025 10:00 AM EST Office Visit [facility] ADULT DENTAL [address] [place] [address] Gaurang Stevenson 04/30/2025 1:00 PM EST Office Visit [facility] OPTOMETRY [address] [place] [address] Kristi Carty, OD [address] [place] [address] documented as of this encounter Procedures Procedure Name Priority Date/Time Associated Diagnosis Comments NO CHARGE PROCEDURE Routine 12/17/2024 8:00 AM EDT documented in this encounter Visit Diagnoses Not on filedocumented in this encounter Additional Health Concerns Assessment Noted Time PHQ-9 Depression Total Score: 2 04/30/19 9:35 AM EST documented as of this encounter Care Teams Supervisor Slate Splitting Relationship Specialty Start Date End Date Naomi Montague MD [address] [place] [address] PCP - General Family [facility] documented as of this encounter
--- OUTSIDE RECORDS SUMMARY | 2024-12-18 09:08 | XMS_ITS | Encounter Summary ---
Author Organization [employer] Address [address] [place] [address] Care Team Providers Care Email Production Specialist Name Role Phone Naomi Montague MD Primary Care Provider [phone] Reason for Visit * Reason Onset Date Comments Nurse Triage 11/30/2024 Encounter Details Date Type Department Care Team ([facility] Contact Info) Description 11/30/2024 Telephone [facility] MED & PEDS [address] [place] [address] Naomi Montague MD [address] [place] [address] Nurse Triage Social History Tobacco Use Types Packs/Day Years [...] AM EDT documented as of this encounter Miscellaneous Notes * Telephone Encounter - Esmer Collado RN - 11/30/2024 3:16 PM EDT Images from the original note were not included. Triage call to Pt regarding this message below. Pt spouse reports Pt is doing fine. [facility] will return12/03/24, stool color may be due to iron supplement. If anything changes and is of concern Pt will return to ED or [facility]IC. Pt will keep original date of apt which is 01/01/25. [facility], [facility] to Me Naomi Montague MD [facility] Med & Peds Nurses (Selected Message) FW 11/30/24 4:28 PM Ok to move up appt if one is available, otherwise same day care, walk in center. Thanks! Triage call Pt reports some stooling with unusual color. Pt was just admitted to the hospital 11/23/24 and discharged 11/27/24. Pt does have hospital follow up apt 01/01/25 but, would like to get this apt moved up to a closer date. Pt has been followed by [facility] who is aware of the unusual colored stools. Pt is advised this scientific technical writer will forward this request to [facility] nursing team for possible earlier apt. agrees with this plan. Protocol Used: Stools - Unusual Color (Adult) Protocol-Based Disposition: See in Office or Video Visit within 3 Days Positive Triage Question: * Patient wants to be seen * All higher-acuity triage questions were negative Care Advice Discussed: * Reasons To Call Back - Unexplained color lasts over 24 hours - Suspected food has been stopped and the abnormal color lasts over 48 hours. - You become worse * Telephone Encounter - Elvin Mckay - 11/30/2024 10:14 AM EDT Symptom: Stools - Unusual Color Outcome: Schedule an urgent appointment (within 1 hour) or talk to a nurse or provider soon Reason: Color is red or black The caller accepted this outcome. Contact pt at [phone] (pt needs latvian track laying equipment operator , speaks syriac on HIPAA) documented in this encounter Plan of Treatment Upcoming Encounters Date Type Department Care Team (Late st Contact Info) Description 01/01/2025 9:45 AM EDT Office Visit [facility] MED & PEDS [address] [place] [address] Naomi Montague MD [address] [place] [address] 02/26/2025 10:00 AM EST Office Visit [facility] ADULT DENTAL [address] [place] [address] Gaurang Stevenson 04/30/2025 1:00 PM EST Office Visit [facility] OPTOMETRY [address] [place] [address] Kristi Carty, OD [address] [place] [address] documented as of this encounter Visit Diagnoses Not on filedocumented in this encounter Additional Health Concerns Assessment Noted Time PHQ-9 Depression Total Score: 2 04/30/19 25 9:35 AM EST documented as of this encounter Care Teams Email Production Specialist Relationship Specialty Start Date End Date Naomi Montague MD [address] [place] [address] PCP - General Family Medicine 02/01/22 Geri A 11/30/24 documented as of this encounter
--- OUTSIDE RECORDS SUMMARY | 2024-12-18 09:08 | XMS_ITS | Clinical Summary ---
Author Organization [facility] Address [address] [place] [address] Phone Care Team Providers Care Transit Driver Name Role Phone Swapna Maravilla MD Primary Care Provider + Allergies No known active allergies Medications oxyCODONE 5 MG immediate release tablet Take 1 tablet (5 mg total) by mouth every 4 (four) hours as needed for moderate pain. 10 tablet 7 Active Additional Information Patient not taking.Reported on 02/14/2017 Ca cit-D3-mag#[id number] (CALTRATE 600+D) 600 mg calcium- 800 [...] 2012 ZOSTER VACCINES (1 of 2) 2012 INFLUENZA VACCINE (#1) 2024 01/29/2020 COVID-19 VACCINE (3 - 2024-2 6 season) 2024 08/13/2020, 07/23/2020 RSV VACCINE (1 - 1-dose [...] topic Medical Devices Not on file Insurance Advance Directives For more information, please contact: [phone] (9AM - 5PM [facility], Saturday-Saturday) * Full Code (Presumed) (Latest Code Status on File) Date Activated Date Inactivated Comments 02/20/2017 6:24 AM 02/20/2017 7:04 PM Care Teams Transit Driver Relationship Specialty Start Date End Date Swapna Maravilla MD [address] [place] [address] PCP - General Family Medicine 5/23/17 Additional Source Comments The information contained in this document represents components of the legal health record. It is not the complete legal health record.[facility]
--- OUTSIDE RECORDS SUMMARY | 2024-12-18 09:08 | XMS_ITS | Encounter Summary ---
Author Organization [employer] Address [address] [place] [address] [address] [place] [address] Care Team Providers Care It Coordinator Name Role Phone Naomi Montague MD Primary Care Provider Reason for Visit * Reason Onset Date Comments Returning Call Back 10/10/2022 Encounter Details Date Type Department Care Team ([facility] Contact Info) Description 10/10/2022 Telephone [facility] CHC MED & PEDS [address] [place] [address] Naomi Montague MD [address] [place] [address] Returning Call Back Social History Tobacco Use [...] spouse returning call back, regarding message below. Hand Lens Polisher let him know a nurse will call back with an diplomatic interpreter he stated she's at work they can call him. Hand Lens Polisher doesn't see any HIPPA information. documented in this encounter Plan of Treatment Upcoming Encounters Date Type Department Care Team (Late st Contact Info) Description 01/01/2025 9:45 AM EDT Office Visit [facility] MED & PEDS [address] [place] [address] Naomi Montague MD [address] [place] [address] 02/26/2025 10:00 AM EST Office Visit [facility] ADULT DENTAL [address] [place] [address] Gaurang Stevenson 04/30/2025 1:00 PM EST Office Visit [facility] OPTOMETRY [address] [place] [address] Carloz, Kristi, OD [address] [place] [address] documented as of this encounter Visit Diagnoses Not on filedocumented in this encounter Additional Health Concerns Assessment Noted Time PHQ-9 Depression Total Score: 0 06/30/19 23 2:19 PM EDT documented as of this encounter Care Teams It Coordinator Relationship Specialty Start Date End Date Naomi Montague MD [address] [place] [address] PCP - General Family Medicine [facility] documented as of this encounter
--- OUTSIDE RECORDS SUMMARY | 2024-12-18 09:08 | XMS_ITS | Encounter Summary ---
Author Organization [facility] Address [address] [place] [id number] Phone Care Team Providers Care Pillowcase Sewer Name Role Phone Swapna Maravilla MD Primary Care Provider + Encounter Details Date Type Department Care Team (Late st Contact Info) Description 02/20/2017 Procedure Pass [facility] [address] [place] [address] Social History Tobacco Use Types Packs/Day Years Used Date Smoking Tobacco: Never Smokeless Tobacco: Never Alcohol Use Standard Drinks/Week Comments Yes 2 (1 standard drink = 0.6 oz pur e alcohol) 2 glasses per week Comments Unknown Sex and Gender Information Value Date Recorded Sex Assigned at Not on file Legal Sex Female 10:18 AM EDT Gender Identity Not on file Sexual Orientation Not on file documented as of this encounter Plan of Treatment Not on file documented as of this encounter Visit Diagnoses Not on filedocumented in this encounter Care Teams Pillowcase Sewer Relationship Specialty Start Date End Date Swapna Maravilla MD [address] [place] [address] PCP - General Family Medicine 09/04/16 documented as of this encounter Additional Source Comments The information contained in this document represents components of the legal health record. It is not the complete legal health record.[facility]
--- OUTSIDE RECORDS SUMMARY | 2024-12-18 09:08 | XMS_ITS | Clinical Summary ---
Author Organization [employer] Address [address] [place] [address] Care Team Providers Care Vehicle Body Maker Name Role Phone Naomi Montague MD Primary Care Provider [phone] Allergies Active Allergy Reactions Criticality Noted Date Comments Tolterodine Swelling 04/02/2022 Ubidecarenone Itching 02/08/2023 Medications Lancets 33G misc Use to check blood sugar daily as directed Active Blood Glucose Monitoring Suppl (FreeStyle Waggoner Lite) w/Device kit TEST BLOOD SUGAR DAILY 2 Active cetirizine (ZyrTEC) 10 MG tabletIndications:C ough, unspecified type Take 1 tablet (10 mg) by mouth in the morning. 30 tablet 2 3 Active FREESTYLE LITE test strip TEST BLOOD SUGAR DAILY DIRECTED 50 strip 11 4 Active omeprazole (PriLOSEC) [address] capsule Take 1 capsule by mouth Once per day. 5 Active cholecalciferol VITAMIN D (Vitamin D-3) 50 MCG (1999) tablet TAKE ONE TABLET DAILY 90 tablet 3 5 Active metFORMIN XR (Glucophage-XR) 750 MG 24 hr tablet TAKE ONE TABLET TWICE DAILY. DO NOT BREAK, CRUSH, DISSOLVE OR CHEW 180 tablet 1 5 Active doxepin (SINEquan) 10 MG capsuleIndications: Primary insomnia TAKE ONE CAPSULE AT BEDTIME 90 capsule 1 5 Active PEG 4031-GLn-HlSbe-NaCl -NaSulf (PEG-3350/Electroly leon) 236 g reconstituted solution mix ud and drink 240 mL orally every 10 minutes for colonoscopy; as per split prep instructions , until fecal effluent is clear 07/09/202 5 Active ondansetron ODT (Zofran-ODT) 4 MG disintegrating tablet DISSOLVE ONE TABLET ON TONGUE TWO TO THREE TIMES PER DAY NEEDED FOR NAUSEA AND VOMITING 5 Active Blood Pressure kit 1 Units Once per day. 1 kit 5 Active rosuvastatin (Crestor) 10 MG tabletIndications:M ixed hyperlipidemia TAKE ONE TABLET BY MOUTH EVERY DAY 90 tablet 1 5 Active Active Problems Problem Noted Date Diagnosed Date Plantar fasciitis of left foot 10/30/2024 Primary insomnia 03/27/2024 Overview (03/27/2024): Sleep latency [...] (10/05/2022 2:46 PM EDT): Patient seen by home care giver and had FNA done for mass on neck. Biopsy results given to patient and was recommended for surgery with no diagnoses. 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 Connolly at [facility], General surgeon specialty in thyroid. Assessment [...] Encounters Date Type Department Care Team Description 12/17/2024 8:00 AM EDT Office Visit [facility] [address] [place] [address] Patel Montague DDS 12/01/2024 Orders Only GENERIC EXTERNAL DATA DEPARTMENT Provider, Generic External Data 11/30/2024 Patient Outreach [facility] [address] [place] [address] Naomi Montague MD Transition Of Care (Tcm) (HDF unscheduled. ) 11/30/2024 Telephone [facility] [address] [place] [address] Naomi Montague MD Nurse Triage 11/30/[address] [place] [address] Naomi Montague MD Hospital Follow-up 11/23/2024 Telephone [facility] [address] [place] [address] Naomi Montague MD Results; Care Coordination 11/23/2024 Telephone [facility] [address] [place] [address] Jossy Stevenson MD Results 11/23/2024 Orders Only [facility] [address] [place] [address] Naomi Montague MD 11/21/2024 Orders Only GENERIC EXTERNAL DATA DEPARTMENT Provider, Generic External Data 11/20/2024 Orders Only GENERIC EXTERNAL DATA DEPARTMENT Provider, Generic External Data 11/13/2024 Refill [facility] [address] [place] [address] Martha Buenrostro MD Mixed hyperlipidemia 10/30/2024 9:00 AM EDT Office Visit [facility] [address] [place] [address] Naomi Montague MD Type 2 diabetes mellitus with hyperglycemia, without long-term current use of insulin ([facility]) (Primary Dx); Microcytosis; Plantar fasciitis of left foot; Cramps of lower extremity 10/30/2024 Travel 10/23/2024 3:00 PM EDT Office Visit [facility] OPTOM[facility] [address] [place] [address] Carloz, Kristi, OD Bitemporal hemianopsia (Primary Dx) 10/23/2024 Travel 10/23/2024 Patient Outreach [facility] MEDIC[facility] [address] [place] [address] Naomi Montague MD Pre-visit Planning ([facility] screening completed on 04/30/24) 09/17/2024 Refill [facility] [address] [place] [address] Naomi Montague MD Primary insomnia from Last 3 Months Immunizations Immunization Administration [...] Sign Reading Time Taken Comments Blood Pressure 138/66 10/30/2024 9:08 AM EDT Pulse 60 10/30/2024 8:55 AM EDT Temperature 36.8 C (98.3 F) 10/30/2024 8:55 AM EDT Respiratory Rate 20 10/30/2024 8:55 AM EDT Oxygen Saturation 97% 10/30/2024 8:55 AM EDT Inhaled Oxygen Concentration - - Weight 64.2 kg (141 lb 9.6 oz) 10/30/2024 8:55 A M EDT Height 162 cm (5' 3.78 ) 10/30/2024 8:55 AM EDT Body Mass Index 24.47 10/30/2024 8:55 AM EDT Plan of Treatment Upcoming Encounters Date Type Department Care Team (Late st Contact Info) Description 01/01/2025 9:45 AM EDT Office Visit [facility] [address] [place] [address] Naomi Montague MD [address] [place] [address] 02/26/2025 10:00 AM EST Office Visit [facility] ADULT DENTAL [address] [place] [address] Gaurang Stevenson 04/30/2025 1:00 PM EST Office Visit [facility] OPT[facility] [address] [place] [address] Kristi Carty, OD [address] [place] [address] Health Maintenance Due Date Last Done Comments CT Colonography 1962 Colonoscopy 1962 FIT 1962 HIV Screening 1962 Sigmoidoscopy 1962 Disability Screening 1962 Pap Smear 07/28/1983 HPV/Cotest 1992 Diabetes: Foot Exam 12/19/2022 Diabetes: Urine Protein Screening 02/02/2023 02/02/2022 FOBT 02/06/2024 02/05/2023 COVID-19 Vaccine ( season) 2024 07/12/2023, 03/10/2022, 03/17/2021, Additional history exists Influenza Vaccine (#1) 2024 , 06/28/2023, 01/11/2023, Additional history exists Mammogram 01/30/2025 Dental Oral Exam 02/22/2025 08/21/2024, 07/2023, 07/12/2023, Additional history exists Dental Prophylaxis 02/22/2025 08/21/2024, 1 , 07/12/2023, Additional history exists Alcohol/Substance Use Screening 04/30/2025 04/30/2024 Depression Screening 04/30/2025 04/30/2024, 04/30/19 25 SDOH Screening 04/30/2025 04/30/2024 Diabetes: Hemoglobin A1C 05/02/2025 025, 10/30/2024, 03/27/2024, Additional history exists Dental X-Ray: Bitewings 08/22/2025 08/22/19 25, 01/17/2024, 11/30/2022 Lipid Panel 11/23/2025 11/23/2024, 03/15, 07/23/2023, Additional history exists Dental X-Ray: Full Mouth 12/01/2025 11/30/2022 Tobacco Screening 12/17/2025 12/17/2024 Colorectal Cancer Screening 02/05/2026 FIT DNA/Cologuard 02/05/2026 02/05/2023 Eye Exam 04/24/2026 04/24/2024, 04/15, 04/24/2024, Additional history exists DTaP/Tdap/Td Vaccines (3 - Td or Tdap) 03/27/2034 03/27/2024, 10/29/2011 Hepatitis A Vaccines Completed 12/28/2015, 06/22/19 16 Hepatitis B Vaccines Completed 12/28/2015, 08/17/2015, 06/22/2015 Zoster Vaccines Completed 04/06/2022, 02/02/2022 RSV Patients and Patients Aged 60 years or older Completed 06/28/2023 Pneumococcal Vaccine: 50+ Years Completed 03/27/2024 Hepatitis [...] Diagnosis Comments NO CHARGE PROCEDURE Routine 12/17/2024 8 :00 AM EDT TYPE AND SCREEN Routine 12/01/2024 2:40 PM EDT CBC Routine 12/01/2024 2:40 PM EDT HOLD LAVENDER - POSSIBLE HEMATOLOGY Routine 11/23/2024 1:21 PM EDT MAGNESIUM Routine 11/23/2024 1:21 PM EDT Cramps of lower extremity VITAMIN B12/FOLATE, SERUM PANEL Routine 11/23/2024 1:21 PM EDT Type 2 diabetes mellitus with hyperglycemia, without long-term current use of insulin ([facility]) HEMOGLOBIN ELECTROPHORESIS Routine 11/23/2024 1:21 PM EDT Microcytosis FERRITIN Routine 11/23/2024 1:21 PM EDT Microcytosis IRON AND TOTAL IRON BINDING CAPACITY Routine 11/23/2024 1:21 PM EDT Microcytosis LIPID PANEL, STANDARD Routine 11/23/2024 1:21 PM EDT Type 2 diabetes mellitus with hyperglycemia, without long-term current use of insulin (CMS/HCC) TSH W/REFLEX TO FT4 Routine 11/23/2024 1 :21 PM EDT Type 2 diabetes mellitus with hyperglycemia, without long-term current use of insulin (CMS/HCC) COMPREHENSIVE METABOLIC PANEL Routine 11/23/2024 1:21 PM EDT Type 2 diabetes mellitus with hyperglycemia, without long-term current use of insulin (CMS/HCC) CBC WITH AUTO DIFFERENTIAL Routine 11/23/2024 1:21 PM EDT Type 2 diabetes mellitus with hyperglycemia, without long-term current use of insulin (CMS/HCC) HIGH SENSITIVITY TROPONIN I Routine 11/21/2024 12:49 PM EDT MAGNESIUM Routine 11/21/2024 12:49 PM EDT BASIC METABOLIC PANEL Routine 11/21/2024 12:49 PM EDT HEPATIC FUNCTION PANEL Routine 12:49 PM EDT CBC WITH AUTO DIFFERENTIAL Routine 11/21/2024 12:49 PM EDT GLUCOSE, WHOLE BLOOD Routine 11/21/2024 12:12 PM EDT HEMATOXYLIN AND EOSIN STAIN Routine 11/20/2024 8:44 AM EDT GLUCOSE, WHOLE BLOOD Routine 11/20/2024 7:18 AM EDT POCT GLYCATED HEMOGLOBIN, TOTAL Routine 10/30/2024 9:45 AM EDT Type 2 diabetes mellitus with hyperglycemia, without long-term current use of insulin ([facility]/HCC) POCT GLUCOSE Routine 10/30/2024 9:44 AM EDT Type 2 diabetes mellitus with hyperglycemia, without long-term current use of insulin (CMS/HCC) POCT GLUCOSE Routine 10/30/2024 9:16 AM EDT Type 2 diabetes mellitus with hyperglycemia, without long-term current use of insulin (CMS/HCC) POCT GLYCATED HEMOGLOBIN, TOTAL Routine 10/30/2024 9:15 AM EDT Type 2 diabetes mellitus with hyperglycemia, without long-term current use of insulin ([facility]) AUTOMATED VISUAL FIELD, EXTENDED - OU - BOTH EYES Routine 10/23/2024 3:00 PM EDT Bitemporal hemianopsia PROPHYLAXIS - ADULT Routine 08/21/2024 9 :00 AM EDT BITEWINGS - 2 RADIOGRAPHIC IMAGES Routine 08/21/2024 9:00 AM EDT PERIODIC ORAL EVALUATION - ESTABLISHED PATIENT Routine 08/21/2024 9:00 AM EDT HEPATITIS C ANTIBODY Routine 07/24/2024 1:38 PM EDT LAB COLOGUARD COLON CANCER SCREEN Routine 02/05/2023 5:40 AM EDT Colon cancer screening INTRAORAL - COMPLETE SERIES OF RADIOGRAPHIC IMAGES Routine 11/30/2022 8:00 AM EDT ALBUMIN, RANDOM URINE W/CREATININE Routine 02/02/2022 8:49 AM EDT from Last 3 Months or Most Recently Relevant to Health Maintenance Results * (ABNORMAL) CBC (12/01/2024 2:40 PM EDT) White Blood Count 6.2 4.8 - 10.8 X10*3/uL [facility] Red Blood Count 3.13(L) 4.20 - 5.50 X10*6/uL [facility] Hemoglobin 9.3(L) 12.0 - 16.0 g/dl [facility] Hematocrit 27.5(L) 37.0 - 47.0 % [facility] Mean Corpuscular Volume 87.9 80.0 - 98.0 fL [facility] Mean Corpuscular Hemoglobin 29.7 27.0 - 33.0 pg [facility] Mean Corpuscular HGB Conc 33.8 31.0 - 35.0 g/dl [facility] Red Cell Distribution Width 15.9 11.0 - 16.0 % [facility] Platelet Count 147(L) 160 - 400 X10*3/uL [facility] Mean Platelet Volume 10.7 9.4 - 12.3 fL [facility] NRBC Pct Auto 1.3(H) 0.0 - 0.2 /100WBC [facility] NRBC Abs Auto 0.080(H) 0.0 - 0.012 X10*3/uL [facility] 12/01/2024 2:40 PM EDT 12/01/2024 2:48 PM EDT us Generic External Data Provider LAB BLOOD ORDERAB LES Final Result Performing Organization Address [facility] Co de Phone Number [facility] [address] [place] [phone] * Type and screen (12/01/2024 2:40 PM EDT) Blood Type BP [facility] Antibody Screen NEGATIVE [facility] 12/01/2024 2:40 PM EDT 12/01/2024 2:54 PM EDT Narrative [facility] - 12/01/2024 3:37 PM EDT Witnessed by [email or web address] us Generic External Data Provider LAB BLOOD BANK TE ST ORDERABLES Final Result Performing Organization Address City/[facility]/ZIP Co de Phone Number [facility] [address] [place] [phone] * Hold Lavender - Possible Hematology (11/23/2024 1:21 PM EDT) Hold Lavender - Possible Hematololgy SEE NOTE [facility] Comment:Specimen will be hel d untested for 8 hours. Call Hematologyif testing is desired. 11/23/2024 1:21 PM EDT 11/23/2024 2:01 PM EDT us Naomi Montague MD HISTORICAL/NON ORDERABLE LABS Final Result [facility] [address] [place] [phone] * Vitamin B12 (Cobalamin) and Folate Panel, Serum (11/23/2024 1:21 PM EDT) [facility] Vitamin B12 237 200 - 900 pg/mL [facility] Comment:NORMAL 200-900 PG/ML INDETERMINATE 160-199 PG/ML DEFICIENT < 160 PG/ML Folate 10.8 > or = 4.0 ng/mL [facility] Comment:Reference Values:> o r = 4.0 ng/mL< 4.0 ng/mL suggests folate deficiency Methotrexate, aminopterin and folinic acid(leucovorin) are chemotherapeutic agents whose molecularstructures are similar to folate; therefore, the Architectfolate assay cannot be used for patients using these drugs. Blood Venous blood specimen / Unknown 11/23/2024 1:21 PM EDT 11/23/2024 1:21 PM EDT us Naomi Montague MD LAB BLOOD ORDERABLES Final Re sult Performing Organization Address [facility]/ZIP Co de Phone Number [facility] [address] [place] [phone] * TSH W/Reflex to FT4 (11/23/2024 1:21 PM EDT) Pathologist [facility] TSH reflex Free T4 1.81 0.32 - 4.0 uIU/mL [facility] Blood Venous blood specimen / Unknown 11/23/2024 1:21 PM EDT 11/23/2024 1:21 PM EDT us Naomi Montague MD LAB BLOOD ORDERABLES Final Re sult [facility] [address], [place] [phone] * (ABNORMAL) CBC auto differential (11/23/2024 1:21 PM EDT) Only the most recent of2 resultswithin the time period is included. White Blood Count 5.7 4.8 - 10.8 X10*3/uL [facility] Red Blood Count 2.98(L) 4.20 - 5.50 X10*6/uL [facility] Hemoglobin 8.1(L) 12.0 - 16.0 g/dl [facility] Hematocrit 24.6(L) 37.0 - 47.0 % [facility] Mean Corpuscular Volume 82.6 80.0 - 98.0 fL [facility] Mean Corpuscular Hemoglobin 27.2 27.0 - 33.0 pg [facility] Mean Corpuscular HGB Conc 32.9 31.0 - 35.0 g/dl [facility] Red Cell Distribution Width 12.2 11.0 - 16.0 % [facility] Platelet Count 185 160 - 400 X10*3/uL [facility] Mean Platelet Volume 10.3 9.4 - 12.3 fL [facility] Neutrophils Percent Auto 53.3 45 - 73 % [facility] Imm Gran Pct Auto 0.7(H) 0.0 - 0.4 % [facility] Lymphocytes Percent Auto 36.6 20 - 40 % [facility] Monocytes Percent Auto 5.5 2 - 11 % [facility] Eosinophils Percent Auto 3.0 0 - 4 % [facility] Basophils Percent Auto 0.9 0 - 2 % [facility] NRBC Pct Auto 0.9(H) 0.0 - 0.2 /100WBC [facility] Neutrophils Absolute Auto 3.0 2.0 - 8.3 x10*3/uL [facility] Imm Gran Abs Auto 0.04(H) 0.00 - 0.03 X10*3/uL [facility] Lymphocytes Absolute Auto 2.1 1.2 - 4.9 X10*3/uL [facility] Monocytes Absolute Auto 0.3 0.1 - 1.2 X10*3/uL [facility] Eosinophils Absolute Auto 0.2 0.0 - 0.4 X10*3/uL [facility] Basophils Absolute Auto 0.1 0.0 - 0.2 X10*3/uL [facility] NRBC Abs Auto 0.050(H) 0.0 - 0.012 X10*3/uL [facility] Blood Venous blood specimen / Unknown 11/23/2024 1:21 PM EDT 11/23/2024 1:21 PM EDT us Naomi Montague MD LAB BLOOD ORDERABLES Final Re sult [facility] [address] [place] [phone] * (ABNORMAL) Hemoglobin Electrophoresis (11/23/2024 1:21 PM EDT) RBC 3.02(A) 3.80 - 5.10 Million/u L [facility] Hemoglobin 8.2(A) 11.7 - 15.5 g/dL [facility] Hematocrit 25.9(A) 35.0 - 45.0 % [facility] MCV 85.8 80.0 - 100.0 fL [facility] MCH 27.2 27.0 - 33.0 pg [facility] RDW 12.8 11.0 - 15.0 % [facility] Hemoglobin A 98.0 >96.0 % [facility] Hemoglobin A2 2.0 2.0 - 3.2 % [facility] Hemoglobin F <1.0 <2.0 % [facility] Hemoglobin S TNP [facility] Hemoglobin C TNP [facility] Hemoglobin E TNP [facility] Other Hemoglobin TNP [facility] Other Hemoglobin 2 TNP H [facility] Hgb Interpretation SEE NOTE H [facility] Comment:Normal phenotype.THI S TEST WAS PERFORMED AT:[employer] [place] [phone] FRENCH MD Blood Venous blood specimen / Unknown 11/23/2024 1:21 PM EDT 11/23/2024 1:21 PM EDT Naomi Montague MD LAB BLOOD ORDERABLES Final Re sult Performing Organization Address [facility] de Phone Number [facility] [address] [place] [phone] * (ABNORMAL) Iron And Total Iron Binding Capacity (11/23/2024 1:21 PM EDT) Iron 96 30 - 160 mcg/dL [facility] Total Iron Binding Capacity 221(L) 228 - 428 mcg/dL [facility] Percent Iron Saturation 43 15 - 50 % [facility] Unsaturated Iron Binding 125 ug/dL [facility] Blood Venous blood specimen / Unknown 11/23/2024 1:21 PM EDT 11/23/2024 1:21 PM EDT Naomi Montague MD LAB BLOOD ORDERABLES Final Re sult Performing Organization Address [facility] Co de Phone Number [facility] [address] [place] [phone] * Magnesium (11/23/2024 1:21 PM EDT) Only the most recent of2 resultswithin the time period is included. Magnesium 2.2 1.6 - 2.6 mg/dL [facility] Blood Venous blood specimen / Unknown 11/23/2024 1:21 PM EDT 11/23/2024 1:21 PM EDT us Naomi Montague MD LAB BLOOD ORDERABLES Final Re sult Performing Organization Address [facility]/ZIP Co de Phone Number [facility] [address] [place] [phone] * Ferritin (11/23/2024 1:21 PM EDT) Ferritin 184 10 - 250 ng/mL [facility] Blood Venous blood specimen / Unknown 11/23/2024 1:21 PM EDT 11/23/2024 1:21 PM EDT us Naomi Montague MD LAB BLOOD ORDERABLES Final Re sult Performing Organization Address [facility] Co de Phone Number [facility] [address] [place] [address] [phone] * (ABNORMAL) Lipid Panel, Standard (11/23/2024 1:21 PM EDT) Triglycerides 164(H) <150 mg/dL [facility] Comment:Desirable Triglyceri de: less than 150 mg/dLBorderline High Triglyceride 150-199 mg/dLHigh Triglyceride: 200-499 mg/dLVery High Triglyceride: greater than or equal to 5OO mg/dL Cholesterol 128 <200 mg/dL [facility] Comment:Desirable Cholestero l: less than 200 mg/dLBorderline High Cholesterol: 200-239 mg/dLHigh Cholesterol: greater than 239 mg/dL LDL Cholesterol Calculated 62 <100 mg/dL [facility] Comment:Desirable LDL: less than 100 mg/dLNear Optimal/Above Optimal LDL: 110- 129 mg/dLBorderline High LDL: 130-159 mg/dLHigh LDL: 160-189 mg/dLVery High LDL: greater than or equal to 190 mg/dL HDL Cholesterol 34(L) >40 mg/dL [facility] Comment:Desirable HDL: great er than 40 mg/dL Note: This HDL assay may give artificially low results in patients with liver disease. Blood Venous blood specimen / Unknown 11/23/2024 1:21 PM EDT 11/23/2024 1:21 PM EDT us Naomi Montague MD LAB BLOOD ORDERABLES Final Re sult [facility] [address] [place] [phone] [phone] * (ABNORMAL) Comprehensive Metabolic Panel (11/23/2024 1:21 PM EDT) Sodium 143 135 - 145 mmol/L [facility] Potassium 3.5 3.3 - 5.1 mmol/L [facility] Chloride 108 96 - 108 mmol/L [facility] Carbon Dioxide 29 22 - 29 mmol/L [facility] Anion Gap 10(L) 12 - 20 [facility] Urea Nitrogen (BUN) 14 9 - 16 mg/dL [facility] Creatinine, Serum 0.67 0.5 - 1.4 mg/dL [facility] Estimated Glomerular Filt Rate >60 [facility] Comment:Chronic Kidney Disea se: Estimated GFR < 60 mL/min/1.45x2Pidwgd Kidney Disease: Estimated GFR < 15 mL/min/1.73m2 Glucose 154(H) 60 - 115 mg/dL [facility] Calcium 8.9 8.4 - 10.2 mg/dL [facility] Bilirubin, Total 0.3 0.0 - 1.0 mg/dL [facility] Aspartate Amino Transferase 22 5 - 31 U/L [facility] Alanine Aminotransferase 25 0 - 31 U/L [facility] Total Protein 6.1(L) 6.5 - 8.0 g/dL [facility] Albumin Level 4.3 3.5 - 5.0 g/dL [facility] Alkaline Phosphatase 49 39 - 117 U/L [facility] Blood Venous blood specimen / Unknown 11/23/2024 1:21 PM EDT 11/23/2024 1:21 PM EDT Naomi Montague MD LAB BLOOD ORDERABLES Final Re sult Performing Organization Address [facility] Co de Phone Number [facility] [address] [place] [phone] * High Sensitivity Troponin I (11/21/2024 12:49 PM EDT) [facility] TROPONIN I HIGH SENSITIVITY 3.2 <3.5 - 17.0 ng/L [facility] Comment:The Catalan high sens itivity Troponin-I results should beused in conjunction with other diagnostic information suchas ECG, clinical observations and information, and patientsymptoms to aid in the diagnosis of GA. 11/21/2024 12:4 9 PM EDT 11/21/2024 12:52 PM EDT Grid20/20 External Data Provider LAB BLOOD ORDERAB LES Final Result Performing Organization Address [facility] Co de Phone Number [facility] [address] [place] [phone] * Hepatic Function Panel (11/21/2024 12:49 PM EDT) [facility] Bilirubin, Total 0.3 0.0 - 1.0 mg/dL [facility] Bilirubin, Direct 0.1 0.0 - 0.5 mg/dL [facility] Aspartate Amino Transferase 19 5 - 31 U/L [facility] Alanine Aminotransferase 23 0 - 31 U/L [facility] Total Protein 6.5 6.5 - 8.0 g/dL [facility] Albumin Level 4.5 3.5 - 5.0 g/dL [facility] Alkaline Phosphatase 53 39 - 117 U/L [facility] 11/21/2024 12:4 9 PM EDT 11/21/2024 12:52 PM EDT Generic External Data Provider LAB BLOOD ORDERAB LES Final Result Performing Organization Address [facility]/ZIP Co de Phone Number [facility] [address] [place] [phone] * (ABNORMAL) Basic Metabolic Panel (11/21/2024 12:49 PM EDT) Sodium 141 135 - 145 mmol/L [facility] Potassium 4.0 3.3 - 5.1 mmol/L [facility] Chloride 106 96 - 108 mmol/L [facility] Carbon Dioxide 25 22 - 29 mmol/L [facility] Anion Gap 14 12 - 20 [facility] Urea Nitrogen (BUN) 36(H) 9 - 16 mg/dL [facility] Creatinine, Serum 0.80 0.5 - 1.4 mg/dL [facility] Creatinine Clr Calc Pharmacy 65.4 [facility] Comment:Provided height and weight: 160.02 cm,63.503 kg.eGFR (calculated from the MDRD study equation) and eCrCl(calculated from the Cockcroft-Gault equation) are based ondifferent parameters and may not yield comparable results.If eCrCl result is absurd, please check patient'sheight/weight. Estimated Glomerular Filt Rate >60 [facility] Comment:Chronic Kidney Disea se: Estimated GFR < 60 mL/min/1.25u4Ntyxaw Kidney Disease: Estimated GFR < 15 mL/min/1.73m2 Glucose 206(H) 60 - 115 mg/dL [facility] Calcium 9.1 8.4 - 10.2 mg/dL [facility] 11/21/2024 12:4 9 PM EDT 11/21/2024 12:52 PM EDT Generic External Data Provider LAB BLOOD ORDERAB LES Final Result Performing Organization Address City/[facility]/ZIP Co de Phone Number [facility] [address] [place] [address] [phone] * (ABNORMAL) Glucose, Whole Blood (11/21/2024 12:12 PM EDT) Only the most recent of2 resultswithin the time period is included. Glucose, Whole Blood 140(H) 60 - 115 mg/dL [facility] Comment:METER #: [id number] 11/21/2024 12:1 2 PM EDT 11/23/2024 9:16 AM EDT us Generic External Data Provider LAB BLOOD ORDERAB LES Final Result [facility] [address] [place] [phone] * Hematoxylin and Eosin Stain (11/20/2024 8:44 AM EDT) 11/20/2024 8:44 AM EDT 11/20/2024 10:00 AM EDT Narrative [facility] - 11/26/2024 4:34 PM EDT ----- ------- Name: Ru Sun Age/Sex: 64/F : 1960 Unit#: [id number] Attend Dr: Brittny Jean-Baptiste MD Re11/20/24 Status: [facility] Location: [facility] Disch: ----- ------- SPEC : [id number] RECD: 08/ STATUS: AVIVA FAULKNER NUM: [id number] KARINE: 11/20/24-[address] [facility] [address]: Brittny Jean-Baptiste MD ENTERED: 11/20/24-1016 SP TYPE: Surgical OTHR DR: Naomi Montague MD ORDERED: HE Stain/, Gross Micro L4/12, IHC/5, H. pylori/5 Addendum Addendum 1 Entered: 11/26/24-1633 (L): Multiple additional tissue levels show focal minimal hyperplastic changes and no adenomatous dysplasia is seen. Scattered lamina propria foamy macrophages are noted. Addendum Signed (signature on file) [place] 11/26/24 1634 ----- ------- Diagnosis A. Duodenum, biopsy: Duodenal mucosa with predominantly preserved villi and chronic/non-specific duodenitis. B. Gastric antrum, greater curvature, biopsy: Gastric antral mucosa with mild reactive changes and minimal chronic inactive gastritis; negative for intestinal metaplasia and dysplasia. C. Gastric antrum, lesser curvature, biopsy: Gastric antral mucosa with focal ectatic vessels, reactive changes, and minimal chronic inactive gastritis; negative for intestinal metaplasia and dysplasia. D. Gastric incisura, biopsy: Gastric antral mucosa with minimal chronic inactive gastritis; negative for intestinal metaplasia and dysplasia. B. Gastric body, greater curvature, biopsy: Gastric body mucosa with minimal chronic inactive gastritis; negative for intestinal metaplasia and dysplasia. F. Gastric body, lesser curvature, biopsy: Gastric body mucosa with minimal chronic inactive gastritis; negative for intestinal metaplasia and dysplasia. D. Esophagus, lower, biopsy: Squamous mucosa with focal submucosal glands and no specific change; no columnar mucosa present. H. Esophagus, middle, biopsy: Squamous mucosa with no specific change; no columnar mucosa present. I. Gastric polyps: Fundic gland polyps with focal minimal chronic inactive inflammation; negative for intestinal metaplasia and dysplasia. CONTINUED ON NEXT PAGE ----- ------- Name: Ru Sun Age/Sex: 64/F : 1960 [id number]#: [id number] Attend Dr: Brittny Jean-Baptiste MD Re11/20/24 Status: [facility] Location: [facility] Disch: ----- ------- SPEC : [id number] RECD: 11/20/24 STATUS: AVIVA FAULKNER NUM: [id number] KARINE: 11/20/[address] [facility] [address]: Brittny Jean-Baptiste MD ENTERED: 11/20/24-1015 SP TYPE: Surgical OTHR DR: Naomi Montague MD ORDERED: HE Stain/30, Gross Micro L4/12, IHC/5, H. pylori/5 Diagnosis (Continued) J. Colon, right, biopsy: Colonic mucosa with no specific change. K. Colon, left, biopsy: Colonic mucosa with no specific change. L colon, sigmoid, polyp: Colonic mucosa with focal minimal hyperplastic changes on initial levels (see comment). Comment: (B, C, D, E, F): Immunostain for H. pylori pending; addendum to follow. (L): Additional levels pending; addendum to follow. Clinical History Pre-Op Dx: Nausea, vomiting, colon wall thickening Post-Op Dx: Duodenitis, gastric polyps, hemorrhoids, colon polyp Microscopic Description Microscopic sections reviewed. Material Received A. Duodenum bx's B. Antrum greater curvature C. Antrum lesser curvature D. Incisura E. Body greater curvature F. Body lesser curvature G. Lower esophagus bx's H. Middle esophagus bx's I. Gastric polyps J. Right colon bx's K. Left colon bx's L. Sigmoid colon polyp Gross Description Received in 12 parts. A. Received in formalin labeled duodenum biopsies are 3 fragments of pink-boswell soft tissue measuring 0.2-0.3 cm in greatest dimension which are wrapped in lens paper and entirely submitted for microscopic examination, 3 pieces in cassette A. CONTINUED ON NEXT PAGE ----- ------- Name: Ru Sun Age/Sex: 64/F : 1960 Unit#: [id number] Attend Dr: Brittny Jean-Baptiste MD Re11/20/24 Status: [facility] Location: [facility] Disch: ----- ------- SPEC : [id number] RECD: 11/20/24 STATUS: AVIVA FAULKNER NUM: [id number] KARINE: 11/20/[address] [facility] [address]: Brittny Jean-Baptiste MD ENTERED: 11/20/24-1015 SP TYPE: Surgical OTHR DR: Naomi Montague MD ORDERED: HE Stain, Gross Micro L4, IHC/, H. pylori/ Gross Description (Continued) B. Received in formalin labeled antrum greater curvature are 4 fragments of boswell-white soft tissue measuring 0.3-0.4 cm in greatest dimension which are wrapped in lens paper and entirely submitted for microscopic examination, 4 pieces in cassette B. C. Received in formalin labeled antrum lesser curvature are 2 fragments of boswell-white soft tissue measuring 0.3 and 0.4 cm in greatest dimension which are wrapped in lens paper and entirely submitted for microscopic examination, 2 pieces in cassette C. D. Received in formalin labeled incisura are 2 fragments of boswell-white soft tissue measuring 0.3 and 0.4 cm in greatest dimension which are wrapped in lens paper and entirely submitted for microscopic examination, 2 pieces in cassette D. E. Received in formalin labeled body greater curvature are 3 fragments of pink-boswell soft tissue measuring 0.2-0.4 cm in greatest dimension which are wrapped in lens paper and entirely submitted for microscopic examination, 3 pieces in cassette E. F. Received in formalin labeled body lesser curvature are 3 fragments of boswell-white soft tissue measuring 0.2-0.4 cm in greatest dimension which are wrapped in lens paper and entirely submitted for microscopic examination, 3 pieces in cassette F. G. Received in formalin labeled lower esophagus biopsies are 4 fragments of translucent, white soft tissue measuring 0.3-0.4 cm in greatest dimension which are wrapped in lens paper and entirely submitted for microscopic examination, 4 pieces in cassette G. H. Received in formalin labeled middle esophagus biopsies are 3 fragments of boswell-white soft tissue measuring 0.3-0.4 cm in greatest dimension which are wrapped in lens paper and entirely submitted for microscopic examination, 3 pieces in cassette H. I. Received in formalin labeled gastric polyps are 3 fragments of red-boswell soft tissue measuring 0.4-0.8 cm in greatest dimension which are wrapped in lens paper and entirely submitted for microscopic examination, 3 pieces in cassette I. J. Received in formalin labeled right colon biopsies are 3 fragments of boswell-white soft tissue measuring 0.2-0.3 cm in greatest dimension which are wrapped in lens paper and entirely submitted for microscopic examination, 3 pieces in cassette J. K. Received in formalin labeled left colon biopsies are 3 fragments of boswell-white soft tissue measuring 0.2-0.3 cm in greatest dimension which are wrapped in lens paper and entirely submitted for microscopic examination, 3 pieces in cassette K. L. Received in formalin labeled sigmoid colon polyp is a flattened portion of pink white soft tissue measuring 1.0 x 0.6 x 0.1 cm which is wrapped in lens paper and entirely submitted for microscopic examination, 1 piece in cassette L. ([facility]) CONTINUED ON NEXT PAGE ----- ------- Name: Ru Sun Age/Sex: 64/F : 1960 Unit#: [id number] Attend Dr: Brittny Jean-Baptiste MD Re11/20/24 Status: [facility] Location: [facility] Disch: ----- ------- SPEC : [id number] RECD: 11/20/24 STATUS: AVIVA FAULKNER NUM: [id number] KARINE: 11/20/[address] [facility] [address]: Brittny Jean-Baptiste MD ENTERED: 11/20/24-1015 SP TYPE: Surgical OTHR DR: Naomi Montague MD ORDERED: HE Stain/30, Gross Micro L4/12, IHC/5, H. pylori/5 Gross Description (Continued) Special studies ordered and performed: Immunostain for H. pylori on B1. C1. D1. E1 and F1. IHC S/NG Disclaimer NOTE: Unless otherwise stated, all tissue is formalin-fixed and paraffin-embedded. Some or all of the immunohistochemical tests reported herein may have been developed and their performance characteristics determined by [facility]. They have not been cleared or approved by the U.S. Food and Drug Administration (FDA). However, the FDA has determined that such clearance or approval is not necessary. This laboratory is certified under the Clinical Laboratory Improvement Amendments of 1988 (CLIA) as qualified to perform high complexity clinical laboratory testing. Copies To: Naomi Montague MD [address] [place] [phone] Brittny Jean-Baptiste MD [facility] [address] [place] [phone] [email or web address] ----- ------- Signed (signature on file) [place] 11/23/24 1404 ----- ------- END OF REPORT us Generic External Data Provider LAB BLOOD ORDERAB LES Final Result [facility] [address] [place] [phone] * (ABNORMAL) POCT HGB A1C (10/30/2024 9:45 AM EDT) Only the most recent of2 resultswithin the time period is included. Hemoglobin A1C 6.9(A) 4.0 - 5.7 % QC Media Lot # [id number] Lot# Expiration Date Blood 10/30/2024 9:45 AM EDT Naomi Montague MD POINT OF CARE TEST ENTER/EDIT ORDERABLES Final Result * POCT Glucose (10/30/2024 9:44 AM EDT) Only the most recent of2 resultswithin the time period is included. Glucose Blood, POC 136 60 - 200 mg/dL QC Media Lot # [id number] Lot# Expiration Date Blood Capillary blood specimen / Unknown 10/30/2024 9:44 AM EDT Result [facility] Naomi Montague MD POINT OF CARE TEST ENTER/EDIT ORDERABLES Final Result * Automated Visual Field, Extended - OU - Both Eyes (10/23/2024 3:00 PM EDT) Narrative Kristi Carty, OD - 11/05/2024 3:33 PM EDT VISUAL FIELD INTERPRETATION Visual Field Interpretation Test Details: Octopus G P Pulsar/200/TOP Reliability Indices: False positive errors OD: 0/9 OS: 0/9 False negative errors OD: 0/9 OS: 0/9 Statistical Indices: MS [src]: OD: 16.3 OS: 15.8 MD [< 2.0 src]: OD: 5.3 OS: 5.8 sLV [< 2.5 src]: OD: 4.6 OS: 4.6 Impression: Reason for testing: 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 Test Reliability: Adequate in both eyes. No false negatives or positives in both eyes. Impression: OD: Significant temporal field loss obeying the vertical mid line extending centrally. OS: Significant temporal field loss of the central and midperiphery obeying the vertical mid line. Progression: OD: 06/2024 field test showed overall depression, it is localized temporally today OS: Stable to 06/2024 field test Management Plan: Today's visual field shows a Bitemporal hemianopsia which is concerning for a pituitary tumor. Will order an MRI of the brain and orbits for the patient to rule out a space occupying lesion. If the MRI is unremarkable, will continue monitoring. Kristi Carty OD OPHTH VISUAL FIELD Final Resu lt * Hepatitis C Ab (07/24/2024 1:38 PM EDT) Hepatitis C Antibody Nonreactive Nonreactive [facility] Comment:Antibodies to HCV no t detected; does not exclude early acuteHCV infection. 07/24/2024 1:38 PM EDT 07/24/2024 1:38 PM EDT us Generic External Data Provider LAB BLOOD ORDERAB LES Final Result [facility] [address] [place] [phone] [phone] * Cologuard?? colon cancer screening (02/05/2023 5:40 AM EDT) Cologuard Result Negative Negative 02/14/20 2:34 AM EDT [facility] (CLIA #:[id number]) Comment: NEGATIVE TEST RESULT. A negative Cologuard result indicates a low likelihood that a colorectal cancer (CRC) or advanced adenoma (adenomatous polyps with more advanced pre-malignant features) is present. The chance that a person with a negative Cologuard test has a colorectal cancer is less than 1 in 1500 (negative predictive value >99.9%) or has an advanced adenoma is less than 5.3% (negative predictive value 94.7%). These data are based on a prospective cross-sectional study of 10,000 individuals at average risk for colorectal cancer who were screened with both Cologuard and colonoscopy. (Dickson Sampson al, N Engl J Med 2014;370(14):2658-0578) The normal value (reference range) for this assay is negative. COLOGUARD RE-SCREENING RECOMMENDATION: Periodic colorectal cancer screening is an important part of preventive healthcare for asymptomatic individuals at average risk for colorectal cancer. Following a negative Cologuard result, the [place] [employer] and U.S. Multi-Society Task Force screening guidelines recommend a Cologuard re-screening interval of 3 years. References: [place] [employer] Guideline for Colorectal Cancer Screening: https://www.cancer.org/cancer/piuoe-nmfmls-eazzke/fcriqplfv-gqrruwctm-tzzenkm/ac s-rec ommendations.html.; Abdulkadir DK, Zi CR, Luzmaria BRAVO, Colorectal Cancer Screening: Recommendations for Physicians and Patients from the U.S. Multi-Society Task Force on Colorectal Cancer Screening , Am J Gastroenterology 2017; 112:5686-4622. TEST DESCRIPTION: Composite algorithmic analysis of stool DNA-biomarkers with hemoglobin immunoassay. Quantitative values of individual biomarkers are not [...] Ruiz. et al, N Engl J Med 2014;370(14):9019-5186.) Cologuard may produce a false negative or false positive result (no colorectal cancer or precancerous polyp present at colonoscopy follow up). A negative Cologuard test result does not guarantee the absence of CRC or advanced adenoma (pre-cancer). The current Cologuard screening interval is every 3 years. ([place] [employer] Society and U.S. Multi-Society Task Force). Cologuard performance data in a 10,000 patient pivotal study using colonoscopy as the reference method can be accessed at the following location: www.[employer].com/results. Additional description of the Cologuard test process, warnings and precautions can be found at [email or web address]. Stool specimen (specimen) 02/05/2023 5:40 AM EDT 02/06/2023 9:11 PM EDT us Naomi Montague MD LAB MOLECULAR DIAGNOSTICS ORD ERABLES Final Result [facility] (CLIA #:[id number]) [place] [address], * ALBUMIN, RANDOM URINE W/CREATININE (02/02/2022 8:49 AM EDT) Microalbumin Urine 1.0 See Note: mg/dL [facility] Comment: Reference Range: Reference Range Not established Microalb/Creat Ratio 9 <30 mcg/mg creat [facility] Comment: The ADA defines abnormalities in albumin excretion as follows: Albuminuria Category Result (mcg/mg creatinine) Normal to Mildly increased <30 Moderately increased 30-299 Severely increased > OR = 300 The ADA recommends that at least two of three specimens collected within a 3-6 month period be abnormal before considering a patient to be within a diagnostic category. Creatinine, Urine 109 20 - 275 mg/dL [facility] 02/02/2022 8:49 AM EDT Naomi Montague MD LAB URINE ORDERABLES Final Re sult Performing Organization Address City/[facility]/ZIP Co de Phone Number [facility] from Last 3 Months or Most Recently Relevant to Health Maintenance Insurance [facility] [place] DENTAL - HSN PARTIAL (MEDICAID) DENTAL - HSN PARTIAL (MEDICAID) * Guarantor: Ru Sun Account Type Relation to Patient Date of Phone Billing Address Personal/Family Self [place] * Guarantor: Ru Sun Account Type Relation to Patient Date of Phone Billing Address Personal/Family Self [place] * Guarantor: Ru Sun Account Type Relation to Patient Date of Phone Billing Address Personal/Family Self [place] Care Teams Vehicle Body Maker Relationship Specialty Start Date End Date Naomi Montague MD [address] [place] [phone] PCP - General Family Medicine 02/01/22 Geri REDDYA 11/30/24
--- OUTSIDE RECORDS SUMMARY | 2024-12-18 09:08 | XMS_ITS | Encounter Summary ---
Author Organization [employer] Address [address] [place] [address] Care Team Providers Care Pot Tender Name Role Phone Naomi Montague MD Primary Care Provider [phone] Reason for Visit * Reason Onset Date Comments Hospital Follow-up 11/30/2024 Encounter Details Date Type Department Care Team ([facility] Contact Info) Description 11/30/2024 Telephone [facility] [address] [place] [address] Naomi Montague MD [address], [place] [phone] Hospital Follow-up Social History Tobacco Use Types Packs/Day Years [...] encounter Miscellaneous Notes * Telephone Encounter - Elvin Mckay - 11/30/2024 10:11 AM EDT Tc from pt requesting a HDF appt. Hospital: [facility] Date of admission: 11/23 Discharge date: 11/27 Diagnosed: colon bleeding *Send message to [place] Clinical Care Coordinators documented in this encounter Plan of Treatment Upcoming Encounters Date Type Department Care Team (Late st Contact Info) Description 01/01/2025 9:45 AM EDT Office Visit [facility] [address] [place] [address] Naomi Montague MD [address] [place] [address] 02/26/2025 10:00 AM EST Office Visit [facility] [address] [place] [address] Gaurang Stevenson 04/30/2025 1:00 PM EST Office Visit [facility] [address] [place] [address] Kristi Carty, OD [address] [place] [address] documented as of this encounter Visit Diagnoses Not on filedocumented in this encounter Additional Health Concerns Assessment Noted Time PHQ-9 Depression Total Score: 2 04/30/19 25 9:35 AM EST documented as of this encounter Care Teams Pot Tender Relationship Specialty Start Date End Date Naomi Montague MD [address] [place] [address] PCP - General Family Medicine [facility] documented as of this encounter
[2024-12-18 09:12] LABS: Hematocrit 33.1 % (37.0-47.0); Hemoglobin 11.1 g/dl (12.0-16.0); Mean Corpuscular HGB Conc 33.5 g/dl (31.0-35.0); Mean Corpuscular Hemoglobin 28.4 pg (27.0-33.0); Mean Corpuscular Volume 84.7 fL (80.0-98.0); NRBC Abs Auto 0.000 X10*3/uL (0.0-0.012); NRBC Pct Auto 0.0 /100WBC (0.0-0.2); Platelet Count 207 X10*3/uL (160-400); Red Blood Count 3.91 X10*6/uL (4.20-5.50); White Blood Count 4.6 X10*3/uL (4.8-10.8)
[2024-12-18 09:53] LABS: Iron 40 mcg/dL (30-160); Percent Iron Saturation 15 % (15-50); Total Iron Binding Capacity 274 mcg/dL (228-428); Unsaturated Iron Binding 234 ug/dL
[2024-12-18 10:01] LABS: Ferritin 67 ng/mL (10-250)
== END 2024-12-18 08:39 | disposition home or self-care (01) ==
LOC: HO.LAB 08:38
PROVIDERS: PCP Family Medicine; Visit Provider Internal Medicine
DX: D50.9 Iron deficiency anemia, unspecified (principal); K92.2 Gastrointestinal hemorrhage, unspecified
CPT/HCPCS: 36415; 82728; 83540; 85027

== ENCOUNTER 2024-12-21 10:52 | Outpatient (AMB) | payer OTHER, SELFPAY ==
--- OUTSIDE RECORDS SUMMARY | 2024-12-17 08:00 | XMS_ITS | Encounter Summary ---
Author Organization [employer] Address [address] [facility] [address] [place] [address] Care Team Providers Care Stage Manager Name Role Phone Naomi Montague MD Primary Care Provider [phone] Reason for Visit * Reason Comments Filling Encounter Details Date Type Department Care Team ([facility] st Contact Info) Description 12/17/2024 8:00 AM EDT Office Visit [facility] ADULT DENTAL [address] [place] [address] Patel Montague DDS [address] [place] [address] Social History Tobacco Use Types Packs/Day Years [...] AM EDT documented as of this encounter Progress Notes * Patel Montague DDS - 12/17/2024 8:00 AM EDT Dental procedures in this visit D9999 - NO CHARGE PROCEDURE (Completed) Service provider: Patel Montague DDS Billing provider: Baudilio Rivera DMD Patient ID: Ru Crawley Chi is a 64 y.o. female. Time Out: Date: 12/17/2024 Location: [facility] Tooth: 4, 29 Procedure: Exam Verified the above with patient, shop assistant, and provider. Confirmed via patient's chart, intraorally and by radiographs. Rouge Mixer: Yes. Language: Cantonese. Rouge Mixer's Name: Patient's Doctor's Note: A 64 year old female patient presents for restorative dental treatment of teeth #4 and #29. She is a type II diabetic with recent ER hemoglobin values between 7 and 8. She was admitted in hospital from November 23 to November 27 for acute blood loss anemia. Hospital diagnosis rendered a Hepatic cyst. Lower GI bleed following an outpatient colonoscopy with polypectomy that was carried out on November 20. Subjective: She reports no pain or symptoms. Clinical/Radiographic: No evidence of extensive caries lesions is noted. Conclusion: Treatment is non urgent and can be deferred. Therefore, prior communication with patient's PCP willbe sought. NV: Lexi Provider: Patel Montague DDS Nutritional Assistant: Tr Zhao Attending: Dr. Rivera * Baudilio Rivera DMD - 12/17/2024 8:00 AM EDT I have reviewed the documentation and dental procedures made by the rendering provider, Patel Montageu DDS, and approve their chart entries for this visit. Baudilio Rivera DMD documented in this encounter Plan of Treatment Upcoming Encounters Date Type Department Care Team (Late st Contact Info) Description 01/01/2025 9:45 AM EDT Office Visit [facility] MED & PEDS [address] [place] [address] Naomi Montague MD [address] [place] [address] 02/26/2025 10:00 AM EST Office Visit [facility] ADULT DENTAL [address] [place] [address] Gaurang Stevenson 04/30/2025 1:00 PM EST Office Visit [facility] OPTOMETRY [address] [place] [address] Kristi Carty, OD [address] [place] [address] documented as of this encounter Procedures Procedure Name Priority Date/Time Associated Diagnosis Comments NO CHARGE PROCEDURE Routine 12/17/2024 8:00 AM EDT documented in this encounter Visit Diagnoses Not on filedocumented in this encounter Additional Health Concerns Assessment Noted Time PHQ-9 Depression Total Score: 2 04/30/19 9:35 AM EST documented as of this encounter Care Teams Stage Manager Relationship Specialty Start Date End Date Naomi Montague MD [address] [place] [address] PCP - General Family Medicine [facility] documented as of this encounter
--- NOTE | 2024-12-21 10:57 | A.OFFVIS_ITS ---
Vital Signs 12/21/24 11:05 Height 5 ft 3 in Weight 140 lb 3.424 oz BMI 24.8 BP 124/76 Blood Pressure Location Lt brachial Position Sitting Pulse 64 Intake Visit Reasons: S/P double Intake Note: Ru presents in the office as a follow up for her EGD and COLO. CC: Patient denies having any GI concerns today. Retail Furniture Sales Required: Yes Retail Furniture Sales Language: Tremor Video Malay [employer] Furniture Sales Name: Keesha Ochoa [id number] Allergies No Known Allergies Allergy (Verified 12/21/24 11:12) HPI Comments Details: 63 y.o Cantonese speaking female (originally from [place]) who was referred to our office for multiple liver cysts. Seen with the help of [employer] electric shovel operator. present as well. Pt herself reports hx of abd pain with N/V/D back in may that prompted ER visit. Resolved within 2 weeks. Currently asymptomatic. No abd pain, N,V, dysphagia or regurgitation. When pt seen in ER she had US done that showed complex liver cysts. This was then followed up with a CT see below. CT abdomen: No infiltrates within the lung bases. Bones are osteopenic. No acute fracture. Mild de leon chamber cardiac dilation. Concentric wall thickening distal esophagus with small hiatal hernia. Oqzr-yn-tfaxkqqi fluid distention of the stomach with areas of gastric wall thickening along the proximal to mid gastric body. Fluid-filled loops of borderline dilated small bowel is seen within the abdomen pelvis. Small bowel loops are dilated to 0.8 cm. There are scattered small bowel air-fluid levels. Small-bowel wall thickening and small-bowel wall hyperenhancement is seen in association with these fluid-filled loops of small bowel. Generalized low attenuation throughout the liver indicative of fatty infiltration. Numerous hypodense lesions within the liver corresponding to the ultrasound abnormalities. The largest is within the lateral segment of the left lobe measuring 6.5 x 6.9 cm in size. These are all fluid attenuation lesions. No solid hepatic mass lesions identified. Main portal vein is patent. Spleen, pancreas, gallbladder, and adrenal glands are unremarkable. Symmetric enhancement of the kidneys without mass or hydronephrosis. CT pelvis: Suture material seen of the anal rectal junction. Mild fluid distention of the cecum and ascending colon. Fluid-filled small bowel is seen within the pelvis as discussed above. Appendix is normal. No free fluid or free air. Uterus is surgically absent. Fluid attenuation structure is seen at the level of the vaginal cuff measuring 4.2 x 2.5 x 2.6 cm in size. No enlarged lymph nodes. No fam hx of gastric or esophageal ca. Father: cholangiocarcinoma - pt not aware if he had liver fluke infection Pt does not smoke. Occ wine use. Has hx of hysterectomy as well as hemorrhoidectomy. 10/21/24: Here for follow up. Cyst aspiration results reviewed. No mucinous or cancerous cells identified. No echinococcal parasites identified. Reviewed with the pt that could possible have polycystic liver disease. No renal cysts. Will refer to dedicated liver center for any further evaluation. She also has abnormal colon wall and stomach wall thickening. Will be set up for EGD/colo. 11/20/24: 1. Normal esophagus (biopsy) 2. Normal stomach (biopsy) 3. Gastric polyps (polypectomy) 4. Duodenitis (biopsy) 5. Normal colon and terminal ileum mucosa (biopsy) 6. One polyp removed 7. Internal hemorrhoids Diagnosis A. Duodenum, biopsy: Duodenal mucosa with predominantly preserved villi and chronic/non-specific duodenitis. B. Gastric antrum, greater curvature, biopsy: Gastric antral mucosa with mild reactive changes and minimal chronic inactive gastritis; negative for intestinal metaplasia and dysplasia. C. Gastric antrum, lesser curvature, biopsy: Gastric antral mucosa with focal ectatic vessels, reactive changes, and minimal chronic inactive gastritis; negative for intestinal metaplasia and dysplasia. D. Gastric incisura, biopsy: Gastric antral mucosa with minimal chronic inactive gastritis; negative for intestinal metaplasia and dysplasia. B. Gastric body, greater curvature, biopsy: Gastric body mucosa with minimal chronic inactive gastritis; negative for intestinal metaplasia and dysplasia. F. Gastric body, lesser curvature, biopsy: Gastric body mucosa with minimal chronic inactive gastritis; negative for intestinal metaplasia and dysplasia. D. Esophagus, lower, biopsy: Squamous mucosa with focal submucosal glands and no specific change; no columnar mucosa present. H. Esophagus, middle, biopsy: Squamous mucosa with no specific change; no columnar mucosa present. I. Gastric polyps: Fundic gland polyps with focal minimal chronic inactive inflammation; negative for intestinal metaplasia and dysplasia J. Colon, right, biopsy: Colonic mucosa with no specific change. K. Colon, left, biopsy: Colonic mucosa with no specific change. L colon, sigmoid, polyp: Colonic mucosa with focal minimal hyperplastic changes on initial levels (see comment) 11/25/24: 1. Normal esophagus 2. Previous healing polypectomies in stomach 3. Normal duodenum 4. Post polypectomy ulcer in sigmoid colon (endoclips x 2) 5. Internal hemorrhoids 12/21/24: Here for follow up. Accompanied by . Seen with [employer] electric shovel operator [id number] Pt had a complicated course after egd/colo - developed post polypectomy bleeding from a diminutive polyp removed from sigmoid colon requiring hospital admission and repeat endoscopy 11/25 s/p endoclip placement. Today, no acute abd issues. Cont to report post prandial nausea and R sided pain. No gallstones on US. Also has other generalized sx like dizziness when she tries to walk too fast, night blindness. Has seen an eye doctor and an MRI brain is pending. For liver cysts, [facility] does not take her insurance. [facility] referral pending. [facility] Medical History GERD (gastroesophageal reflux disease) Diabetes Hyperlipidemia Hypertension Surgical History History of surgery Hx of colonoscopy History of esophagogastroduodenoscopy (EGD) Family History Brother Colon cancer Social History Household Members: Spouse and Family Housing: House Are you a primary child care attendant school to a significant other at home: No Do you presently have visiting nurse or other home services: No Alcohol intake: current Alcohol intake frequency: holidays/special occasions only Comment: Family in room and assists with ambulation, pt to be dc'd home today Patient Tobacco Use Status: Never used Tobacco service: No Review of Systems Const All systems reviewed & are unremarkable except as noted in HPI and below Physical Exam Exam Exam: No apparent distress Nonicteric Abdomen soft, nondistended Alert and oriented x3, normal gait Vital Signs: Last Vital Signs Pulse 64 12/21/24 11:05 BP 124/76 12/21/24 11:05 BMI result Body Mass Index 24.8 Results Reviewed Results Reviewed: Laboratory Tests 11/27/24 12/01/24 12/18/24 06:40 14:40 08:52 WBC 4.6 L Hgb 9.3 L D 11.1 L Hct 27.5 L D 33.1 L D Plt Count 207 D Sodium 143 Assessment & Plan Assessment & Plan (1) Anemia: Code(s): D64.9 - Anemia, unspecified Category: Medical (2) Lower gastrointestinal hemorrhage: Code(s): K92.2 - Gastrointestinal hemorrhage, unspecified Category: Medical (3) Postprandial abdominal pain in right upper quadrant: Code(s): R10.11 - Right upper quadrant pain Category: Medical (4) Hepatic cyst: Code(s): K76.89 - Other specified diseases of liver Category: Medical (5) Family history of cholangiocarcinoma: Code(s): Z80.0 - Family history of malignant neoplasm of digestive organs Category: Medical (6) Night blindness: Code(s): H53.60 - Unspecified night blindness (7) Fatigue: Code(s): R53.83 - Other fatigue (8) Hepatitis B core antibody positive: Code(s): R76.8 - Other specified abnormal immunological findings in serum Category: Medical Plan 1. Anemia 2. LGIB Patient underwent EGD and colonoscopy to investigate gastric wall thickness and colon wall thickness noted on imaging scan. Initial EGD/colonoscopy performed 11/20 with mapping biopsies done in the stomach, as well as diminutive sigmoid polyp removed. Patient developed GI bleeding as a complication leading to profound anemia with trough hemoglobin of 6.4 on 11/25. Repeat EGD and colonoscopy showed ulcer with high-risk stigmata at the site of sigmoid polypectomy. An Endoclip was placed for hemostasis. Since then, patient has been doing well, at her baseline. Hemoglobin has improved from 7.7 on the day of discharge to 11.1 today, within 3 weeks. Plan: - Cont iron supplementation for another 30 days - Repeat colo for asymptomatic colorectal ca screening in 10 years - No GIM noted on gastric bx - can consider repeat EGD in 3-5 years 3. RUQ discomfort Pt cont to have post prandial discomfort with nausea and increased belching. EGD unrevealing. Plan: - HIDA scan ordered 4. liver cysts: Ddx including polycytic liver disease. No echinoccocus isolated from cyst aspiration. Also neg for fasciola. Referred to [facility] hepatology initially for further eval but insurance denied coverage. dedicated hepatology center for further eval. Plan: - [facility] hepatology referral requested 5. 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 HBV surface and core Ab positive: HBV s Ag negative. Immune controlled. No further action needed at this time. Follow up 3 months Orders: Orders NM hepatobiliary w pharm 12/21/24 R10.11 - Right upper quadrant pain Vitamin A 12/21/24 H53.60 - Unspecified night blindness Ferritin 3 Months D64.9 - Anemia, unspecified Liver Panel 3 Months D64.9 - Anemia, unspecified Vitamin B12 and Folate 12/21/24 R53.83 - Other fatigue Complete Blood Count Auto Diff 3 Months D64.9 - Anemia, unspecified Coding Level of Care Code Est Pt Level 5 (05839) Complex EM visit Add On G2211 Diagnoses Anemia D64.9 Lower gastrointestinal hemorrhage K92.2 Postprandial abdominal pain in right upper quadrant R10.11 Hepatic cyst K76.89 Family history of cholangiocarcinoma Z80.0 Night blindness H53.60 Fatigue R53.83 Hepatitis B core antibody positive R76.8
[2024-12-21 11:05] VITALS: BP 124/76; PULSE 64; BMI 24.8
--- OUTSIDE RECORDS SUMMARY | 2024-12-21 13:12 | XMS_ITS | Encounter Summary ---
Author Organization [employer] Address [address] [facility] [address] [place] [address] Care Team Providers Care Equipment Operator Name Role Phone Naomi Montague MD Primary Care Provider [phone] Reason for Visit * Reason Onset Date Comments Hospital Follow-up 11/30/2024 Encounter Details Date Type Department Care Team ([facility] Contact Info) Description 11/30/2024 Telephone [facility] MEDICINE [address] [place] [address] Naomi Montague MD [address] [place], [place] [phone] Hospital Follow-up Social History Tobacco Use Types [...] from pt requesting a HDF appt. Hospital: [facility] Date of admission: 11/23 Discharge date: 11/27 Diagnosed: colon bleeding *Send message to [place] Clinical Care Coordinators documented in this encounter Plan of Treatment Upcoming Encounters Date Type Department Care Team (Late st Contact Info) Description 01/01/2025 9:45 AM EDT Office Visit [facility] MED & PEDS [address] [place] [address] Naomi Montague MD [address] [place] [address] 02/26/2025 10:00 AM EST Office Visit [facility] ADULT DENTAL [address] [place] [address] Gaurang Stevenson 04/30/2025 1:00 PM EST Office Visit [facility] OPTOMETRY [address] [place] [address] Kristi Carty, OD [address] [place] [address] documented as of this encounter Visit Diagnoses Not on filedocumented in this encounter Additional Health Concerns Assessment Noted Time PHQ-9 Depression Total Score: 2 04/30/19 25 9:35 AM EST documented as of this encounter Care Teams Equipment Operator Relationship Specialty Start Date End Date Naomi Montague MD [address] [place] [address] PCP - General Family Medicine [facility] documented as of this encounter
--- OUTSIDE RECORDS SUMMARY | 2024-12-21 13:12 | XMS_ITS | Encounter Summary ---
Author Organization [employer] Address [address] [facility] [address] [place] [address] Care Team Providers Care Twister Tender Paper Name Role Phone Naomi Montague MD Primary Care Provider [phone] Reason for Visit * Reason Onset Date Comments Nurse Triage 11/30/2024 Encounter Details Date Type Department Care Team ([facility] Contact Info) Description 11/30/2024 Telephone [facility] CHC MED & PEDS [address] [place] [address] Naomi Montague MD [address] [place] [address] Nurse Triage Social History Tobacco Use Types [...] original date of apt which is 01/01/25. [facility], [facility] to Me Naomi Montague MD [facility] Med & Peds Nurses (Selected Message) FW [...] unusual colored stools. Pt is advised this press writer will forward this request to [facility] nursing team for possible earlier apt. [...] caller accepted this outcome. Contact pt at [phone] (pt needs malawian translator interpreter , speaks icelandic on HIPAA) documented in this encounter Plan of Treatment Upcoming Encounters Date Type Department Care Team (Late st Contact Info) Description 01/01/2025 9:45 AM EDT Office Visit [facility] MED & PEDS [address] [place] [address] Naomi Montague MD [address] [place] [address] 02/26/2025 10:00 AM EST Office Visit [facility] ADULT DENTAL [address] [place] [address] Gaurang Stevenson 04/30/2025 1:00 PM EST Office Visit [facility] OPTOMETRY [address] [place] [address] Kristi Carty, OD [address] [place] [address] documented as of this encounter Visit Diagnoses Not on filedocumented in this encounter Additional Health Concerns Assessment Noted Time PHQ-9 Depression Total Score: 2 04/30/19 25 9:35 AM EST documented as of this encounter Care Teams Twister Tender Paper Relationship Specialty Start Date End Date Naomi Montague MD [address] [place] [address] PCP - General Family Medicine 02/01/22 [facility] 11/30/24 documented as of this encounter
--- OUTSIDE RECORDS SUMMARY | 2024-12-21 13:12 | XMS_ITS | Clinical Summary ---
Author Organization [facility] Address [address] [place] [address] Phone Care Team Providers Care Certified Health Education Specialist Name Role Phone Swapna Maravilla MD Primary Care Provider + Allergies No known active allergies Medications oxyCODONE 5 MG immediate release tablet Take 1 tablet (5 mg total) by mouth every 4 (four) hours as needed for moderate pain. 10 tablet 7 Active Additional Information Patient not taking.Reported on 02/14/2017 Ca cit-D3-mag#[id number] (CALTRATE 600+D) 600 mg calcium- 800 [...] Advance Directives For more information, please contact: [phone] (9AM - 5PM [facility], Saturday-Saturday) * Full Code (Presumed) (Latest Code Status on File) Date Activated Date Inactivated Comments 02/20/2017 6:24 AM 02/20/2017 7:04 PM Care Teams Certified Health Education Specialist Relationship Specialty Start Date End Date Swapna Maravilla MD [address] [place] [address] PCP - General Family Medicine 5/23/17 Additional Source Comments The information contained in this document represents components of the legal health record. It is not the complete legal health record.[facility]
--- OUTSIDE RECORDS SUMMARY | 2024-12-21 13:13 | XMS_ITS | Encounter Summary ---
Author Organization [employer] Address [address] [facility] [address] [place] [address] Care Team Providers Care Airplane And Engine Inspector Name Role Phone Naomi Montague MD Primary Care Provider Encounter Details Date Type Department Care Team ([facility] st Contact Info) Description 12/18/2024 Orders Only GENERIC EXTERNAL DATA DEPARTMENT Provider, [...] Description 01/01/2025 9:45 AM EDT Office Visit [facility] MED & PEDS [address] [place] [address] Naomi Montague MD [address] [place] [address] 02/26/2025 10:00 AM EST Office Visit [facility] ADULT DENTAL [address] [place] [address] Gaurang Stevenson 04/30/2025 1:00 PM EST Office Visit [facility] OPTOMETRY [address] [place] [address] Kristi Carty, OD [address] [place] [address] documented as of this encounter Procedures Procedure Name Priority Date/Time Associated Diagnosis Comments IRON AND TOTAL IRON BINDING CAPACITY Routine 12/18/2024 8:52 AM EDT CBC Routine 12/18/2024 8:52 AM EDT FERRITIN Routine 12/18/2024 8:52 AM EDT documented in this encounter Results * Ferritin (12/18/2024 8:52 AM EDT) Ferritin 67 10 - 250 ng/mL [facility] 12/18/2024 8:52 AM EDT 12/18/2024 8:52 AM EDT us Generic External Data Provider LAB BLOOD ORDERAB LES Final Result Performing Organization Address [facility] de Phone Number [facility] [address] [place] [phone] * Iron And Total Iron Binding Capacity (12/18/2024 8:52 AM EDT) [facility] Iron 40 30 - 160 mcg/dL [facility] Total Iron Binding Capacity 274 228 - 428 mcg/dL [facility] Percent Iron Saturation 15 15 - 50 % [facility] Unsaturated Iron Binding 234 ug/dL [facility] 12/18/2024 8:52 AM EDT 12/18/2024 8:52 AM EDT us Generic External Data Provider LAB BLOOD ORDERAB LES Final Result Performing Organization Address [facility] de Phone Number [facility] [address] [place] [phone] * (ABNORMAL) CBC (12/18/2024 8:52 AM EDT) [facility] White Blood Count 4.6(L) 4.8 - 10.8 X10*3/uL [facility] Red Blood Count 3.91(L) 4.20 - 5.50 X10*6/uL [facility] Hemoglobin 11.1(L) 12.0 - 16.0 g/dl [facility] Hematocrit 33.1(L) 37.0 - 47.0 % [facility] Mean Corpuscular Volume 84.7 80.0 - 98.0 fL [facility] Mean Corpuscular Hemoglobin 28.4 27.0 - 33.0 pg [facility] Mean Corpuscular HGB Conc 33.5 31.0 - 35.0 g/dl [facility] Red Cell Distribution Width 13.3 11.0 - 16.0 % [facility] Platelet Count 207 160 - 400 X10*3/uL [facility] Mean Platelet Volume 9.9 9.4 - 12.3 fL [facility] NRBC Pct Auto 0.0 0.0 - 0.2 /100WBC [facility] NRBC Abs Auto 0.000 0.0 - 0.012 X10*3/uL [facility] 12/18/2024 8:52 AM EDT 12/18/2024 8:52 AM EDT us Generic External Data Provider LAB BLOOD ORDERAB LES Final Result [facility] [address] [place] [phone] documented in this encounter Visit Diagnoses Not on filedocumented in this encounter Additional Health Concerns Assessment Noted Time PHQ-9 Depression Total Score: 2 04/30/19 25 9:35 AM EST documented as of this encounter Care Teams Airplane And Engine Inspector Relationship Specialty Start Date End Date Naomi Montague MD [address] [place] [phone] PCP - General Family Medicine 02/01/22 [facility] 11/30/24 documented as of this encounter
--- OUTSIDE RECORDS SUMMARY | 2024-12-21 13:13 | XMS_ITS | Encounter Summary ---
Author Organization [facility] Address [address] [place] [phone] Phone Care Team Providers Care Field Kiln Burner Name Role Phone Swapna Maravilla MD Primary Care Provider + Encounter Details Date Type Department Care Team (Late st Contact Info) Description 02/20/2017 Procedure Pass [facility]PT [address] [place] [phone] Social History Tobacco Use Types [...] on filedocumented in this encounter Care Teams Field Kiln Burner Relationship Specialty Start Date End Date Swapna Maravilla MD [address] [place] [address] PCP - General Family Medicine 09/04/16 documented as of this encounter Additional Source Comments The information contained in this document represents components of the legal health record. It is not the complete legal health record.[facility]
--- OUTSIDE RECORDS SUMMARY | 2024-12-21 13:13 | XMS_ITS | Encounter Summary ---
Author Organization [employer] Address [address] [place] [address] [address] [place] [address] Care Team Providers Care Cash Register Servicer Name Role Phone Naomi Montague MD Primary Care Provider [phone] Reason for Visit * Reason Onset Date Comments Returning Call Back 10/10/2022 Encounter Details Date Type Department Care Team ([facility] Contact Info) Description 10/10/2022 Telephone [facility] CHC MED & PEDS [address] [place] [address] Naomi Montague MD [address] [place] [address] Returning Call Back Social History Tobacco Use [...] spouse returning call back, regarding message below. [employer] Operator let him know a nurse will call back with an health nurse he stated she's at work they can call him. [employer] Operator doesn't see any HIPPA information. documented in this encounter Plan of Treatment Upcoming Encounters Date Type Department Care Team (Late st Contact Info) Description 01/01/2025 9:45 AM EDT Office Visit [facility] MED & PEDS [address] [place] [address] Naomi Montague MD [address] [place] [address] 02/26/2025 10:00 AM EST Office Visit [facility] ADULT DENTAL [address] [place] [address] Gaurang Stevenson 04/30/2025 1:00 PM EST Office Visit [facility] OPTOMETRY [address] [place] [address] Carloz, Kristi, OD [address] [place] [address] documented as of this encounter Visit Diagnoses Not on filedocumented in this encounter Additional Health Concerns Assessment Noted Time PHQ-9 Depression Total Score: 0 06/30/19 23 2:19 PM EDT documented as of this encounter Care Teams Cash Register Servicer Relationship Specialty Start Date End Date Naomi Montague MD [address] [place] [address] PCP - General Family Medicine [facility] documented as of this encounter
--- OUTSIDE RECORDS SUMMARY | 2024-12-21 13:13 | XMS_ITS | Clinical Summary ---
Author Organization [employer] Address [address] [place] [address] Care Team Providers Care Operations Expert Name Role Phone Naomi Montague MD Primary Care Provider [phone] Allergies Active Allergy Reactions Criticality Noted Date Comments Tolterodine Swelling 04/02/2022 Ubidecarenone Itching 02/08/2023 Medications Lancets 33G misc Use to check blood sugar daily as directed Active Blood Glucose Monitoring Suppl (FreeStyle Stow Lite) w/Device kit TEST BLOOD SUGAR DAILY [...] BEDTIME 90 capsule 1 5 Active PEG 8526-HYy-KbDer-NaCl -NaSulf (PEG-3350/Electroly leon) 236 g reconstituted solution [...] (10/05/2022 2:46 PM EDT): Patient seen by material requirements planning manager and had FNA done for mass on neck. Biopsy results given to patient and was recommended for surgery with no diagnoses. Per agency service representative at [facility], Appointment scheduled with general surgeon for Jan 04 @ 9:30 Dr. Connolly at [facility], General surgeon specialty in thyroid. Assessment [...] Encounters Date Type Department Care Team Description 12/18/2024 Orders Only GENERIC EXTERNAL DATA DEPARTMENT Provider, Generic External Data 12/17/2024 8:00 AM EDT Office Visit [facility] [address] [place] [address] Patel Montague DDS 12/01/2024 Orders Only GENERIC EXTERNAL DATA DEPARTMENT Provider, Generic External Data 11/30/2024 Patient Outreach [facility] [address] [place] [address] Naomi Montague MD Transition Of Care (Tcm) (HDF unscheduled. ) 11/30/2024 Telephone [facility] [address] [place] [address] Naomi Montague MD Nurse Triage 11/30/2024 Telephone [facility] [address] [place] [address] Naomi Montague MD Hospital Follow-up 11/23/2024 Telephone [facility] [address] [place] [address] Naomi Montague MD Results; Care Coordination 11/23/2024 Telephone [facility] [address] [place] [address] Jossy Stevenson MD Results 11/23/2024 Orders Only [facility] [address] [place] [address] Naomi Montague MD 11/21/2024 Orders Only GENERIC EXTERNAL DATA DEPARTMENT Provider, Generic External Data 11/20/2024 Orders Only GENERIC EXTERNAL DATA DEPARTMENT Provider, Generic External Data 11/13/2024 Refill [facility] [address] [place] [address] Martha Buenrostro MD Mixed hyperlipidemia 10/30/2024 9:00 AM EDT Office Visit [facility] [address] [place] [address] Naomi Montague MD Type 2 diabetes mellitus with hyperglycemia, without long-term current use of insulin ([facility]) (Primary Dx); Microcytosis; Plantar fasciitis of left foot; Cramps of lower extremity 10/30/2024 Travel 10/23/2024 3:00 PM EDT Office Visit [facility] [address] [place] [address] Carloz, Kristi, OD Bitemporal hemianopsia (Primary Dx) 10/23/2024 Travel 10/23/2024 Patient Outreach [facility] [address] [place] [address] Naomi Montague MD Pre-visit Planning ([facility] screening completed on 04/30/24) from Last 3 Months Immunizations Immunization Administration [...] is your housing situation today? I have conradocolleen marin 04/30/[address] you [...] Description 01/01/2025 9:45 AM EDT Office Visit [facility] [address] [place] [address] Naomi Montague MD [address] [place] [address] 02/26/2025 10:00 AM EST Office Visit [facility] [address] [place] [address] Gaurang Stevenson 04/30/2025 1:00 PM EST Office Visit [facility] [address] [place] [address] Kristi Carty, OD [address] [place] [address] Health Maintenance Due Date Last Done Comments [...] 04/30/2025 04/30/2024, 04/30/19 SDOH Screening 04/30/2025 04/30/2024 Diabetes: Hemoglobin A1C [...] Procedure Name Priority Date/Time Associated Diagnosis Comments FERRITIN Routine 12/18/2024 8:52 AM EDT IRON AND TOTAL IRON BINDING CAPACITY Routine 12/18/2024 8:52 AM EDT CBC Routine 12/18/2024 8:52 AM EDT NO CHARGE PROCEDURE Routine 12/17/2024 8 :00 [...] long-term current use of insulin (CMS/HCC) HEMOGLOBIN ELECTROPHORESIS Routine 11/23/2024 1:21 PM EDT [...] of insulin (CMS/HCC) POCT GLUCOSE Routine 10/30/2024 9:44 AM EDT Type 2 diabetes mellitus with hyperglycemia, without long-term current use of insulin (CMS/HCC) POCT GLUCOSE Routine 10/30/2024 9:16 AM EDT Type 2 diabetes mellitus with hyperglycemia, without long-term current use of insulin (CMS/HCC) POCT GLYCATED HEMOGLOBIN, TOTAL Routine 10/30/2024 9:15 AM EDT Type 2 diabetes mellitus with hyperglycemia, without long-term current use of insulin (CMS/HCC) AUTOMATED VISUAL FIELD, EXTENDED - OU - [...] Recently Relevant to Health Maintenance Results * Iron And Total Iron Binding Capacity (12/18/2024 8:52 AM EDT) Only the most recent of2 resultswithin the time period is included. Iron 40 30 - 160 mcg/dL [facility] Total Iron Binding Capacity 274 228 - 428 mcg/dL [facility] Percent Iron Saturation 15 15 - 50 % [facility] Unsaturated Iron Binding 234 ug/dL [facility] 12/18/2024 8:52 AM EDT 12/18/2024 8:52 AM EDT us Generic External Data Provider LAB BLOOD ORDERAB LES Final Result [facility] [address] [place] [phone] * (ABNORMAL) CBC (12/18/2024 8:52 AM EDT) Only the most recent of2 resultswithin the time period is included. White Blood Count 4.6(L) 4.8 - 10.8 X10*3/uL [facility] Red Blood Count 3.91(L) 4.20 - 5.50 X10*6/uL [facility] Hemoglobin 11.1(L) 12.0 - 16.0 g/dl [facility] Hematocrit 33.1(L) 37.0 - 47.0 % [facility] Mean Corpuscular Volume 84.7 80.0 - 98.0 fL [facility] Mean Corpuscular Hemoglobin 28.4 27.0 - 33.0 pg [facility] Mean Corpuscular HGB Conc 33.5 31.0 - 35.0 g/dl [facility] Red Cell Distribution Width 13.3 11.0 - 16.0 % [facility] Platelet Count 207 160 - 400 X10*3/uL [facility] Mean Platelet Volume 9.9 9.4 - 12.3 fL [facility] NRBC Pct Auto 0.0 0.0 - 0.2 /100WBC [facility] NRBC Abs Auto 0.000 0.0 - 0.012 X10*3/uL [facility] 12/18/2024 8:52 AM EDT 12/18/2024 8:52 AM EDT us Generic External Data Provider LAB BLOOD ORDERAB LES Final Result Performing Organization Address [facility] Co de Phone Number [facility] [address] [place] [phone] * Ferritin (12/18/2024 8:52 AM EDT) Only the most recent of2 resultswithin the time period is included. Ferritin 67 10 - 250 ng/mL [facility] 12/18/2024 8:52 AM EDT 12/18/2024 8:52 AM EDT Generic External Data Provider LAB BLOOD ORDERAB LES Final Result Performing Organization Address [facility] Co de Phone Number [facility] [address] [place] [phone] * Type and screen (12/01/2024 2:40 PM EDT) Blood Type BP [facility] Antibody Screen NEGATIVE [facility] 12/01/2024 2:40 PM EDT 12/01/2024 2:54 PM EDT Narrative [facility] - 12/01/2024 3:37 PM EDT Witnessed by VAZQUEZ Generic External Data Provider LAB BLOOD BANK TE ST ORDERABLES Final Result Performing Organization Address [facility] de Phone Number [facility] [address] [place] [phone] * Hold Lavender - Possible Hematology (11/23/2024 1:21 PM EDT) Hold Lavender - Possible Hematololgy SEE NOTE [facility] Comment:Specimen will be hel d untested for 8 hours. Call Hematologyif testing is desired. 11/23/2024 1:21 PM EDT 11/23/2024 2:01 PM EDT Naomi Montague MD HISTORICAL/NON ORDERABLE LABS Final Result Performing Organization Address [facility] Co de Phone Number [facility] [address] [place] [phone] * Vitamin B12 (Cobalamin) and Folate Panel, Serum (11/23/2024 1:21 PM EDT) Vitamin B12 237 200 - 900 pg/mL [facility] Comment:NORMAL 200-900 PG/ML INDETERMINATE 160-199 PG/ML DEFICIENT < 160 PG/ML Folate 10.8 > or = 4.0 ng/mL [facility] Comment:Reference Values:> o r = [...] ORDERABLES Final Re sult Performing Organization Address [facility] Co de Phone Number [facility] [address] [place] [phone] * TSH W/Reflex to FT4 (11/23/2024 1:21 PM EDT) TSH reflex Free T4 1.81 0.32 - 4.0 uIU/mL [facility] Blood Venous blood specimen / Unknown 11/23/2024 1:21 PM EDT 11/23/2024 1:21 PM EDT Naomi Montague MD LAB BLOOD ORDERABLES Final Re sult [facility] [address] [place], [place] [phone] * (ABNORMAL) CBC auto differential (11/23/2024 1:21 PM EDT) Only the most recent of2 resultswithin the time period is included. White Blood Count 5.7 4.8 - 10.8 X10*3/uL [facility] Red Blood Count 2.98(L) 4.20 - 5.50 X10*6/uL [facility] Hemoglobin 8.1(L) 12.0 - 16.0 g/dl [facility] Hematocrit 24.6(L) 37.0 - 47.0 % [facility] Mean Corpuscular Volume 82.6 80.0 - 98.0 fL [facility] Mean Corpuscular Hemoglobin 27.2 27.0 - 33.0 pg [facility] Mean Corpuscular HGB Conc 32.9 31.0 - 35.0 g/dl [facility] Red Cell Distribution Width 12.2 11.0 - 16.0 % [facility] Platelet Count 185 160 - 400 X10*3/uL [facility] Mean Platelet Volume 10.3 9.4 - 12.3 fL [facility] Neutrophils Percent Auto 53.3 45 - 73 % [facility] Imm Gran Pct Auto 0.7(H) 0.0 - 0.4 % [facility] Lymphocytes Percent Auto 36.6 20 - 40 % [facility] Monocytes Percent Auto 5.5 2 - 11 % [facility] Eosinophils Percent Auto 3.0 0 - 4 % [facility] Basophils Percent Auto 0.9 0 - 2 % [facility] NRBC Pct Auto 0.9(H) 0.0 - 0.2 /100WBC [facility] Neutrophils Absolute Auto 3.0 2.0 - 8.3 x10*3/uL [facility] Imm Gran Abs Auto 0.04(H) 0.00 - 0.03 X10*3/uL [facility] Lymphocytes Absolute Auto 2.1 1.2 - 4.9 X10*3/uL [facility] Monocytes Absolute Auto 0.3 0.1 - 1.2 X10*3/uL [facility] Eosinophils Absolute Auto 0.2 0.0 - 0.4 X10*3/uL [facility] Basophils Absolute Auto 0.1 0.0 - 0.2 X10*3/uL [facility] NRBC Abs Auto 0.050(H) 0.0 - 0.012 X10*3/uL [facility] Blood Venous blood specimen / Unknown 11/23/2024 1:21 PM EDT 11/23/2024 1:21 PM EDT us Naomi Montague MD LAB BLOOD ORDERABLES Final Re sult [facility] [address] [place] [phone] * (ABNORMAL) Hemoglobin Electrophoresis (11/23/2024 1:21 PM EDT) RBC 3.02(A) 3.80 - 5.10 Million/u L [facility] Hemoglobin 8.2(A) 11.7 - 15.5 g/dL [facility] Hematocrit 25.9(A) 35.0 - 45.0 % [facility] MCV 85.8 80.0 - 100.0 fL [facility] MCH 27.2 27.0 - 33.0 pg [facility] RDW 12.8 11.0 - 15.0 % [facility] Hemoglobin A 98.0 >96.0 % [facility] Hemoglobin A2 2.0 2.0 - 3.2 % [facility] Hemoglobin F <1.0 <2.0 % [facility] Hemoglobin S TNP [facility] E TNP [facility] Other Hemoglobin TNP [facility] Other Hemoglobin 2 WIP [facility] Hgb Interpretation SEE NOTE [facility] Comment:Normal phenotype.THI S TEST WAS PERFORMED AT:[employer] [place] [phone] FRENCH MD Blood Venous blood specimen / Unknown 11/23/2024 1:21 PM EDT 11/23/2024 1:21 PM EDT Naomi Montague MD LAB BLOOD ORDERABLES Final Re sult Performing Organization Address [facility]/ZIP Co de Phone Number [facility] [address] [place] [phone] * Magnesium (11/23/2024 1:21 PM EDT) Only the most recent of2 resultswithin the time period is included. Pathologist [facility] Magnesium 2.2 1.6 - 2.6 mg/dL [facility] Blood Venous blood specimen / Unknown 11/23/2024 1:21 PM EDT 11/23/2024 1:21 PM EDT Naomi Montague MD LAB BLOOD ORDERABLES Final Re sult Performing Organization Address [facility] Co de Phone Number [facility] [address] [place] [phone] * (ABNORMAL) Lipid Panel, Standard (11/23/2024 1:21 PM EDT) Triglycerides 164(H) <150 mg/dL [facility] Comment:Desirable Triglyceri de: less than 150 mg/dLBorderline High Triglyceride 150-199 mg/dLHigh Triglyceride: 200-499 mg/dLVery High Triglyceride: greater than or equal to 5OO mg/dL Cholesterol 128 <200 mg/dL [facility] Comment:Desirable Cholestero l: less than 200 mg/dLBorderline High Cholesterol: 200-239 mg/dLHigh Cholesterol: greater than 239 mg/dL LDL Cholesterol Calculated 62 <100 mg/dL [facility] Comment:Desirable LDL: less than 100 mg/dLNear Optimal/Above Optimal LDL: 110- 129 mg/dLBorderline High LDL: 130-159 mg/dLHigh LDL: 160-189 mg/dLVery High LDL: greater than or equal to 190 mg/dL HDL Cholesterol 34(L) >40 mg/dL [facility] Comment:Desirable HDL: great er than 40 mg/dL Note: This HDL assay may give artificially low results in patients with liver disease. Blood Venous blood specimen / Unknown 11/23/2024 1:21 PM EDT 11/23/2024 1:21 PM EDT us Naomi Montague MD LAB BLOOD ORDERABLES Final Re sult [facility] [address] [place] [phone] * (ABNORMAL) Comprehensive Metabolic Panel (11/23/2024 1:21 PM EDT) Sodium 143 135 - 145 mmol/L [facility] Potassium 3.5 3.3 - 5.1 mmol/L [facility] Chloride 108 96 - 108 mmol/L [facility] Carbon Dioxide 29 22 - 29 mmol/L [facility] Anion Gap 10(L) 12 - 20 [facility] Urea Nitrogen (BUN) 14 9 - 16 mg/dL [facility] Creatinine, Serum 0.67 0.5 - 1.4 mg/dL [facility] Estimated Glomerular Filt Rate >60 [facility] Comment:Chronic Kidney Disea se: Estimated GFR < 60 mL/min/1.31x2Qgzzov Kidney Disease: Estimated GFR < 15 mL/min/1.73m2 Glucose 154(H) 60 - 115 mg/dL [facility] Calcium 8.9 8.4 - 10.2 mg/dL [facility] Bilirubin, Total 0.3 0.0 - 1.0 mg/dL [facility] Aspartate Amino Transferase 22 5 - 31 U/L [facility] Alanine Aminotransferase 25 0 - 31 U/L [facility] Total Protein 6.1(L) 6.5 - 8.0 g/dL [facility] Albumin Level 4.3 3.5 - 5.0 g/dL [facility] Alkaline Phosphatase 49 39 - 117 U/L [facility] Blood Venous blood specimen / Unknown 11/23/2024 1:21 PM EDT 11/23/2024 1:21 PM EDT us Naomi Montague MD LAB BLOOD ORDERABLES Final Re sult Performing Organization Address [facility] Co de Phone Number [facility] [address] [place] [phone] * High Sensitivity Troponin I (11/21/2024 12:49 PM EDT) [facility] TROPONIN I HIGH SENSITIVITY 3.2 <3.5 - 17.0 ng/L [facility] Comment:The Catalan high sens itivity Troponin-I results should beused in conjunction with other diagnostic information suchas ECG, clinical observations and information, and patientsymptoms to aid in the diagnosis of [place]. 11/21/2024 12:4 9 PM EDT 11/21/2024 12:52 PM EDT us Generic External Data Provider LAB BLOOD ORDERAB LES Final Result Performing Organization Address [facility] Co de Phone Number [facility] [address] [place] [phone] * Hepatic Function Panel (11/21/2024 12:49 PM EDT) Bilirubin, Total 0.3 0.0 - 1.0 mg/dL [facility] Bilirubin, Direct 0.1 0.0 - 0.5 mg/dL [facility] Aspartate Amino Transferase 19 5 - 31 U/L [facility] Alanine Aminotransferase 23 0 - 31 U/L [facility] Total Protein 6.5 6.5 - 8.0 g/dL [facility] Albumin Level 4.5 3.5 - 5.0 g/dL [facility] Alkaline Phosphatase 53 39 - 117 U/L [facility] 11/21/2024 12:4 9 PM EDT 11/21/2024 12:52 PM EDT us Generic External Data Provider LAB BLOOD ORDERAB LES Final Result [facility] [address], [place] [phone] * (ABNORMAL) Basic Metabolic Panel (11/21/2024 12:49 PM EDT) Sodium 141 135 - 145 mmol/L [facility] Potassium 4.0 3.3 - 5.1 mmol/L [facility] Chloride 106 96 - 108 mmol/L [facility] Carbon Dioxide 25 22 - 29 mmol/L [facility] Anion Gap 14 12 - 20 [facility] Urea Nitrogen (BUN) 36(H) 9 - 16 mg/dL [facility] Creatinine, Serum 0.80 0.5 - 1.4 mg/dL [facility] Creatinine Clr Calc Pharmacy 65.4 [facility] Comment:Provided height and weight: 160.02 cm,63.503 kg.eGFR (calculated from the MDRD study equation) and eCrCl(calculated from the Cockcroft-Gault equation) are based ondifferent parameters and may not yield comparable results.If eCrCl result is absurd, please check patient'sheight/weight. Estimated Glomerular Filt Rate >60 [facility] Comment:Chronic Kidney Disea se: Estimated GFR < 60 mL/min/1.84m7Ggjidv Kidney Disease: Estimated GFR < 15 mL/min/1.73m2 Glucose 206(H) 60 - 115 mg/dL [facility] Calcium 9.1 8.4 - 10.2 mg/dL [facility] 11/21/2024 12:4 9 PM EDT 11/21/2024 12:52 PM EDT us Generic External Data Provider LAB BLOOD ORDERAB LES Final Result Performing Organization Address [facility] Co de Phone Number [facility] [address] [place] [phone] * (ABNORMAL) Glucose, Whole Blood (11/21/2024 12:12 PM EDT) Only the most recent of2 resultswithin the time period is included. Glucose, Whole Blood 140(H) 60 - 115 mg/dL [facility] Comment:METER #: [id number] 11/21/2024 12:1 2 PM EDT 11/23/2024 9:16 AM EDT Generic External Data Provider LAB BLOOD ORDERAB LES Final Result Performing Organization Address [facility] Co de Phone Number [facility] [address] [place] [phone] * Hematoxylin and Eosin Stain (11/20/2024 8:44 AM EDT) 11/20/2024 8:44 AM EDT 11/20/2024 10:00 AM EDT Narrative [facility] - 11/26/2024 4:34 PM EDT ----- ------- Name: Raciel Sunn Age/Sex: 64/F : 1960 Unit#: [id number] Attend Dr: Brittny Jean-Baptiste MD Re11/20/24 Status: [facility] Location: [facility] Disch: ----- ------- SPEC : [id number] RECD: 11/20/24-1000 STATUS: [facility] NUM: [id number] KARINE: 11/20/2444 [facility] DR: Brittny Jean-Baptiste MD ENTERED: 11/20/24-1016 SP TYPE: Surgical OTHR DR: Naomi Montague MD ORDERED: HE Stain, Gross Micro L4/12, IHC/5, H. pylori/5 Addendum Addendum 1 Entered: 11/26/24-1633 (L): Multiple additional tissue levels show focal minimal hyperplastic changes and no adenomatous dysplasia is seen. Scattered lamina propria foamy macrophages are noted. Addendum Signed (signature on file) Laurel Gu 11/26/24 1634 ----- ------- Diagnosis A. Duodenum, [...] Ru Sun Age/Sex: 64/F : 1960 Unit#: [id number] Attend Dr: Brittny Jean-Baptiste MD Re11/20/24 Status: [facility] Location: [facility] Disch: ----- ------- SPEC : [id number] RECD: 11/20/24-999 STATUS: [facility] NUM: [id number] KARINE: 11/20/24-44 [facility] [address]: Brittny Jean-Baptiste MD ENTERED: 11/20/24-1015 SP [...] Name: Ru Sun Age/Sex: 64/F : 1960 [id number] Unit#: [id number] Attend Dr: Brittny Jean-Baptiste MD Re11/20/24 Status: [facility] Location: [facility] Disch: ----- ------- SPEC : [id number] RECD: 11/20/24-999 STATUS: [facility] NUM: [id number] KARINE: 11/20/24-843 [facility] [address]: Brittny Jean-Baptiste MD ENTERED: 11/20/24-1015 SP TYPE: Surgical OTHR DR: Naomi Montague MD ORDERED: HE Stain/30, Gross Micro L4/12, IHC/5, H. pylori/5 Gross Description (Continued) B. Received in formalin [...] microscopic examination, 1 piece in cassette L. ([facility]) CONTINUED ON NEXT PAGE ----- ------- Name: Ru Sun Age/Sex: 64/F : 1960 Unit#: [id number] Attend Dr: Brittny Jean-Baptiste MD Re11/20/24 Status: [facility] Location: [facility] Disch: ----- ------- SPEC : [id number] RECD: 11/20/24-1000 STATUS: AVIVA FAULKNER NUM: [id number] KARINE: 11/20/2444 [facility] DR: Brittny Jean-Baptiste MD ENTERED: 11/20/24-1015 SP [...] developed and their performance characteristics determined by [facility]. They have not been cleared or approved by the U.S. Food and Drug Administration (FDA). However, the FDA has determined that such clearance or approval is not necessary. This laboratory is certified under the Clinical Laboratory Improvement Amendments of 1988 (CLIA) as qualified to perform high complexity clinical laboratory testing. Copies To: Naomi Montague MD [address] [place] [id number] Brittny Jean-Baptiste MD [facility] [place] [facility] [address] [place] [id number] [email or web address] ------- Signed (signature on file) [place] 11/23/24 1404 ----- ------- END OF REPORT us Generic External Data Provider LAB BLOOD ORDERAB LES Final Result [facility] [address] [place] [address] [phone] * (ABNORMAL) POCT HGB A1C (10/30/2024 9:45 AM EDT) Only the most recent of2 resultswithin the time period is included. Hemoglobin A1C 6.9(A) 4.0 - 5.7 % QC Media Lot # [id number] Lot# Expiration Date [id number] Blood 10/30/2024 9:45 AM EDT Naomi Montague MD POINT OF CARE TEST ENTER/EDIT ORDERABLES Final Result * POCT Glucose (10/30/2024 9:44 AM EDT) Only the most recent of2 resultswithin the time period is included. Glucose Blood, POC 136 60 - 200 mg/dL QC Media Lot # [id number] Lot# Expiration Date Blood Capillary blood specimen / Unknown 10/30/2024 9:44 AM EDT Naomi Montague MD POINT OF [...] the MRI is unremarkable, will continue monitoring. us Kristi Carty OD OPHTH VISUAL FIELD Final Resu lt * Hepatitis C Ab (07/24/2024 1:38 PM EDT) Hepatitis C Antibody Nonreactive Nonreactive [facility] Comment:Antibodies to HCV no t detected; does not exclude early acuteHCV infection. 07/24/2024 1:38 PM EDT 07/24/2024 1:38 PM EDT us Generic External Data Provider LAB BLOOD ORDERAB LES Final Result [facility] [address] [place] [phone] * Cologuard?? colon cancer screening (02/05/2023 5:40 AM EDT) Cologuard Result Negative Negative 02/14/20 2:34 AM EDT [facility] (CLIA #:[id number]) Comment: NEGATIVE TEST RESULT. A negative Cologuard [...] (Dickson Sampson al, N Engl J Med 2014;370(14):0030-7739) The normal value (reference range) for this assay is negative. COLOGUARD RE-SCREENING RECOMMENDATION: Periodic colorectal cancer screening is an important part of preventive healthcare for asymptomatic individuals at average risk for colorectal cancer. Following a negative Cologuard result, the [place] [employer] and U.S. Multi-Society Task Force screening guidelines recommend a Cologuard re-screening interval of 3 years. References: [place] [employer] Guideline for Colorectal Cancer Screening: https://www.cancer.org/cancer/mzjey-mbbvft-eqohui/djwzasokk-owgvrlsxy-agdueoz/ac s-rec ommendations.html.; Abdulkadir ISAACS, Zi FERNANDEZ, Luzmaria PrakashK, Colorectal Cancer Screening: Recommendations for Physicians and Patients from the U.S. Multi-Society Task Force on Colorectal Cancer Screening , Am J Gastroenterology 2017; 112:6704-9890. TEST DESCRIPTION: Composite algorithmic analysis of stool [...] Monte et al, N Engl J Med 2014;370(14):2858-1258.) Cologuard may produce a false negative or false positive result (no colorectal cancer or precancerous polyp present at colonoscopy follow up). A negative Cologuard test result does not guarantee the absence of CRC or advanced adenoma (pre-cancer). The current Cologuard screening interval is every 3 years. ([place] [employer] and U.S. Multi-Society Task Force). Cologuard performance data in a 10,000 patient pivotal study using colonoscopy as the reference method can be accessed at the following location: www.frenting[employer]/results. Additional description of the Cologuard test process, warnings and precautions can be found at www.cologuard.com. Stool specimen (specimen) 02/05/2023 5:40 AM EDT 02/06/2023 9:11 PM EDT Naomi Montague MD LAB MOLECULAR DIAGNOSTICS ORD ERABLES Final Result Performing Organization Address City/[facility]/ZIP Co de Phone Number [facility] (CLIA #:[id number]) [address] [place] [address], [place] [phone] * ALBUMIN, RANDOM URINE W/CREATININE (02/02/2022 8:49 [...] ORDERABLES Final Re sult Performing Organization Address City/[facility] Co de Phone Number [facility] from Last 3 Months or Most Recently Relevant to Health Maintenance Insurance [facility] MED DENTAL - HSN PARTIAL (MEDICAID) DENTAL - HSN PARTIAL (MEDICAID) Care Teams Operations Expert Relationship Specialty Start Date End Date Naomi Montague MD [address] [place] [phone] PCP - General Family Medicine 02/01/22 [facility] 11/30/24
== END 2024-12-21 11:48 | disposition home or self-care (01) ==
LOC: HO.HGI 10:53
PROVIDERS: PCP Family Medicine; Visit Provider Internal Medicine
DX: D64.9 Anemia, unspecified (principal); K92.2 Gastrointestinal hemorrhage, unspecified; R10.11 Right upper quadrant pain; K76.89 Other specified diseases of liver; Z80.0 Family history of malignant neoplasm of digestive organs; H53.60 Unspecified night blindness; R53.83 Other fatigue; R76.8 Other specified abnormal immunological findings in serum
CPT/HCPCS: 99214

== ENCOUNTER → 2024-12-21 10:52 | Outpatient (BNVA) | payer OTHER, SELFPAY | PROVIDERS: PCP Family Medicine; Visit Provider Internal Medicine | DX: R10.11 Right upper quadrant pain (principal); K92.2 Gastrointestinal hemorrhage, unspecified; D64.9 Anemia, unspecified; K76.89 Other specified diseases of liver; Z80.0 Family history of malignant neoplasm of digestive organs; H53.60 Unspecified night blindness; R53.83 Other fatigue; R76.8 Other specified abnormal immunological findings in serum | CPT/HCPCS: 99212 ==

== ENCOUNTER 2025-01-04 09:10 | Outpatient (REF) | payer OTHER, SELFPAY ==
--- OUTSIDE RECORDS SUMMARY | 2025-01-01 09:45 | XMS_ITS | Encounter Summary ---
Author Organization [employer] Address [address] [facility] 7[address] [place] [address] Care Team Providers Care Hot Baller Name Role Phone Naomi Montague MD Primary Care Provider [phone] Encounter Details Date Type Department Care Team (Late st Contact Info) Description 01/01/2025 9:45 AM EDT Office Visit [facility] MED & PEDS [address], [place] [phone] Naomi Montague MD [address] [place] [address] Type 2 diabetes mellitus with hyperglycemia, without long-term current use of insulin ([facility]) (Primary Dx); Iron deficiency anemia secondary to inadequate dietary iron intake Social History Tobacco Use Types Packs/Day Years [...] AM EDT documented as of this encounter Last Filed Vital Signs Vital Sign Reading Time Taken Comments Blood Pressure 127/67 01/01/2025 9:53 AM EDT Pulse 62 01/01/2025 9:53 AM EDT Temperature 36.8 C (98.3 F) 01/01/2025 9:53 AM EDT Respiratory Rate 18 01/01/2025 9:53 AM EDT Oxygen Saturation 98% 01/01/2025 9:53 AM EDT Inhaled Oxygen Concentration - - Weight 64.8 kg (142 lb 12.8 oz) 01/01/2025 9:53 AM EDT Height 160 cm (5' 3 ) 01/01/2025 9:53 AM EDT Body Mass Index 25.3 01/01/2025 9:53 AM EDT documented in this encounter Plan of Treatment Upcoming Encounters Date Type Department Care Team (Late st Contact Info) Description 01/07/2025 1:00 PM EDT Clinical Support [facility] MED & PEDS [address] [place] [address] 02/26/2025 10:15 AM EST Office Visit [facility] ADULT DENTAL [address] [place] [address] Gaurang Stevenson 04/30/2025 1:00 PM EST Office Visit [facility] OPTOMETRY [address] [place] [address] CarlozKristi navarro, OD [address] [place] [address] Scheduled Orders Name Type Priority Associated Diagnoses Orde r Schedule Fructosamine Lab Routine Type 2 diabetes mellitus with hyperglycemia, without long-term current use of insulin ([facility]) Expected: 01/01/2025 (Approximate), Expires: 01/01/2026 Ferritin Lab Routine Iron deficiency anemia secondary to inadequate dietary iron intake Expected: 01/01/2025 (Approximate), Expires: 01/01/2026 Iron And Total Iron Binding Capacity Lab Routine Iron deficiency anemia secondary to inadequate dietary iron intake Expected: 01/01/2025, Expires: 01/01/2026 Albumin, Random Urine W/Creatinine Lab Routine Type 2 diabetes mellitus with hyperglycemia, without long-term current use of insulin ([facility]) Expected: 01/01/2025 (Approximate), Expires: 01/01/2026 documented as of this encounter Procedures Procedure Name Priority Date/Time Associated Diagnosis Comments CBC WITH AUTO DIFFERENTIAL Routine 01/04/2025 9:35 AM EDT Iron deficiency anemia secondary to inadequate dietary iron intake POCT GLUCOSE Routine 01/01/2025 10:36 AM EDT Type 2 diabetes mellitus with hyperglycemia, without long-term current use of insulin ([facility]) documented in this encounter Results * (ABNORMAL) CBC auto differential (01/04/2025 9:35 AM EDT) White Blood Count 4.7(L) 4.8 - 10.8 X10*3/uL [facility] Red Blood Count 4.33 4.20 - 5.50 X10*6/uL [facility] Hemoglobin 12.0 12.0 - 16.0 g/dl [facility] Hematocrit 35.2(L) 37.0 - 47.0 % [facility] Mean Corpuscular Volume 81.3 80.0 - 98.0 fL [facility] Mean Corpuscular Hemoglobin 27.7 27.0 - 33.0 pg [facility] Mean Corpuscular HGB Conc 34.1 31.0 - 35.0 g/dl [facility] Red Cell Distribution Width 12.1 11.0 - 16.0 % [facility] Platelet Count 220 160 - 400 X10*3/uL [facility] Mean Platelet Volume 9.8 9.4 - 12.3 fL [facility] Neutrophils Percent Auto 57.9 45 - 73 % [facility] Imm Gran Pct Auto 0.2 0.0 - 0.4 % [facility] Lymphocytes Percent Auto 31.8 20 - 40 % [facility] Monocytes Percent Auto 4.3 2 - 11 % [facility] Eosinophils Percent Auto 4.5(H) 0 - 4 % [facility] Basophils Percent Auto 1.3 0 - 2 % [facility] NRBC Pct Auto 0.0 0.0 - 0.2 /100WBC [facility] Neutrophils Absolute Auto 2.7 2.0 - 8.3 x10*3/uL [facility] Imm Gran Abs Auto 0.01 0.00 - 0.03 X10*3/uL [facility] Lymphocytes Absolute Auto 1.5 1.2 - 4.9 X10*3/uL [facility] Monocytes Absolute Auto 0.2 0.1 - 1.2 X10*3/uL [facility] Eosinophils Absolute Auto 0.2 0.0 - 0.4 X10*3/uL [facility] Basophils Absolute Auto 0.1 0.0 - 0.2 X10*3/uL [facility] NRBC Abs Auto 0.000 0.0 - 0.012 X10*3/uL [facility] Blood Venous blood specimen / Unknown 01/04/2025 9:35 AM EDT 01/04/2025 9:35 AM EDT us Naomi Montague MD LAB BLOOD ORDERABLES Final Re sult [facility] [address] [place] [phone] [phone] * POCT Glucose (01/01/2025 10:36 AM EDT) Glucose Blood, POC 165 60 - 200 mg/dL QC Media Lot # [id number] Lot# Expiration Date Blood Capillary blood specimen / Unknown 01/01/2025 10:36 AM EDT Naomi Montague MD POINT OF CARE TEST ENTER/EDIT ORDERABLES Final Result documented in this encounter Visit Diagnoses Diagnosis Type 2 diabetes mellitus with hyperglycemia, without long-term current use of insulin ([facility])- Primary Iron deficiency anemia secondary to inadequate dietary iron intake documented in this encounter Additional Health Concerns Assessment Noted Time PHQ-9 Depression Total Score: 2 04/30/19 9:35 AM EST documented as of this encounter Care Teams Hot Baller Relationship Specialty Start Date End Date Naomi Montague MD [address] [place] [address] [place] [address] PCP - General Family Medicine 02/01/22 [facility] 11/30/24 documented as of this encounter
[2025-01-04 09:37] LABS: MANUAL DIFF FLAG NO
[2025-01-04 10:30] LABS: Hematocrit 35.2 % (37.0-47.0); Hemoglobin 12.0 g/dl (12.0-16.0); Imm Gran Abs Auto 0.01 X10*3/uL (0.00-0.03); Imm Gran Pct Auto 0.2 % (0.0-0.4); Lymphocytes Absolute Auto 1.5 X10*3/uL (1.2-4.9); Mean Corpuscular HGB Conc 34.1 g/dl (31.0-35.0); Mean Corpuscular Hemoglobin 27.7 pg (27.0-33.0); Mean Corpuscular Volume 81.3 fL (80.0-98.0); NRBC Abs Auto 0.000 X10*3/uL (0.0-0.012); NRBC Pct Auto 0.0 /100WBC (0.0-0.2); Platelet Count 220 X10*3/uL (160-400); Red Blood Count 4.33 X10*6/uL (4.20-5.50); White Blood Count 4.7 X10*3/uL (4.8-10.8)
[2025-01-04 10:34] LABS: Hematocrit 35.4 % (37.0-47.0); Hemoglobin 12.0 g/dl (12.0-16.0); Mean Corpuscular HGB Conc 33.9 g/dl (31.0-35.0); Mean Corpuscular Hemoglobin 27.8 pg (27.0-33.0); Mean Corpuscular Volume 82.1 fL (80.0-98.0); NRBC Abs Auto 0.000 X10*3/uL (0.0-0.012); NRBC Pct Auto 0.0 /100WBC (0.0-0.2); Platelet Count 210 X10*3/uL (160-400); Red Blood Count 4.31 X10*6/uL (4.20-5.50); White Blood Count 4.7 X10*3/uL (4.8-10.8)
--- OUTSIDE RECORDS SUMMARY | 2025-01-04 10:44 | XMS_ITS | Encounter Summary ---
Author Organization [employer] Address [address] [facility] 7[address] [place] [address] Care Team Providers Care Back Grinder Name Role Phone Naomi Montague MD Primary Care Provider [phone] Reason for Visit * Reason Onset Date Comments Hospital Follow-up 11/30/2024 Encounter Details Date Type Department Care Team ([facility] Contact Info) Description 11/30/2024 Telephone [facility] MEDICINE [address] [place] [address] Naomi Montague MD [address] [place] [address] Hospital Follow-up Social History Tobacco Use Types [...] from pt requesting a HDF appt. Hospital: [facility] Date of admission: 11/23 Discharge date: 11/27 Diagnosed: colon bleeding *Send message to [place] Clinical Care Coordinators documented in this encounter Plan of Treatment Upcoming Encounters Date Type Department Care Team (Late st Contact Info) Description 01/07/2025 1:00 PM EDT Clinical Support [facility] MED & PEDS [address] [place] [address] 02/26/2025 10:15 AM EST Office Visit [facility] ADULT DENTAL [address] [place] [address] Gaurang Stevenson 04/30/2025 1:00 PM EST Office Visit [facility] OPTOMETRY [address] [place] [address] Kristi Carty, OD [address] [place] [address] documented as of this encounter Visit Diagnoses Not on filedocumented in this encounter Additional Health Concerns Assessment Noted Time PHQ-9 Depression Total Score: 2 04/30/19 9:35 AM EST documented as of this encounter Care Teams Back Grinder Relationship Specialty Start Date End Date Naomi Montague MD [address] [place] [address] PCP - General Family Medicine 02/01/22 [facility] 11/30/24 documented as of this encounter
--- OUTSIDE RECORDS SUMMARY | 2025-01-04 10:44 | XMS_ITS | Encounter Summary ---
Author Organization [employer] Address [address] [place] [address] [address] [place] [address] Care Team Providers Care Fur Grader Name Role Phone Naomi Montague MD Primary Care Provider [phone] Reason for Visit * Reason Onset Date Comments Returning Call Back 10/10/2022 Encounter Details Date Type Department Care Team ([facility] Contact Info) Description 10/10/2022 Telephone [facility] MED [facility] PEDS [address] [place] [address] Naomi Montague MD [address] [place] [address] Returning Call Back Social History Tobacco Use [...] spouse returning call back, regarding message below. Pediatrics Physician let him know a nurse will call back with an mri assistant he stated she's at work they can call him. Pediatrics Physician doesn't see any HIPPA information. documented in this encounter Plan of Treatment Upcoming Encounters Date Type Department Care Team (Late st Contact Info) Description 01/07/2025 1:00 PM EDT Clinical Support [facility] MED & PEDS [address] [place] [address] 02/26/2025 10:15 AM EST Office Visit [facility] ADULT DENTAL [address] [place] [address] Gaurang Stevenson 04/30/2025 1:00 PM EST Office Visit [facility] OPTOMETRY [address] [place] [address] CarlozKristi, OD [address] [place] [address] documented as of this encounter Visit Diagnoses Not on filedocumented in this encounter Additional Health Concerns Assessment Noted Time PHQ-9 Depression Total Score: 0 06/30/19 23 2:19 PM EDT documented as of this encounter Care Teams Fur Grader Relationship Specialty Start Date End Date Naomi Montague MD [address] [place] [address] PCP - General Family Medicine [facility] documented as of this encounter
--- OUTSIDE RECORDS SUMMARY | 2025-01-04 10:44 | XMS_ITS | Encounter Summary ---
Author Organization [facility] Address [address] [place] [address] Phone Care Team Providers Care Relay Technician Name Role Phone Swapna Maravilla MD Primary Care Provider + Encounter Details Date Type Department Care Team (Late st Contact Info) Description 02/20/2017 Procedure Pass [facility] PERIOPERATIVE DEPT [address] [place] [phone] Social History Tobacco Use Types [...] on filedocumented in this encounter Care Teams Relay Technician Relationship Specialty Start Date End Date Swapna Maravilla MD [address] [place] [address] PCP - General Family Medicine 09/04/16 documented as of this encounter Additional Source Comments The information contained in this document represents components of the legal health record. It is not the complete legal health record.[facility]
--- OUTSIDE RECORDS SUMMARY | 2025-01-04 10:44 | XMS_ITS | Clinical Summary ---
Author Organization [employer] Address [address] [place] [address] [address] [place] [address] Care Team Providers Care Psychologist Personnel Name Role Phone Naomi Montague MD Primary Care Provider [phone] Allergies Active Allergy Reactions Criticality Noted Date Comments Tolterodine Swelling 04/02/2022 Ubidecarenone Itching 02/08/2023 Medications Lancets 33G misc Use to check blood sugar daily as directed Active Blood Glucose Monitoring Suppl (FreeStyle Covel Lite) w/Device kit TEST BLOOD SUGAR DAILY [...] BEDTIME 90 capsule 1 5 Active PEG 4809-NFf-XwGuo-NaCl -NaSulf (PEG-3350/Electroly leon) 236 g reconstituted solution mix ud and drink 240 mL orally every 10 minutes for colonoscopy; as per split prep instructions , until fecal effluent is clear 5 Active ondansetron ODT (Zofran-ODT) 4 MG disintegrating tablet DISSOLVE ONE TABLET ON TONGUE TWO TO THREE TIMES PER DAY NEEDED FOR NAUSEA AND VOMITING 5 Active Blood Pressure kit 1 Units Once per day. 1 kit 5 Active rosuvastatin (Crestor) 10 MG tabletIndications:M ixed hyperlipidemia TAKE ONE TABLET BY MOUTH EVERY DAY 90 tablet 1 5 Active Ferrous Sulfate (iron) 325 (65 Fe) MG tablet Take 1 tablet by mouth Once per day. Active Active Problems Problem Noted Date Diagnosed Date Acute lower GI bleeding 01/01/2025 Acute blood loss anemia 01/01/2025 Anemia 01/01/2025 Colon wall thickening 01/01/2025 Family history of cholangiocarcinoma 01/01/2025 Family history of tuberculosis 01/01/2025 Gastric wall thickening 01/01/2025 Hepatic cyst 01/01/2025 Hepatitis B core antibody positive 01/01/2025 Melena 01/01/2025 Need for hepatitis B screening test 01/01/2025 Positive QuantiFERON-TB Gold test 01/01/2025 Plantar fasciitis of left foot 10/30/2024 Primary [...] (10/05/2022 2:46 PM EDT): Patient seen by supervisor dumping and had FNA done for mass on neck. Biopsy results given to patient and was recommended for surgery with no diagnoses. Per agency service representative at [facility], Appointment scheduled with general surgeon for Jan 04 @ 9:30 Dr. Connolly at [facility], General surgeon specialty in thyroid. Assessment [...] Encounters Date Type Department Care Team Description 01/04/2025 Orders Only GENERIC EXTERNAL DATA DEPARTMENT Provider, Generic External Data 01/01/2025 9:45 AM EDT Office Visit [facility] [address] [place] [address] Naomi Montague MD Type 2 diabetes mellitus with hyperglycemia, without long-term current use of insulin ([facility]) (Primary Dx); Iron deficiency anemia secondary to inadequate dietary iron intake 01/01/2025 Travel 12/28/2024 Telephone [facility] [address] [place] [address] Naomi Montague MD 12/18/2024 Orders Only GENERIC EXTERNAL DATA DEPARTMENT Provider, Generic External Data 12/17/2024 8:00 AM EDT Office Visit [facility] [address] [place] [address] Patel Montague DDS 12/01/2024 Orders Only GENERIC EXTERNAL DATA DEPARTMENT Provider, Generic External Data 11/30/2024 Patient Outreach [facility] [address] [place] [address] Naomi Montague MD Transition Of Care (Tcm) (HDF unscheduled. ) 11/30/2024 Telephone [facility] [address] [place] [address] Naomi Montague MD Nurse Triage 11/30/2024 Telephone [facility] [address] [place], [place] [phone] Naomi Montague MD Hospital Follow-up 11/23/2024 Telephone [facility] [address] [place] [address] Naomi Montague MD Results; Care Coordination 11/23/2024 Telephone [facility] [address] [place] [address] Jossy Stevenson MD Results 11/23/2024 Orders Only [facility] [address] [place] [address] Naomi Montague MD 11/21/2024 Orders Only GENERIC EXTERNAL DATA DEPARTMENT Provider, Generic External Data 11/20/2024 Orders Only GENERIC EXTERNAL DATA DEPARTMENT Provider, Generic External Data 11/13/2024 Refill [facility] [address] [place] [address] Martha Buenrostro MD Mixed hyperlipidemia 10/30/2024 9:00 AM EDT Office Visit [facility] [address] [place] [address] Naomi Montague MD Type 2 diabetes mellitus with hyperglycemia, without long-term current use of insulin ([facility]) (Primary Dx); Microcytosis; Plantar fasciitis of left foot; Cramps of lower extremity 10/30/2024 Travel 10/23/2024 3:00 PM EDT Office Visit [facility] [address] [place], [place] [phone] Carloz, Kristi, OD Bitemporal hemianopsia (Primary Dx) 10/23/2024 Travel 10/23/2024 Patient Outreach [facility] [address] [place] [address] Naomi Montague MD Pre-visit Planning ([facility] screening completed on 04/30/24) from Last 3 [...] your housing situation today? I have conrado tania 04/30/[address] you li [...] Mass Index 25.3 01/01/2025 9:53 AM EDT Plan of Treatment Upcoming Encounters Date Type Department Care Team (Late st Contact Info) Description 01/07/2025 1:00 PM EDT Clinical Support [facility] [address] [place] [address] 02/26/2025 10:15 AM EST Office Visit [facility] [address] [place] [address] Gaurang Stevenson 04/30/2025 1:00 PM EST Office Visit [facility] [address] [place], [place] [phone] CarlozKristi navarro, OD [address] [place] [address] Health Maintenance Due Date Last Done Comments [...] X-Ray: Full Mouth 12/01/2025 11/30/2022 Tobacco Screening 01/01/2026 01/01/2025 Colorectal Cancer Screening 02/05/2026 FIT DNA/Cologuard 02/05/2026 [...] Priority Date/Time Associated Diagnosis Comments CBC Routine 01/04/2025 9:35 AM EDT CBC WITH AUTO DIFFERENTIAL Routine 01/04/2025 9:35 AM EDT Iron deficiency anemia secondary to inadequate dietary iron intake POCT GLUCOSE Routine 01/01/2025 10:36 AM EDT Type 2 diabetes mellitus with hyperglycemia, without long-term current use of insulin ([facility]) FERRITIN Routine 12/18/2024 8:52 AM EDT IRON [...] hyperglycemia, without long-term current use of insulin ([facility]) HEMOGLOBIN ELECTROPHORESIS Routine 11/23/2024 1:21 PM EDT Microcytosis FERRITIN Routine 11/23/2024 1:21 PM EDT Microcytosis IRON AND TOTAL IRON BINDING CAPACITY Routine 11/23/2024 1:21 PM EDT Microcytosis LIPID PANEL, STANDARD Routine 11/23/2024 1:21 PM EDT Type 2 diabetes mellitus with hyperglycemia, without long-term current use of insulin ([facility]) TSH W/REFLEX TO FT4 Routine 11/23/2024 1 [...] hyperglycemia, without long-term current use of insulin ([facility]) HIGH SENSITIVITY TROPONIN I Routine 11/21/2024 12:49 [...] hyperglycemia, without long-term current use of insulin ([facility]) POCT GLUCOSE Routine 10/30/2024 9:16 AM EDT Type 2 diabetes mellitus with hyperglycemia, without long-term current use of insulin ([facility]) POCT GLYCATED HEMOGLOBIN, TOTAL Routine 10/30/2024 9:15 AM EDT Type 2 diabetes mellitus with hyperglycemia, without long-term current use of insulin ([facility]) AUTOMATED VISUAL FIELD, EXTENDED - OU - [...] to Health Maintenance Results * (ABNORMAL) CBC auto differential (01/04/2025 9:35 AM EDT) Only the most recent of3 resultswithin the time period is included. White Blood Count 4.7(L) 4.8 - 10.8 X10*3/uL [facility] Red Blood Count 4.33 4.20 - 5.50 X10*6/uL [facility] Hemoglobin 12.0 12.0 - 16.0 g/dl [facility] Hematocrit 35.2(L) 37.0 - 47.0 % [facility] Mean Corpuscular Volume 81.3 80.0 - 98.0 fL [facility] Mean Corpuscular Hemoglobin 27.7 27.0 - 33.0 pg [facility] Mean Corpuscular HGB Conc 34.1 31.0 - 35.0 g/dl [facility] Red Cell Distribution Width 12.1 11.0 - 16.0 % [facility] Platelet Count 220 160 - 400 X10*3/uL [facility] Mean Platelet Volume 9.8 9.4 - 12.3 fL [facility] Neutrophils Percent Auto 57.9 45 - 73 % [facility] Imm Gran Pct Auto 0.2 0.0 - 0.4 % [facility] Lymphocytes Percent Auto 31.8 20 - 40 % [facility] Monocytes Percent Auto 4.3 2 - 11 % [facility] Eosinophils Percent Auto 4.5(H) 0 - 4 % [facility] Basophils Percent Auto 1.3 0 - 2 % [facility] NRBC Pct Auto 0.0 0.0 - 0.2 /100WBC [facility] Neutrophils Absolute Auto 2.7 2.0 - 8.3 x10*3/uL [facility] Imm Gran Abs Auto 0.01 0.00 - 0.03 X10*3/uL [facility] Lymphocytes Absolute Auto 1.5 1.2 - 4.9 X10*3/uL [facility] Monocytes Absolute Auto 0.2 0.1 - 1.2 X10*3/uL [facility] Eosinophils Absolute Auto 0.2 0.0 - 0.4 X10*3/uL [facility] Basophils Absolute Auto 0.1 0.0 - 0.2 X10*3/uL [facility] NRBC Abs Auto 0.000 0.0 - 0.012 X10*3/uL [facility] Blood Venous blood specimen / Unknown 01/04/2025 9:35 AM EDT 01/04/2025 9:35 AM EDT us Naomi Montague MD LAB BLOOD ORDERABLES Final Re sult [facility] [address] [place] [address] [phone] * (ABNORMAL) CBC (01/04/2025 9:35 AM EDT) Only the most recent of3 resultswithin the time period is included. White Blood Count 4.7(L) 4.8 - 10.8 X10*3/uL [facility] Red Blood Count 4.31 4.20 - 5.50 X10*6/uL [facility] Hemoglobin 12.0 12.0 - 16.0 g/dl [facility] Hematocrit 35.4(L) 37.0 - 47.0 % [facility] Mean Corpuscular Volume 82.1 80.0 - 98.0 fL [facility] Mean Corpuscular Hemoglobin 27.8 27.0 - 33.0 pg [facility] Mean Corpuscular HGB Conc 33.9 31.0 - 35.0 g/dl [facility] Red Cell Distribution Width 12.3 11.0 - 16.0 % [facility] Platelet Count 210 160 - 400 X10*3/uL [facility] Mean Platelet Volume 10.1 9.4 - 12.3 fL [facility] NRBC Pct Auto 0.0 0.0 - 0.2 /100WBC [facility] NRBC Abs Auto 0.000 0.0 - 0.012 X10*3/uL [facility] 01/04/2025 9:35 AM EDT 01/04/2025 9:35 AM EDT us Generic External Data Provider LAB BLOOD ORDERAB LES Final Result [facility] [address] [place] [address] [phone] * POCT Glucose (01/01/2025 10:36 AM EDT) Only the most recent of3 resultswithin the time period is included. Glucose Blood, POC 165 60 - 200 mg/dL QC Media Lot # [id number] Lot# Expiration Date Blood Capillary blood specimen / Unknown 01/01/2025 10:36 AM EDT Naomi Montague MD POINT OF CARE TEST ENTER/EDIT ORDERABLES Final Result * Iron And Total Iron Binding Capacity (12/18/2024 8:52 AM EDT) Only the most recent of2 resultswithin the time period is included. Pathologist [facility] Iron 40 30 - 160 mcg/dL [facility] Total Iron Binding Capacity 274 228 - 428 mcg/dL [facility] Percent Iron Saturation 15 15 - 50 % [facility] Unsaturated Iron Binding 234 ug/dL [facility] 12/18/2024 8:52 AM EDT 12/18/2024 8:52 AM EDT Generic External Data Provider LAB BLOOD ORDERAB LES Final Result Performing Organization Address City/[facility]/ZIP Co de Phone Number [facility] [address] [place] [phone] * Ferritin (12/18/2024 8:52 AM EDT) Only the most recent of2 resultswithin the time period is included. Pathologist [facility] Ferritin 67 10 - 250 ng/mL [facility] 12/18/2024 8:52 AM EDT 12/18/2024 8:52 AM EDT Generic External Data Provider LAB BLOOD ORDERAB LES Final Result Performing Organization Address City/[facility]/ZIP Co de Phone Number [facility] [address] [place] [phone] * Type and screen (12/01/2024 2:40 PM EDT) Pathologist [facility] Blood Type BP [facility] Antibody Screen NEGATIVE [facility] 12/01/2024 2:40 PM EDT 12/01/2024 2:54 PM EDT Narrative [facility] - 12/01/2024 3:37 PM EDT Witnessed by ANKURR us Generic External Data Provider LAB BLOOD BANK TE ST ORDERABLES Final Result Performing Organization Address City/[facility]/ZIP Co de Phone Number [facility] [address] [place] [address] [phone] * Hold Lavender - Possible Hematology (11/23/2024 1:21 PM EDT) Hold Lavender - Possible Hematololgy SEE NOTE [facility] Comment:Specimen will be hel d untested for 8 hours. Call Hematologyif testing is desired. 11/23/2024 1:21 PM EDT 11/23/2024 2:01 PM EDT us Naomi Montague MD HISTORICAL/NON ORDERABLE LABS Final Result Performing Organization Address [facility]/ZIP Co de Phone Number [facility] [address] [place] [phone] * Vitamin B12 (Cobalamin) and Folate Panel, Serum (11/23/2024 1:21 PM EDT) Vitamin B12 237 200 - 900 pg/mL [facility] Comment:NORMAL 200-900 PG/ML INDETERMINATE 160-199 PG/ML DEFICIENT < 160 PG/ML Folate 10.8 > or = 4.0 ng/mL [facility] Comment:Reference Values:> o r = [...] ORDERABLES Final Re sult Performing Organization Address City/[facility]/ZIP Co de Phone Number [facility] [address] [place] [phone] * TSH W/Reflex to FT4 (11/23/2024 1:21 PM EDT) TSH reflex Free T4 1.81 0.32 - 4.0 uIU/mL [facility] Blood Venous blood specimen / Unknown 11/23/2024 1:21 PM EDT 11/23/2024 1:21 PM EDT Naomi Montague MD LAB BLOOD ORDERABLES Final Re sult Performing Organization Address [facility] Co de Phone Number [facility] [address] [place] [phone] * (ABNORMAL) Hemoglobin Electrophoresis (11/23/2024 1:21 PM EDT) RBC 3.02(A) 3.80 - 5.10 Million/u L [facility] Hemoglobin 8.2(A) 11.7 - 15.5 g/dL [facility] Hematocrit 25.9(A) 35.0 - 45.0 % [facility] MCV 85.8 80.0 - 100.0 fL [facility] MCH 27.2 27.0 - 33.0 pg [facility] RDW 12.8 11.0 - 15.0 % [facility] Hemoglobin A 98.0 >96.0 % [facility] Hemoglobin A2 2.0 2.0 - 3.2 % [facility] Hemoglobin F <1.0 <2.0 % [facility] Hemoglobin S TNP [facility] Hemoglobin C TNP [facility] Hemoglobin E TNP [facility] Other Hemoglobin TNP [facility] Other Hemoglobin 2 TNP [facility] Hgb Interpretation SEE NOTE H [facility] Comment:Normal phenotype.THI S TEST WAS PERFORMED AT:[email or web address] [place] [id number] FRENCH MD Blood Venous blood specimen / Unknown 11/23/2024 1:21 PM EDT 11/23/2024 1:21 PM EDT us Naomi Montague MD LAB BLOOD ORDERABLES Final Re sult Performing Organization Address [facility]/ZIP Co de Phone Number [facility] [address] [place] [phone] * Magnesium (11/23/2024 1:21 PM EDT) Only the most recent of2 resultswithin the time period is included. Magnesium 2.2 1.6 - 2.6 mg/dL [facility] Blood Venous blood specimen / Unknown 11/23/2024 1:21 PM EDT 11/23/2024 1:21 PM EDT us Naomi Montague MD LAB BLOOD ORDERABLES Final Re sult Performing Organization Address [facility] de Phone Number [facility] [address] [place] [phone] * (ABNORMAL) Lipid Panel, Standard (11/23/2024 1:21 PM EDT) Triglycerides 164(H) <150 mg/dL [facility] Comment:Desirable Triglyceri de: less than 150 mg/dLBorderline High Triglyceride 150-199 mg/dLHigh Triglyceride: 200-499 mg/dLVery High Triglyceride: greater than or equal to 5OO mg/dL Cholesterol 128 <200 mg/dL [facility] Comment:Desirable Cholestero l: less than 200 mg/dLBorderline High Cholesterol: 200-239 mg/dLHigh Cholesterol: greater than 239 mg/dL LDL Cholesterol Calculated 62 <100 mg/dL [facility] Comment:Desirable LDL: less than 100 mg/dLNear Optimal/Above Optimal LDL: 110- 129 mg/dLBorderline High LDL: 130-159 mg/dLHigh LDL: 160-189 mg/dLVery High LDL: greater than or equal to 190 mg/dL HDL Cholesterol 34(L) >40 mg/dL [facility] Comment:Desirable HDL: great er than 40 mg/dL Note: This HDL assay may give artificially low results in patients with liver disease. Blood Venous blood specimen / Unknown 11/23/2024 1:21 PM EDT 11/23/2024 1:21 PM EDT us Naomi Montague MD LAB BLOOD ORDERABLES Final Re sult [facility] [address] [place] [phone] * (ABNORMAL) Comprehensive Metabolic Panel (11/23/2024 1:21 PM EDT) Sodium 143 135 - 145 mmol/L [facility] Potassium 3.5 3.3 - 5.1 mmol/L [facility] Chloride 108 96 - 108 mmol/L [facility] Carbon Dioxide 29 22 - 29 mmol/L [facility] Anion Gap 10(L) 12 - 20 [facility] Urea Nitrogen (BUN) 14 9 - 16 mg/dL [facility] Creatinine, Serum 0.67 0.5 - 1.4 mg/dL [facility] Estimated Glomerular Filt Rate >60 [facility] Comment:Chronic Kidney Disea se: Estimated GFR < 60 mL/min/[id number] Kidney Disease: Estimated GFR < 15 mL/min/1.73m2 Glucose 154(H) 60 - 115 mg/dL [facility] Calcium 8.9 8.4 - 10.2 mg/dL [facility] Bilirubin, Total 0.3 0.0 - 1.0 mg/dL [facility] Aspartate Amino Transferase 22 5 - 31 U/L [facility] Alanine Aminotransferase 25 0 - 31 U/L [facility] Total Protein 6.1(L) 6.5 - 8.0 g/dL [facility] Albumin Level 4.3 3.5 - 5.0 g/dL [facility] Alkaline Phosphatase 49 39 - 117 U/L [facility] Blood Venous blood specimen / Unknown 11/23/2024 1:21 PM EDT 11/23/2024 1:21 PM EDT us Naomi Montague MD LAB BLOOD ORDERABLES Final Re sult Performing Organization Address [facility] Co de Phone Number [facility] [address] [place] [phone] * High Sensitivity Troponin I (11/21/2024 12:49 PM EDT) [facility] TROPONIN I HIGH SENSITIVITY 3.2 <3.5 - 17.0 ng/L [facility] Comment:The Catalan high sens itivity Troponin-I results should beused in conjunction with other diagnostic information suchas ECG, clinical observations and information, and patientsymptoms to aid in the diagnosis of MD. 11/21/2024 12:4 9 PM EDT 11/21/2024 12:52 PM EDT us Generic External Data Provider LAB BLOOD ORDERAB LES Final Result Performing Organization Address [facility] de Phone Number [facility] [address] [place] [phone] * Hepatic Function Panel (11/21/2024 12:49 PM EDT) Bilirubin, Total 0.3 0.0 - 1.0 mg/dL [facility] Bilirubin, Direct 0.1 0.0 - 0.5 mg/dL [facility] Aspartate Amino Transferase 19 5 - 31 U/L [facility] Alanine Aminotransferase 23 0 - 31 U/L [facility] Total Protein 6.5 6.5 - 8.0 g/dL [facility] Albumin Level 4.5 3.5 - 5.0 g/dL [facility] Alkaline Phosphatase 53 39 - 117 U/L [facility] 11/21/2024 12:4 9 PM EDT 11/21/2024 12:52 PM EDT us Generic External Data Provider LAB BLOOD ORDERAB LES Final Result Performing Organization Address City/[facility] Co de Phone Number [facility] [address] [place] [phone] * (ABNORMAL) Basic Metabolic Panel (11/21/2024 12:49 PM EDT) Sodium 141 135 - 145 mmol/L [facility] Potassium 4.0 3.3 - 5.1 mmol/L [facility] Chloride 106 96 - 108 mmol/L [facility] Carbon Dioxide 25 22 - 29 mmol/L [facility] Anion Gap 14 12 - 20 [facility] Urea Nitrogen (BUN) 36(H) 9 - 16 mg/dL [facility] Creatinine, Serum 0.80 0.5 - 1.4 mg/dL [facility] Creatinine Clr Calc Pharmacy 65.4 [facility] Comment:Provided height and weight: 160.02 cm,63.503 kg.eGFR (calculated from the MDRD study equation) and eCrCl(calculated from the Cockcroft-Gault equation) are based ondifferent parameters and may not yield comparable results.If eCrCl result is absurd, please check patient'sheight/weight. Estimated Glomerular Filt Rate >60 [facility] Comment:Chronic Kidney Disea se: Estimated GFR < 60 mL/min/[id number] Kidney Disease: Estimated GFR < 15 mL/min/1.73m2 Glucose 206(H) 60 - 115 mg/dL [facility] Calcium 9.1 8.4 - 10.2 mg/dL [facility] 11/21/2024 12:4 9 PM EDT 11/21/2024 12:52 PM EDT us Generic External Data Provider LAB BLOOD ORDERAB LES Final Result [facility] [address] [place] [phone] * (ABNORMAL) Glucose, Whole Blood (11/21/2024 12:12 PM EDT) Only the most recent of2 resultswithin the time period is included. Glucose, Whole Blood 140(H) 60 - 115 mg/dL [facility] Comment:METER #: [id number] 11/21/2024 12:1 2 PM EDT 11/23/2024 9:16 AM EDT us Generic External Data Provider LAB BLOOD ORDERAB LES Final Result Performing Organization Address [facility] Co de Phone Number [facility] [address] [place] [phone] * Hematoxylin and Eosin Stain (11/20/2024 8:44 AM EDT) 11/20/2024 8:44 AM EDT 11/20/2024 10:00 AM EDT Tamara [facility] - 11/26/2024 4:34 PM EDT ----- ------- Name: Ru Sun Age/Sex: 64/F : 1960 Unit#: [id number] Attend Dr: Brittny Jean-Baptiste MD Re11/20/24 Status: [facility] Location: [facility] Disch: ----- ------- SPEC : [id number] RECD: 11/20/24 STATUS: AVIVA FAULKNER NUM: [id number] KARINE: 11/20/24-[address]: Brittny Jean-Baptiste MD ENTERED: 11/20/24-1016 SP TYPE: Surgical OTHR DR: Naomi Montague MD ORDERED: HE Stain/30, Gross Micro L4/12, IHC/5, H. pylori/5 Addendum Addendum 1 Entered: 11/26/24-1633 (L): Multiple additional tissue levels show focal minimal hyperplastic changes and no adenomatous dysplasia is seen. Scattered lamina propria foamy macrophages are noted. Addendum Signed (signature on file) Laurel Brittanie 11/26/24 1634 ----- ------- Diagnosis A. Duodenum, [...] Ru Sun Age/Sex: 64/F : 1960 Unit#: [id number] Attend Dr: Brittny Jean-Baptiste MD Re11/20/24 Status: [facility] Location: [facility] Disch: ----- ------- SPEC : [id number] RECD: 11/20/24 STATUS: AVIVA FAULKNER NUM: [id number] KARINE: 11/20/[address] [facility] [address]: Brittny Jean-Baptiste MD ENTERED: 11/20/24-1015 SP TYPE: Surgical OTHR DR: Naomi Montague MD ORDERED: HE Stain/, Gross Micro L4/12, IHC/5, H. pylori/5 Diagnosis [...] Ru Sun Age/Sex: 64/F : 1960 Unit#: [id number] Attend Dr: Brittny Jean-Baptiste MD Re11/20/24 Status: [facility] Location: [facility] Disch: ----- ------- SPEC : [id number] RECD: 11/20/24-999 STATUS: AVIVA FAULKNER NUM: [id number] KARINE: 11/20/24-[address] [facility] [address]: Birttny Jean-Baptiste MD ENTERED: 11/20/24-1015 SP TYPE: Surgical OTHR DR: Naomi Montague MD ORDERED: HE Stain/, Gross Micro L4/12, IHC/5, H. pylori/5 Gross [...] examination, 1 piece in cassette L. ([facility]) CONTINUED ON NEXT PAGE ----- ------- Name: Ru Sun Age/Sex: 64/F : 1960 Unit#: [id number] Attend Dr: Brittny Jean-Baptiste MD Re11/20/24 Status: [facility] Location: [facility] Disch: ----- ------- SPEC : [id number] RECD: 11/20/24-999 STATUS: [facility] NUM: [id number] KARINE: 11/20/[address] [facility] [address]: Brittny Jean-Baptiste MD ENTERED: 11/20/24-1015 SP [...] developed and their performance characteristics determined by [facility]. They have not been cleared or approved by the U.S. Food and Drug Administration (FDA). However, the FDA has determined that such clearance or approval is not necessary. This laboratory is certified under the Clinical Laboratory Improvement Amendments of 1988 (CLIA) as qualified to perform high complexity clinical laboratory testing. Copies To: Naomi Montague MD [address] [place] [id number] Brittny Jean-Baptiste MD [facility] [place] [place] [facility] [address] [place] [phone] [email or web address] ----- ------- Signed (signature on file) Laurel [place] 11/23/24 1404 ----- ------- END OF REPORT us Generic External Data Provider LAB BLOOD ORDERAB LES Final Result [facility] [address] [place] [phone] * (ABNORMAL) POCT HGB A1C (10/30/2024 [...] PM EDT) Hepatitis C Antibody Nonreactive Nonreactive [facility] Comment:Antibodies to HCV no t detected; does not exclude early acuteHCV infection. 07/24/2024 1:38 PM EDT 07/24/2024 1:38 PM EDT Generic External Data Provider LAB BLOOD ORDERAB LES Final Result [facility] [address] [place] [address] [phone] * Cologuard?? colon cancer screening (02/05/2023 5:40 AM EDT) Cologuard Result Negative Negative 02/14/20 2:34 AM EDT [employer] (CLIA #:[id number]) Comment: NEGATIVE TEST RESULT. A negative Cologuard [...] Monte et al, N Engl J Med 2014;370(14):3547-9535) The normal value (reference range) for this assay is negative. COLOGUARD RE-SCREENING RECOMMENDATION: Periodic colorectal cancer screening is an important part of preventive healthcare for asymptomatic individuals at average risk for colorectal cancer. Following a negative Cologuard result, the [place] Cancer Society and U.S. Multi-Society Task Force screening guidelines recommend a Cologuard re-screening interval of 3 years. References: [place] Cancer Society Guideline for Colorectal Cancer Screening: https://www.cancer.org/cancer/oails-nukbrw-svjqqd/buuriawaa-cvtbkruvk-qvllgox/ac s-rec ommendations.html.; Abdulkadir DK, Zi CR, Luzmaria PrakashK, Colorectal Cancer Screening: Recommendations for Physicians and Patients from the U.S. Multi-Society Task Force on Colorectal Cancer Screening , Am J Gastroenterology 2017; 112:4272-2126. TEST DESCRIPTION: Composite algorithmic analysis of stool [...] (Dickson Sampson al, N Engl J Med 2014;370(14):9597-9190.) Cologuard may produce a false negative or false positive result (no colorectal cancer or precancerous polyp present at colonoscopy follow up). A negative Cologuard test result does not guarantee the absence of CRC or advanced adenoma (pre-cancer). The current Cologuard screening interval is every 3 years. ([place] Cancer Society and U.S. Multi-Society Task Force). Cologuard performance data in a 10,000 patient pivotal study using colonoscopy as the reference method can be accessed at the following location: www.CareDox.Superbac/results. Additional description of the Cologuard test process, warnings and precautions can be found at www.Sanswirerd.com. Stool specimen (specimen) 02/05/2023 5:40 AM EDT 02/06/2023 9:11 PM EDT us Naomi Montague MD LAB MOLECULAR DIAGNOSTICS ORD ERABLES Final Result [employer] (CLIA #:[id number]) [place] [address], * ALBUMIN, RANDOM URINE W/CREATININE (02/02/2022 8:49 [...] Maintenance Insurance [facility] MED DENTAL - HSN PARTIAL (MEDICAID) DENTAL - HSN PARTIAL (MEDICAID) Care Teams Psychologist Personnel Relationship Specialty Start Date End Date Naomi Montague MD [address] [place] [phone] PCP - General Family Medicine 02/[facility]22 [facility]
--- OUTSIDE RECORDS SUMMARY | 2025-01-04 10:44 | XMS_ITS | Clinical Summary ---
Author Organization [facility] Address [address] [place] [address] Phone Care Team Providers Care Coding Advisor Name Role Phone Swapna Maravilla MD Primary Care Provider + Allergies No known active allergies Medications oxyCODONE 5 MG immediate release tablet Take 1 tablet (5 mg total) by mouth every 4 (four) hours as needed for moderate pain. 10 tablet 7 Active Additional Information Patient not taking.Reported on 02/14/2017 Ca cit-D3-mag#[id number] r (CALTRATE 600+D) 600 mg calcium- 800 [...] Advance Directives For more information, please contact: [phone] (9AM - 5PM [facility], Saturday-Saturday) * Full Code (Presumed) (Latest Code Status on File) Date Activated Date Inactivated Comments 02/20/2017 6:24 AM 02/20/2017 7:04 PM Care Teams Coding Advisor Relationship Specialty Start Date End Date Swapna Maravilla MD [address] [place] [address] PCP - General Family Medicine 5/23/17 Additional Source Comments The information contained in this document represents components of the legal health record. It is not the complete legal health record.[facility]
--- OUTSIDE RECORDS SUMMARY | 2025-01-04 10:44 | XMS_ITS | Encounter Summary ---
Author Organization [employer] Address [address] [facility] 7t [place] [address] Care Team Providers Care Lamination Machine Operator Name Role Phone Naomi Montague MD Primary Care Provider [phone] Encounter Details Date Type Department Care Team (Latest Contact Info) Description 01/01/2025 Travel Social History Tobacco Use Types Packs/Day Years [...] Description 01/07/2025 1:00 PM EDT Clinical Support [facility] MED & PEDS [address] [place] [address] 02/26/2025 10:15 AM EST Office Visit [facility] ADULT DENTAL [address] [place] [address] Gaurang Stevenosn 04/30/2025 1:00 PM EST Office Visit [facility] OPTOMETRY [address] [place] [address] Carloz, Kristi, OD [address] [place] [address] documented as of this encounter Visit Diagnoses Not on filedocumented in this encounter Additional Health Concerns Assessment Noted Time PHQ-9 Depression Total Score: 2 04/30/19 9:35 AM EST documented as of this encounter Care Teams Lamination Machine Operator Relationship Specialty Start Date End Date Naomi Montague MD [address] [place] [address] PCP - General Family Medicine 02/01/22 [facility] documented as of this encounter
--- OUTSIDE RECORDS SUMMARY | 2025-01-04 10:44 | XMS_ITS | Encounter Summary ---
Author Organization [employer] Address [address] [place] [address] 7t [place] [address] Care Team Providers Care Master In Chancery Name Role Phone Naomi Montague MD Primary Care Provider [phone] Reason for Visit * Reason Onset Date Comments Nurse Triage 11/30/2024 Encounter Details Date Type Department Care Team ([facility] st Contact Info) Description 11/30/2024 Telephone C [facility]S [address] [place] [address] Naomi Montague MD [address] [place] [address] Nurse Triage Social History Tobacco Use Types [...] original date of apt which is 01/01/25. [facility], COMMISSIONER PUBLIC WORKS to Me Naomi Montague MD [facility] Med & Peds Nurses (Selected Message) FW [...] unusual colored stools. Pt is advised this senior medical writer will forward this request to [facility] nursing team for possible earlier [...] caller accepted this outcome. Contact pt at [phone] (pt needs kuwaiti funeral planning counselor , speaks marshallese on HIPAA) documented in this encounter Plan of Treatment Upcoming Encounters Date Type Department Care Team (Late st Contact Info) Description 01/07/2025 1:00 PM EDT Clinical Support [facility] MED & PED[facility] [address] [place] [address] 02/26/2025 10:15 AM EST Office Visit [facility] ADULT DENTAL [address] [place] [address] Gaurang Stevenson 04/30/2025 1:00 PM EST Office Visit [facility] OPTOMETRY [address] [place] [address] Kristi Carty, OD [address] [place] [address] documented as of this encounter Visit Diagnoses Not on filedocumented in this encounter Additional Health Concerns Assessment Noted Time PHQ-9 Depression Total Score: 2 04/30/19 9:35 AM EST documented as of this encounter Care Teams Master In Chancery Relationship Specialty Start Date End Date Naomi Montague MD [address] [place] [address] PCP - General Family Medicine 02/01/22 Geri ALVARENGA 11/30/24 documented as of this encounter
--- OUTSIDE RECORDS SUMMARY | 2025-01-04 10:44 | XMS_ITS | Encounter Summary ---
Author Organization [employer] Address [address] [facility] 7t [place] [address] Care Team Providers Care Cytogenetics Technologist Name Role Phone Naomi Montague MD Primary Care Provider [phone] Encounter Details Date Type Department Care Team (Late st Contact Info) Description 01/04/2025 Orders Only GENERIC EXTERNAL DATA [...] Description 01/07/2025 1:00 PM EDT Clinical Support [facility] MED & PEDS [address] [place] [address] 02/26/2025 10:15 AM EST Office Visit [facility] ADULT DENTAL [address] [place] [address] Gaurang Stevenson 04/30/2025 1:00 PM EST Office Visit [facility] OPTOMETRY [address] [place] [address] CarlozAbiodunn, OD [address] [place] [address] documented as of this encounter Procedures Procedure Name Priority Date/Time Associated Diagnosis Comments CBC Routine 01/04/2025 9:35 AM EDT documented in this encounter Results * (ABNORMAL) CBC (01/04/2025 9:35 AM EDT) White Blood Count 4.7(L) 4.8 - 10.8 X10*3/uL [facility] Red Blood Count 4.31 4.20 - 5.50 X10*6/uL [facility] Hemoglobin 12.0 12.0 - 16.0 g/dl [facility] Hematocrit 35.4(L) 37.0 - 47.0 % [facility] Mean Corpuscular Volume 82.1 80.0 - 98.0 fL [facility] Mean Corpuscular Hemoglobin 27.8 27.0 - 33.0 pg [facility] Mean Corpuscular HGB Conc 33.9 31.0 - 35.0 g/dl [facility] Red Cell Distribution Width 12.3 11.0 - 16.0 % [facility] Platelet Count 210 160 - 400 X10*3/uL [facility] Mean Platelet Volume 10.1 9.4 - 12.3 fL [facility] NRBC Pct Auto 0.0 0.0 - 0.2 /100WBC [facility] NRBC Abs Auto 0.000 0.0 - 0.012 X10*3/uL [facility] 01/04/2025 9:35 AM EDT 01/04/2025 9:35 AM EDT us Generic External Data Provider LAB BLOOD ORDERAB LES Final Result Performing Organization Address City/State/[facility] Co de Phone Number [facility] [address] [place] [phone] documented in this encounter Visit Diagnoses Not on filedocumented in this encounter Additional Health Concerns Assessment Noted Time PHQ-9 Depression Total Score: 2 04/30/19 25 9:35 AM EST documented as of this encounter Care Teams Cytogenetics Technologist Relationship Specialty Start Date End Date Naomi Montague MD [address] [place] [address] PCP - General Family Medicine 02/01/22 [facility] documented as of this encounter
[2025-01-04 11:15] LABS: Iron 78 mcg/dL (30-160); Percent Iron Saturation 29 % (15-50); Total Iron Binding Capacity 270 mcg/dL (228-428); Unsaturated Iron Binding 192 ug/dL
[2025-01-04 11:37] LABS: Ferritin 74 ng/mL (10-250)
[2025-01-04 11:49] LABS: Folate 11.4 ng/mL (> or = 4.0); Vitamin B12 337 pg/mL (200-900)
== END 2025-01-04 09:11 | disposition home or self-care (01) ==
LOC: HO.LAB 09:10
PROVIDERS: Absent Provider Internal Medicine; PCP Family Medicine; Visit Provider Family Medicine
DX: Z01.84 Encounter for antibody response examination (principal); E11.65 Type 2 diabetes mellitus with hyperglycemia; D50.8 Other iron deficiency anemias; H53.60 Unspecified night blindness; K92.2 Gastrointestinal hemorrhage, unspecified; R53.83 Other fatigue
CPT/HCPCS: 36415; 82043; 82570; 82607; 82728; 82746; 82985; 83540; 84590; 85025; 85027; 86850; 86900; 86901

== ENCOUNTER → 2025-01-08 07:41 | Outpatient (REF) | payer OTHER, SELFPAY ==
--- OUTSIDE RECORDS SUMMARY | 2025-01-07 13:00 | XMS_ITS | Encounter Summary ---
Author Organization [employer] Address [address] [facility] 7t [place] [address] Care Team Providers Care Legal Aide Name Role Phone Naomi Montague MD Primary Care Provider [phone] Reason for Visit * Reason Comments Immunizations Encounter Details Date Type Department Care Team (Latest Contact Info) Description 01/07/2025 1:00 PM EDT Clinical Support [facility] MED & PEDS [address] [place] [address] Apoorva Irene RN Encounter for immunization Social History Tobacco Use Types Packs/Day Years [...] as of this encounter Progress Notes * Apoorva Irene, RN - 01/07/2025 1:00 PM EDT S: Ru Crawley Chi is here for Immunizations Preferred language for medical information: Cantonese Ru Crwaley Chi denies feeling sick today. Upon review of the electronic health record there is no contraindication for receiving the Influenza vaccine today. Tolterodine and Ubidecarenone O: Influenza 0.5ml, administered to left deltoid. Injection was tolerated well. No adverse reactionnoted. A copy of the VIS informational sheet was provided and Ru Crawley Chi was advised to wait 15 minutes post vaccination for monitoring of adverse reactions. Immunization History Administered Date(s) Administered Hep A, Adult 06/22/2015 Hep A, Unspecified 12/28/2015 Hep B, Unspecified 08/17/2015, 12/28/2015 Hep B, adult 06/22/2015 Influenza Injectable Quadrivalant Preservative Free IIV4 MDCK 06/28/2023 Influenza injectable quadrivalent preservative free 01/29/2020, 01/27/2021, 02/01/2022, 01/11/2023 Influenza, seasonal, injectable, preservative free 03/27/2024 Moderna Covid-19 Vaccine 6+ Bivalent 03/10/2022 Pfizer Covid-19 Vaccine 12+ 07/23/2020, 08/13/2020, 03/17/2021, 07/12/2023 Pneumococcal Conjugate PCV 20 03/27/2024 RSV Bivalent 06/28/2023 Tdap 10/29/2011, 03/27/2024 Zoster, Recombinant 02/02/2022, 04/06/2022 A: Encounter for Immunization P: Ru Crawley Chi to follow up as needed. VIS sheet handed to patient in patient language. Apoorva Irene RN documented in this encounter Plan of Treatment Upcoming Encounters Date Type Department Care Team (Late st Contact Info) Description 02/26/2025 10:15 AM EST Office Visit [facility]C ADULT DENTAL [address] [place] [address] Gaurang Stevenson 04/30/2025 1:00 PM EST Office Visit [facility] OPTOMETRY [address] [place] [address] CarlozKristi navarro, OD [address] [place] [address] documented as of this encounter Visit Diagnoses Diagnosis Encounter for immunization documented in this encounter Additional Health Concerns Assessment Noted Time PHQ-9 Depression Total Score: 2 04/30/19 9:35 AM EST documented as of this encounter Care Teams Legal Aide Relationship Specialty Start Date End Date Naomi Montague MD [address] [place] [address] PCP - General Family Medicine 02/01/22 documented as of this encounter
--- NOTE | ~2025-01-08 | NM_ITS ---
EXAMINATION: NM HEPATOBILIARY WITH PHARM HISTORY: R10.12 - Left upper quadrant pain. TECHNIQUE: An hepatobiliary scan was performed following the intravenous administration of 5 mCi technetium 99m-mebrofenin. Sequential images were obtained over 1 hour. Subsequently, the patient received 1.3 microgram of IV CCK over 30 minutes and additional imaging was performed. COMPARISON: Correlation is made with an MRI of the abdomen dated 07/31/2024. FINDINGS: There is normal uptake and excretion of the radiopharmaceutical by the liver. Gallbladder activity is noted at 16 minutes. Common bile duct activity is seen at 26 minutes. Small bowel activity is noted at 30 minutes. After the administration of intravenous CCK, the estimated gallbladder ejection fraction is 59%, which is within normal limits (normal 35-80%). NM/NM hepatobiliary w pharm IMPRESSION: Normal hepatobiliary scan with normal gallbladder ejection fraction. Electronically signed by: Ko Omer MD 01/08/2025 11:12 AM EDT
--- OUTSIDE RECORDS SUMMARY | 2025-01-08 07:43 | XMS_ITS | Encounter Summary ---
Author Organization [employer] Address [address] [facility] 7t [place] [address] Care Team Providers Care Tool Machine Setup Operator Name Role Phone Naomi Montague MD Primary Care Provider [phone] Encounter Details Date Type Department Care Team [...] Description 02/26/2025 10:15 AM EST Office Visit [facility] CHC ADULT DENTAL [address] [place] [address] aGurang Stevenson 04/30/2025 1:00 PM EST Office Visit [facility] OPTOMETRY [address] [place] [address] CarlozKristi, OD [address] [place] [address] documented as of this encounter Procedures Procedure Name Priority Date/Time Associated Diagnosis Comments VITAMIN B12/FOLATE, SERUM PANEL Routine 01/04/2025 9:35 AM EDT CBC Routine 01/04/2025 9:35 AM EDT TYPE AND SCREEN Routine 01/04/2025 9:24 AM EDT documented in this encounter Results * Vitamin B12 (Cobalamin) and Folate Panel, Serum (01/04/2025 9:35 AM EDT) Vitamin B12 337 200 - 900 pg/mL [facility] Comment:NORMAL 200-900 PG/ML INDETERMINATE 160-199 PG/ML DEFICIENT < 160 PG/ML Folate 11.4 > or = 4.0 ng/mL [facility] Comment:Reference Values:> o r = 4.0 ng/mL< 4.0 ng/mL suggests folate deficiency Methotrexate, aminopterin and folinic acid(leucovorin) are chemotherapeutic agents whose molecularstructures are similar to folate; therefore, the Architectfolate assay cannot be used for patients using these drugs. 01/04/2025 9:35 AM EDT 01/04/2025 9:35 AM EDT us Generic External Data Provider LAB BLOOD ORDERAB LES Final Result Performing Organization Address City/[facility]/ZIP Co de Phone Number [facility] [address] [place] [phone] * (ABNORMAL) CBC (01/04/2025 9:35 AM EDT) White Blood Count 4.7(L) 4.8 - 10.8 X10*3/uL [facility] Red Blood Count 4.31 4.20 - 5.50 X10*6/uL [facility] Hemoglobin 12.0 12.0 - 16.0 g/dl [facility] Hematocrit 35.4(L) 37.0 - 47.0 % [facility] Mean Corpuscular Volume 82.1 80.0 - 98.0 fL [facility] Mean Corpuscular Hemoglobin 27.8 27.0 - 33.0 pg [facility] Mean Corpuscular HGB Conc 33.9 31.0 - 35.0 g/dl [facility] Red Cell Distribution Width 12.3 11.0 - 16.0 % [facility] Platelet Count 210 160 - 400 X10*3/uL [facility] Mean Platelet Volume 10.1 9.4 - 12.3 fL [facility] NRBC Pct Auto 0.0 0.0 - 0.2 /100WBC [facility] NRBC Abs Auto 0.000 0.0 - 0.012 X10*3/uL [facility] 01/04/2025 9:35 AM EDT 01/04/2025 9:35 AM EDT us Generic External Data Provider LAB BLOOD ORDERAB LES Final Result [facility] [address] [place] [address] [phone] * Type and screen (01/04/2025 9:24 AM EDT) Blood Type BP [facility] Antibody Screen NEGATIVE [facility] 01/04/2025 9:24 AM EDT 01/04/2025 10:11 AM EDT Narrative [facility] - 01/04/2025 11:06 AM EDT Witnessed by DIANE us Generic External Data Provider LAB BLOOD BANK ST ORDERABLES Final Result Performing Organization Address [facility] Co de Phone Number [facility] [address] [place] [address] [phone] documented in this encounter Visit Diagnoses Not on filedocumented in this encounter Additional Health Concerns Assessment Noted Time PHQ-9 Depression Total Score: 2 04/30/19 25 9:35 AM EST documented as of this encounter Care Teams Tool Machine Setup Operator Relationship Specialty Start Date End Date Naomi Montague MD [address] [place] [address] PCP - General Family Medicine 02/01/22 documented as of this encounter
--- OUTSIDE RECORDS SUMMARY | 2025-01-08 07:43 | XMS_ITS | Encounter Summary ---
Author Organization [employer] Address [address] [place] [address] 7t [place] [address] Care Team Providers Care Conditioner Tumbler Name Role Phone Naomi Montague MD Primary Care Provider [phone] Reason for Visit * Reason Onset Date Comments Nurse Triage 11/30/2024 Encounter Details Date Type Department Care Team ([facility] st Contact Info) Description 11/30/2024 Telephone C [facility] [address] [place] [address] Naomi Montague MD [address] [place] [address] Nurse Triage Social History Tobacco Use Types [...] original date of apt which is 01/01/25. [facility], SOLAR ENERGY CONSULTANT AND DESIGNER to Me Naomi Montague MD [facility] Med & Peds Nurses (Selected Message) [...] unusual colored stools. Pt is advised this verse writer will forward this request to [facility] nursing team for possible earlier [...] caller accepted this outcome. 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 algerian engine manager , speaks sudanese on HIPAA) documented in this encounter Plan of Treatment Upcoming Encounters Date Type Department Care Team (Late st Contact Info) Description 02/26/2025 10:15 AM EST Office Visit [facility] CHC ADULT DENTAL [address] [place] [address] Gaurang Stevenson 04/30/2025 1:00 PM EST Office Visit [facility] OPTOMETRY [address] [place] [address] Carloz, Kristi, OD [address] [place] [address] documented as of this encounter Visit Diagnoses Not on filedocumented in this encounter Additional Health Concerns Assessment Noted Time PHQ-9 Depression Total Score: 2 04/30/19 9:35 AM EST documented as of this encounter Care Teams Conditioner Tumbler Relationship Specialty Start Date End Date Naomi Montague MD [address] [place] [address] PCP - General Family Medicine [facility] 01/[facility]25 documented as of this encounter
--- OUTSIDE RECORDS SUMMARY | 2025-01-08 07:43 | XMS_ITS | Encounter Summary ---
Author Organization [employer] Address [address] [facility] [address]t [place] [address] Care Team Providers Care Supervisor Post Wave Name Role Phone Naomi Montague MD Primary Care Provider [phone] Encounter Details Date Type Department Care Team (Latest Contact Info) Description 01/07/2025 Travel Social History Tobacco Use Types Packs/Day [...] 02/26/2025 10:15 AM EST Office Visit [facility] CHC ADULT DENTAL [address] [place] [address] Gaurang Stevenson 04/30/2025 1:00 PM EST Office Visit [facility] OPTOMETRY [address] [place] [address] Carloz, Kristi, OD [address] [place] [address] documented as of this encounter Visit Diagnoses Not on filedocumented in this encounter Additional Health Concerns Assessment Noted Time PHQ-9 Depression Total Score: 2 04/30/19 25 9:35 AM EST documented as of this encounter Care Teams Supervisor Post Wave Relationship Specialty Start Date End Date Naomi Montague MD [address] [place] [address] PCP - General Family Medicine 02/01/22 documented as of this encounter
--- OUTSIDE RECORDS SUMMARY | 2025-01-08 07:43 | XMS_ITS | Clinical Summary ---
Author Organization [employer] Address [address] [place] [address] [address] [place] [address] Care Team Providers Care Salvager Name Role Phone Naomi Montague MD Primary Care Provider [phone] Allergies Active Allergy Reactions Criticality Noted Date Comments Tolterodine Swelling 04/02/2022 Ubidecarenone Itching 02/08/2023 Medications Lancets 33G misc Use to check blood sugar daily as directed Active Blood Glucose Monitoring Suppl (FreeStyle Stratford Lite) w/Device kit TEST BLOOD SUGAR DAILY [...] BEDTIME 90 capsule 1 5 Active PEG 7307-OXi-VeJrd-NaCl -NaSulf (PEG-3350/Electroly leon) 236 g reconstituted solution [...] (10/05/2022 2:46 PM EDT): Patient seen by director mobile and had FNA done for mass on neck. Biopsy results given to patient and was recommended for surgery with no diagnoses. Per industrial sales representative at [facility], Appointment scheduled with general surgeon for Jan 04 @ 9:30 Dr. Connolly at [facility], General surgeon specialty in thyroid. Assessment & [...] Encounters Date Type Department Care Team Description 01/07/2025 1:00 PM EDT Clinical Support [facility] [address] [place] [address] Apoorva Irene RN Encounter for immunization 01/07/2025 Travel 01/04/2025 Orders Only GENERIC EXTERNAL DATA DEPARTMENT Provider, Generic External Data 01/01/2025 9:45 AM EDT Office Visit [facility] [address] [place] [address] Naomi Montague MD Type 2 diabetes mellitus with hyperglycemia, without long-term current use of insulin ([facility]) (Primary Dx); Iron deficiency anemia secondary to inadequate dietary iron intake 01/01/2025 Travel 12/28/2024 Telephone [facility] [address] [place] [address] Naomi Montague MD 12/18/2024 Orders Only GENERIC EXTERNAL DATA DEPARTMENT Provider, Generic External Data 12/17/2024 8:00 AM EDT Office Visit [facility] [address] [place] [address] Patel Montague DDS 12/01/2024 Orders Only GENERIC EXTERNAL DATA DEPARTMENT Provider, Generic External Data 11/30/2024 Patient Outreach [facility] [address] [place] [address] Naomi Montague MD Transition Of Care (Tcm) (HDF unscheduled. ) 11/30/2024 Telephone [facility] [address] [place] [address] Naomi Montague MD Nurse Triage 11/30/2024 Telephone [facility] [address] [place] [phone] Naomi Montague MD Hospital Follow-up 11/23/2024 Telephone [facility] [address] [place] [address] Naomi Montague MD Results; Care Coordination 11/23/2024 Telephone [facility] [address] [place] [address] Jossy Stevenson MD Results 11/23/2024 Orders Only [facility] [address] [place] [address] Naomi Montague MD 11/21/2024 Orders Only GENERIC EXTERNAL DATA DEPARTMENT Provider, Generic External Data 11/20/2024 Orders Only GENERIC EXTERNAL DATA DEPARTMENT Provider, Generic External Data 11/13/2024 Refill [facility] [address] [place] [address] Martha Buenrostro MD Mixed hyperlipidemia 10/30/2024 9:00 AM EDT Office Visit [facility] [address] [place] [address] Naomi Montague MD Type 2 diabetes mellitus with hyperglycemia, without long-term current use of insulin ([facility]) (Primary Dx); Microcytosis; Plantar fasciitis of left foot; Cramps of lower extremity 10/30/2024 Travel 10/23/2024 3:00 PM EDT Office Visit [facility] [address] [place] [address] Carloz, Kristi, OD Bitemporal hemianopsia (Primary Dx) 10/23/2024 Travel 10/23/2024 Patient Outreach [facility] [address] [place] [address] Naomi Montague MD Pre-visit Planning ([facility] screening completed on 04/30/24) from Last 3 Months Immunizations Immunization Administration Dates Next Due Hep A, Adult 06/22/2015 Hep A, Unspecified 12/28/2015 Hep B, Unspecified 12/28/2015,08/17/2015 Hep B, adult 06/22/2015 Influenza Injectable Quadriv alant Preservative Free IIV4 MDCK 06/28/2023 Influenza injectable quadriv alent preservative free 01/11/2023,02/01/2022,01/27/2021,2019 Influenza, seasonal, injecta ble, preservative free 01/07/2025,03/27/2024 Pfizer Covid-19 Vaccine 12+ 07/12/2023,1 05/18/2020,08/13/2020,2020 Pneumococcal [...] Description 02/26/2025 10:15 AM EST Office Visit [facility] [address] [place] [address] Gaurang Stevenson 04/30/2025 1:00 PM EST Office Visit [facility] [address] [place] [address] CarlozKristi, OD [address] [place] [address] Health Maintenance Due Date Last Done Comments CT Colonography 1960 Colonoscopy 1960 FIT 1960 HIV Screening 1960 Sigmoidoscopy 1960 Disability Screening 1960 Pap Smear 07/28/1983 HPV/Cotest 1992 Diabetes: Foot Exam 12/19/2022 FOBT 02/06/2024 02/05/2023 COVID-19 Vaccine ( season) 2024 07/12/2023, 03/10/2022, 03/17/2021, Additional history exists Mammogram 01/30/2025 Dental Oral [...] Mouth 12/01/2025 11/30/2022 Tobacco Screening 01/01/2026 01/01/2025 Diabetes: Urine Protein Screening 01/04/2026 01/04/2025, 02/02/2022 Colorectal Cancer Screening 02/05/2026 FIT DNA/Cologuard 02/05/2026 [...] Completed 03/27/2024 Hepatitis C Screening Completed 07/24/2024 Influenza Vaccine Completed 01/07/2025, , 06/28/2023, Additional history exists Cervical Cancer Screening Discontinued HIB Vaccines Aged [...] EDT CBC Routine 01/04/2025 9:35 AM EDT IRON AND TOTAL IRON BINDING CAPACITY Routine 01/04/2025 9:35 AM EDT Iron deficiency anemia secondary to inadequate dietary iron intake FERRITIN Routine 01/04/2025 9:35 AM EDT Iron deficiency anemia secondary to inadequate dietary iron intake CBC WITH AUTO DIFFERENTIAL Routine 01/04/2025 9:35 AM EDT Iron deficiency anemia secondary to inadequate dietary iron intake TYPE AND SCREEN Routine 01/04/2025 9:24 AM EDT ALBUMIN, RANDOM URINE W/CREATININE Routine 01/04/2025 9:23 AM EDT Type 2 diabetes mellitus with hyperglycemia, without long-term current use of insulin ([facility]) POCT GLUCOSE Routine 01/01/2025 10:36 AM EDT Type 2 diabetes mellitus with hyperglycemia, without long-term current use of insulin ([facility]) FERRITIN Routine 12/18/2024 8:52 AM EDT IRON [...] RADIOGRAPHIC IMAGES Routine 11/30/2022 8:00 AM EDT from Last 3 Months or Most Recently Relevant to Health Maintenance Results * Vitamin B12 (Cobalamin) and Folate Panel, Serum (01/04/2025 9:35 AM EDT) Only the most recent of2 resultswithin the time period is included. [facility] Vitamin B12 337 200 - 900 pg/mL [facility] Comment:NORMAL 200-900 PG/ML INDETERMINATE 160-199 PG/ML DEFICIENT < 160 PG/ML Folate 11.4 > or = 4.0 ng/mL [facility] Comment:Reference Values:> o r = 4.0 ng/mL< 4.0 ng/mL suggests folate deficiency Methotrexate, aminopterin and folinic acid(leucovorin) are chemotherapeutic agents whose molecularstructures are similar to folate; therefore, the Architectfolate assay cannot be used for patients using these drugs. 01/04/2025 9:35 AM EDT 01/04/2025 9:35 AM EDT us Generic External Data Provider LAB BLOOD ORDERAB LES Final Result [facility] [address] [place] [phone] * (ABNORMAL) CBC auto differential (01/04/2025 9:35 AM EDT) Only the most recent of3 resultswithin the time period is included. [facility] White Blood Count 4.7(L) 4.8 - 10.8 X10*3/uL [facility] Red Blood Count 4.33 4.20 - 5.50 X10*6/uL [facility] Hemoglobin 12.0 12.0 - 16.0 g/dl [facility] Hematocrit 35.2(L) 37.0 - 47.0 % [facility] Mean Corpuscular Volume 81.3 80.0 - 98.0 fL [facility] Mean Corpuscular Hemoglobin 27.7 27.0 - 33.0 pg [facility] Mean Corpuscular HGB Conc 34.1 31.0 - 35.0 g/dl [facility] Red Cell Distribution Width 12.1 11.0 - 16.0 % [facility] Platelet Count 220 160 - 400 X10*3/uL [facility] Mean Platelet Volume 9.8 9.4 - 12.3 fL [facility] Neutrophils Percent Auto 57.9 45 - 73 % [facility] Imm Gran Pct Auto 0.2 0.0 - 0.4 % [facility] Lymphocytes Percent Auto 31.8 20 - 40 % [facility] Monocytes Percent Auto 4.3 2 - 11 % [facility] Eosinophils Percent Auto 4.5(H) 0 - 4 % [facility] Basophils Percent Auto 1.3 0 - 2 % [facility] NRBC Pct Auto 0.0 0.0 - 0.2 /100WBC [facility] Neutrophils Absolute Auto 2.7 2.0 - 8.3 x10*3/uL [facility] Imm Gran Abs Auto 0.01 0.00 - 0.03 X10*3/uL [facility] Lymphocytes Absolute Auto 1.5 1.2 - 4.9 X10*3/uL [facility] Monocytes Absolute Auto 0.2 0.1 - 1.2 X10*3/uL [facility] Eosinophils Absolute Auto 0.2 0.0 - 0.4 X10*3/uL [facility] Basophils Absolute Auto 0.1 0.0 - 0.2 X10*3/uL [facility] NRBC Abs Auto 0.000 0.0 - 0.012 X10*3/uL [facility] Blood Venous blood specimen / Unknown 01/04/2025 9:35 AM EDT 01/04/2025 9:35 AM EDT us Naomi Montague MD LAB BLOOD ORDERABLES Final Re sult [facility] [address] [place] [address] [phone] * Iron And Total Iron Binding Capacity (01/04/2025 9:35 AM EDT) Only the most recent of3 resultswithin the time period is included. Pathologist [facility] Iron 78 30 - 160 mcg/dL [facility] Total Iron Binding Capacity 270 228 - 428 mcg/dL [facility] Percent Iron Saturation 29 15 - 50 % [facility] Unsaturated Iron Binding 192 ug/dL [facility] Blood Venous blood specimen / Unknown 01/04/2025 9:35 AM EDT 01/04/2025 9:35 AM EDT us Naomi Montague MD LAB BLOOD ORDERABLES Final Re sult [facility] [address] [place] [address] [phone] * (ABNORMAL) CBC (01/04/2025 9:35 AM EDT) Only the most recent of3 resultswithin the time period is included. [facility] White Blood Count 4.7(L) 4.8 - 10.8 X10*3/uL [facility] Red Blood Count 4.31 4.20 - 5.50 X10*6/uL [facility] Hemoglobin 12.0 12.0 - 16.0 g/dl [facility] Hematocrit 35.4(L) 37.0 - 47.0 % [facility] Mean Corpuscular Volume 82.1 80.0 - 98.0 fL [facility] Mean Corpuscular Hemoglobin 27.8 27.0 - 33.0 pg [facility] Mean Corpuscular HGB Conc 33.9 31.0 - 35.0 g/dl [facility] Red Cell Distribution Width 12.3 11.0 - 16.0 % [facility] Platelet Count 210 160 - 400 X10*3/uL [facility] Mean Platelet Volume 10.1 9.4 - 12.3 fL [facility] NRBC Pct Auto 0.0 0.0 - 0.2 /100WBC [facility] NRBC Abs Auto 0.000 0.0 - 0.012 X10*3/uL [facility] 01/04/2025 9:35 AM EDT 01/04/2025 9:35 AM EDT us Generic External Data Provider LAB BLOOD ORDERAB LES Final Result Performing Organization Address City/[facility]/ZIP Co de Phone Number [facility] [address] [place] [address] [phone] * Ferritin (01/04/2025 9:35 AM EDT) Only the most recent of3 resultswithin the time period is included. Ferritin 74 10 - 250 ng/mL [facility] Blood Venous blood specimen / Unknown 01/04/2025 9:35 AM EDT 01/04/2025 9:35 AM EDT us Naomi Montague MD LAB BLOOD ORDERABLES Final Re sult Performing Organization Address [facility]/ZIP Co de Phone Number [facility] [address] [place] [phone] * Type and screen (01/04/2025 9:24 AM EDT) Only the most recent of2 resultswithin the time period is included. Blood Type BP [facility] Antibody Screen NEGATIVE [facility] 01/04/2025 9:24 AM EDT 01/04/2025 10:11 AM EDT Narrative [facility] - 01/04/2025 11:06 AM EDT Witnessed by DIANE us Generic External Data Provider LAB BLOOD BANK TE ST ORDERABLES Final Result Performing Organization Address City/[facility]/ZIP Co de Phone Number [facility] [address] [place] [address] [phone] * Albumin, Random Urine W/Creatinine (01/04/2025 9:23 AM EDT) Creatinine, Urine 39.05 mg/dL [facility] Microalbumin Urine <5.0 mg/L [facility] Microalbum Creatinine Ratio Ur TNP <30 ug/mg cr [facility] Comment:Unable to calculate albumin/creatinine ratio due to lowmicroalbumin or creatinine result. Urine (Urine, Random) 01/04/2025 9:23 AM EDT 01/04/2025 10:19 AM EDT Naomi Montague MD LAB URINE ORDERABLES Final Re sult Performing Organization Address [facility]/ZIP Co de Phone Number [facility] [address] [place] [phone] * POCT Glucose (01/01/2025 10:36 AM EDT) Only the most recent of3 resultswithin the time period is included. Glucose Blood, POC 165 60 - 200 mg/dL QC Media Lot # [id number] Lot# Expiration Date Blood Capillary blood specimen / Unknown 01/01/2025 10:36 AM EDT Naomi Montague MD POINT OF CARE TEST ENTER/EDIT ORDERABLES Final Result * Hold Lavender - Possible Hematology (11/23/2024 1:21 PM EDT) Hold Lavender - Possible Hematololgy SEE NOTE [facility] Comment:Specimen will be hel d untested for 8 hours. Call Hematologyif testing is desired. 11/23/2024 1:21 PM EDT 11/23/2024 2:01 PM EDT Naomi Montauge MD HISTORICAL/NON ORDERABLE LABS Final Result Performing Organization Address City/[facility]/ZIP Co de Phone Number [facility] [address] [place] [phone] * TSH W/Reflex to FT4 (11/23/2024 1:21 PM EDT) TSH reflex Free T4 1.81 0.32 - 4.0 uIU/mL [facility] Blood Venous blood specimen / Unknown 11/23/2024 1:21 PM EDT 11/23/2024 1:21 PM EDT us Naomi Montague MD LAB BLOOD ORDERABLES Final Re sult [facility] [address] [place] [address] [phone] * (ABNORMAL) Hemoglobin Electrophoresis (11/23/2024 1:21 PM EDT) RBC 3.02(A) 3.80 - 5.10 Million/u L [facility] Hemoglobin 8.2(A) 11.7 - 15.5 g/dL [facility] Hematocrit 25.9(A) 35.0 - 45.0 % [facility] MCV 85.8 80.0 - 100.0 fL [facility] MCH 27.2 27.0 - 33.0 pg [facility] RDW 12.8 11.0 - 15.0 % [facility] Hemoglobin A 98.0 >96.0 % [facility] Hemoglobin A2 2.0 2.0 - 3.2 % [facility] Hemoglobin F <1.0 <2.0 % [facility] Hemoglobin S TNP [facility] Hemoglobin C TNP [facility] Hemoglobin E TNP [facility] Other Hemoglobin TNP [facility] Other Hemoglobin 2 TNP [facility] Hgb Interpretation SEE NOTE H [facility] Comment:Normal phenotype.THI S TEST WAS PERFORMED AT:[employer] [place] [id number] FRENCH MD Blood Venous blood specimen / Unknown 11/23/2024 1:21 PM EDT 11/23/2024 1:21 PM EDT us Naomi Montague MD LAB BLOOD ORDERABLES Final Re sult Performing Organization Address City/[facility]/ZIP Co de Phone Number [facility] [address] [place] [address] [phone] * Magnesium (11/23/2024 1:21 PM EDT) Only the most recent of2 resultswithin the time period is included. Pathologist [facility] Magnesium 2.2 1.6 - 2.6 mg/dL [facility] Blood Venous blood specimen / Unknown 11/23/2024 1:21 PM EDT 11/23/2024 1:21 PM EDT us Naomi Montague MD LAB BLOOD ORDERABLES Final Re sult Performing Organization Address City/[facility] Co de Phone Number [facility] [address] [place] [address] [phone] * (ABNORMAL) Lipid Panel, Standard (11/23/2024 1:21 PM EDT) Pathologist [facility] Triglycerides 164(H) <150 mg/dL [facility] Comment:Desirable Triglyceri de: less than 150 mg/dLBorderline High Triglyceride 150-199 mg/dLHigh Triglyceride: 200-499 mg/dLVery High Triglyceride: greater than or equal to 5OO mg/dL Cholesterol 128 <200 mg/dL [facility] Comment:Desirable Cholestero l: less than 200 mg/dLBorderline High Cholesterol: 200-239 mg/dLHigh Cholesterol: greater than 239 mg/dL LDL Cholesterol Calculated 62 <100 mg/dL [facility] Comment:Desirable LDL: less than 100 mg/dLNear Optimal/Above Optimal LDL: 110- 129 mg/dLBorderline High LDL: 130-159 mg/dLHigh LDL: 160-189 mg/dLVery High LDL: greater than or equal to 190 mg/dL HDL Cholesterol 34(L) >40 mg/dL [facility] Comment:Desirable HDL: great er than 40 mg/dL Note: This HDL assay may give artificially low results in patients with liver disease. Blood Venous blood specimen / Unknown 11/23/2024 1:21 PM EDT 11/23/2024 1:21 PM EDT us Naomi Montague MD LAB BLOOD ORDERABLES Final Re sult [facility] [address], [place] [phone] * (ABNORMAL) Comprehensive Metabolic Panel (11/23/2024 1:21 PM EDT) Sodium 143 135 - 145 mmol/L [facility] Potassium 3.5 3.3 - 5.1 mmol/L [facility] Chloride 108 96 - 108 mmol/L [facility] Carbon Dioxide 29 22 - 29 mmol/L [facility] Anion Gap 10(L) 12 - 20 [facility] Urea Nitrogen (BUN) 14 9 - 16 mg/dL [facility] Creatinine, Serum 0.67 0.5 - 1.4 mg/dL [facility] Estimated Glomerular Filt Rate >60 [facility] Comment:Chronic Kidney Disea se: Estimated GFR < 60 mL/min/[id number] Kidney Disease: Estimated GFR < 15 mL/min/1.73m2 Glucose 154(H) 60 - 115 mg/dL [facility] Calcium 8.9 8.4 - 10.2 mg/dL [facility] Bilirubin, Total 0.3 0.0 - 1.0 mg/dL [facility] Aspartate Amino Transferase 22 5 - 31 U/L [facility] Alanine Aminotransferase 25 0 - 31 U/L [facility] Total Protein 6.1(L) 6.5 - 8.0 g/dL [facility] Albumin Level 4.3 3.5 - 5.0 g/dL [facility] Alkaline Phosphatase 49 39 - 117 U/L [facility] Blood Venous blood specimen / Unknown 11/23/2024 1:21 PM EDT 11/23/2024 1:21 PM EDT us Naomi Montague MD LAB BLOOD ORDERABLES Final Re sult Performing Organization Address [facility] Co de Phone Number [facility] [address] [place] [phone] * High Sensitivity Troponin I (11/21/2024 12:49 PM EDT) Pathologist [facility] TROPONIN I HIGH SENSITIVITY 3.2 <3.5 - 17.0 ng/L [facility] Comment:The Catalan high sens itivity Troponin-I results should beused in conjunction with other diagnostic information suchas ECG, clinical observations and information, and patientsymptoms to aid in the diagnosis of ID. 11/21/2024 12:4 9 PM EDT 11/21/2024 12:52 PM EDT us Generic External Data Provider LAB BLOOD ORDERAB LES Final Result Performing Organization Address [facility] Co de Phone Number [facility] [address] [place] [phone] * Hepatic Function Panel (11/21/2024 12:49 PM EDT) Pathologist [facility] Bilirubin, Total 0.3 0.0 - 1.0 mg/dL [facility] Bilirubin, Direct 0.1 0.0 - 0.5 mg/dL [facility] Aspartate Amino Transferase 19 5 - 31 U/L [facility] Alanine Aminotransferase 23 0 - 31 U/L [facility] Total Protein 6.5 6.5 - 8.0 g/dL [facility] Albumin Level 4.5 3.5 - 5.0 g/dL [facility] Alkaline Phosphatase 53 39 - 117 U/L [facility] 11/21/2024 12:4 9 PM EDT 11/21/2024 12:52 PM EDT us Generic External Data Provider LAB BLOOD ORDERAB LES Final Result Performing Organization Address [facility]/ZIP Co de Phone Number [facility] [address] [place] [address] [phone] * (ABNORMAL) Basic Metabolic Panel (11/21/2024 12:49 PM EDT) Sodium 141 135 - 145 mmol/L [facility] Potassium 4.0 3.3 - 5.1 mmol/L [facility] Chloride 106 96 - 108 mmol/L [facility] Carbon Dioxide 25 22 - 29 mmol/L [facility] Anion Gap 14 12 - 20 [facility] Urea Nitrogen (BUN) 36(H) 9 - 16 mg/dL [facility] Creatinine, Serum 0.80 0.5 - 1.4 mg/dL [facility] Creatinine Clr Calc Pharmacy 65.4 [facility] Comment:Provided height and weight: 160.02 cm,63.503 kg.eGFR (calculated from the MDRD study equation) and eCrCl(calculated from the Cockcroft-Gault equation) are based ondifferent parameters and may not yield comparable results.If eCrCl result is absurd, please check patient'sheight/weight. Estimated Glomerular Filt Rate >60 [facility] Comment:Chronic Kidney Disea se: Estimated GFR < 60 mL/min/1.58m9Ecciqw Kidney Disease: Estimated GFR < 15 mL/min/1.73m2 Glucose 206(H) 60 - 115 mg/dL [facility] Calcium 9.1 8.4 - 10.2 mg/dL [facility] 11/21/2024 12:4 9 PM EDT 11/21/2024 12:52 PM EDT us Generic External Data Provider LAB BLOOD ORDERAB LES Final Result Performing Organization Address City/[facility]/ZIP Co de Phone Number [facility] [address] [place] [address] [phone] * (ABNORMAL) Glucose, Whole Blood (11/21/2024 12:12 PM EDT) Only the most recent of2 resultswithin the time period is included. Glucose, Whole Blood 140(H) 60 - 115 mg/dL [facility] Comment:METER #: [id number] 11/21/2024 12:1 2 PM EDT 11/23/2024 9:16 AM EDT us Generic External Data Provider LAB BLOOD ORDERAB LES Final Result [facility] [address] [place] [phone] * Hematoxylin and Eosin Stain (11/20/2024 8:44 AM EDT) 11/20/2024 8:44 AM EDT 11/20/2024 10:00 AM EDT Narrative [facility] - 11/26/2024 4:34 PM EDT ----- ------- Name: Ru Sun Age/Sex: 64/F : 1960 Unit#: [id number] Attend Dr: Brittny Jean-Baptiste MD Re11/20/24 Status: [facility] Location: [place] Disch: ----- ------- SPEC : [id number] RECD: 11/20/24-999 STATUS: AVIVA FAULKNER NUM: [id number] KARINE: 11/20/24-[address]: Brittny Jean-Baptiste MD ENTERED: 11/20/24-1016 SP TYPE: Surgical OTHR DR: Naomi Montague MD ORDERED: HE Stain/, Gross Micro L4/12, IHC/5, H. pylori/5 Addendum Addendum 1 Entered: 11/26/24-1633 (L): Multiple additional tissue levels show focal minimal hyperplastic changes and no adenomatous dysplasia is seen. Scattered lamina propria foamy macrophages are noted. Addendum Signed (signature on file) [place] [place] 11/26/24 1634 ----- ------- Diagnosis A. Duodenum, [...] Name: Ru Sun Age/Sex: 64/F [facility] 1960 [id number] [id number] Attend Dr: Brittny Jean-Baptiste MD Re11/20/24 [facility] Disch: ----- ------- SPEC : [id number] RECD: 11/20/24 STATUS: AVIVA FAULKNER NUM: [id number] KARINE: 11/20/[address] [facility] [address]: Brittny Jean-Baptiste MD ENTERED: 11/20/24 SP TYPE: Surgical OTHR DR: Naomi Montague [...] Ru Sun Age/Sex: 64/F : 1960 Unit#: [id number] Attend Dr: Brittny Jean-Baptiste MD Re11/20/24 Status: [facility] Location: [facility] Disch: ----- ------- SPEC : [id number] RECD: 11/20/24 STATUS: AVIVA FAULKNER NUM: [id number] KARINE: 11/20/24-44 [facility] [address]: Brittny Jean-Baptiste MD ENTERED: 11/20/24-1015 [...] microscopic examination, 1 piece in cassette L. ([facility]) CONTINUED ON NEXT PAGE ----- ------- Name: Ru Sun Age/Sex: 64/F : 1960 Unit#: [id number] Attend Dr: Brittny Jean-Baptiste MD Re11/20/24 [facility] Location[facility] Disch: ----- ------- SPEC : [id number] RECD: 11/20/24 STATUS: AVIVA FAULKNER NUM: [id number] KARINE: 11/20/2444 [facility] DR: Brittny Jean-Baptiste MD ENTERED: 11/20/24-1015 [...] developed and their performance characteristics determined by [facility]. They have not been cleared or approved by the U.S. Food and Drug Administration (FDA). However, the FDA has determined that such clearance or approval is not necessary. This laboratory is certified under the Clinical Laboratory Improvement Amendments of 1988 (CLIA) as qualified to perform high complexity clinical laboratory testing. Copies To: Naomi Montague MD [address] [place] [id number] Brittny Jean-Baptiste MD [facility] [address] [place] [phone] [email or web address] ----- ------- Signed (signature on file) [place] 11/23/24 1404 ----- ------- END OF REPORT us Generic External Data Provider LAB BLOOD ORDERAB LES Final Result [facility] [address] [place] [phone] * (ABNORMAL) POCT HGB A1C (10/30/2024 [...] Both Eyes (10/23/2024 3:00 PM EDT) Narrative Krsiti Carty OD - 11/05/2024 3:33 PM EDT VISUAL [...] C Ab (07/24/2024 1:38 PM EDT) Pathologist [facility] Hepatitis C Antibody Nonreactive Nonreactive [facility] Comment:Antibodies to HCV no t detected; does not exclude early acuteHCV infection. 07/24/2024 1:38 PM EDT 07/24/2024 1:38 PM EDT Generic External Data Provider LAB BLOOD ORDERAB LES Final Result [facility] [address] [place] [phone] * Cologuard?? colon cancer screening (02/05/2023 5:40 AM EDT) Cologuard Result Negative Negative 02/14/20 23 2:34 AM EDT [facility] (CLIA #:[id number]) Comment: NEGATIVE TEST RESULT. A negative Cologuard [...] (Dickson Sampson al, N Engl J Med 2014;370(14):7557-1588) The normal value (reference range) for this assay is negative. COLOGUARD RE-SCREENING RECOMMENDATION: Periodic colorectal cancer screening is an important part of preventive healthcare for asymptomatic individuals at average risk for colorectal cancer. Following a negative Cologuard result, the [place] Cancer Society and U.S. Multi-Society Task Force screening guidelines recommend a Cologuard re-screening interval of 3 years. References: [place] Cancer Society Guideline for Colorectal Cancer Screening: https://www.cancer.org/cancer/pgaxf-wluvye-nrxwgo/vvhzftjob-wdlznyszn-mjebkrc/ac s-rec ommendations.html.; Abdulkadir DK, Zi CR, Luzmaria PrakashK, Colorectal Cancer Screening: Recommendations for Physicians and Patients from the U.S. Multi-Society Task Force on Colorectal Cancer Screening , Am J Gastroenterology 2017; 112:8900-6855. TEST DESCRIPTION: Composite algorithmic analysis of stool [...] Monte et al, N Engl J Med 2014;370(14):6680-4771.) Cologuard may produce a false negative or false positive result (no colorectal cancer or precancerous polyp present at colonoscopy follow up). A negative Cologuard test result does not guarantee the absence of CRC or advanced adenoma (pre-cancer). The current Cologuard screening interval is every 3 years. ([place] Cancer Society and U.S. Multi-Society Task Force). Cologuard performance data in a 10,000 patient pivotal study using colonoscopy as the reference method can be accessed at the following location: www.[employer].Schmoozer/results. Additional description of the Cologuard test process, warnings and precautions can be found at www.[employer].Schmoozer. Stool specimen (specimen) 02/05/2023 5:40 AM EDT 02/06/2023 9:11 PM EDT Naomi Montague MD LAB MOLECULAR DIAGNOSTICS ORD ERABLES Final Result [facility] (CLIA #:[id number]) [address] [place] [address], from Last 3 Months or Most Recently Relevant to Health Maintenance [place] [address] [place] [address] DENTAL - HSN PARTIAL (MEDICAID) DENTAL - HSN PARTIAL (MEDICAID) Care Teams Salvager Relationship Specialty Start Date End Date Naomi Montague MD [address] [place] [address] PCP - General Family Medicine 02/01/22
--- OUTSIDE RECORDS SUMMARY | 2025-01-08 07:43 | XMS_ITS | Encounter Summary ---
Author Organization [facility] [employer] Address [address] [facility] [address]t [place] [address] Care Team Providers Care Belting And Webbing Inspector Name Role Phone Naomi Montague MD Primary Care Provider [phone] Reason for Visit * Reason Onset Date Comments Hospital Follow-up 11/30/2024 Encounter Details Date Type Department Care Team ([facility] Contact Info) Description 11/30/2024 Telephone [facility] MEDICINE [address] [place] [address] Naomi Montague MD [address] [place] [address] Hospital Follow-up Social History Tobacco Use Types [...] from pt requesting a HDF appt. Hospital: [facility] Date of admission: 11/23 Discharge date: 11/27 Diagnosed: colon bleeding *Send message to [place] Clinical Care Coordinators documented in this encounter Plan of Treatment Upcoming Encounters Date Type Department Care Team (Late st Contact Info) Description 02/26/2025 10:15 AM EST Office Visit [facility] CHC ADULT DENTAL [address] [place] [address] Gaurang Stevenson 04/30/2025 1:00 PM EST Office Visit [facility] OPTOMETRY [address] [place] [address] Kristi Carty, OD [address] [place] [address] documented as of this encounter Visit Diagnoses Not on filedocumented in this encounter Additional Health Concerns Assessment Noted Time PHQ-9 Depression Total Score: 2 04/30/19 25 9:35 AM EST documented as of this encounter Care Teams Belting And Webbing Inspector Relationship Specialty Start Date End Date Naomi Montague MD [address] [place] [address] PCP - General Family Medicine 02/01/22 Geri A 11/30/24 01/03/25 documented as of this encounter
--- OUTSIDE RECORDS SUMMARY | 2025-01-08 07:43 | XMS_ITS | Encounter Summary ---
Author Organization [employer] [facility] Address [address] [place] [address] [address] [place] [address] Care Team Providers Care Grill Prep Cook Name Role Phone Naomi Montague MD Primary Care Provider [phone] Reason for Visit * Reason Onset Date Comments Returning Call Back 10/10/2022 Encounter Details Date Type Department Care Team ([facility] Contact Info) Description 10/10/2022 Telephone C [facility] MED & PEDS [address] [place] [address] Naomi Montague MD [address] [place] [address] Returning Call Back Social History Tobacco Use [...] spouse returning call back, regarding message below. Supervisor Belt And Link Assembly let him know a nurse will call back with an music leader he stated she's at work they can call him. Supervisor Belt And Link Assembly doesn't see any HIPPA information. documented in this encounter Plan of Treatment Upcoming Encounters Date Type Department Care Team (Late st Contact Info) Description 02/26/2025 10:15 AM EST Office Visit [facility] CHC ADULT DENTAL [address] [place] [address] Gaurang Stevenson 04/30/2025 1:00 PM EST Office Visit [facility] OPTOMETRY [address] [place] [address] Carloz, Kristi, OD [address] [place] [address] documented as of this encounter Visit Diagnoses Not on filedocumented in this encounter Additional Health Concerns Assessment Noted Time PHQ-9 Depression Total Score: 0 06/30/19 23 2:19 PM EDT documented as of this encounter Care Teams Grill Prep Cook Relationship Specialty Start Date End Date Naomi Montague MD [address] [place] [address] PCP - General Family Medicine 02/01/22 [place] BARR[facility] 11/30/24 01/03/25 documented as of this encounter
--- OUTSIDE RECORDS SUMMARY | 2025-01-08 07:43 | XMS_ITS | Encounter Summary ---
Author Organization [facility] Address [address] [place] [address] Phone Care Team Providers Care Society Reporter Name Role Phone Swapna Maravilla MD Primary Care Provider + Encounter Details Date Type Department Care Team (Late st Contact Info) Description 02/20/2017 Procedure Pass [facility] [address] [place] [address] Social History Tobacco Use Types [...] on filedocumented in this encounter Care Teams Society Reporter Relationship Specialty Start Date End Date Swapna Maravilla MD [address] [place] [address] PCP - General Family Medicine 09/04/16 documented as of this encounter Additional Source Comments The information contained in this document represents components of the legal health record. It is not the complete legal health record.[facility]
== END ==
LOC: HO.NUCMED 07:41
PROVIDERS: PCP Family Medicine; Visit Provider Internal Medicine
DX: R10.11 Right upper quadrant pain (principal)
CPT/HCPCS: 78227; A9537; J2805

== ENCOUNTER → 2025-01-08 07:42 | Outpatient (BNV) | payer OTHER, SELFPAY | PROVIDERS: PCP Family Medicine; Visit Provider Radiology Diagnostic Radiology | DX: R10.11 Right upper quadrant pain (principal); K76.89 Other specified diseases of liver | CPT/HCPCS: 78227 ==

== ENCOUNTER 2025-01-16 12:57 | Outpatient (REF) | payer OTHER, SELFPAY ==
--- NOTE | ~2025-01-16 | MR_ITS ---
CLINICAL HISTORY: HETERONYMOUS BILATERAL FIELD DEFECTS MR Brain without gadolinium. Thin slice high-resolution imaging through the orbits performed. Comparison: None provided Findings: No restricted diffusion. No intra-axial mass or hemorrhage. No midline shift. No hydrocephalus. Vascular flow voids are intact. There are scattered foci of T2 signal prolongation within the white matter, for example sagittal FLAIR images 7 and 15 (series 13). Globes and orbital contents are normal-appearing by noncontrast MRI. There is mucoperiosteal thickening of the left maxillary sinus and of the mastoid air cells. The sinuses and mastoid air cells are clear. No focal bone lesion. IMPRESSION: The orbits and orbital tracts appear within normal limits by noncontrast MR. Scattered nonspecific white matter disease, minimal. Mild paranasal sinus disease. This document has been electronically signed by: Markus Cueva MD on 01/18/2025 11:00:55
--- OUTSIDE RECORDS SUMMARY | 2025-01-16 13:01 | XMS_ITS | Encounter Summary ---
Author Organization [facility] Address [address] [place] [address] [place] [phone] Phone Care Team Providers Care Environment Artist Name Role Phone Swapna Maravilla MD Primary Care Provider + Naomi Montague MD Primary Care Provider Encounter Details Date Type Department Care Team ([facility] st Contact Info) Description 02/20/2017 Procedure Pass [facility] [address] [place] [phone] Social History Tobacco Use Types Packs/Day Years Used Date Smoking Tobacco: Never Smokeless Tobacco: Never Alcohol Use Standard Drinks/Week Comments Yes 2 (1 standard drink = 0.6 oz pur e alcohol) 2 glasses per week Comments Unknown Sex and Gender Information Value Date Recorded Sex Assigned at Female 01/08/2025 3:30 PM EDT Legal Sex Female 10:18 AM EDT Gender Identity Female 01/08/2025 3:30 PM EDT Sexual Orientation Straight 01/08/2025 3: 30 PM EDT documented as of this encounter Plan of Treatment Not on file documented as of this encounter Visit Diagnoses Not on filedocumented in this encounter Care Teams Environment Artist Relationship Specialty Start Date End Date Swapna Maravilla MD [address] [address] PCP - General Family Medicine 09/04/16 01/07/25 Naomi Monatgue MD [address] [place] [address] PCP - General Family Medicine 01/08/25 documented as of this encounter Additional Source Comments The information contained in this document represents components of the legal health record. It is not the complete legal health record.[facility]
--- OUTSIDE RECORDS SUMMARY | 2025-01-16 13:01 | XMS_ITS | Encounter Summary ---
Author Organization [employer] Address [address] [place] [address] [address] [place] [address] Care Team Providers Care Run Boat Operator Name Role Phone Naomi Montague MD Primary Care Provider [phone] Reason for Visit * Reason Onset Date Comments Nurse Triage 11/30/2024 Encounter Details Date Type Department Care Team ([facility] st Contact Info) Description 11/30/2024 Telephone C [facility]S [address] [place] [address] Naomi Montague MD [address] [place] [address] Nurse Triage Social History Tobacco Use Types [...] date of apt which is 01/01/25. [facility], IMPERSONATOR CHARACTER to Me Naomi Montague MD [facility] Med & Peds Nurses (Selected Message) [...] unusual colored stools. Pt is advised this typewriter assembler will forward this request to [facility] nursing team for possible earlier apt. agrees [...] caller accepted this outcome. Contact pt at [phone] (pt needs luxembourgish reproductive healthcare assistant , speaks burundian on HIPAA) documented in this encounter Plan of Treatment Upcoming Encounters Date Type Department Care Team (Late st Contact Info) Description 02/26/2025 10:15 AM EST Office Visit [facility] CHC ADULT DENTAL [address] [place] [address] Gaurang Stevenson 04/30/2025 1:00 PM EST Office Visit [facility] OPTOMETRY [address] [place] [address] Carloz, Kristi, OD [address] [place] [address] documented as of this encounter Visit Diagnoses Not on filedocumented in this encounter Additional Health Concerns Assessment Noted Time PHQ-9 Depression Total Score: 2 04/30/19 9:35 AM EST documented as of this encounter Care Teams Run Boat Operator Relationship Specialty Start Date End Date Naomi Montague MD [address] [place] [address] PCP - General Family Medicine [facility] 01/03/25 documented as of this encounter
--- OUTSIDE RECORDS SUMMARY | 2025-01-16 13:01 | XMS_ITS | Encounter Summary ---
Author Organization [employer] Address [address] [facility] [address] [place] [address] Care Team Providers Care Cableman Name Role Phone Naomi Montague MD Primary Care Provider [phone] Encounter Details Date Type Department Care Team (Late st Contact Info) Description 01/08/2025 Abstract [facility] CHC MED & PEDS [address] [place] [address] Naomi Montague MD [address] [place] [address] Social History Tobacco Use Types Packs/Day Years [...] Description 02/26/2025 10:15 AM EST Office Visit [facility] CHC ADULT DENTAL [address] [place] [address] Gaurang Stevenson 04/30/2025 1:00 PM EST Office Visit [facility] OPTOMETRY [address] [place] [address] Kristi Carty, OD [address] [place] [address] documented as of this encounter Procedures Procedure Name Priority Date/Time Associated Diagnosis Comments COLONOSCOPY Routine 11/25/2024 10:24 AM EDT documented in this encounter Visit Diagnoses Not on filedocumented in this encounter Additional Health Concerns Assessment Noted Time PHQ-9 Depression Total Score: 2 04/30/19 25 9:35 AM EST documented as of this encounter Care Teams Cableman Relationship Specialty Start Date End Date Naomi Montague MD [address] [place] [address] PCP - General Family Medicine 02/01/22 documented as of this encounter
--- OUTSIDE RECORDS SUMMARY | 2025-01-16 13:01 | XMS_ITS | Clinical Summary ---
Author Organization [employer] Address [address] [place] [address] [address] [place] [address] Care Team Providers Care Toxicology Teacher Name Role Phone Naomi Montague MD Primary Care Provider [phone] Allergies Active Allergy Reactions Criticality Noted Date Comments Tolterodine Swelling 04/02/2022 Ubidecarenone Itching 02/08/2023 Medications Lancets 33G misc Use to check blood sugar daily as directed Active Blood Glucose Monitoring Suppl (FreeStyle [employer] Lite) w/Device kit TEST BLOOD SUGAR DAILY [...] BEDTIME 90 capsule 1 5 Active PEG 3870-JGd-WfLka-NaCl -NaSulf (PEG-3350/Electroly leon) 236 g reconstituted solution [...] (10/05/2022 2:46 PM EDT): Patient seen by manager sas and had FNA done for mass on neck. Biopsy results given to patient and was recommended for surgery with no diagnoses. 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 Connolly at [facility], General surgeon specialty in thyroid. Assessment [...] Encounters Date Type Department Care Team Description 01/08/2025 Orders Only [facility] External Provider, [facility] 01/08/2025 Abstract [facility] [address] [place] [address] Naomi Montague MD 01/07/2025 1:00 PM EDT Clinical Support [facility] [address] [place] [address] Apoorva Irene, VIJAY Encounter for immunization 01/07/2025 Travel 01/04/2025 Orders Only GENERIC EXTERNAL DATA DEPARTMENT Provider, Generic External Data 01/01/2025 9:45 AM EDT Office Visit [facility] [address] [place] [address] Naomi Montague MD Type 2 diabetes mellitus with hyperglycemia, without long-term current use of insulin ([facility]) (Primary Dx); Iron deficiency anemia secondary to inadequate dietary iron intake 01/01/2025 Travel 12/28/2024 Telephone [facility] [address] [place] [address] Naomi Montague MD 12/18/2024 Orders Only GENERIC EXTERNAL DATA DEPARTMENT Provider, Generic External Data 12/17/2024 8:00 AM EDT Office Visit [facility] [address] [place] [address] Patel Montague DDS 12/01/2024 Orders Only GENERIC EXTERNAL DATA DEPARTMENT Provider, Generic External Data 11/30/2024 Patient Outreach [facility] [address] [place] [address] Naomi Montague MD Transition Of Care (Tcm) (HDF unscheduled. ) 11/30/2024 Telephone [facility] [address] [place] [address] Naomi Montague MD Nurse Triage 11/30/2024 Telephone [facility] [address] [place] [address] Naoim Montague MD Hospital Follow-up 11/23/2024 Telephone [facility] [address] [place] [address] Naomi Montague MD Results; Care Coordination 11/23/2024 Telephone [facility] [address] [place] [address] Jossy Stevenson MD Results 11/23/2024 Orders Only [facility] [address] [place] [address] Naomi Montague MD 11/21/2024 Orders Only GENERIC EXTERNAL DATA DEPARTMENT Provider, Generic External Data 11/20/2024 Orders Only GENERIC EXTERNAL DATA DEPARTMENT Provider, Generic External Data 11/13/2024 Refill [facility] [address] [place] [address] Martha Buenrostro MD Mixed hyperlipidemia 10/30/2024 9:00 AM EDT Office Visit [facility] [address] [place] [address] Naomi Montague MD Type 2 diabetes mellitus with hyperglycemia, without long-term current use of insulin ([facility]) (Primary Dx); Microcytosis; Plantar fasciitis of left foot; Cramps of lower extremity 10/30/2024 Travel 10/23/2024 3:00 PM EDT Office Visit [facility] [address] [place], [place] [phone] Carloz, Kristi, OD Bitemporal hemianopsia (Primary Dx) 10/23/2024 Travel 10/23/2024 Patient Outreach [facility] [address] [place] [address] Naomi Montague MD Pre-visit Planning ([facility] screening completed on 04/30/24) from Last 3 [...] Description 02/26/2025 10:15 AM EST Office Visit [facility] [address] [place] [address] Gaurang Steevnson 04/30/2025 1:00 PM EST Office Visit [facility] [address] [place] [address] CarlozKristi, OD [address] [place] [address] Health Maintenance Due Date Last Done Comments CT Colonography 1960 FIT 1960 HIV Screening 1960 Sigmoidoscopy [...] Diabetes: Urine Protein Screening 01/04/2026 01/04/2025, 02/02/2022 FIT DNA/Cologuard 02/05/2026 02/05/2023 Eye Exam 04/24/2026 04/24/2024, 04/15, 04/24/2024, Additional history exists DTaP/Tdap/Td Vaccines (3 - Td or Tdap) 03/27/2034 03/27/2024, 10/29/2011 Colonoscopy 11/25/2034 11/25/2024, 11/25/2024 Colorectal Cancer Screening 11/25/2034 Hepatitis A Vaccines Completed 12/28/2015, 06/22/19 16 [...] Procedure Name Priority Date/Time Associated Diagnosis Comments NM HEPATOBILIARY W PHARM Routine 01/08/2025 8:16 AM EDT VITAMIN A Routine 01/04/2025 9:35 AM EDT VITAMIN B12/FOLATE, SERUM PANEL Routine 01/04/2025 9:35 AM EDT CBC Routine 01/04/2025 9:35 AM EDT IRON AND TOTAL IRON BINDING CAPACITY Routine 01/04/2025 9:35 AM EDT Iron deficiency anemia secondary to inadequate dietary iron intake FERRITIN Routine 01/04/2025 9:35 AM EDT Iron deficiency anemia secondary to inadequate dietary iron intake FRUCTOSAMINE Routine 01/04/2025 9:35 AM EDT Type 2 diabetes mellitus with hyperglycemia, without long-term current use of insulin ([facility]) CBC WITH AUTO DIFFERENTIAL Routine 01/04/2025 9:35 AM EDT Iron deficiency anemia secondary to inadequate dietary iron intake TYPE AND SCREEN Routine 01/04/2025 9:24 AM EDT ALBUMIN, RANDOM URINE W/CREATININE Routine 01/04/2025 9:23 AM EDT Type 2 diabetes mellitus with hyperglycemia, without long-term current use of insulin (CMS/HCC) POCT GLUCOSE Routine 01/01/2025 10:36 AM EDT Type 2 diabetes mellitus with hyperglycemia, without long-term current use of insulin ([facility]) FERRITIN Routine 12/18/2024 8:52 AM EDT IRON AND TOTAL IRON BINDING CAPACITY Routine 12/18/2024 8:52 AM EDT CBC Routine 12/18/2024 8:52 AM EDT NO CHARGE PROCEDURE Routine 12/17/2024 8 :00 AM EDT TYPE AND SCREEN Routine 12/01/2024 2:40 PM EDT CBC Routine 12/01/2024 2:40 PM EDT HM COLONOSCOPY Routine 11/25/2024 3:37 PM EDT HM COLONOSCOPY Routine 11/25/2024 10:24 AM EDT HOLD LAVENDER - POSSIBLE HEMATOLOGY Routine 11/23/2024 1:21 PM EDT MAGNESIUM Routine 11/23/2024 1:21 PM EDT Cramps of lower extremity VITAMIN B12/FOLATE, SERUM PANEL Routine 11/23/2024 1:21 PM EDT Type 2 diabetes mellitus with hyperglycemia, without long-term current use of insulin ([facility]) HEMOGLOBIN ELECTROPHORESIS Routine 11/23/2024 1:21 PM EDT Microcytosis FERRITIN Routine 11/23/2024 1:21 PM EDT Microcytosis IRON AND TOTAL IRON BINDING CAPACITY Routine 11/23/2024 1:21 PM EDT Microcytosis LIPID PANEL, STANDARD Routine 11/23/2024 1:21 PM EDT Type 2 diabetes mellitus with hyperglycemia, without long-term current use of insulin ([facility]) TSH W/REFLEX TO FT4 Routine 11/23/2024 1 :21 PM EDT Type 2 diabetes mellitus with hyperglycemia, without long-term current use of insulin (CMS/[facility]) COMPREHENSIVE METABOLIC PANEL Routine 11/23/2024 1:21 PM EDT Type 2 diabetes mellitus with hyperglycemia, without long-term current use of insulin ([facility]) CBC WITH AUTO DIFFERENTIAL Routine 11/23/2024 1:21 PM EDT Type 2 diabetes mellitus with hyperglycemia, without long-term current use of insulin ([facility]) HIGH SENSITIVITY TROPONIN I Routine 11/21/2024 12:49 [...] hyperglycemia, without long-term current use of insulin ([facility]) POCT GLUCOSE Routine 10/30/2024 9:44 AM EDT Type 2 diabetes mellitus with hyperglycemia, without long-term current use of insulin ([facility]) POCT GLUCOSE Routine 10/30/2024 9:16 AM EDT Type 2 diabetes mellitus with hyperglycemia, without long-term current use of insulin ([facility]) POCT GLYCATED HEMOGLOBIN, TOTAL Routine 10/30/2024 9:15 [...] Recently Relevant to Health Maintenance Results * NM Hepatobiliary w Pharm (01/08/2025 8:16 AM EDT) Anatomical Region Laterality Modality Body Nuclear Medicine 01/08/2025 8:16 AM EDT Narrative 01/08/2025 11:14 AM EDT [place] [address] Nuclear Medicine Report Signed Patient: Ru Sun MR#: [id number] : 1960 Acct:[id number] Age/Sex: 64 / F ADM Date: 01/08/25 Loc: HO.NUCALEISHA Attending Dr: Brittny Jean-Baptiste MD Ordering Physician: Brittny Jean-Baptiste MD Date of Service: 01/08/25 Procedure(s): NM hepatobiliary w pharm Accession Number(s): [id number] cc: Naomi Montague MD; Brittny Jean-Baptiste MD Reason for Exam: R10.12 - Left upper quadrant pain EXAMINATION: NM HEPATOBILIARY WITH PHARM HISTORY: R10.12 - Left upper quadrant pain. TECHNIQUE: An hepatobiliary scan was performed following the intravenous administration of 5 mCi technetium 99m-mebrofenin. Sequential images were obtained over 1 hour. Subsequently, the patient received 1.3 microgram of IV CCK over 30 minutes and additional imaging was performed. COMPARISON: Correlation is made with an MRI of the abdomen dated 07/31/2024. FINDINGS: There is normal uptake and excretion of the radiopharmaceutical by the liver. Gallbladder activity is noted at 16 minutes. Common bile duct activity is seen at 26 minutes. Small bowel activity is noted at 30 minutes. After the administration of intravenous CCK, the estimated gallbladder ejection fraction is 59%, which is within normal limits (normal 35-80%). NM/NM hepatobiliary w pharm IMPRESSION: Normal hepatobiliary scan with normal gallbladder ejection fraction. Electronically signed by: Ko Omer MD 01/08/2025 11:12 AM EDT RP Dictated By: Ko Omer MD Signed By: <Electronically signed by Ko Omer MD in OV> 01/08/25 1112 DD/ 0816 TD/TT: 01/08/25 1010 Production Assembler: Procedure Note Donotuseinterpreter, Image - 01/08/2025 [place] [address] Nuclear Medicine Report Signed Patient: Ricky Sun#: [id number] : 1960Acct:[id number] Age/Sex: 64 / FADM Date: 01/08/25 Loc: [facility] Attending Dr: Brittny Jean-Baptiste MD Ordering Physician: Brittny Jean-Baptiste MD Date of Service: 01/08/25 Procedure(s): NM hepatobiliary w pharm Accession Number(s): [id number] cc: Naomi Montague MD; Brittny Jean-Baptiste MD Reason for Exam: R10.12 - Left upper quadrant pain EXAMINATION: NM HEPATOBILIARY WITH PHARM HISTORY: R10.12 - Left upper quadrant pain. TECHNIQUE: An hepatobiliary scan was performed following the intravenous administration of 5 mCi technetium 99m-mebrofenin. Sequential images were obtained over 1 hour. Subsequently, the patient received 1.3 microgram of IV CCK over 30 minutes and additional imaging was performed. COMPARISON: Correlation is made with an MRI of the abdomen dated 07/31/2024. FINDINGS: There is normal uptake and excretion of the radiopharmaceutical by the liver. Gallbladder activity is noted at 16 minutes. Common bile duct activity is seen at 26 minutes. Small bowel activity is noted at 30 minutes. After the administration of intravenous CCK, the estimated gallbladder ejection fraction is 59%, which is within normal limits (normal 35-80%). NM/NM hepatobiliary w pharm IMPRESSION: Normal hepatobiliary scan with normal gallbladder ejection fraction. Electronically signed by: Ko Omer MD 01/08/2025 11:12 AM EDT Dictated By: Ko Omer MD Signed By: <Electronically signed by Ko Omer MD in OV> 01/08/25 1112 DD/ 0816 TD/TT: 01/08/25 1010 Production Assembler: [facility] External Provider IMG NM PROCEDURES Final Result * Vitamin B12 (Cobalamin) and Folate Panel, Serum (01/04/2025 9:35 AM EDT) Only the most recent of2 resultswithin the time period is included. Vitamin B12 337 200 - 900 pg/mL [facility] Comment:NORMAL 200-900 PG/ML INDETERMINATE 160-199 PG/ML DEFICIENT < 160 PG/ML Folate 11.4 > or = 4.0 ng/mL [facility] Comment:Reference Values:> o r = 4.0 ng/mL< 4.0 ng/mL suggests folate deficiency Methotrexate, aminopterin and folinic acid(leucovorin) are chemotherapeutic agents whose molecularstructures are similar to folate; therefore, the Architectfolate assay cannot be used for patients using these drugs. 01/04/2025 9:35 AM EDT 01/04/2025 9:35 AM EDT us Generic External Data Provider LAB BLOOD ORDERAB LES Final Result [facility] [address] [place] [address] [phone] * (ABNORMAL) CBC auto differential (01/04/2025 9:35 AM EDT) Only the most recent of3 resultswithin the time period is included. White Blood Count 4.7(L) 4.8 - 10.8 X10*3/uL [facility] Red Blood Count 4.33 4.20 - 5.50 X10*6/uL [facility] Hemoglobin 12.0 12.0 - 16.0 g/dl [facility] Hematocrit 35.2(L) 37.0 - 47.0 % [facility] Mean Corpuscular Volume 81.3 80.0 - 98.0 fL [facility] Mean Corpuscular Hemoglobin 27.7 27.0 - 33.0 pg [facility] Mean Corpuscular HGB Conc 34.1 31.0 - 35.0 g/dl [facility] Red Cell Distribution Width 12.1 11.0 - 16.0 % [facility] Platelet Count 220 160 - 400 X10*3/uL [facility] Mean Platelet Volume 9.8 9.4 - 12.3 fL [facility] Neutrophils Percent Auto 57.9 45 - 73 % [facility] Imm Gran Pct Auto 0.2 0.0 - 0.4 % [facility] Lymphocytes Percent Auto 31.8 20 - 40 % [facility] Monocytes Percent Auto 4.3 2 - 11 % [facility] Eosinophils Percent Auto 4.5(H) 0 - 4 % [facility] Basophils Percent Auto 1.3 0 - 2 % [facility] NRBC Pct Auto 0.0 0.0 - 0.2 /100WBC [facility] Neutrophils Absolute Auto 2.7 2.0 - 8.3 x10*3/uL [facility] Imm Gran Abs Auto 0.01 0.00 - 0.03 X10*3/uL [facility] Lymphocytes Absolute Auto 1.5 1.2 - 4.9 X10*3/uL [facility] Monocytes Absolute Auto 0.2 0.1 - 1.2 X10*3/uL [facility] Eosinophils Absolute Auto 0.2 0.0 - 0.4 X10*3/uL [facility] Basophils Absolute Auto 0.1 0.0 - 0.2 X10*3/uL [facility] NRBC Abs Auto 0.000 0.0 - 0.012 X10*3/uL [facility] Blood Venous blood specimen / Unknown 01/04/2025 9:35 AM EDT 01/04/2025 9:35 AM EDT Naomi Montague MD LAB BLOOD ORDERABLES Final Re sult Performing Organization Address [facility] de Phone Number [facility] [address] [place] [phone] * Iron And Total Iron Binding Capacity (01/04/2025 9:35 AM EDT) Only the most recent of3 resultswithin the time period is included. Iron 78 30 - 160 mcg/dL [facility] Total Iron Binding Capacity 270 228 - 428 mcg/dL [facility] Percent Iron Saturation 29 15 - 50 % [facility] Unsaturated Iron Binding 192 ug/dL [facility] Blood Venous blood specimen / Unknown 01/04/2025 9:35 AM EDT 01/04/2025 9:35 AM EDT Naomi Montague MD LAB BLOOD ORDERABLES Final Re sult Performing Organization Address [facility] Co de Phone Number [facility] [address] [place] [phone] * Vitamin A (01/04/2025 9:35 AM EDT) Vitamin A (Retinol) 51 38 - 98 mcg/dL [facility] Comment:Vitamin supplementat ion within 24 hours prior toblood draw may affect the accuracy of the results.This test was developed and its analytical performancecharacteristics have been determined by [employer] [place], [place]. It hasnot been cleared or approved by the U.S. Food and DrugAdministration. This assay has been validated pursuantto the CLIA regulations and is used for clinicalpurposes.THIS TEST WAS PERFORMED AT:[employer] [id number] [place] [phone] PASTOR MD,PHD 01/04/2025 9:35 AM EDT 01/04/2025 9:35 AM EDT us Generic External Data Provider LAB BLOOD ORDERAB LES Final Result Performing Organization Address [facility]/ZIP Co de Phone Number [facility] [address] [place] [phone] * (ABNORMAL) Fructosamine (01/04/2025 9:35 AM EDT) Pathologist [facility] Fructosamine 294(A) 205 - 285 umol/L [facility] Comment:THIS TEST WAS PERFOR MED AT:[employer] [id number] [place] [id number] PASTOR MD,PHD Blood Venous blood specimen / Unknown 01/04/2025 9:35 AM EDT 01/04/2025 9:35 AM EDT us Naomi Montague MD LAB BLOOD ORDERABLES Final Re sult Performing Organization Address City/[facility]/ZIP Co de Phone Number [facility] [address] [place] [phone] * (ABNORMAL) CBC (01/04/2025 9:35 AM EDT) Only the most recent of3 resultswithin the time period is included. White Blood Count 4.7(L) 4.8 - 10.8 X10*3/uL [facility] Red Blood Count 4.31 4.20 - 5.50 X10*6/uL [facility] Hemoglobin 12.0 12.0 - 16.0 g/dl [facility] Hematocrit 35.4(L) 37.0 - 47.0 % [facility] Mean Corpuscular Volume 82.1 80.0 - 98.0 fL [facility] Mean Corpuscular Hemoglobin 27.8 27.0 - 33.0 pg [facility] Mean Corpuscular HGB Conc 33.9 31.0 - 35.0 g/dl [facility] Red Cell Distribution Width 12.3 11.0 - 16.0 % [facility] Platelet Count 210 160 - 400 X10*3/uL [facility] Mean Platelet Volume 10.1 9.4 - 12.3 fL [facility] NRBC Pct Auto 0.0 0.0 - 0.2 /100WBC [facility] NRBC Abs Auto 0.000 0.0 - 0.012 X10*3/uL [facility] 01/04/2025 9:35 AM EDT 01/04/2025 9:35 AM EDT us Generic External Data Provider LAB BLOOD ORDERAB LES Final Result [facility] [address] [place] [phone] * Ferritin (01/04/2025 9:35 AM EDT) Only the most recent of3 resultswithin the time period is included. Ferritin 74 10 - 250 ng/mL [facility] Blood Venous blood specimen / Unknown 01/04/2025 9:35 AM EDT 01/04/2025 9:35 AM EDT us Naomi Montague MD LAB BLOOD ORDERABLES Final Re sult Performing Organization Address [facility] Co de Phone Number [facility] [address] [place] [phone] * Type and screen (01/04/2025 9:24 AM EDT) Only the most recent of2 resultswithin the time period is included. Blood Type BP [facility] Antibody Screen NEGATIVE [facility] 01/04/2025 9:24 AM EDT 01/04/2025 10:11 AM EDT Narrative [facility] - 01/04/2025 11:06 AM EDT Witnessed by DIANE us Generic External Data Provider LAB BLOOD BANK TE ST ORDERABLES Final Result Performing Organization Address [facility] Phone Number [facility] [address] [place] [phone] * Albumin, Random Urine W/Creatinine (01/04/2025 9:23 AM EDT) Creatinine, Urine 39.05 mg/dL [facility] Microalbumin Urine <5.0 mg/L [facility] Microalbum Creatinine Ratio Ur TNP <30 ug/mg cr [facility] Comment:Unable to calculate albumin/creatinine ratio due to lowmicroalbumin or creatinine result. Urine (Urine, Random) 01/04/2025 9:23 AM EDT 01/04/2025 10:19 AM EDT us Naomi Montague MD LAB URINE ORDERABLES Final Re sult Performing Organization Address [facility] Co de Phone Number [facility] [address] [place] [phone] * POCT Glucose (01/01/2025 10:36 AM EDT) Only the most recent of3 resultswithin the time period is included. Pathologist [facility] Glucose Blood, POC 165 60 - 200 mg/dL QC Media Lot # [id number] Lot# Expiration Date Blood Capillary blood specimen / Unknown 01/01/2025 10:36 AM EDT Result [facility] Naomi Montague MD POINT OF CARE TEST ENTER/EDIT ORDERABLES Final Result * Hm Colonoscopy (11/25/2024 3:37 PM EDT) Historical Provider MD HEALTH MAINTENANCE Final Result * Hold [place] - Possible Hematology (11/23/2024 1:21 PM EDT) [facility] Hold [place] - Possible Hematololgy SEE NOTE [facility] Comment:Specimen will be hel d untested for 8 hours. Call Hematologyif testing is desired. 11/23/2024 1:21 PM EDT 11/23/2024 2:01 PM EDT Naomi Montague MD HISTORICAL/NON ORDERABLE LABS Final Result Performing Organization Address City/[facility]/ZIP Co de Phone Number [facility] [address] [place] [phone] * TSH W/Reflex to FT4 (11/23/2024 1:21 PM EDT) [facility] TSH reflex Free T4 1.81 0.32 - 4.0 uIU/mL [facility] Blood Venous blood specimen / Unknown 11/23/2024 1:21 PM EDT 11/23/2024 1:21 PM EDT Naomi Montague MD LAB BLOOD ORDERABLES Final Re sult Performing Organization Address City/[facility]/ZIP Co de Phone Number [facility] [address] [place] [address] [phone] * (ABNORMAL) Hemoglobin Electrophoresis (11/23/2024 1:21 PM EDT) RBC 3.02(A) 3.80 - 5.10 Million/u L [facility] Hemoglobin 8.2(A) 11.7 - 15.5 g/dL [facility] Hematocrit 25.9(A) 35.0 - 45.0 % [facility] MCV 85.8 80.0 - 100.0 fL [facility] MCH 27.2 27.0 - 33.0 pg [facility] RDW 12.8 11.0 - 15.0 % [facility] Hemoglobin A 98.0 >96.0 % [facility] Hemoglobin A2 2.0 2.0 - 3.2 % [facility] Hemoglobin F <1.0 <2.0 % [facility] Hemoglobin S TNP [facility] Hemoglobin C TNP [facility] Hemoglobin E TNP [facility] Other Hemoglobin TNP [facility] Other Hemoglobin 2 TNP H [facility] Hgb Interpretation SEE NOTE H [facility] Comment:Normal phenotype.THI S TEST WAS PERFORMED AT:[id number] [place] [phone] FRENCH MD Blood Venous blood specimen / Unknown 11/23/2024 1:21 PM EDT 11/23/2024 1:21 PM EDT us Naomi Montague MD LAB BLOOD ORDERABLES Final Re sult [facility] [facility] [address] [place] [phone] * Magnesium (11/23/2024 1:21 PM EDT) Only the most recent of2 resultswithin the time period is included. Magnesium 2.2 1.6 - 2.6 mg/dL [facility] Blood Venous blood specimen / Unknown 11/23/2024 1:21 PM EDT 11/23/2024 1:21 PM EDT us Naomi Montague MD LAB BLOOD ORDERABLES Final Re sult Performing Organization Address City/[facility]/ZIP Co de Phone Number [facility] [address] [place] [phone] [phone] * (ABNORMAL) Lipid Panel, Standard (11/23/2024 1:21 PM EDT) Triglycerides 164(H) <150 mg/dL [facility] Comment:Desirable Triglyceri de: less than 150 mg/dLBorderline High Triglyceride 150-199 mg/dLHigh Triglyceride: 200-499 mg/dLVery High Triglyceride: greater than or equal to 5OO mg/dL Cholesterol 128 <200 mg/dL [facility] Comment:Desirable Cholestero l: less than 200 mg/dLBorderline High Cholesterol: 200-239 mg/dLHigh Cholesterol: greater than 239 mg/dL LDL Cholesterol Calculated 62 <100 mg/dL [facility] Comment:Desirable LDL: less than 100 mg/dLNear Optimal/Above Optimal LDL: 110- 129 mg/dLBorderline High LDL: 130-159 mg/dLHigh LDL: 160-189 mg/dLVery High LDL: greater than or equal to 190 mg/dL HDL Cholesterol 34(L) >40 mg/dL [facility] Comment:Desirable HDL: great er than 40 mg/dL Note: This HDL assay may give artificially low results in patients with liver disease. Blood Venous blood specimen / Unknown 11/23/2024 1:21 PM EDT 11/23/2024 1:21 PM EDT us Naomi Montague MD LAB BLOOD ORDERABLES Final Re sult [facility] [address] [place] [phone] * (ABNORMAL) Comprehensive Metabolic Panel (11/23/2024 1:21 PM EDT) Sodium 143 135 - 145 mmol/L [facility] Potassium 3.5 3.3 - 5.1 mmol/L [facility] Chloride 108 96 - 108 mmol/L [facility] Carbon Dioxide 29 22 - 29 mmol/L [facility] Anion Gap 10(L) 12 - 20 [facility] Urea Nitrogen (BUN) 14 9 - 16 mg/dL [facility] Creatinine, Serum 0.67 0.5 - 1.4 mg/dL [facility] Estimated Glomerular Filt Rate >60 [facility] Comment:Chronic Kidney Disea se: Estimated GFR < 60 mL/min/1.90s3Cddliv Kidney Disease: Estimated GFR < 15 mL/min/1.73m2 Glucose 154(H) 60 - 115 mg/dL [facility] Calcium 8.9 8.4 - 10.2 mg/dL [facility] Bilirubin, Total 0.3 0.0 - 1.0 mg/dL [facility] Aspartate Amino Transferase 22 5 - 31 U/L [facility] Alanine Aminotransferase 25 0 - 31 U/L [facility] Total Protein 6.1(L) 6.5 - 8.0 g/dL [facility] Albumin Level 4.3 3.5 - 5.0 g/dL [facility] Alkaline Phosphatase 49 39 - 117 U/L [facility] Blood Venous blood specimen / Unknown 11/23/2024 1:21 PM EDT 11/23/2024 1:21 PM EDT us Naomi Montague MD LAB BLOOD ORDERABLES Final Re sult [facility] [address] [place] [phone] * High Sensitivity Troponin I (11/21/2024 12:49 PM EDT) TROPONIN I HIGH SENSITIVITY 3.2 <3.5 - 17.0 ng/L [facility] Comment:The [place]an high sens itivity Troponin-I results should beused in conjunction with other diagnostic information suchas ECG, clinical observations and information, and patientsymptoms to aid in the diagnosis of AR. 11/21/2024 12:4 9 PM EDT 11/21/2024 12:52 PM EDT us Generic External Data Provider LAB BLOOD ORDERAB LES Final Result Performing Organization Address [facility]/ZIP Co de Phone Number [facility] [address] [place] [phone] * Hepatic Function Panel (11/21/2024 12:49 PM EDT) Bilirubin, Total 0.3 0.0 - 1.0 mg/dL [facility] Bilirubin, Direct 0.1 0.0 - 0.5 mg/dL [facility] Aspartate Amino Transferase 19 5 - 31 U/L [facility] Alanine Aminotransferase 23 0 - 31 U/L [facility] Total Protein 6.5 6.5 - 8.0 g/dL [facility] Albumin Level 4.5 3.5 - 5.0 g/dL [facility] Alkaline Phosphatase 53 39 - 117 U/L [facility] 11/21/2024 12:4 9 PM EDT 11/21/2024 12:52 PM EDT Generic External Data Provider LAB BLOOD ORDERAB LES Final Result Performing Organization Address [facility] Co de Phone Number [facility] [address] [place] [phone] * (ABNORMAL) Basic Metabolic Panel (11/21/2024 12:49 PM EDT) Sodium 141 135 - 145 mmol/L [facility] Potassium 4.0 3.3 - 5.1 mmol/L [facility] Chloride 106 96 - 108 mmol/L [facility] Carbon Dioxide 25 22 - 29 mmol/L [facility] Anion Gap 14 12 - 20 [facility] Urea Nitrogen (BUN) 36(H) 9 - 16 mg/dL [facility] Creatinine, Serum 0.80 0.5 - 1.4 mg/dL [facility] Creatinine Clr Calc Pharmacy 65.4 [facility] Comment:Provided height and weight: 160.02 cm,63.503 kg.eGFR (calculated from the MDRD study equation) and eCrCl(calculated from the Cockcroft-Gault equation) are based ondifferent parameters and may not yield comparable results.If eCrCl result is absurd, please check patient'sheight/weight. Estimated Glomerular Filt Rate >60 [facility] Comment:Chronic Kidney Disea se: Estimated GFR < 60 mL/min/1.67u5Aelfzd Kidney Disease: Estimated GFR < 15 mL/min/1.73m2 Glucose 206(H) 60 - 115 mg/dL [facility] Calcium 9.1 8.4 - 10.2 mg/dL [facility] 11/21/2024 12:4 9 PM EDT 11/21/2024 12:52 PM EDT us Generic External Data Provider LAB BLOOD ORDERAB LES Final Result [facility] [address] [place] [phone] * (ABNORMAL) Glucose, Whole Blood (11/21/2024 12:12 PM EDT) Only the most recent of2 resultswithin the time period is included. Glucose, Whole Blood 140(H) 60 - 115 mg/dL [facility] Comment:METER #: [id number] 11/21/2024 12:1 2 PM EDT 11/23/2024 9:16 AM EDT us Generic External Data Provider LAB BLOOD ORDERAB LES Final Result Performing Organization Address City/[facility]/ZIP Co de Phone Number [facility] [address] [place] [phone] * Hematoxylin and Eosin Stain (11/20/2024 8:44 AM EDT) 11/20/2024 8:44 AM EDT 11/20/2024 10:00 AM EDT [facility] - 11/26/2024 4:34 PM EDT ----- ------- Name: Ru Sun Age/Sex: 64/F : 1960 Unit#: [id number] Attend Dr: Brittny Jean-Baptiste MD Re11/20/24 Status: [facility] Location: [facility] Disch: ----- ------- SPEC : [id number] RECD: 11/20/24 STATUS: AVIVA FAULKNER NUM: [id number] KARINE: 11/20/[address] [facility] [address]: Brittny Jean-Baptiste MD ENTERED: 11/20/24 SP [...] CONTINUED ON NEXT PAGE ----- ------- Name: Raciel Sunn Age/Sex: 64/F : 1960 [id number] Unit#: [id number] Attend Dr: Brittny Jean-Baptiste MD Re11/20/24 Status: [facility] Location: [facility] Disch: ----- ------- SPEC : [id number] RECD: 11/20/24 STATUS: AVIVA FAULKNER NUM: [id number] KARINE: 11/20/[address] [facility] [address]: Brittny Jean-Baptiste MD ENTERED: 11/20/24 SP TYPE: Surgical OTHR DR: Naomi Montague MD ORDERED: HE Stain, Gross Micro L4/12, IHC/, H. pylori/ Diagnosis (Continued) J. Colon, right, biopsy: Colonic [...] Name: Ru Sun Age/Sex: 64/F : 1960 [id number] Unit#: [id number] Attend Dr: Brittny Jean-Baptiste MD Re11/20/24 Status: [facility] Location: [facility] Disch: ----- ------- SPEC : [id number] RECD: 11/20/241000 STATUS: AVIVA FAULKNER NUM: [id number] KARINE: 11/20/24-08[address] [facility] [address]: Brittny Jean-Baptiste MD ENTERED: [...] labeled gastric polyps are 3 fragments of red-bsowell soft tissue measuring 0.4-0.8 cm in greatest [...] microscopic examination, 1 piece in cassette L. ([facility]) CONTINUED ON NEXT PAGE ----- ------- Name: Ru Sun Age/Sex: 64/F : 1960 Unit#: [id number] Attend Dr: Brittny Jean-Baptiste MD Re11/20/24 Status: [facility] Location: [facility] Disch: ----- ------- SPEC : [id number] RECD: 11/20/24 STATUS: AVIVA FAULKNER NUM: [id number] KARINE: 11/20/[address] [facility] [address]: Brittny Jean-Baptiste MD ENTERED: 11/20/24 SP [...] developed and their performance characteristics determined by [facility]. They have not been cleared or approved by the U.S. Food and Drug Administration (FDA). However, the FDA has determined that such clearance or approval is not necessary. This laboratory is certified under the Clinical Laboratory Improvement Amendments of 1988 (CLIA) as qualified to perform high complexity clinical laboratory testing. Copies To: Naomi Montague MD [address] [place] [address] [id number] Brittny Jean-Baptiste MD [facility] [address] [place] [phone] [email or web address] ----- ------- Signed (signature on file) Laurel Sikeston 11/23/24 1404 ----- ------- END OF REPORT us Generic External Data Provider LAB BLOOD ORDERAB LES Final Result [facility] [address] [place] [phone] * (ABNORMAL) POCT HGB A1C (10/30/2024 [...] is unremarkable, will continue monitoring. us Kristi Carloz OD OPHTH VISUAL FIELD Final Resu lt * Hepatitis C Ab (07/24/2024 1:38 PM EDT) Hepatitis C Antibody Nonreactive Nonreactive [facility] Comment:Antibodies to HCV no t detected; does not exclude early acuteHCV infection. 07/24/2024 1:38 PM EDT 07/24/2024 1:38 PM EDT us Generic External Data Provider LAB BLOOD ORDERAB LES Final Result [facility] [address] [place] [phone] * Cologuard?? colon cancer screening (02/05/2023 5:40 AM EDT) Cologuard Result Negative Negative 02/14/20 23 2:34 AM EDT [facility] (CLIA #:[id number]) Comment: NEGATIVE TEST RESULT. A negative Cologuard [...] (Dickson Sampson al, N Engl J Med 2014;370(14):6855-2980) The normal value (reference range) for this assay is negative. COLOGUARD RE-SCREENING RECOMMENDATION: Periodic colorectal cancer screening is an important part of preventive healthcare for asymptomatic individuals at average risk for colorectal cancer. Following a negative Cologuard result, the [place] [employer] and U.S. Multi-Society Task Force screening guidelines recommend a Cologuard re-screening interval of 3 years. References: [place] [employer] Guideline for Colorectal Cancer Screening: https://www.cancer.org/cancer/yjdgg-pwumpy-bnxamn/kntbzuorb-usujftrtv-tfpycwp/ac s-rec ommendations.html.; Abdulkadir DK, Zi CR, Luzmaria PrakashK, Colorectal Cancer Screening: Recommendations for Physicians and Patients from the U.S. Multi-Society Task Force on Colorectal Cancer Screening , Am J Gastroenterology 2017; 112:1610-8938. TEST DESCRIPTION: Composite algorithmic analysis of stool [...] (Dickson Sampson al, N Engl J Med 2014;370(14):5258-9893.) Cologuard may produce a false negative or false positive result (no colorectal cancer or precancerous polyp present at colonoscopy follow up). A negative Cologuard test result does not guarantee the absence of CRC or advanced adenoma (pre-cancer). The current Cologuard screening interval is every 3 years. ([place] [employer] and U.S. Multi-Society Task Force). Cologuard performance data in a 10,000 patient pivotal study using colonoscopy as the reference method can be accessed at the following location: www.[employer].com/results. Additional description of the Cologuard test process, warnings and precautions can be found at www.cologuard.com. Stool specimen (specimen) 02/05/2023 5:40 AM EDT 02/06/2023 9:11 PM EDT us Naomi Montague MD LAB MOLECULAR DIAGNOSTICS ORD ERABLES Final Result [facility] (CLIA #:[id number]) [address] [place] [id number], from Last 3 Months or Most Recently Relevant to Health Maintenance Insurance [facility] DENTAL - HSN PARTIAL (MEDICAID) DENTAL - HSN PARTIAL (MEDICAID) Care Teams Toxicology Teacher Relationship Specialty Start Date End Date Naomi Montague MD [address] [place] [phone] PCP - General Family Medicine 02/01/22
--- OUTSIDE RECORDS SUMMARY | 2025-01-16 13:01 | XMS_ITS | Clinical Summary ---
Author Organization [facility] Address [address] [facility] [address] [place] [phone] Phone Care Team Providers Care Boot And Shoe Laborer Name Role Phone Naomi Montague MD Primary Care Provider [phone] Allergies No known active allergies Medications oxyCODONE 5 MG immediate release tablet Take 1 tablet (5 mg total) by mouth every 4 (four) hours as needed for moderate pain. 10 tablet 7 Active Additional Information Patient not taking.Reported on 02/14/2017 Ca cit-D3-mag#11-[id number] r (CALTRATE 600+D) 600 mg calcium- 800 [...] Orientation Straight 01/08/2025 3: 30 PM EDT Last Filed Vital Signs Vital Sign [...] topic Medical Devices Not on file Insurance [facility] [employer] CorporationHEALTH CAREPLUS [facility] [employer] [facility] Real IntentORCARE DIRECT [facility] [employer] [facility] [employer] [facility] CONNECTORCARE DIRECT [facility] [place] [facility] [place] [facility] [place] CAREPLUS [facility] CONNECTORCARE DIRECT [facility] C[facility] CARE[facility]US [facility] CONNECTORCARE DIRECT [facility] [employer] CorporationHEALTH CAREPLUS [facility] CONNECTORCARE DIRECT [facility] [employer] CorporationHEALTH CAREPLUS [facility] CONNECTORCARE DIRECT Advance Directives For more information, please contact: [phone] (9AM - 5PM [place], Saturday-Saturday) * Full Code (Presumed) (Latest Code Status on File) Date Activated Date Inactivated Comments 02/20/2017 6:24 AM 02/20/2017 7:04 PM Care Teams Boot And Shoe Laborer Relationship Specialty Start Date End Date Naomi Montague MD [address] [place] [phone] PCP - General Family Medicine 01/08/25 Additional Source Comments The information contained in this document represents components of the legal health record. It is not the complete legal health record.[facility]
--- OUTSIDE RECORDS SUMMARY | 2025-01-16 13:01 | XMS_ITS | Encounter Summary ---
Author Organization [employer] Address [address] [facility] [address] [place] [address] Care Team Providers Care Brazer Repair And Salvage Name Role Phone Naomi Montague MD Primary Care Provider [phone] Reason for Visit * Reason Onset Date Comments Hospital Follow-up 11/30/2024 Encounter Details Date Type Department Care Team ([facility] Contact Info) Description 11/30/2024 Telephone [facility] MEDICINE [address] [place] [address] Naomi Montague MD [address] [place] [address] Hospital Follow-up Social History Tobacco Use Types [...] from pt requesting a HDF appt. Hospital: [facility] Date of admission: 11/23 Discharge date: 11/27 Diagnosed: colon bleeding *Send message to [place] Clinical Care Coordinators documented in this encounter Plan of Treatment Upcoming Encounters Date Type Department Care Team (Late st Contact Info) Description 02/26/2025 10:15 AM EST Office Visit [facility] ADULT DENTAL [address] [place] [address] Gaurang Stevenson 04/30/2025 1:00 PM EST Office Visit [facility] OPTOMETRY [address] [place] [address] Kristi Carty, OD [address] [place] [address] documented as of this encounter Visit Diagnoses Not on filedocumented in this encounter Additional Health Concerns Assessment Noted Time PHQ-9 Depression Total Score: 2 04/30/19 25 9:35 AM EST documented as of this encounter Care Teams [employer] Relationship Specialty Start Date End Date Naomi Montague MD [address] [place] [address] PCP - General Family Medicine 02/01/22 Geri A 11/30/24 01/03/25 documented as of this encounter
--- OUTSIDE RECORDS SUMMARY | 2025-01-16 13:01 | XMS_ITS | Encounter Summary ---
Author Organization [employer] Address [address] [place] [address] [address] [place] [address] Care Team Providers Care Rooter Operator Name Role Phone Naomi Montague MD Primary Care Provider [phone] Reason for Visit * Reason Onset Date Comments Returning Call Back 10/10/2022 Encounter Details Date Type Department Care Team ([facility] Contact Info) Description 10/10/2022 Telephone C [facility] MED & PEDS [address] [place] [address] Naomi Montague MD [address] [place] [address] Returning Call Back Social History Tobacco Use [...] spouse returning call back, regarding message below. Sound Tester let him know a nurse will call back with an plumbing inspector he stated she's at work they can call him. Sound Tester doesn't see any HIPPA information. documented in this encounter Plan of Treatment Upcoming Encounters Date Type Department Care Team (Late st Contact Info) Description 02/26/2025 10:15 AM EST Office Visit [facility] CHC ADULT DENTAL [address] [place] [address] Gaurang Stevenson 04/30/2025 1:00 PM EST Office Visit [facility] OPTOMETRY [address] [place] [address] Carloz, Kristi, OD [address] [place] [address] documented as of this encounter Visit Diagnoses Not on filedocumented in this encounter Additional Health Concerns Assessment Noted Time PHQ-9 Depression Total Score: 0 06/30/19 23 2:19 PM EDT documented as of this encounter Care Teams Rooter Operator Relationship Specialty Start Date End Date Naomi Montague MD [address] [place] [address] PCP - General Family Medicine 02/01/22 [place] BARRYA 11/30/24 01/03/25 documented as of this encounter
== END 2025-01-16 12:58 | disposition home or self-care (01) ==
LOC: HO.MRI 12:57
PROVIDERS: PCP Family Medicine; Visit Provider Optometrist
DX: H53.47 Heteronymous bilateral field defects (principal)
CPT/HCPCS: 70540; 70551

== ENCOUNTER → 2025-01-16 13:48 | Outpatient (BNV) | payer OTHER, SELFPAY | PROVIDERS: PCP Family Medicine; Visit Provider Radiology Vascular & Interventional Radiology | DX: H53.47 Heteronymous bilateral field defects (principal) | CPT/HCPCS: 70540 ==

== ENCOUNTER 2025-01-28 13:42 | Emergency (ER) | payer OTHER, SELFPAY ==
[2025-01-28 13:57] VITALS: BP 180/78; PULSE 71; RESP 18; TEMP 36.4; O2SAT 97; BMI 18.4
--- NOTE | 2025-01-28 14:01 | ECG_ITS ---
Test Reason : AP Blood Pressure : */* mmHG Vent. Rate : 69 BPM Atrial Rate : 69 BPM P-R Int : 168 ms QRS Dur : 88 ms QT Int : 420 ms P-R-T Axes : 38 28 50 degrees QTcB Int : 450 ms Normal sinus rhythm T wave abnormality, consider anterolateral ischemia Abnormal ECG When compared with ECG of 24-Nov-2024 15:59, No significant change was found Referred By: Johann Meek Electronically Signed By: Alexis Pelayo
--- NOTE | 2025-01-28 14:01 | ED.GENADULT ---
HPI - General Adult General Chief complaint: Abdominal Pain Stated complaint: Vomiting Time Seen by Provider: 01/28/25 15:06 History of Present Illness ED Provider: Ashok Bhatti MD HPI narrative: 64-year-old female who was at work at a [employer] when she developed upper abdominal discomfort nausea vomiting which is a recurrent issue for her. She has had extensive GI workup and has been referred to hepatology at [facility] unclear whether she has followed up with them yet for liver cysts which did not have a can a coccus or other growth on aspiration. Upper and lower endoscopy here with a polyps and previous ulcers. No reported GI bleeding. Nonbloody nonbilious vomiting 1 or 2 episodes prior to arrival she has had some improvement of the pain and nausea during ED course before I evaluated her Related Data Home Medications ?Medication ?Instructions ?Recorded ?Confirmed blood sugar diagnostic (FreeStyle #10 ea 07/24/24 Lite Strips) cholecalciferol (vitamin D3) 50 50 mcg PO DAILY 07/24/24 11/24/24 mcg (2,000 unit) tablet doxepin 10 mg capsule 10 mg PO BEDTIME 07/24/24 11/24/24 metformin 750 mg tablet,extended 750 mg PO BID 07/24/24 11/24/24 release 24 hr rosuvastatin 10 mg tablet 10 mg PO DAILY 07/24/24 11/24/24 Previous Rx's ?Medication ?Instructions ?Recorded ferrous sulfate 325 mg (65 mg 325 mg PO DAILY #90 tabs 11/27/24 iron) tablet ondansetron 4 mg disintegrating 4 mg PO Q8H PRN nausea and 01/28/25 tablet vomiting #7 tabs Allergies Allergy/AdvReac Type Severity Reaction Status Date / Time No Known Allergies Allergy Verified 01/28/25 14:06 [facility] Past Medical History Medical History GERD (gastroesophageal reflux disease) Diabetes Hyperlipidemia Hypertension Surgical History History of surgery Hx of colonoscopy History of esophagogastroduodenoscopy (EGD) Family History Family History Brother Colon cancer Social History Social History (Reviewed 12/21/24 @ 11:12 by JASEN Mckeon Household Members: Spouse and Family Housing: House Are you a primary pediatric critical care nurse to a significant other at home: No Do you presently have visiting nurse or other home services: No Alcohol intake: current Alcohol intake frequency: holidays/special occasions only Comment: Family in room and assists with ambulation, pt to be dc'd home today Patient Tobacco Use Status: Never used Tobacco Smoked in Last 30 Days: No Use of substances other than those prescribed or required for medical reasons: No Advance Directives: No Advance Directives Information Provided: Yes service: No Physical Exam ED Exam Exam: EXAM: Gen: Alert, awake, well appearing, well hydrated. Head: Atraumatic Eyes: Anicteric, Normal conjunctiva. ENT: Moist mucosa, no pallor. ? Neck: Supple. Skin: ?No observable rash or bruising on exposed or examined skin Respiratory: Breathing comfortably, No distress.Clear to auscultation bilaterally, symmetric chest expansion, No wheeze, rales, ronchi. Cardiovascular: Regular rate and rhythm. No murmurs or rub. Well perfused periphery, warm extremities. No edema. ? Abdominal: Mild right upper quadrant and midepigastric tenderness Soft, no objective distension. No palpable masses or obvious organomegaly. ?No guarding, no rebound tenderness or other peritoneal findings. Lower surgical scar : No flank tenderness. Neuro: Alert. Gross movement of all extremities intact. ? Psych: Calm. Cooperative. MSK: No grossly visible deformity. Vital signs: See flowsheet Vital Signs: Vital Signs - 24 hr 01/28/25 13:57 01/28/25 15:40 01/28/25 17:46 Temperature 97.5 F 98.1 F Pulse Rate 71 72 79 Respiratory Rate 18 18 18 Blood Pressure 180/78 H 137/59 L 148/65 H Pulse Oximetry 97 96 95 Oxygen Delivery Method Room Air Room Air Room Air 01/28/25 17:57 Temperature 0 F L Pulse Rate 79 Respiratory Rate 18 Blood Pressure 148/65 H Pulse Oximetry 95 Oxygen Delivery Method Room Air BMI result Body Mass Index 18.4 Course Course Course Narrative: RME: 64-year-old female history of diabetes presents to ED for epigastric abdominal pain after eating lunch. Patient states it began around 12 30 while at work. Patient also having nausea and vomiting. Glucose POC 147. Labs EKG ordered. Medications Administered Discontinued Medications Generic Name Dose Route Start Last Admin Trade Name Elva PRN Reason Stop Dose Admin Diphenhydramine HCl 25 mg 01/28/25 17:15 01/28/25 17:48 Diphenhydramine Hcl 25 Mg Capsule PO 01/28/25 17:16 25 mg ONCE ONE Administration Famotidine 20 mg 01/28/25 17:15 01/28/25 17:48 Famotidine 20 Mg Tablet PO 01/28/25 17:16 20 mg ONCE ONE Administration Procedures Procedure Narrative Procedure Narrative: EMERGENCY ULTRASOUND INTERPRETATION- Limited Point of Care Biliary [This study was ordered, performed, and interpreted by myself. The study reveals: Impression: NO EVIDENCE OF ACUTE INFLAMMATION OF THE GALLBLADDER, NO EVIDENCE OF OBSTRUCTIVE BILIARY DISEASE incidental reimaged and known multiple cystic structures in the liver [Indication: RUQ PAIN Gallbladder: NO WALL THICKENING > 4MM, NO PERICHOLECYSTIC FLUID, NOT GROSSLY DILATED/HYDROPIC. -Additional: WALL MEASUREMENT: Less than 3 mm CBD MEASURMENT IF OBTAINED: Not obtained poorly visualized Additional incidental visualization of known medial multiple cystic structures in the liver parenchyma Performed by: Ashok Bhatti MD Images were stored CPT:25365] Medical Decision Making Medical Decision Making MDM Narrative: Medical Decision Makin-year-old female with chronic recurrent nausea vomiting intermittently. She has had extensive GI workup including identification and biopsy of liver cyst that is reported to be not suggestive of parasitic cyst or malignancy per notes from GI. The patient had upper and lower endoscopy previously had polyps removed and previously had GI bleed felt to be? Upper. Currently no GI bleeding reported nor any coffee ground emesis. Mild right upper quadrant tenderness. Gallbladder ultrasound reassuring see report above. Lab work reassuring. Symptoms improved She did develop a very minimal pruritic but not raised red rash in the upper chest that was perhaps suggested to be allergic but she had no other systemic signs Benadryl and famotidine given. Preliminary Favored Differential Diagnosis: Liver cyst, PUD, gastritis, biliary disease, enteritis chronic idiopathic vomiting, gastroparesis among additional considered etiologies Testing Interpreted Independently: ECG: Sinus rhythm nonspecific and unchanged precordial T-wave inversions seen on previous ECG as well. No acute ischemic changes See point of care ultrasound report Radiology or Lab testing Results Reviewed: ?See below for details Consults: ?See below for details Independent Historians/External Chart Reviews: ?See below for details Social Determinants of Health Impacting MDM/Planning: ?See below for details Lab Data MDM Lab Attestation statement: I reviewed the patient's lab results. 01/28/25 14:29 01/28/25 14:29 Labs: Lab Results 01/28/25 01/28/25 Range/Units 14:01 14:29 WBC 17.7 H (4.8-10.8) X10*3/uL RBC 5.42 D (4.20-5.50) X10*6/uL Hgb 14.3 (12.0-16.0) g/dl Hct 43.9 D (37.0-47.0) % MCV 81.0 (80.0-98.0) fL MCH 26.4 L (27.0-33.0) pg MCHC 32.6 (31.0-35.0) g/dl RDW 12.1 (11.0-16.0) % Plt Count 250 (160-400) X10*3/uL MPV 9.8 (9.4-12.3) fL Immature Gran % (Auto) 0.5 H (0.0-0.4) % Neut % (Auto) 81.1 H (45-73) % Lymph % (Auto) 14.8 L (20-40) % [place] % (Auto) 2.5 (2-11) % Eos % (Auto) 0.5 (0-4) % Baso % (Auto) 0.6 (0-2) % Lymph # (Auto) 2.6 (1.2-4.9) X10*3/uL [place] # (Auto) 0.5 (0.1-1.2) X10*3/uL Eos # (Auto) 0.1 (0.0-0.4) X10*3/uL Baso # (Auto) 0.1 (0.0-0.2) X10*3/uL Abs Immat Gran (auto) 0.09 H (0.00-0.03) X10*3/uL Absolute Neuts (auto) 14.3 H (2.0-8.3) x10*3/uL Absolute Nucleated RBC 0.000 (0.0-0.012) X10*3/uL Nucleated RBC % (auto) 0.0 (0.0-0.2) /100WBC Sodium 144 (135-145) mmol/L Potassium 3.7 (3.3-5.1) mmol/L Chloride 106 (96-108) mmol/L Carbon Dioxide 27 (22-29) mmol/L Anion Gap 15 (12-20) BUN 12 (9-16) mg/dL Creatinine 0.72 (0.5-1.4) mg/dL Estim Creat Clear Calc 60.3 Estimated GFR > 60 POC Glucose 145 H (60-115) mg/dL Random Glucose 159 H (60-115) mg/dL Calcium 9.8 D (8.4-10.2) mg/dL Total Bilirubin 0.4 (0.0-1.0) mg/dL AST 24 (5-31) U/L ALT 31 (0-31) U/L Alkaline Phosphatase 73 (39-117) U/L Troponin I High Sens < 2.7 (<3.5-17.0) ng/L Total Protein 8.1 H (6.5-8.0) g/dL Albumin 5.7 H (3.5-5.0) g/dL Lipase 74 (8-78) U/L Discharge Plan Discharge Clinical Impression: Benign liver cyst Patient Disposition: Home, Self-Care Instructions: Abdominal Pain (ED) Additional Instructions: Cause of your abdominal pain and vomiting is unclear at this time it appears to be chronic. You had an ultrasound of your liver and gallbladder showing the cyst that we will previously seen and normal appearing gallbladder. Lab work was generally reassuring and you improved. You will be discharged with Zofran. It appears by previous notes state your doctor has referred you to [facility] hepatology to further look into the cysts in your liver. You can call your GI doctor here at [place] to confirm this or call [phone] and be connected with the hepatology to confirm your referral Prescriptions: New ondansetron 4 mg tablet,disintegrating 4 mg PO Q8H PRN (Reason: nausea and vomiting) Qty: 7 0RF No Action ferrous sulfate 325 mg (65 mg iron) tablet 325 mg PO DAILY Qty: 90 0RF metformin 750 mg tablet extended release 24 hr 750 mg PO BID cholecalciferol (vitamin D3) 50 mcg (2,000 unit) tablet 50 mcg PO DAILY rosuvastatin 10 mg tablet 10 mg PO DAILY doxepin 10 mg capsule 10 mg PO BEDTIME (DME) FreeStyle Lite Strips Strip See Rx Instructions .ROUTE DAILY Qty: 10 Rx Instructions: As directed Interventions: ED Discharge Assessment Last Done: 01/28/25 17:57 Discharge Date/Time: 01/28/25 17:58 Print Language: Cantonese Portuguese
[2025-01-28 14:05] LABS: Glucose, Whole Blood 145 mg/dL (60-115)
[2025-01-28 14:34] LABS: MANUAL DIFF FLAG NO
[2025-01-28 14:37] LABS: Hematocrit 43.9 % (37.0-47.0); Hemoglobin 14.3 g/dl (12.0-16.0); Imm Gran Abs Auto 0.09 X10*3/uL (0.00-0.03); Imm Gran Pct Auto 0.5 % (0.0-0.4); Lymphocytes Absolute Auto 2.6 X10*3/uL (1.2-4.9); Mean Corpuscular HGB Conc 32.6 g/dl (31.0-35.0); Mean Corpuscular Hemoglobin 26.4 pg (27.0-33.0); Mean Corpuscular Volume 81.0 fL (80.0-98.0); NRBC Abs Auto 0.000 X10*3/uL (0.0-0.012); NRBC Pct Auto 0.0 /100WBC (0.0-0.2); Platelet Count 250 X10*3/uL (160-400); Red Blood Count 5.42 X10*6/uL (4.20-5.50); White Blood Count 17.7 X10*3/uL (4.8-10.8)
[2025-01-28 14:51] LABS: Alanine Aminotransferase 31 U/L (0-31); Albumin Level 5.7 g/dL (3.5-5.0); Alkaline Phosphatase 73 U/L (39-117); Anion Gap 15 (12-20); Aspartate Amino Transferase 24 U/L (5-31); Blood Urea Nitrogen 12 mg/dL (9-16); Calcium 9.8 mg/dL (8.4-10.2); Carbon Dioxide 27 mmol/L (22-29); Chloride 106 mmol/L (96-108); Creatinine Clr Calc Pharmacy 60.3; Estimated Glomerular Filt Rate > 60; Lipase 74 U/L (8-78); Potassium 3.7 mmol/L (3.3-5.1); Sodium 144 mmol/L (135-145); Total Protein 8.1 g/dL (6.5-8.0)
[2025-01-28 14:59] LABS: Troponin-I High Sensitivity < 2.7 ng/L (<3.5-17.0)
[2025-01-28 15:40] VITALS: BP 137/59; PULSE 72; RESP 18; TEMP 36.7; O2SAT 96
--- NOTE | 2025-01-28 15:46 | PC.NURSE ---
pt is alert and oriented, skin appropriate for ethnicity, respirations even and unlabored, pt reports after eating lunch started with intermittent epigastric pain and vomiting x4 and 2 soft stool bowel today, bowel sounds in all 4 quadrants, abd soft and non-tender with palpation, vs stable and ns on the monitor, according the this has been on going issues for a couple of months and is being followed by GI
[2025-01-28 17:46] VITALS: BP 148/65; PULSE 79; RESP 18; O2SAT 95
[2025-01-28 17:57] VITALS: BP 148/65; PULSE 79; RESP 18; TEMP -17.7; TEMP 0; O2SAT 95
--- OUTSIDE RECORDS SUMMARY | 2025-01-28 18:13 | XMS_ITS | Encounter Summary ---
Author Organization [facility] Address [address] [place] [address] [place] [phone] Phone Care Team Providers Care Nib Finisher Name Role Phone Swapna Maravilla MD Primary Care Provider + Naomi Montague MD Primary Care Provider [phone] Encounter Details Date Type Department Care Team ([facility] st Contact Info) Description 02/20/2017 Procedure Pass [facility] [address] [place] [phone] Social History Tobacco Use Types Packs/Day [...] on filedocumented in this encounter Care Teams Nib Finisher Relationship Specialty Start Date End Date Swapna Maravilla MD [address] [address] PCP - General Family Medicine 09/04/16 01/07/25 Naomi Montague MD [address] [place] [address] PCP - General Family Medicine 01/08/25 documented as of this encounter Additional Source Comments The information contained in this document represents components of the legal health record. It is not the complete legal health record.[facility]
--- OUTSIDE RECORDS SUMMARY | 2025-01-28 18:13 | XMS_ITS | Encounter Summary ---
Author Organization [employer] Address [address] [facility] 7[address] [place] [address] Care Team Providers Care Department Operations Manager Name Role Phone Naomi Montague MD Primary Care Provider [phone] Encounter Details Date Type Department Care Team (Late st Contact Info) Description 01/28/2025 Orders Only GENERIC EXTERNAL DATA DEPARTMENT Provider, [...] Care Team (Late st Contact Info) Description 01/29/2025 2:30 PM EDT Office Visit [facility] AD[facility] [address] [place] [address] Patel Montague, DDS [address] [place] [address] 02/26/2025 10:15 AM EST Office Visit [facility] [address] [place] [address] Gaurang Stevenson 04/30/2025 1:00 PM EST Office Visit [facility] OPTOMETRY [address] [place] [address] CarlozAbiodunn, OD [address] [place] [address] documented as of this encounter Procedures Procedure Name Priority Date/Time Associated Diagnosis Comments HIGH SENSITIVITY TROPONIN I Routine 01/28/2025 2:29 PM EDT CBC WITH AUTO DIFFERENTIAL Routine 01/28/2025 2:29 PM EDT LIPASE Routine 01/28/2025 2:29 PM EDT COMPREHENSIVE METABOLIC PANEL Routine 01/28/2025 2:29 PM EDT GLUCOSE, WHOLE BLOOD Routine 01/28/2025 2:01 PM EDT documented in this encounter Results * High Sensitivity Troponin I (01/28/2025 2:29 PM EDT) [facility] TROPONIN I HIGH SENSITIVITY <2.7 <3.5 - 17.0 ng/L [facility] Comment:The Catalan high sens itivity Troponin-I results should beused in conjunction with other diagnostic information suchas ECG, clinical observations and information, and patientsymptoms to aid in the diagnosis of UT. 01/28/2025 2:29 PM EDT 01/28/2025 2:32 PM EDT Generic External Data Provider LAB BLOOD ORDERAB LES Final Result Performing Organization Address [facility]/ZIP Co de Phone Number [facility] [address] [place] [phone] * Lipase (01/28/2025 2:29 PM EDT) [facility] Lipase 74 8 - 78 U/L [facility] 01/28/2025 2:29 PM EDT 01/28/2025 2:32 PM EDT Generic External Data Provider LAB BLOOD ORDERAB LES Final Result Performing Organization Address [facility] Co de Phone Number [facility] [address] [place] [phone] * (ABNORMAL) Comprehensive Metabolic Panel (01/28/2025 2:29 PM EDT) [facility] Sodium 144 135 - 145 mmol/L [facility] Potassium 3.7 3.3 - 5.1 mmol/L [facility] Chloride 106 96 - 108 mmol/L [facility] Carbon Dioxide 27 22 - 29 mmol/L [facility] Anion Gap 15 12 - 20 [facility] Urea Nitrogen (BUN) 12 9 - 16 mg/dL [facility] Creatinine, Serum 0.72 0.5 - 1.4 mg/dL [facility] Creatinine Clr Calc Pharmacy 60.3 [facility] Comment:Provided height and weight: 160.02 cm,47.174 kg.eGFR (calculated from the MDRD study equation) and eCrCl(calculated from the Cockcroft-Gault equation) are based ondifferent parameters and may not yield comparable results.If eCrCl result is absurd, please check patient'sheight/weight. Estimated Glomerular Filt Rate >60 [facility] Comment:Chronic Kidney Disea se: Estimated GFR < 60 mL/min/1.44o8Stkvoo Kidney Disease: Estimated GFR < 15 mL/min/1.73m2 Glucose 159(H) 60 - 115 mg/dL [facility] Calcium 9.8 8.4 - 10.2 mg/dL [facility] Bilirubin, Total 0.4 0.0 - 1.0 mg/dL [facility] Aspartate Amino Transferase 24 5 - 31 U/L [facility] Alanine Aminotransferase 31 0 - 31 U/L [facility] Total Protein 8.1(H) 6.5 - 8.0 g/dL [facility] Albumin Level 5.7(H) 3.5 - 5.0 g/dL [facility] Alkaline Phosphatase 73 39 - 117 U/L [facility] 01/28/2025 2:29 PM EDT 01/28/2025 2:32 PM EDT us Generic External Data Provider LAB BLOOD ORDERAB LES Final Result [facility] [address] [place] [phone] * (ABNORMAL) CBC auto differential (01/28/2025 2:29 PM EDT) White Blood Count 17.7(H) 4.8 - 10.8 X10*3/uL [facility] Red Blood Count 5.42 4.20 - 5.50 X10*6/uL [facility] Hemoglobin 14.3 12.0 - 16.0 g/dl [facility] Hematocrit 43.9 37.0 - 47.0 % [facility] Mean Corpuscular Volume 81.0 80.0 - 98.0 fL [facility] Mean Corpuscular Hemoglobin 26.4(L) 27.0 - 33.0 pg [facility] Mean Corpuscular HGB Conc 32.6 31.0 - 35.0 g/dl [facility] Red Cell Distribution Width 12.1 11.0 - 16.0 % [facility] Platelet Count 250 160 - 400 X10*3/uL [facility] Mean Platelet Volume 9.8 9.4 - 12.3 fL [facility] Neutrophils Percent Auto 81.1(H) 45 - 73 % [facility] Imm Gran Pct Auto 0.5(H) 0.0 - 0.4 % [facility] Lymphocytes Percent Auto 14.8(L) 20 - 40 % [facility] Monocytes Percent Auto 2.5 2 - 11 % [facility] Eosinophils Percent Auto 0.5 0 - 4 % [facility] Basophils Percent Auto 0.6 0 - 2 % [facility] NRBC Pct Auto 0.0 0.0 - 0.2 /100WBC [facility] Neutrophils Absolute Auto 14.3(H) 2.0 - 8.3 x10*3/uL [facility] Imm Gran Abs Auto 0.09(H) 0.00 - 0.03 X10*3/uL [facility] Lymphocytes Absolute Auto 2.6 1.2 - 4.9 X10*3/uL [facility] Monocytes Absolute Auto 0.5 0.1 - 1.2 X10*3/uL [facility] Eosinophils Absolute Auto 0.1 0.0 - 0.4 X10*3/uL [facility] Basophils Absolute Auto 0.1 0.0 - 0.2 X10*3/uL [facility] NRBC Abs Auto 0.000 0.0 - 0.012 X10*3/uL [facility] 01/28/2025 2:29 PM EDT 01/28/2025 2:32 PM EDT us Generic External Data Provider LAB BLOOD ORDERAB LES Final Result Performing Organization Address [facility] Co de Phone Number [facility] [address] [place] [phone] * (ABNORMAL) Glucose, Whole Blood (01/28/2025 2:01 PM EDT) Glucose, Whole Blood 145(H) 60 - 115 mg/dL [facility] Comment:METER #: [id number] 01/28/2025 2:01 PM EDT 01/28/2025 2:04 PM EDT Generic External Data Provider LAB BLOOD ORDERAB LES Final Result Performing Organization Address [facility] Co de Phone Number [facility] [address] [place] [address] [phone] documented in this encounter Visit Diagnoses Not on filedocumented in this encounter Additional Health Concerns Assessment Noted Time PHQ-9 Depression Total Score: 2 04/30/19 25 9:35 AM EST documented as of this encounter Care Teams Department Operations Manager Relationship Specialty Start Date End Date Naomi Montague MD [address] [place] [address] PCP - General Family Medicine 02/01/22 documented as of this encounter
--- OUTSIDE RECORDS SUMMARY | 2025-01-28 18:13 | XMS_ITS | Encounter Summary ---
Author Organization [employer] Address [address] [place] [address] [address] [place] [address] Care Team Providers Care Business Development Manager Name Role Phone Naomi Montague MD Primary Care Provider [phone] Reason for Visit * Reason Onset Date Comments Returning Call Back 10/10/2022 Encounter Details Date Type Department Care Team ([facility] Contact Info) Description 10/10/2022 Telephone C [facility] [address] [place] [address] Naomi Montague MD [address] [place] [address] Returning Call Back Social History Tobacco Use [...] spouse returning call back, regarding message below. Ocean Biologist let him know a nurse will call back with an nurses assistant he stated she's at work they can call him. Ocean Biologist doesn't see any HIPPA information. documented in this encounter Plan of Treatment Upcoming Encounters Date Type Department Care Team (Late st Contact Info) Description 01/29/2025 2:30 PM EDT Office Visit [facility] [address] [place] [address] Patel Montague DDS [address] [place] [address] 02/26/2025 10:15 AM EST Office Visit [facility] [address] [place] [address] Gaurang Stevenson 04/30/2025 1:00 PM EST Office Visit [facility] OPTOMETRY [address] [place] [address] Carloz, Kristi, OD [address] [place] [address] documented as of this encounter Visit Diagnoses Not on filedocumented in this encounter Additional Health Concerns Assessment Noted Time PHQ-9 Depression Total Score: 0 06/30/19 23 2:19 PM EDT documented as of this encounter Care Teams Business Development Manager Relationship Specialty Start Date End Date Naomi Montague MD [address] [place] [address] PCP - General Family Medicine 02/01/22 [facility] 11/30/24 01/03/25 documented as of this encounter
--- OUTSIDE RECORDS SUMMARY | 2025-01-28 18:13 | XMS_ITS | Encounter Summary ---
Author Organization [employer] Address [address] [facility] [address]t [place] [address] Care Team Providers Care Regional Manager Name Role Phone Naomi Montague MD Primary Care Provider [phone] Encounter Details Date Type Department Care Team (Late st Contact Info) Description 01/08/2025 Abstract [facility] [address] [place] [address] Naomi Montague MD [address] [place] [address] Social History Tobacco Use Types Packs/Day Years [...] 01/29/2025 2:30 PM EDT Office Visit [facility] ADULT D[facility] [address] [place] [address] Patel Montague DDS [address] [place] [address] 02/26/2025 10:15 AM EST Office Visit [facility] ADULT DENTAL [address] [place] [address] Gaurang Stevenson 04/30/2025 1:00 PM EST Office Visit [facility] OPTOMETRY [address] [place] [address] Carloz, Kristi, OD [address] [place] [address] documented as of this encounter Procedures Procedure Name Priority Date/Time Associated Diagnosis Comments HM COLONOSCOPY Routine 11/25/2024 10:24 AM EDT documented in this encounter Visit Diagnoses Not on filedocumented in this encounter Additional Health Concerns Assessment Noted Time PHQ-9 Depression Total Score: 2 04/30/19 25 9:35 AM EST documented as of this encounter Care Teams Regional Manager Relationship Specialty Start Date End Date Naomi Montague MD [address] [place] [address] PCP - General Family Medicine 02/01/22 documented as of this encounter
--- OUTSIDE RECORDS SUMMARY | 2025-01-28 18:13 | XMS_ITS | Encounter Summary ---
Author Organization [email or web address] Address [address] [facility] [address] [place] [address] Care Team Providers Care Family Specialist Name Role Phone Naomi Montageu MD Primary Care Provider [phone] Encounter Details Date Type Department Care Team ([facility] Contact Info) Description 01/19/2025 Results Follow-Up [facility]ED[facility] [address] [place] [address] Naomi Montague MD [address] [place] [address] MR Orbit Face Neck w/o Contrast Social History Tobacco Use Types Packs/Day Years [...] Description 01/29/2025 2:30 PM EDT Office Visit [facility] ADULT DENTAL [address] [place] [address] Patel Montague DDS [address] [place] [address] 02/26/2025 10:15 AM EST Office Visit [facility] ADULT DENT[facility] [address] [place] [address] Gaurang Stevenson 04/30/2025 1:00 PM EST Office Visit [facility] OPTOMETRY [address] [place] [address] Carloz, Kristi, OD [address] [place] [address] documented as of this encounter Visit Diagnoses Not on filedocumented in this encounter Additional Health Concerns Assessment Noted Time PHQ-9 Depression Total Score: 2 04/30/19 25 9:35 AM EST documented as of this encounter Care Teams Family Specialist Relationship Specialty Start Date End Date Naomi Montague MD [address] [place] [address] PCP - General Family Medicine 02/01/22 documented as of this encounter
--- OUTSIDE RECORDS SUMMARY | 2025-01-28 18:13 | XMS_ITS | Encounter Summary ---
Author Organization [employer] Address [address] [place] [address] [address] [place] [address] Care Team Providers Care Bark Tanner Name Role Phone Naomi Montague MD Primary Care Provider [phone] Reason for Visit * Reason Onset Date Comments Nurse Triage 11/30/2024 Encounter Details Date Type Department Care Team ([facility] st Contact Info) Description 11/30/2024 Telephone C [facility] [address] [place] [address] Naomi Montague MD [address] [place] [address] Nurse Triage Social History Tobacco Use Types [...] of apt which is 01/01/25. [facility], [employer]IST to Me Naomi Montague MD [facility] P[facility] Nurses (Selected Message) [...] unusual colored stools. Pt is advised this writer technical publications will forward this request to [facility] [...] caller accepted this outcome. Contact pt at [phone] (pt needs citizen of [place] bone drier , speaks [place] islander on HIPAA) documented in this encounter Plan of Treatment Upcoming Encounters Date Type Department Care Team (Late st Contact Info) Description 01/29/2025 2:30 PM EDT Office Visit [facility] [address] [place] [address] Patel Montague DDS [address] [place] [address] 02/26/2025 10:15 AM EST Office Visit [facility] [address] [place] [address] Gauragn Stevenson 04/30/2025 1:00 PM EST Office Visit [facility] [address] [place] [address] Kristi Carty, OD [address] [place] [address] documented as of this encounter Visit Diagnoses Not on filedocumented in this encounter Additional Health Concerns Assessment Noted Time PHQ-9 Depression Total Score: 2 04/30/19 25 9:35 AM EST documented as of this encounter Care Teams Bark Tanner Relationship Specialty Start Date End Date Naomi Montague MD [address] [place] [address] PCP - General Family Medicine 02/01/22 Geri A 11/30/24 01/03/25 documented as of this encounter
--- OUTSIDE RECORDS SUMMARY | 2025-01-28 18:13 | XMS_ITS | Clinical Summary ---
Author Organization [facility] Address [address] [place] [id number] Phone Care Team Providers Care Master Pilot Name Role Phone Naomi Montague MD Primary Care Provider [phone] Allergies No known active allergies Medications oxyCODONE 5 MG immediate release tablet Take 1 tablet (5 mg total) by mouth every 4 (four) hours as needed for moderate pain. 10 tablet 7 Active Additional Information Patient not taking.Reported on 02/14/2017 Ca cit-D3-mag#11-z [id number] (CALTRATE 600+D) 600 mg calcium- 800 [...] topic Medical Devices Not on file Insurance [facility] Cloud.[employer] [facility] 20lines [facility] [employer] DIRECT [facility] Cloud[facility] 20lines [facility] CONNECTORCARE DIRECT [facility] [place] [facility] [facility] [place] [facility] CONNECTORCARE DIRECT [facility] CONNECTORCARE DIRECT [facility] Cloud.comHEALTH CAREPLUS [facility] CONNECTORCARE DIRECT [facility] Cloud.comHEALTH CAREPLUS [facility] CONNECTORCARE DIRECT Advance Directives For more information, please contact: [phone] (9AM - 5PM [facility], Saturday-Saturday) * Full Code (Presumed) (Latest Code Status on File) Date Activated Date Inactivated Comments 02/20/2017 6:24 AM 02/20/2017 7:04 PM Care Teams Master Pilot Relationship Specialty Start Date End Date Naomi Montague MD [address] [place] [id number] PCP - General Family Medicine 01/08/25 Additional Source Comments The information contained in this document represents components of the legal health record. It is not the complete legal health record.[facility]
--- OUTSIDE RECORDS SUMMARY | 2025-01-28 18:13 | XMS_ITS | Clinical Summary ---
Author Organization [employer] Address [address] [place] [address] [address] [place] [address] Care Team Providers Care Chief Payroll Clerk Name Role Phone Naomi Montague MD Primary Care Provider [phone] Allergies Active Allergy Reactions Criticality Noted Date Comments Tolterodine Swelling 04/02/2022 Ubidecarenone Itching 02/08/2023 Medications Lancets 33G misc Use to check blood sugar daily as directed Active Blood Glucose Monitoring Suppl (FreeStyle [place] Lite) w/Device kit TEST BLOOD SUGAR DAILY [...] BEDTIME 90 capsule 1 5 Active PEG 2201-HMq-IfJdk-NaCl -NaSulf (PEG-3350/Electroly leon) 236 g reconstituted solution [...] (10/05/2022 2:46 PM EDT): Patient seen by wet roller and had FNA done for mass on neck. Biopsy results given to patient and was recommended for surgery with no diagnoses. Per student services representative at [facility], Appointment scheduled with general surgeon for Jan 04 @ 9:30 Dr. Connolly at [facility], General surgeon specialty in thyroid. Assessment [...] Encounters Date Type Department Care Team Description 01/28/2025 Orders Only GENERIC EXTERNAL DATA DEPARTMENT Provider, Generic External Data 01/19/2025 Results Follow-Up [facility]ED[facility] [address] [place] [address] Naomi Montague MD MR Orbit Face Neck w/o Contrast 01/16/2025 Orders Only [facility] OPTOMETRY [address] [place] [address] Kristi Carty, OD 01/08/2025 Orders Only [facility] External Provider, [facility] 01/08/2025 Abstract [facility] [address] [place] [address] Naomi Montague MD 01/07/2025 1:00 PM EDT Clinical Support [facility] [address] [place] [address] Apoorva Irene RN Encounter for immunization 01/07/2025 Travel 01/04/2025 Orders Only GENERIC EXTERNAL DATA DEPARTMENT Provider, Generic External Data 01/01/2025 9:45 AM EDT Office Visit [facility] [address] [place] [address] Naomi Montague MD Type 2 diabetes mellitus with hyperglycemia, without long-term current use of insulin ([facility]) (Primary Dx); Iron deficiency anemia secondary to inadequate dietary iron intake 01/01/2025 Travel 12/28/2024 Telephone [facility] [address] [place] [address] Naomi Montague MD 12/18/2024 Orders Only GENERIC EXTERNAL DATA DEPARTMENT Provider, Generic External Data 12/17/2024 8:00 AM EDT Office Visit [facility] ADULT DENTAL [address] [place] [address] Patel Montague DDS 12/01/2024 Orders Only GENERIC EXTERNAL DATA DEPARTMENT Provider, Generic External Data 11/30/2024 Patient Outreach [facility] [address] [place] [address] Naomi Montague MD Transition Of Care (Tcm) (HDF unscheduled. ) 11/30/2024 Telephone [facility] [address] [place] [address] Naomi Montague MD Nurse Triage 11/30/2024 Telephone [facility] MEDICINE [address] [place] [address] Naomi Montague MD Hospital Follow-up 11/23/2024 Telephone [facility] [address] [place] [address] Naomi Montague MD Results; Care Coordination 11/23/2024 Telephone [facility] [address] [place] [address] Jossy Stevenson MD Results 11/23/2024 Orders Only [facility] [address] [place] [address] Naomi Montague MD 11/21/2024 Orders Only GENERIC EXTERNAL DATA DEPARTMENT Provider, Generic External Data 11/20/2024 Orders Only GENERIC EXTERNAL DATA DEPARTMENT Provider, Generic External Data 11/13/2024 Refill [facility] [address] [place] [address] Martha Buenrostro MD Mixed hyperlipidemia 10/30/2024 9:00 AM EDT Office Visit [facility] [address] [place] [address] Naomi Montague MD Type 2 diabetes mellitus with hyperglycemia, without long-term current use of insulin ([facility]) (Primary Dx); Microcytosis; Plantar fasciitis of left foot; Cramps of lower extremity 10/30/2024 Travel from Last 3 Months Immunizations Immunization Administration [...] Description 01/29/2025 2:30 PM EDT Office Visit [facility] ADULT DENTAL [address] [place] [address] Patel Montague, DDS [address] [place] [address] 02/26/2025 10:15 AM EST Office Visit [facility] ADULT DENTAL [address] [place] [address] Gaurang Stevenson 04/30/2025 1:00 PM EST Office Visit [facility] OPTOMETRY [address] [place] [address] Carloz, Kristi, OD [address] [place] [address] Health Maintenance Due Date Last Done Comments [...] TROPONIN I Routine 01/28/2025 2:29 PM EDT LIPASE Routine 01/28/2025 2:29 PM EDT COMPREHENSIVE METABOLIC PANEL Routine 01/28/2025 2:29 PM EDT CBC WITH AUTO DIFFERENTIAL Routine 01/28/2025 2:29 PM EDT GLUCOSE, WHOLE BLOOD Routine 01/28/2025 2:01 PM EDT MR BRAIN WO CONTRAST Routine 01/18/2025 11:00 AM EDT MR ORBIT FACE NECK WO CONTRAST Routine 01/18/2025 11:00 AM EDT NM HEPATOBILIARY W PHARM Routine 01/08/2025 8:16 [...] hyperglycemia, without long-term current use of insulin ([facility]) CBC WITH AUTO DIFFERENTIAL Routine 01/04/2025 9:35 AM EDT Iron deficiency anemia secondary to inadequate dietary iron intake TYPE AND SCREEN Routine 01/04/2025 9:24 AM EDT ALBUMIN, RANDOM URINE W/CREATININE Routine 01/04/2025 9:23 AM EDT Type 2 diabetes mellitus with hyperglycemia, without long-term current use of insulin ([facility]) POCT GLUCOSE Routine 01/01/2025 10:36 AM EDT Type 2 diabetes mellitus with hyperglycemia, without long-term current use of insulin ([facility]) FERRITIN Routine 12/18/2024 8:52 AM EDT [...] without long-term current use of insulin (CMS/HCC) PROPHYLAXIS - ADULT Routine 08/21/2024 9 :00 [...] Recently Relevant to Health Maintenance Results * High Sensitivity Troponin I (01/28/2025 2:29 PM EDT) Only the most recent of2 resultswithin the time period is included. TROPONIN I HIGH SENSITIVITY <2.7 <3.5 - 17.0 ng/L [facility] Comment:The Catalan high sens itivity Troponin-I results should beused in conjunction with other diagnostic information suchas ECG, clinical observations and information, and patientsymptoms to aid in the diagnosis of AR. 01/28/2025 2:29 PM EDT 01/28/2025 2:32 PM EDT us Generic External Data Provider LAB BLOOD ORDERAB LES Final Result [facility] [address] [place] [phone] * (ABNORMAL) CBC auto differential (01/28/2025 2:29 PM EDT) Only the most recent of4 resultswithin the time period is included. [facility] White Blood Count 17.7(H) 4.8 - 10.8 X10*3/uL [facility] Red Blood Count 5.42 4.20 - 5.50 X10*6/uL [facility] Hemoglobin 14.3 12.0 - 16.0 g/dl [facility] Hematocrit 43.9 37.0 - 47.0 % [facility] Mean Corpuscular Volume 81.0 80.0 - 98.0 fL [facility] Mean Corpuscular Hemoglobin 26.4(L) 27.0 - 33.0 pg [facility] Mean Corpuscular HGB Conc 32.6 31.0 - 35.0 g/dl [facility] Red Cell Distribution Width 12.1 11.0 - 16.0 % [facility] Platelet Count 250 160 - 400 X10*3/uL [facility] Mean Platelet Volume 9.8 9.4 - 12.3 fL [facility] Neutrophils Percent Auto 81.1(H) 45 - 73 % [facility] Imm Gran Pct Auto 0.5(H) 0.0 - 0.4 % [facility] Lymphocytes Percent Auto 14.8(L) 20 - 40 % [facility] Monocytes Percent Auto 2.5 2 - 11 % [facility] Eosinophils Percent Auto 0.5 0 - 4 % [facility] Basophils Percent Auto 0.6 0 - 2 % [facility] NRBC Pct Auto 0.0 0.0 - 0.2 /100WBC [facility] Neutrophils Absolute Auto 14.3(H) 2.0 - 8.3 x10*3/uL [facility] Imm Gran Abs Auto 0.09(H) 0.00 - 0.03 X10*3/uL [facility] Lymphocytes Absolute Auto 2.6 1.2 - 4.9 X10*3/uL [facility] Monocytes Absolute Auto 0.5 0.1 - 1.2 X10*3/uL [facility] Eosinophils Absolute Auto 0.1 0.0 - 0.4 X10*3/uL [facility] Basophils Absolute Auto 0.1 0.0 - 0.2 X10*3/uL [facility] NRBC Abs Auto 0.000 0.0 - 0.012 X10*3/uL [facility] 01/28/2025 2:29 PM EDT 01/28/2025 2:32 PM EDT us Generic External Data Provider LAB BLOOD ORDERAB LES Final Result Performing Organization Address City/[facility]/ZIP Co de Phone Number [facility] [address] [place] [phone] * Lipase (01/28/2025 2:29 PM EDT) Lipase 74 8 - 78 U/L [facility] 01/28/2025 2:29 PM EDT 01/28/2025 2:32 PM EDT us Generic External Data Provider LAB BLOOD ORDERAB LES Final Result Performing Organization Address City/[facility]/ZIP Co de Phone Number [facility] [address] [place] [address] [phone] * (ABNORMAL) Comprehensive Metabolic Panel (01/28/2025 2:29 PM EDT) Only the most recent of2 resultswithin the time period is included. Sodium 144 135 - 145 mmol/L [facility] Potassium 3.7 3.3 - 5.1 mmol/L [facility] Chloride 106 96 - 108 mmol/L [facility] Carbon Dioxide 27 22 - 29 mmol/L [facility] Anion Gap 15 12 - 20 [facility] Urea Nitrogen (BUN) 12 9 - 16 mg/dL [facility] Creatinine, Serum 0.72 0.5 - 1.4 mg/dL [facility] Creatinine Clr Calc Pharmacy 60.3 [facility] Comment:Provided height and weight: 160.02 cm,47.174 kg.eGFR (calculated from the MDRD study equation) and eCrCl(calculated from the Cockcroft-Gault equation) are based ondifferent parameters and may not yield comparable results.If eCrCl result is absurd, please check patient'sheight/weight. Estimated Glomerular Filt Rate >60 [facility] Comment:Chronic Kidney Disea se: Estimated GFR < 60 mL/min/1.45w6Qfhcwz Kidney Disease: Estimated GFR < 15 mL/min/1.73m2 Glucose 159(H) 60 - 115 mg/dL [facility] Calcium 9.8 8.4 - 10.2 mg/dL [facility] Bilirubin, Total 0.4 0.0 - 1.0 mg/dL [facility] Aspartate Amino Transferase 24 5 - 31 U/L [facility] Alanine Aminotransferase 31 0 - 31 U/L [facility] Total Protein 8.1(H) 6.5 - 8.0 g/dL [facility] Albumin Level 5.7(H) 3.5 - 5.0 g/dL [facility] Alkaline Phosphatase 73 39 - 117 U/L [facility] 01/28/2025 2:29 PM EDT 01/28/2025 2:32 PM EDT Generic External Data Provider LAB BLOOD ORDERAB LES Final Result Performing Organization Address [facility] Co de Phone Number [facility] [address] [place] [phone] * (ABNORMAL) Glucose, Whole Blood (01/28/2025 2:01 PM EDT) Only the most recent of3 resultswithin the time period is included. Glucose, Whole Blood 145(H) 60 - 115 mg/dL [facility] Comment:METER #: [id number] 01/28/2025 2:01 PM EDT 01/28/2025 2:04 PM EDT Generic External Data Provider LAB BLOOD ORDERAB LES Final Result Performing Organization Address [facility] de Phone Number [facility] [address] [place] [phone] * MR Brain w/o Contrast (01/18/2025 11:00 AM EDT) Anatomical Region Laterality Modality Brain Magnetic Resonan ce 01/18/2025 11:0 0 AM EDT Narrative 01/20/2025 9:27 AM EDT [address] [address] Magnetic Resonance Report Signed Patient: Ru Sun MR#: [id number] : 1960 Acct:[id number] Age/Sex: 64 / F ADM Date: 01/16/25 Loc: HO.MRI Attending Dr: Kristi Carty OD Ordering Physician: Kristi Carty OD Date of Service: 01/16/25 Procedure(s): MR head/brain wo con Accession Number(s): [id number] cc: Kristi Carty OD; Naomi Montague MD Reason for Exam: HETERONYMOUS BILATERAL FIELD DEFECTS CLINICAL HISTORY: HETERONYMOUS BILATERAL FIELD DEFECTS MR Brain without gadolinium. Thin slice high-resolution imaging through the orbits performed. Comparison: None provided Findings: No restricted diffusion. No intra-axial mass or hemorrhage. No midline shift. No hydrocephalus. Vascular flow voids are intact. There are scattered foci of T2 signal prolongation within the white matter, for example sagittal FLAIR images 7 and 15 (series 13). Globes and orbital contents are normal-appearing by noncontrast MRI. There is mucoperiosteal thickening of the left maxillary sinus and of the mastoid air cells. The sinuses and mastoid air cells are clear. No focal bone lesion. IMPRESSION: The orbits and orbital tracts appear within normal limits by noncontrast MR. Scattered nonspecific white matter disease, minimal. Mild paranasal sinus disease. This document has been electronically signed by: Markus Cueva MD on 01/18/2025 11:00:55 Dictated By: Markus Cueva MD Signed By: <Electronically signed by Markus Cueva MD in OV> 01/20/25 0927 DD/ 99 TD/TT: 01/18/25 1100 Batch Or Continuous Still Operator: Procedure Note Donotuseinterpreter, Image - 01/20/2025 [place] [address] Magnetic Resonance Report Signed Patient: Ricky Sun#: [id number] : 1960Acct:[id number] Age/Sex: 64 / FADM Date: 01/16/25 Loc: HO.MRI Attending Dr: Kristi Carty OD Ordering Physician: Kristi Carty OD Date of Service: 01/16/25 Procedure(s): MR head/brain wo [facility] Accession Number(s): [id number] cc: Kristi Carty OD; Naomi Montague MD Reason for Exam: HETERONYMOUS BILATERAL FIELD DEFECTS CLINICAL HISTORY: HETERONYMOUS BILATERAL FIELD DEFECTS MR Brain without gadolinium. Thin slice high-resolution imaging through the orbits performed. Comparison: None provided Findings: No restricted diffusion. No intra-axial mass or hemorrhage. No midline shift. No hydrocephalus. Vascular flow voids are intact. There are scattered foci of T2 signal prolongation within the white matter, for example sagittal FLAIR images 7 and 15 (series 13). Globes and orbital contents are normal-appearing by noncontrast MRI. There is mucoperiosteal thickening of the left maxillary sinus and of the mastoid air cells. The sinuses and mastoid air cells are clear. No focal bone lesion. IMPRESSION: The orbits and orbital tracts appear within normal limits by noncontrast MR. Scattered nonspecific white matter disease, minimal. Mild paranasal sinus disease. This document has been electronically signed by: Markus Cueva MD on 01/18/2025 11:00:55 Dictated By: Markus Cueva MD Signed By: <Electronically signed by Markus Cueva MD in OV> 01/20/259[address] DD/ 99 TD/TT: 01/18/251099 Batch Or Continuous Still Operator: us Kristi Carty OD IMG MRI PROCEDURES Final Resu lt * MR Orbit Face Neck w/o Contrast (01/18/2025 11:00 AM EDT) Anatomical Region Laterality Modality Head, Neck Magnetic Resonan ce 01/18/2025 11:0 0 AM EDT Narrative 01/18/2025 11:03 AM EDT [place] [address] Magnetic Resonance Report Signed Patient: Ru Sun MR#: [id number] : 1960 Acct:[id number] Age/Sex: 64 / F ADM Date: 01/16/25 Loc: HO.MRI Attending Dr: Kristi Carty OD Ordering Physician: Kristi Carty OD Date of Service: 01/16/25 Procedure(s): MR orbits face neck wo con Accession Number(s): [id number] cc: Kristi Carty OD; Naomi Montague MD Reason for Exam: HETERONYMOUS BILATERAL FIELD DEFECTS CLINICAL HISTORY: HETERONYMOUS BILATERAL FIELD DEFECTS MR Brain without gadolinium. Thin slice high-resolution imaging through the orbits performed. Comparison: None provided Findings: No restricted diffusion. No intra-axial mass or hemorrhage. No midline shift. No hydrocephalus. Vascular flow voids are intact. There are scattered foci of T2 signal prolongation within the white matter, for example sagittal FLAIR images 7 and 15 (series 13). Globes and orbital contents are normal-appearing by noncontrast MRI. There is mucoperiosteal thickening of the left maxillary sinus and of the mastoid air cells. The sinuses and mastoid air cells are clear. No focal bone lesion. IMPRESSION: The orbits and orbital tracts appear within normal limits by noncontrast MR. Scattered nonspecific white matter disease, minimal. Mild paranasal sinus disease. This document has been electronically signed by: Markus Cueva MD on 01/18/2025 11:00:55 Dictated By: Markus Cueva MD Signed By: <Electronically signed by Markus Cueva MD in OV> 01/20/25924 DD/ 99 TD/TT: 01/18/251099 Batch Or Continuous Still Operator: Procedure Note Donotuseinterpreter, Image - 01/20/2025 [place] [address] Magnetic Resonance Report Signed Patient: Ricky Sun#: [id number] : 1960Acct:[id number] Age/Sex: 64 / FADM Date: 01/16/25 Loc: HO.MRI Attending Dr: Kristi Carty OD Ordering Physician: Kristi Carty OD Date of Service: 01/16/25 Procedure(s): MR orbits face neck wo con Accession Number(s): [id number] cc: Kristi Carty OD; Naomi Montague MD Reason for Exam: HETERONYMOUS BILATERAL FIELD DEFECTS CLINICAL HISTORY: HETERONYMOUS BILATERAL FIELD DEFECTS MR Brain without gadolinium. Thin slice high-resolution imaging through the orbits performed. Comparison: None provided Findings: No restricted diffusion. No intra-axial mass or hemorrhage. No midline shift. No hydrocephalus. Vascular flow voids are intact. There are scattered foci of T2 signal prolongation within the white matter, for example sagittal FLAIR images 7 and 15 (series 13). Globes and orbital contents are normal-appearing by noncontrast MRI. There is mucoperiosteal thickening of the left maxillary sinus and of the mastoid air cells. The sinuses and mastoid air cells are clear. No focal bone lesion. IMPRESSION: The orbits and orbital tracts appear within normal limits by noncontrast MR. Scattered nonspecific white matter disease, minimal. Mild paranasal sinus disease. This document has been electronically signed by: Markus Cueva MD on 01/18/2025 11:00:55 Dictated By: Markus Cueva MD Signed By: <Electronically signed by Markus Cueva MD in OV> 01/20/25924 DD/ 99 TD/TT: 01/18/25 1100 Batch Or Continuous Still Operator: us Kristi Carty OD IMG MRI PROCEDURES Edited Res ult - Final * NM Hepatobiliary w Pharm (01/08/2025 8:16 AM EDT) Anatomical Region Laterality Modality Body Nuclear Medicine 01/08/2025 8:16 AM EDT Narrative 01/08/2025 11:14 AM EDT [place] [address] Nuclear Medicine Report Signed Patient: Ru Sun MR#: [id number] : 1960 Acct:[id number] Age/Sex: 64 / F ADM Date: 01/08/25 Loc: [facility] Attending Dr: Brittny Jean-Baptiste MD Ordering Physician: Brittny Jean-Baptiste MD Date of Service: 01/08/25 Procedure(s): NM hepatobiliary w pharm Accession Number(s): [id number] cc: Naomi Montague MD; Brittny Jean-Baptiste MD [...] 01/08/25 1112 DD/ 0816 TD/TT: 01/08/25 1010 Batch Or Continuous Still Operator: Procedure Note Donotuseinterpreter, Image - 01/08/2025 [place] [address] Nuclear Medicine Report Signed Patient: Ricky Sun#: [id number] : 1960Acct:[id number] Age/Sex: 64 / FADM Date: 01/08/25 Loc: [facility] Attending Dr: Brittny Jean-Baptiste MD Ordering Physician: Brittny Jean-Baptiste MD Date of Service: 01/08/25 Procedure(s): NM hepatobiliary w pharm Accession Number(s): [id number] cc: Naomi Montague MD; Brittny Jean-Baptiste MD [...] 01/08/25 1112 DD/ 0816 TD/TT: 01/08/25 1010 Batch Or Continuous Still Operator: [facility] External Provider IMG NM PROCEDURES Final Result * Vitamin B12 (Cobalamin) and Folate Panel, Serum (01/04/2025 9:35 AM EDT) Only the most recent of2 resultswithin the time period is included. Vitamin B12 337 200 - 900 pg/mL [facility] Comment:NORMAL 200-900 PG/ML INDETERMINATE 160-199 PG/ML DEFICIENT < 160 PG/ML Folate 11.4 > or = 4.0 ng/mL [facility] Comment:Reference Values:> o r = 4.0 ng/mL< 4.0 ng/mL suggests folate deficiency Methotrexate, aminopterin and folinic acid(leucovorin) are chemotherapeutic agents whose molecularstructures are similar to folate; therefore, the Architectfolate assay cannot be used for patients using these drugs. 01/04/2025 9:35 AM EDT 01/04/2025 9:35 AM EDT Generic External Data Provider LAB BLOOD ORDERAB LES Final Result [facility] [address], [place] [phone] * Iron And Total Iron Binding Capacity (01/04/2025 9:35 AM EDT) Only the most recent of3 resultswithin the time period is included. Iron 78 30 - 160 mcg/dL [facility] Total Iron Binding Capacity 270 228 - 428 mcg/dL [facility] Percent Iron Saturation 29 15 - 50 % [facility] Unsaturated Iron Binding 192 ug/dL [facility] Blood Venous blood specimen / Unknown 01/04/2025 9:35 AM EDT 01/04/2025 9:35 AM EDT us Naomi Montague MD LAB BLOOD ORDERABLES Final Re sult Performing Organization Address [facility]/ZIP Co de Phone Number [facility] [address] [place] [phone] * Vitamin A (01/04/2025 9:35 AM EDT) Vitamin A (Retinol) 51 38 - 98 mcg/dL [facility] Comment:Vitamin supplementat ion within 24 hours prior toblood draw may affect the accuracy of the results.This test was developed and its analytical performancecharacteristics have been determined by [employer] [place], [place]. It hasnot been cleared or approved by the U.S. Food and DrugAdministration. This assay has been validated pursuantto the CLIA regulations and is used for clinicalpurposes.THIS TEST WAS PERFORMED AT:[employer]/[id number] [place] [address]FPPNLNAMARGARET PASTOR MD,PHD 01/04/2025 9:35 AM EDT 01/04/2025 9:35 AM EDT us Generic External Data Provider LAB BLOOD ORDERAB LES Final Result Performing Organization Address [facility]/ZIP Co de Phone Number [facility] [address] [place] [phone] * (ABNORMAL) Fructosamine (01/04/2025 9:35 AM EDT) Fructosamine 294(A) 205 - 285 umol/L [facility] Comment:THIS TEST WAS PERFOR MED AT:[employer]/[facility]ENTERDGGMULCMV[address] [place] [address]LLSLAQN W. MASON,MD,PHD Blood Venous blood specimen / Unknown 01/04/2025 9:35 AM EDT 01/04/2025 9:35 AM EDT us Naomi Montague MD LAB BLOOD ORDERABLES Final Re sult [facility] [address] [place] [phone] * (ABNORMAL) CBC (01/04/2025 9:35 AM EDT) Only the most recent of3 resultswithin the time period is included. Pathologist [facility] White Blood Count 4.7(L) 4.8 - 10.8 X10*3/uL [facility] Red Blood Count 4.31 4.20 - 5.50 X10*6/uL [facility] Hemoglobin 12.0 12.0 - 16.0 g/dl [facility] Hematocrit 35.4(L) 37.0 - 47.0 % [facility] Mean Corpuscular Volume 82.1 80.0 - 98.0 fL [facility] Mean Corpuscular Hemoglobin 27.8 27.0 - 33.0 pg [facility] Mean Corpuscular HGB Conc 33.9 31.0 - 35.0 g/dl [facility] Red Cell Distribution Width 12.3 11.0 - 16.0 % [facility] Platelet Count 210 160 - 400 X10*3/uL [facility] Mean Platelet Volume 10.1 9.4 - 12.3 fL [facility] NRBC Pct Auto 0.0 0.0 - 0.2 /100WBC [facility] NRBC Abs Auto 0.000 0.0 - 0.012 X10*3/uL [facility] 01/04/2025 9:35 AM EDT 01/04/2025 9:35 AM EDT us Generic External Data Provider LAB BLOOD ORDERAB LES Final Result Performing Organization Address [facility]/ZIP Co de Phone Number [facility] [address] [place] [address] [phone] * Ferritin (01/04/2025 9:35 AM EDT) Only the most recent of3 resultswithin the time period is included. Ferritin 74 10 - 250 ng/mL [facility] Blood Venous blood specimen / Unknown 01/04/2025 9:35 AM EDT 01/04/2025 9:35 AM EDT us Naomi Montague MD LAB BLOOD ORDERABLES Final Re sult Performing Organization Address [facility] Co de Phone Number [facility] [address] [place] [phone] * Type and screen (01/04/2025 9:24 AM EDT) Only the most recent of2 resultswithin the time period is included. Blood Type BP [facility] Antibody Screen NEGATIVE [facility] 01/04/2025 9:24 AM EDT 01/04/2025 10:11 AM EDT Narrative [facility] - 01/04/2025 11:06 AM EDT Witnessed by DIANE us Generic External Data Provider LAB BLOOD BANK TE ST ORDERABLES Final Result Performing Organization Address [facility] Co de Phone Number [facility] [address] [place] [phone] * Albumin, Random Urine W/Creatinine (01/04/2025 9:23 AM EDT) Creatinine, Urine 39.05 mg/dL [facility] Microalbumin Urine <5.0 mg/L [facility] Microalbum Creatinine Ratio Ur TNP <30 ug/mg cr [facility] Comment:Unable to calculate albumin/creatinine ratio due to lowmicroalbumin or creatinine result. Urine (Urine, Random) 01/04/2025 9:23 AM EDT 01/04/2025 10:19 AM EDT Naomi Montague MD LAB URINE ORDERABLES Final Re sult Performing Organization Address City/[facility]/ZIP Co de Phone Number [facility] [address] [place] [phone] * POCT Glucose (01/01/2025 10:36 AM [...] Colonoscopy (11/25/2024 3:37 PM EDT) Historical Provider HEALTH MAINTENANCE Final Result * Hold Lavender - Possible Hematology (11/23/2024 1:21 PM EDT) Hold Lavender - Possible Hematololgy SEE NOTE [facility] Comment:Specimen will be hel d untested for 8 hours. Call Hematologyif testing is desired. 11/23/2024 1:21 PM EDT 11/23/2024 2:01 PM EDT us Naomi Montague MD HISTORICAL/NON ORDERABLE LABS Final Result [facility] [address] [place] [address] [phone] * TSH W/Reflex to FT4 (11/23/2024 1:21 PM EDT) TSH reflex Free T4 1.81 0.32 - 4.0 uIU/mL [facility] Blood Venous blood specimen / Unknown 11/23/2024 1:21 PM EDT 11/23/2024 1:21 PM EDT us Naomi Montague MD LAB BLOOD ORDERABLES Final Re sult [facility] [address] [place] [address] [phone] * (ABNORMAL) Hemoglobin Electrophoresis (11/23/2024 1:21 PM EDT) RBC 3.02(A) 3.80 - 5.10 Million/u L [facility] Hemoglobin 8.2(A) 11.7 - 15.5 g/dL [facility] Hematocrit 25.9(A) 35.0 - 45.0 % [facility] MCV 85.8 80.0 - 100.0 fL [facility] MCH 27.2 27.0 - 33.0 pg [facility] RDW 12.8 11.0 - 15.0 % [facility] Hemoglobin A 98.0 >96.0 % [facility] Hemoglobin A2 2.0 2.0 - 3.2 % [facility] Hemoglobin F <1.0 <2.0 % [facility] Hemoglobin S TNP [facility] Hemoglobin C TNP [facility] Hemoglobin E TNP [facility] Other Hemoglobin TNP [facility] Other Hemoglobin 2 TNP [facility] Hgb Interpretation SEE NOTE [facility] Comment:Normal phenotype.THI S TEST WAS PERFORMED AT:[employer] [place] [phone] FRENCH MD Blood Venous blood specimen / Unknown 11/23/2024 1:21 PM EDT 11/23/2024 1:21 PM EDT us Naomi Montague MD LAB BLOOD ORDERABLES Final Re sult Performing Organization Address [facility]/ZIP Co de Phone Number [facility] [address] [place] [phone] [phone] * Magnesium (11/23/2024 1:21 PM EDT) Only the most recent of2 resultswithin the time period is included. Magnesium 2.2 1.6 - 2.6 mg/dL [facility] Blood Venous blood specimen / Unknown 11/23/2024 1:21 PM EDT 11/23/2024 1:21 PM EDT Naomi Montague MD LAB BLOOD ORDERABLES Final Re sult Performing Organization Address [facility] Co de Phone Number [facility] [address] [place] [phone] * (ABNORMAL) Lipid Panel, Standard (11/23/2024 1:21 PM EDT) Triglycerides 164(H) <150 mg/dL [facility] Comment:Desirable Triglyceri de: less than 150 mg/dLBorderline High Triglyceride 150-199 mg/dLHigh Triglyceride: 200-499 mg/dLVery High Triglyceride: greater than or equal to 5OO mg/dL Cholesterol 128 <200 mg/dL [facility] Comment:Desirable Cholestero l: less than 200 mg/dLBorderline High Cholesterol: 200-239 mg/dLHigh Cholesterol: greater than 239 mg/dL LDL Cholesterol Calculated 62 <100 mg/dL [facility] Comment:Desirable LDL: less than 100 [...] Re sult Performing Organization Address [facility] Co de Phone Number [facility] [address] [place] [address] [phone] * Hepatic Function Panel (11/21/2024 12:49 PM EDT) Pathologist [facility] Bilirubin, Total 0.3 0.0 - 1.0 mg/dL [facility] Bilirubin, Direct 0.1 0.0 - 0.5 mg/dL [facility] Aspartate Amino Transferase 19 5 - 31 U/L [facility] Alanine Aminotransferase 23 0 - 31 U/L [facility] Total Protein 6.5 6.5 - 8.0 g/dL [facility] Albumin Level 4.5 3.5 - 5.0 g/dL [facility] Alkaline Phosphatase 53 39 - 117 U/L [facility] 11/21/2024 12:4 9 PM EDT 11/21/2024 12:52 PM EDT us Generic External Data Provider LAB BLOOD ORDERAB LES Final Result Performing Organization Address [facility] Co de Phone Number [facility] [address] [place] [address] [phone] * (ABNORMAL) Basic Metabolic Panel (11/21/2024 12:49 PM EDT) Pathologist [facility] Sodium 141 135 - 145 mmol/L [facility] Potassium 4.0 3.3 - 5.1 mmol/L [facility] Chloride 106 96 - 108 mmol/L [facility] Carbon Dioxide 25 22 - 29 mmol/L [facility] Anion Gap 14 12 - 20 [facility] Urea Nitrogen (BUN) 36(H) 9 - 16 mg/dL [facility] Creatinine, Serum 0.80 0.5 - 1.4 mg/dL [facility] Creatinine Clr Calc Pharmacy 65.4 [facility] Comment:Provided height and weight: 160.02 cm,63.503 kg.eGFR (calculated from the MDRD study equation) and eCrCl(calculated from the Cockcroft-Gault equation) are based ondifferent parameters and may not yield comparable results.If eCrCl result is absurd, please check patient'sheight/weight. Estimated Glomerular Filt Rate >60 [facility] Comment:Chronic Kidney Disea se: Estimated GFR < 60 mL/min/1.50q5Oqvucj Kidney Disease: Estimated GFR < 15 mL/min/1.73m2 Glucose 206(H) 60 - 115 mg/dL [facility] Calcium 9.1 8.4 - 10.2 mg/dL [facility] 11/21/2024 12:4 9 PM EDT 11/21/2024 12:52 PM EDT us Generic External Data Provider LAB BLOOD ORDERAB LES Final Result [facility] [address] [place] [phone] * Hematoxylin and Eosin Stain (11/20/2024 8:44 AM EDT) 11/20/2024 8:44 AM EDT 11/20/2024 10:00 AM EDT Narrative [facility] - 11/26/2024 4:34 PM EDT ----- ------- Name: Ru Sun Age/Sex: 64/F : 1960 Unit#: [id number] Attend Dr: Brittny Jean-Baptiste MD Re11/20/24 Status: [facility] Location: [facility] Disch: ----- ------- SPEC : [id number] RECD: 11/20/24 STATUS: VALERIANOJoseph FAULKNER NUM: [id number] KARINE: 11/20/240844 [facility] DR: Brittny Jean-Baptiste MD ENTERED: 11/20/24-1015 [...] Name: Ru Sun Age/Sex: 64/F : 1960 [id number]#: [id number] Attend Dr: Brittny Jean-Baptiste MD Re11/20/24 Status: [facility] Location: [facility] Disch: ----- ------- SPEC : [id number] RECD: 11/20/24-999 STATUS: AVIVA FAULKNER NUM: [id number] KARINE: 11/20/24-0844 [facility] DR: Brittny Jean-Baptiste MD ENTERED: 11/20/24-1016 [...] Name: Ru Sun Age/Sex: 64/F : 1960 [id number] Unit#: [id number] Attend Dr: Brittny Jean-Baptiste MD Re11/20/24 Status: [facility] Location: [facility] Disch: ----- ------- SPEC : [id number] RECD: 11/20/24 STATUS: AVIVA FAULKNER NUM: [id number] KARINE: 11/20/24-0844 [facility] DR: Brittny Jean-Baptiste MD ENTERED: 11/20/24-1015 SP TYPE: Surgical OTHR DR: Naomi Montague MD ORDERED: HE Stain/30, Gross Micro L4/12, IHC/, H. pylori/5 Gross Description (Continued) B. Received [...] microscopic examination, 1 piece in cassette L. ([facility]) CONTINUED ON NEXT PAGE ----- ------- Name: Ru Sun Age/Sex: 64/F : 1960 Unit#: [id number] Attend Dr: Brittny Jean-Baptiste MD Re11/20/24 Status: [facility] Location: [facility] Disch: ----- ------- SPEC : [id number] RECD: 11/20/24-999 STATUS: AVIVA FAULKNER NUM: [id number] KARINE: 11/20/24 [facility] [address]: Brittny Jean-Baptiste MD ENTERED: 11/20/24-1015 [...] developed and their performance characteristics determined by [facility]. They have not been cleared or approved by the U.S. Food and Drug Administration (FDA). However, the FDA has determined that such clearance or approval is not necessary. This laboratory is certified under the Clinical Laboratory Improvement Amendments of 1988 (CLIA) as qualified to perform high complexity clinical laboratory testing. Copies To: Naomi Montague MD [address] [place] [phone] Brittny Jean-Baptiste MD [facility] [address] [place] [address] [email or web address] Years ----- ------- Signed (signature on file) Laurel Buda 11/23/24 1404 ----- ------- END OF REPORT us Generic External Data Provider LAB BLOOD ORDERAB LES Final Result [facility] [address] [place] [phone] * (ABNORMAL) POCT HGB A1C (10/30/2024 9:45 AM EDT) Only the most recent of2 resultswithin the time period is included. [facility] Hemoglobin A1C 6.9(A) 4.0 - 5.7 % QC Media Lot # [id number] Lot# Expiration Date Blood 10/30/2024 9:45 AM EDT Naomi Montague MD POINT OF CARE TEST ENTER/EDIT ORDERABLES Final Result * Hepatitis C Ab (07/24/2024 1:38 PM EDT) [facility] Hepatitis C Antibody Nonreactive Nonreactive [facility] Comment:Antibodies to HCV no t detected; does not exclude early acuteHCV infection. 07/24/2024 1:38 PM EDT 07/24/2024 1:38 PM EDT Generic External Data Provider LAB BLOOD ORDERAB LES Final Result [facility] [address] [place] [phone] * Cologuard?? colon cancer screening (02/05/2023 5:40 AM EDT) [facility] Cologuard Result Negative Negative 02/14/20 23 2:34 AM EDT [facility] (CLIA #:[id number]) Comment: NEGATIVE TEST RESULT. A negative Cologuard [...] (Dickson Sampson al, N Engl J Med 2014;370(14):5479-9284) The normal value (reference range) for this assay is negative. COLOGUARD RE-SCREENING RECOMMENDATION: Periodic colorectal cancer screening is an important part of preventive healthcare for asymptomatic individuals at average risk for colorectal cancer. Following a negative Cologuard result, the [place] Cancer Society and U.S. Multi-Society Task Force screening guidelines recommend a Cologuard re-screening interval of 3 years. References: [place] Cancer Society Guideline for Colorectal Cancer Screening: https://www.cancer.org/cancer/jhnlx-jdjdkg-cocrug/qyzsopkzb-yvxdsikuz-jahqcyk/ac s-rec ommendations.html.; Abdulkadir ISAACS, Zi FERNANDEZ, Luzmaria PrakashK, Colorectal Cancer Screening: Recommendations for Physicians and Patients from the U.S. Multi-Society Task Force on Colorectal Cancer Screening , Am J Gastroenterology 2017; 112:5706-4914. TEST DESCRIPTION: Composite algorithmic analysis of stool [...] screened with both Cologuard and colonoscopy. (Dickson Conteh, N Engl J Med 2014;370(14):1163-0563.) Cologuard may produce a false negative or false positive result (no colorectal cancer or precancerous polyp present at colonoscopy follow up). A negative Cologuard test result does not guarantee the absence of CRC or advanced adenoma (pre-cancer). The current Cologuard screening interval is every 3 years. ([place]izen [place] Cancer Society and U.S. Multi-Society Task Force). Cologuard performance data in a 10,000 patient pivotal study using colonoscopy as the reference method can be accessed at the following location: www.[employer]Live/results. Additional description of the Cologuard test process, warnings and precautions can be found at www.cologuard.com. Stool specimen (specimen) 02/05/2023 5:40 AM EDT 02/06/2023 9:11 PM EDT us Naomi Montague MD LAB MOLECULAR DIAGNOSTICS ORD ERABLES Final Result [facility] (CLIA #:[id number]) [address] [place] [id number], from Last 3 Months or Most Recently Relevant to Health Maintenance Insurance [facility] DENTAL - HSN PARTIAL (MEDICAID) DENTAL - HSN PARTIAL (MEDICAID) Care Teams Chief Payroll Clerk Relationship Specialty Start Date End Date Naomi Montague MD [address] [place] [phone] PCP - General Family Medicine 02/01/22
--- OUTSIDE RECORDS SUMMARY | 2025-01-28 18:13 | XMS_ITS | Encounter Summary ---
Author Organization [employer] Address [address] [facility] [address]t [place] [address] Care Team Providers Care Direct Marketing Specialist Name Role Phone Naomi Montague MD Primary Care Provider [phone] Reason for Visit * Reason Onset Date Comments Hospital Follow-up 11/30/2024 Encounter Details Date Type Department Care Team ([facility] Contact Info) Description 11/30/2024 Telephone [facility] [address] [place] [address] Naomi Montague MD [address] [place] [address] Hospital Follow-up Social History Tobacco Use Types [...] from pt requesting a HDF appt. Hospital: [facility] Date of admission: 11/23 Discharge date: 11/27 Diagnosed: colon bleeding *Send message to [place] Clinical Care Coordinators documented in this encounter Plan of Treatment Upcoming Encounters Date Type Department Care Team (Late st Contact Info) Description 01/29/2025 2:30 PM EDT Office Visit [facility] [address] [place] [address] Patel Montague, DDS [address] [place] [address] 02/26/2025 10:15 AM EST Office Visit [facility] [address] [place] [address] Gaurang Stevenson 04/30/2025 1:00 PM EST Office Visit [facility] [address] [place] [address] Kristi Carty, OD [address] [place] [address] documented as of this encounter Visit Diagnoses Not on filedocumented in this encounter Additional Health Concerns Assessment Noted Time PHQ-9 Depression Total Score: 2 04/30/19 25 9:35 AM EST documented as of this encounter Care Teams Direct Marketing Specialist Relationship Specialty Start Date End Date Naomi Montague MD [address] [place] [address] PCP - General Family Medicine 02/01/22 [facility] 11/30/24 01/03/25 documented as of this encounter
== END 2025-01-28 17:58 | disposition home or self-care (01) ==
PROVIDERS: Physician Assistant; Emergency Provider Emergency Medicine; PCP Family Medicine
DX: K76.89 Other specified diseases of liver (principal); R10.10 Upper abdominal pain, unspecified; R11.0 Nausea; R94.31 Abnormal electrocardiogram [ECG] [EKG]; E11.9 Type 2 diabetes mellitus without complications; Z79.899 Other long term (current) drug therapy; Z79.84 Long term (current) use of oral hypoglycemic drugs
CPT/HCPCS: 36415; 76705; 80053; 82947; 83690; 84484; 85025; 93005; 99284; 99285

== ENCOUNTER → 2025-01-28 14:01 | Outpatient (BNV) | payer OTHER, SELFPAY | PROVIDERS: Emergency Provider Emergency Medicine; PCP Family Medicine; Visit Provider Internal Medicine Cardiovascular Disease | DX: R94.31 Abnormal electrocardiogram [ECG] [EKG] (principal); R10.11 Right upper quadrant pain | CPT/HCPCS: 93010 ==

== ENCOUNTER 2025-03-26 12:03 | Outpatient (REF) | payer OTHER, SELFPAY ==
[2025-03-26 12:12] LABS: MANUAL DIFF FLAG NO
[2025-03-26 14:00] LABS: Hematocrit 42.2 % (37.0-47.0); Hemoglobin 13.6 g/dl (12.0-16.0); Imm Gran Abs Auto 0.02 X10*3/uL (0.00-0.03); Imm Gran Pct Auto 0.3 % (0.0-0.4); Lymphocytes Absolute Auto 2.3 X10*3/uL (1.2-4.9); Mean Corpuscular HGB Conc 32.2 g/dl (31.0-35.0); Mean Corpuscular Hemoglobin 25.6 pg (27.0-33.0); Mean Corpuscular Volume 79.3 fL (80.0-98.0); NRBC Abs Auto 0.000 X10*3/uL (0.0-0.012); NRBC Pct Auto 0.0 /100WBC (0.0-0.2); Platelet Count 249 X10*3/uL (160-400); Red Blood Count 5.32 X10*6/uL (4.20-5.50); White Blood Count 6.4 X10*3/uL (4.8-10.8)
[2025-03-26 14:46] LABS: Alanine Aminotransferase 26 U/L (0-31); Albumin Level 5.2 g/dL (3.5-5.0); Alkaline Phosphatase 65 U/L (39-117); Aspartate Amino Transferase 19 U/L (5-31); Total Protein 7.7 g/dL (6.5-8.0)
[2025-03-26 14:53] LABS: Ferritin 142 ng/mL (10-250)
--- OUTSIDE RECORDS SUMMARY | 2025-03-26 17:20 | XMS_ITS | Encounter Summary ---
Author Organization [employer] Address [address] [facility] [address]t [place] [address] Care Team Providers Care Blacking Wheel Tender Name Role Phone Naomi Montague MD Primary Care Provider [phone] Encounter Details Date Type Department Care Team ([facility] Contact Info) Description 01/19/2025 Results Follow-Up [facility] [address] [place] [address] Naomi Montague MD [address] [place] [address] MR Orbit Face Neck w/o Contrast Social [...] Care Team (Late st Contact Info) Description 04/23/2025 9:00 AM EST Office Visit [facility] ADULT D[facility] [address] [place] [address] Patel Montague DDS [address] [place] [address] 04/30/2025 1:00 PM EST Office Visit [facility] OPT[facility]RY [address] [place] [address] Carloz, Kristi, OD [address] [place] [address] 05/21/2025 11:30 AM EST Office Visit [facility] [address] [place] [address] Naomi Montague MD [address] [place] [address] 09/03/2025 8:45 AM EDT Office Visit [facility] ADULT D[facility] [address] [place] [address] Gaurang Stevenson documented as of this encounter Visit Diagnoses Not on filedocumented in this encounter Additional Health Concerns Assessment Noted Time PHQ-9 Depression Total Score: 2 04/30/19 25 9:35 AM EST documented as of this encounter Care Teams Blacking Wheel Tender Relationship Specialty Start Date End Date Naomi Montague MD [address] [place] [address] PCP - General Family Medicine 02/01/22 documented as of this encounter
--- OUTSIDE RECORDS SUMMARY | 2025-03-26 17:20 | XMS_ITS | Encounter Summary ---
Author Organization [facility] Address [address] [place] [address] [place] [phone] Phone Care Team Providers Care Logistics Tech Name Role Phone Swapna Maravilla MD Primary Care Provider + Naomi Montague MD Primary Care Provider [phone] Encounter Details Date Type Department Care Team ([facility] st Contact Info) Description 02/20/2017 Procedure Pass [facility] PERIOPERATIVE DEPT [address] [place] [phone] Social History Tobacco Use Types Packs/Day [...] on filedocumented in this encounter Care Teams Logistics Tech Relationship Specialty Start Date End Date Swapna Maravilla MD [address] [address] PCP - General Family Medicine 09/04/16 01/07/25 Naomi Montague MD [address] [place] [address] PCP - General Family Medicine 01/08/25 documented as of this encounter Additional Source Comments The information contained in this document represents components of the legal health record. It is not the complete legal health record.[facility]
--- OUTSIDE RECORDS SUMMARY | 2025-03-26 17:20 | XMS_ITS | Encounter Summary ---
Author Organization [employer] Address [address] [facility] 7[address] [place] [address] Care Team Providers Care Paster Supervisor Name Role Phone Naomi Montague MD Primary Care Provider [phone] Encounter Details Date Type Department Care Team (Late st Contact Info) Description 03/26/2025 Orders Only GENERIC EXTERNAL DATA DEPARTMENT Provider, [...] Description 04/23/2025 9:00 AM EST Office Visit [facility] ADULT DENTAL [address] [place] [address] Patel Montague DDS [address] [place] [address] 04/30/2025 1:00 PM EST Office Visit [facility] OPTOMETRY [address] [place] [address] CarlozAbiodunn, OD [address] [place] [address] 05/21/2025 11:30 AM EST Office Visit [facility] MED & PEDS [address] [place] [address] Naomi Montague MD [address] [place] [address] 09/03/2025 8:45 AM EDT Office Visit [facility] ADULT DENTAL [address] [place] [address] Gaurang Stevenson documented as of this encounter Goals Goal Patient Goal Type Associated Problems Recent Progress Patient-Stated? Author Help patients manage their type 2 diabetes Care Plan Help patients manage their type 2 diabetes No Elieser, Erin Patient has chronic kidney disease Care Plan Patient has chronic kidney disease No Elieser, Erin Patient has chronic kidney disease Care Plan Patient has chronic kidney disease No Crow Vazquez Patient has chronic kidney disease Care Plan Patient has chronic kidney disease No Eddi Patel, DDS documented as of this encounter Procedures Procedure Name Priority Date/Time Associated Diagnosis Comments CBC WITH AUTO DIFFERENTIAL Routine 03/26/2025 12:11 PM EST FERRITIN Routine 03/26/2025 12:11 PM EST HEPATIC FUNCTION PANEL Routine 03/26/2025 12:11 PM EST documented in this encounter Results * Ferritin (03/26/2025 12:11 PM EST) Ferritin 142 10 - 250 ng/mL [facility] 03/26/2025 12:1 1 PM EST 03/26/2025 12:11 PM EST us Generic External Data Provider LAB BLOOD ORDERAB LES Final Result Performing Organization Address [facility] de Phone Number [facility] [address] [place], [place] [phone] * (ABNORMAL) Hepatic Function Panel (03/26/2025 12:11 PM EST) Bilirubin, Total 0.4 0.0 - 1.0 mg/dL [facility] Bilirubin, Direct 0.2 0.0 - 0.5 mg/dL [facility] Aspartate Amino Transferase 19 5 - 31 U/L [facility] Alanine Aminotransferase 26 0 - 31 U/L [facility] Total Protein 7.7 6.5 - 8.0 g/dL [facility] Albumin Level 5.2(H) 3.5 - 5.0 g/dL [facility] Alkaline Phosphatase 65 39 - 117 U/L [facility] 03/26/2025 12:1 1 PM EST 03/26/2025 12:11 PM EST us Generic External Data Provider LAB BLOOD ORDERAB LES Final Result Performing Organization Address [facility] Co de Phone Number [facility] [address] [place] [phone] * (ABNORMAL) CBC auto differential (03/26/2025 12:11 PM EST) White Blood Count 6.4 4.8 - 10.8 X10*3/uL [facility] Red Blood Count 5.32 4.20 - 5.50 X10*6/uL [facility] Hemoglobin 13.6 12.0 - 16.0 g/dl [facility] Hematocrit 42.2 37.0 - 47.0 % [facility] Mean Corpuscular Volume 79.3(L) 80.0 - 98.0 fL [facility] Mean Corpuscular Hemoglobin 25.6(L) 27.0 - 33.0 pg [facility] Mean Corpuscular HGB Conc 32.2 31.0 - 35.0 g/dl [facility] Red Cell Distribution Width 12.0 11.0 - 16.0 % [facility] Platelet Count 249 160 - 400 X10*3/uL [facility] Mean Platelet Volume 10.7 9.4 - 12.3 fL [facility] Neutrophils Percent Auto 54.9 45 - 73 % [facility] Imm Gran Pct Auto 0.3 0.0 - 0.4 % [facility] Lymphocytes Percent Auto 35.6 20 - 40 % [facility] Monocytes Percent Auto 6.1 2 - 11 % [facility] Eosinophils Percent Auto 2.2 0 - 4 % [facility] Basophils Percent Auto 0.9 0 - 2 % [facility] NRBC Pct Auto 0.0 0.0 - 0.2 /100WBC [facility] Neutrophils Absolute Auto 3.5 2.0 - 8.3 x10*3/uL [facility] Imm Gran Abs Auto 0.02 0.00 - 0.03 X10*3/uL [facility] Lymphocytes Absolute Auto 2.3 1.2 - 4.9 X10*3/uL [facility] Monocytes Absolute Auto 0.4 0.1 - 1.2 X10*3/uL [facility] Eosinophils Absolute Auto 0.1 0.0 - 0.4 X10*3/uL [facility] Basophils Absolute Auto 0.1 0.0 - 0.2 X10*3/uL [facility] NRBC Abs Auto 0.000 0.0 - 0.012 X10*3/uL [facility] 03/26/2025 12:1 1 PM EST 03/26/2025 12:11 PM EST us Generic External Data Provider LAB BLOOD ORDERAB LES Final Result [facility] [address] [place] [phone] [phone] documented in this encounter Visit Diagnoses Not on filedocumented in this encounter Additional Health Concerns Active Problems Noted Date Diagnosed Date Help patients manage their type 2 diabetes 02/26 Patient has chronic kidney disease 02/26/2025 Patient has chronic kidney disease 03/19/2025 Patient has chronic kidney disease 03/22/2025 Assessment Noted Time PHQ-9 Depression Total Score: 2 04/30/19 25 9:35 AM EST documented as of this encounter Care Teams Paster Supervisor Relationship Specialty Start Date End Date Naomi Montague MD [address] [place] [address] PCP - General Family Medicine 02/01/22 documented as of this encounter
--- OUTSIDE RECORDS SUMMARY | 2025-03-26 17:20 | XMS_ITS | Encounter Summary ---
Author Organization [employer] Address [address] [place] [address] [address] [place] [address] Care Team Providers Care Hospital Cleaning Specialist Name Role Phone Naomi Montague MD Primary Care Provider [phone] Reason for Visit * Reason Onset Date Comments Returning Call Back 10/10/2022 Encounter Details Date Type Department Care Team ([facility] Contact Info) Description 10/10/2022 Telephone [facility] MED & PEDS [address] [place] [address] Naomi Montague MD [address] [place] [address] Returning Call Back Social History Tobacco Use [...] spouse returning call back, regarding message below. Manager Research let him know a nurse will call back with an insurance agency owner he stated she's at work they can call him. Manager Research doesn't see any HIPPA information. documented in this encounter Plan of Treatment Upcoming Encounters Date Type Department Care Team (Late st Contact Info) Description 04/23/2025 9:00 AM EST Office Visit [facility] ADULT DENTAL [address] [place] [address] Patel Montague DDS [address] [place] [address] 04/30/2025 1:00 PM EST Office Visit [facility] OPTOMETRY [address] [place] [address] Kristi Carty, OD [address] [place] [address] 05/21/2025 11:30 AM EST Office Visit [facility] MED & PEDS [address] [place] [address] Naomi Montague MD [address] [place] [address] 09/03/2025 8:45 AM EDT Office Visit [facility] ADULT DENTAL [address] [place] [address] Gaurang Stevenson documented as of this encounter Visit Diagnoses Not on filedocumented in this encounter Additional Health Concerns Assessment Noted Time PHQ-9 Depression Total Score: 0 06/30/19 23 2:19 PM EDT documented as of this encounter Care Teams Hospital Cleaning Specialist Relationship Specialty Start Date End Date Naomi Montague MD [address] [place] [address] PCP - General Family Medicine 02/01/22 Geri ALVARENGA 11/30/24 01/03/25 documented as of this encounter
--- OUTSIDE RECORDS SUMMARY | 2025-03-26 17:20 | XMS_ITS | Clinical Summary ---
Author Organization [facility] Address [address] [facility] [address] [place] [phone] Phone Care Team Providers Care Engine Generator Assembler Name Role Phone Naomi Montague MD Primary Care Provider [phone] Allergies No known active allergies Medications oxyCODONE 5 MG immediate release tablet Take 1 tablet (5 mg total) by mouth every 4 (four) hours as needed for moderate pain. 10 tablet 7 Active Additional Information Patient not taking.Reported on 02/14/2017 Ca cit-D3-mag#[id number] (CALTRATE 600+D) 600 mg calcium- 800 [...] topic Medical Devices Not on file Insurance [facility] Viva Deng[facility]HEALTH CARE[facility]US [facility] [employer] [facility] Digital TheatreORCARE DIRECT [facility] [employer] [facility] CONNECTORCARE DIRECT [facility]ARE[facility] CONNECTORCARE DIRECT [facility] C[facility] C[facility] CONNECTORCARE DIRECT [facility] Viva DengiHEALTH CAREPLUS [facility] CONNECTORCARE DIRECT [facility] Viva DengiHEALTH CAREPLUS [facility] CONNECTORCARE DIRECT Advance Directives For more information, please contact: [phone] (9AM - 5PM [place]/[facility], Saturday-Saturday) * Full Code (Presumed) (Latest Code Status on File) Date Activated Date Inactivated Comments 02/20/2017 6:24 AM 02/20/2017 7:04 PM Care Teams Engine Generator Assembler Relationship Specialty Start Date End Date Naomi Montague MD [address] [place] [phone] PCP - General Family Medicine 01/08/25 Additional Source Comments The information contained in this document represents components of the legal health record. It is not the complete legal health record.[facility]
--- OUTSIDE RECORDS SUMMARY | 2025-03-26 17:21 | XMS_ITS | Clinical Summary ---
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 30 tablet 2 023 Active FREESTYLE LITE test strip TEST BLOOD SUGAR DAILY DIRECTED 50 strip 11 024 Active Additional Information Patient not taking.Reported on 02/26/2025 omeprazole (PriLOSEC) [address] capsule Take 1 capsule by mouth Once per day. 025 Active cholecalciferol VITAMIN D (Vitamin D-3) 50 MCG (1999 UT) tablet TAKE ONE TABLET DAILY 90 tablet 3 025 Active doxepin (SINEquan) 10 MG capsuleIndication s:Primary insomnia TAKE ONE CAPSULE AT BEDTIME 90 capsule 1 025 Active PEG 0223-VWx-PtXzo-Na Cl-NaSulf (PEG-3350/Electro lytes) 236 g reconstituted solution mix ud and drink 240 mL orally every 10 minutes for colonoscopy; as per split prep instructions, until fecal effluent is clear 025 Active ondansetron ODT (Zofran-ODT) 4 MG disintegrating tablet DISSOLVE ONE TABLET ON TONGUE TWO TO THREE TIMES PER DAY NEEDED FOR NAUSEA AND VOMITING Active Blood Pressure kit 1 Units Once per day. 1 kit Active Additional Information Patient not taking.Reported on 02/26/2025 rosuvastatin (Crestor) 10 MG tabletIndications :Mixed hyperlipidemia TAKE ONE TABLET BY MOUTH EVERY DAY 90 tablet 1 Active Ferrous Sulfate (iron) 325 (65 Fe) MG tablet Take 1 tablet by mouth Once per day. Active metFORMIN XR (Glucophage-XR) 750 MG 24 hr tablet TAKE ONE TABLET BY MOUTH TWICE DAILY DO NOT BREAK, CRUSH, DISSOLVE OR CHEW 180 tablet 1 Active metFORMIN XR (Glucophage-XR) 750 MG 24 hr tablet TAKE ONE TABLET TWICE DAILY. DO NOT BREAK, CRUSH, DISSOLVE OR CHEW 180 tablet 1 025 2024 Discontinued Active Problems Problem Noted Date Diagnosed [...] (10/05/2022 2:46 PM EDT): Patient seen by contract administration specialist and had FNA done for mass on neck. Biopsy results given to patient and was recommended for surgery with no diagnoses. Per transportation services representative at [facility], Appointment scheduled with general surgeon for Jan 04 @ 9:30 Dr. Connolly at [facility], General surgeon specialty in thyroid. Assessment [...] Encounters Date Type Department Care Team Description 03/26/2025 Orders Only GENERIC EXTERNAL DATA DEPARTMENT Provider, Generic External Data 03/19/2025 9:00 AM EST Office Visit [facility] [address] [place] [address] Patel Montague DDS 03/02/2025 Refill [facility] [address] [place] [address] Naomi Montague MD 02/26/2025 10:15 AM EST Office Visit [facility] [address] [place] [address] Gaurang Stevenson Dental calculus (Primary Dx) 02/02/2025 Telephone [facility] [address] [place] [address] Naomi Montague MD 01/28/2025 Orders Only GENERIC EXTERNAL DATA DEPARTMENT Provider, Generic External Data 01/19/2025 Results Follow-Up [facility] [address] [place] [address] Naomi Montague MD MR Orbit Face Neck w/o Contrast 01/16/2025 Orders Only [facility] [address] [place] [address] Kristi Carty, OD 01/08/2025 Orders Only [facility] External Provider, [facility] 01/08/2025 Abstract [facility] [address] [place] [address] Naomi Montague MD 01/07/2025 1:00 PM EDT Clinical Support [facility] [address] [place] [address] Apoorva Irene RN Encounter for immunization 01/07/2025 Travel 01/04/2025 Orders Only GENERIC EXTERNAL DATA DEPARTMENT Provider, Generic External Data 01/01/2025 9:45 AM EDT Office Visit [facility] [address] [place] [address] Naomi Montague MD Type 2 diabetes mellitus with hyperglycemia, without long-term current use of insulin ([facility]) (Primary Dx); Iron deficiency anemia secondary to inadequate dietary iron intake 01/01/2025 Travel 12/28/2024 Telephone [facility] [address] [place] [address] Naomi Montague MD from Last 3 Months Immunizations Immunization Administration [...] Sign Reading Time Taken Comments Blood Pressure 140/82 03/19/2025 9:26 AM EST Pulse 62 02/26/2025 10:24 AM EST Temperature 36.8 C (98.3 F) 01/01/2025 9:53 [...] Description 04/23/2025 9:00 AM EST Office Visit [facility] [address] [place] [address] Patel Montague DDS [address] [place] [address] 04/30/2025 1:00 PM EST Office Visit [facility] [address] [place] [address] Kristi Carty, OD [address] [place] [address] 05/21/2025 11:30 AM EST Office Visit [facility] [address] [place] [address] Naomi Montague MD [address] [place] [address] 09/03/2025 8:45 AM EDT Office Visit [facility] [address] [place] [address] Gaurang Stevenson Health Maintenance Due Date Last Done Comments CT Colonography 1960 FIT 1960 HIV Screening 1960 Sigmoidoscopy 1960 Disability Screening 1960 Pap Smear 07/28/1983 HPV/Cotest 1992 Diabetes: Foot Exam 12/19/2022 FOBT 02/06/2024 02/05/2023 COVID-19 Vaccine ( season) 2024 07/12/2023, 03/10/2022, 03/17/2021, Additional history exists Mammogram 01/30/2025 Alcohol/Substance Use Screening 04/30/2025 04/30/2024 Depression Screening 04/30/2025 04/30/2024, 04/30/19 25 SDOH Screening 04/30/2025 04/30/2024 Diabetes: Hemoglobin A1C 07/04/2025 025, 10/30/2024, 10/30/2024, Additional history exists Dental Oral Exam 08/27/2025 02/26/2025, 12/2024, 01/17/2024, Additional history exists Dental Prophylaxis 08/27/2025 02/26/2025, 0 08/21/2024, 01/17/2024, Additional history exists Lipid Panel 11/23/2025 11/23/2024, 03/15, 07/23/2023, Additional history exists Dental X-Ray: Full Mouth 12/01/2025 11/30/2022 Diabetes: Urine Protein Screening 01/04/2026 01/04/2025, 02/02/2022 FIT DNA/Cologuard 02/05/2026 02/05/2023 Dental X-Ray: Bitewings 02/27/2026 02/27/20, 08/21/2024, 01/17/2024, Additional history exists Tobacco Screening 03/19/2026 03/19/2025 Eye Exam 04/24/2026 04/24/2024, 04/15, 04/24/2024, Additional history exists DTaP/Tdap/Td Vaccines (3 - Td or Tdap) 03/27/2034 03/27/2024, 10/29/2011 Colonoscopy 11/25/2034 11/25/2024, 11/25/2024 Colorectal Cancer Screening 11/25/2034 Hepatitis A Vaccines Completed 12/28/2015, 06/22/19 Hepatitis [...] on patient's age to complete this topic Goals Goal Patient Goal Type Associated Problems Recent Progress Patient-Stated? Author Help patients manage their type 2 diabetes Care Plan Help patients manage their type 2 diabetes No Elieser, Erin Patient has chronic kidney disease Care Plan Patient has chronic kidney disease No Elieser, Erin Patient has chronic kidney disease Care Plan Patient has chronic kidney disease No Tuncer, Esin Patient has chronic kidney disease Care Plan Patient has chronic kidney disease No Patel Montague DDS Procedures Procedure Name Priority Date/Time Associated Diagnosis Comments FERRITIN Routine 03/26/2025 12:11 PM EST HEPATIC FUNCTION PANEL Routine 12:11 PM EST CBC WITH AUTO DIFFERENTIAL Routine 03/26/2025 12:11 PM EST CASE PRESENTATION, DETAILED AND EXTENSIVE TREATMENT PLANNING Routine 03/19/2025 9:00 AM EST 5 DO RESIN-BASED COMPOSITE - 2 SURF, POSTERIOR Routine 03/19/2025 9:00 AM EST 4 M RESIN-BASED COMPOSITE - 1 SURF, POSTERIOR Routine 03/19/2025 9:00 AM EST COMPREHENSIVE PERIODONTAL EVALUATION - NEW OR ESTABLISHED PATIENT Routine 02/26/2025 10:15 AM EST INTRAORAL - PERIAPICAL FIRST RADIOGRAPHIC IMAGE Routine 02/26/2025 10:15 AM EST BITEWINGS - 4 RADIOGRAPHIC IMAGES Routine 02/26/2025 10:15 AM EST CASE PRESENTATION, DETAILED AND EXTENSIVE TREATMENT PLANNING Routine 02/26/2025 10:15 AM EST ORAL HYGIENE INSTRUCTIONS Routine 02/26/2025 10:15 AM EST Full PROPHYLAXIS - ADULT Routine 02/26/2025 10:15 AM EST INTRAORAL - PERIAPICAL EACH ADDITIONAL RADIOGRAPHIC IMAGE Routine 02/26/2025 10:15 AM EST PERIODIC ORAL EVALUATION - ESTABLISHED PATIENT Routine 02/26/2025 10:15 AM EST 14 O COMPOSITE FILLING Routine 12:00 AM EST HIGH SENSITIVITY TROPONIN I Routine 01/28/2025 2:29 [...] hyperglycemia, without long-term current use of insulin ([facility]/HCC) CBC WITH AUTO DIFFERENTIAL Routine 01/04/2025 9:35 [...] without long-term current use of insulin (CMS/HCC) HM COLONOSCOPY Routine 11/25/2024 10:24 AM EDT LIPID PANEL, STANDARD Routine 11/23/2024 1:21 PM EDT Type 2 diabetes mellitus with hyperglycemia, without long-term current use of insulin (CMS/HCC) HEPATITIS C ANTIBODY Routine 07/24/2024 1:38 PM EDT LAB COLOGUARD COLON CANCER SCREEN Routine 02/05/2023 5:40 AM EDT Colon cancer screening INTRAORAL - COMPLETE SERIES OF RADIOGRAPHIC IMAGES Routine 11/30/2022 8:00 AM EDT from Last 3 Months or Most Recently Relevant to Health Maintenance Results * (ABNORMAL) CBC auto differential (03/26/2025 12:11 PM EST) Only the most recent of3 resultswithin the time period is included. White Blood Count 6.4 4.8 - 10.8 X10*3/uL [facility] Red Blood Count 5.32 4.20 - 5.50 X10*6/uL [facility] Hemoglobin 13.6 12.0 - 16.0 g/dl [facility] Hematocrit 42.2 37.0 - 47.0 % [facility] Mean Corpuscular Volume 79.3(L) 80.0 - 98.0 fL [facility] Mean Corpuscular Hemoglobin 25.6(L) 27.0 - 33.0 pg [facility] Mean Corpuscular HGB Conc 32.2 31.0 - 35.0 g/dl [facility] Red Cell Distribution Width 12.0 11.0 - 16.0 % [facility] Platelet Count 249 160 - 400 X10*3/uL [facility] Mean Platelet Volume 10.7 9.4 - 12.3 fL [facility] Neutrophils Percent Auto 54.9 45 - 73 % [facility] Imm Gran Pct Auto 0.3 0.0 - 0.4 % [facility] Lymphocytes Percent Auto 35.6 20 - 40 % [facility] Monocytes Percent Auto 6.1 2 - 11 % [facility] Eosinophils Percent Auto 2.2 0 - 4 % [facility] Basophils Percent Auto 0.9 0 - 2 % [facility] NRBC Pct Auto 0.0 0.0 - 0.2 /100WBC [facility] Neutrophils Absolute Auto 3.5 2.0 - 8.3 x10*3/uL [facility] Imm Gran Abs Auto 0.02 0.00 - 0.03 X10*3/uL [facility] Lymphocytes Absolute Auto 2.3 1.2 - 4.9 X10*3/uL [facility] Monocytes Absolute Auto 0.4 0.1 - 1.2 X10*3/uL [facility] Eosinophils Absolute Auto 0.1 0.0 - 0.4 X10*3/uL [facility] Basophils Absolute Auto 0.1 0.0 - 0.2 X10*3/uL [facility] NRBC Abs Auto 0.000 0.0 - 0.012 X10*3/uL [facility] 03/26/2025 12:1 1 PM EST 03/26/2025 12:11 PM EST us Generic External Data Provider LAB BLOOD ORDERAB LES Final Result Performing Organization Address [facility]/ZIP Co de Phone Number [facility] [address] [place] [phone] * Ferritin (03/26/2025 12:11 PM EST) Only the most recent of2 resultswithin the time period is included. Ferritin 142 10 - 250 ng/mL [facility] 03/26/2025 12:1 1 PM EST 03/26/2025 12:11 PM EST us Generic External Data Provider LAB BLOOD ORDERAB LES Final Result Performing Organization Address City/[facility] Co de Phone Number [facility] [address] [place] [address] [phone] * (ABNORMAL) Hepatic Function Panel (03/26/2025 12:11 PM EST) Pathologist [facility] Bilirubin, Total 0.4 0.0 - 1.0 mg/dL [facility] Bilirubin, Direct 0.2 0.0 - 0.5 mg/dL [facility] Aspartate Amino Transferase 19 5 - 31 U/L [facility] Alanine Aminotransferase 26 0 - 31 U/L [facility] Total Protein 7.7 6.5 - 8.0 g/dL [facility] Albumin Level 5.2(H) 3.5 - 5.0 g/dL [facility] Alkaline Phosphatase 65 39 - 117 U/L [facility] 03/26/2025 12:1 1 PM EST 03/26/2025 12:11 PM EST us Generic External Data Provider LAB BLOOD ORDERAB LES Final Result Performing Organization Address City/[facility]/ZIP Co de Phone Number [facility] [address] [place] [address] [phone] * High Sensitivity Troponin I (01/28/2025 2:29 PM EDT) [facility] TROPONIN I HIGH SENSITIVITY <2.7 <3.5 - 17.0 ng/L [facility] Comment:The Catalan high sens itivity Troponin-I results should beused in conjunction with other diagnostic information suchas ECG, clinical observations and information, and patientsymptoms to aid in the diagnosis of CA. 01/28/2025 2:29 PM EDT 01/28/2025 2:32 PM EDT us Generic External Data Provider LAB BLOOD ORDERAB LES Final Result Performing Organization Address City/[facility]/ZIP Co de Phone Number [facility] [address] [place] [address] [phone] * Lipase (01/28/2025 2:29 PM EDT) Lipase 74 8 - 78 U/L [facility] 01/28/2025 2:29 PM EDT 01/28/2025 2:32 PM EDT us Generic External Data Provider LAB BLOOD ORDERAB LES Final Result [facility] [address] [place] [address] [phone] * (ABNORMAL) Comprehensive Metabolic Panel (01/28/2025 2:29 PM EDT) Sodium 144 135 - 145 mmol/L [facility] Potassium 3.7 3.3 - 5.1 mmol/L [facility] Chloride 106 96 - 108 mmol/L [facility] Carbon Dioxide 27 22 - 29 mmol/L [facility] Anion Gap 15 12 - 20 [facility] Urea Nitrogen (BUN) 12 9 - 16 mg/dL [facility] Creatinine, Serum 0.72 0.5 - 1.4 mg/dL [facility] Creatinine Clr Calc Pharmacy 60.3 [facility] Comment:Provided height and weight: 160.02 cm,47.174 kg.eGFR (calculated from the MDRD study equation) and eCrCl(calculated from the Cockcroft-Gault equation) are based ondifferent parameters and may not yield comparable results.If eCrCl result is absurd, please check patient'sheight/weight. Estimated Glomerular Filt Rate >60 [facility] Comment:Chronic Kidney Disea se: Estimated GFR < 60 mL/min/1.36f5Nzenww Kidney Disease: Estimated GFR < 15 mL/min/1.73m2 Glucose 159(H) 60 - 115 mg/dL [facility] Calcium 9.8 8.4 - 10.2 mg/dL [facility] Bilirubin, Total 0.4 0.0 - 1.0 mg/dL [facility] Aspartate Amino Transferase 24 5 - 31 U/L [facility] Alanine Aminotransferase 31 0 - 31 U/L [facility] Total Protein 8.1(H) 6.5 - 8.0 g/dL [facility] Albumin Level 5.7(H) 3.5 - 5.0 g/dL [facility] Alkaline Phosphatase 73 39 - 117 U/L [facility] 01/28/2025 2:29 PM EDT 01/28/2025 2:32 PM EDT us Generic External Data Provider LAB BLOOD ORDERAB LES Final Result Performing Organization Address [facility] Co de Phone Number [facility] [address] [place] [address] [phone] * (ABNORMAL) Glucose, Whole Blood (01/28/2025 2:01 PM EDT) Glucose, Whole Blood 145(H) 60 - 115 mg/dL [facility] Comment:METER #: [id number] 01/28/2025 2:01 PM EDT 01/28/2025 2:04 PM EDT us Generic External Data Provider LAB BLOOD ORDERAB LES Final Result Performing Organization Address [facility] de Phone Number [facility] [address] [place] [phone] * MR Brain w/o Contrast (01/18/2025 11:00 AM EDT) Anatomical Region Laterality Modality Brain Magnetic Resonan ce 01/18/2025 11:0 0 AM EDT Narrative 01/20/2025 9:27 AM EDT [address] [address] Magnetic Resonance Report Signed Patient: Ru Sun MR#: [id number] : 1960 Acct:[id number] Age/Sex: 64 / F ADM Date: 01/16/25 Loc: HO.MRI Attending Dr: Kristi Carty OD Ordering Physician: Kristi Carty OD Date of Service: 01/16/25 Procedure(s): MR head/brain wo con Accession Number(s): [id number] cc: Kristi Carty OD; Naomi Montague MD [...] in OV> 01/20/25926 DD/ 99 TD/TT: 01/18/251099 Bearing Grinder: Procedure Note Donotuseinterpreter, Image - 01/20/2025 [place] [address] Magnetic Resonance Report Signed Patient: Ricky Sun#: [id number] : 1960Acct:[id number] Age/Sex: 64 / FADM Date: 01/16/25 Loc: HO.MRI Attending Dr: Kristi Carty OD Ordering Physician: Kristi Carty OD Date of Service: 01/16/25 Procedure(s): MR head/brain wo con Accession Number(s): [id number] cc: Kristi Carty OD; Naomi Montague MD [...] MD in OV> 01/20/25926 DD/ 99 TD/TT: 01/18/25 1100 Bearing Grinder: us Kristi Carty OD IMG MRI PROCEDURES Final Resu lt * MR Orbit Face Neck w/o Contrast (01/18/2025 11:00 AM EDT) Anatomical Region Laterality Modality Head, Neck Magnetic Resonan ce 01/18/2025 11:0 0 AM EDT Narrative 01/18/2025 11:03 AM EDT [place] [address] Magnetic Resonance Report Signed Patient: Ru Sun MR#: [id number] : 1960 Acct:[id number] Age/Sex: 64 / F ADM Date: 01/16/25 Loc: HO.MRI Attending Dr: Kristi Carty OD Ordering Physician: Kristi Carty OD Date of Service: 01/16/25 Procedure(s): MR orbits face neck wo con Accession Number(s): [id number] cc: Kristi Carty OD; Naomi Montague MD [...] OV> 01/20/25924 DD/ 99 TD/TT: 01/18/25 1100 Bearing Grinder: Procedure Note Donotuseinterpreter, Image - 01/20/2025 [place] [address] Magnetic Resonance Report Signed Patient: Ricky Sun#: [id number] : 1960Acct:[id number] Age/Sex: 64 / FADM Date: 01/16/25 Loc: HO.MRI Attending Dr: Kristi Carty OD Ordering Physician: Kristi Carty OD Date of Service: 01/16/25 Procedure(s): MR orbits face neck wo con Accession Number(s): [id number] cc: Kristi Carty OD; Naomi Montague MD [...] in OV> 01/20/25924 DD/ 99 TD/TT: 01/18/251099 Bearing Grinder: us Kristi Carloz OD IMG MRI PROCEDURES Edited Res ult - Final * NM Hepatobiliary w Pharm (01/08/2025 8:16 AM EDT) Anatomical Region Laterality Modality Body Nuclear Medicine 01/08/2025 8:16 AM EDT Narrative 01/08/2025 11:14 AM EDT [place] [address] Nuclear Medicine Report Signed Patient: Ru Sun MR#: [id number] : 1960 Acct:[id number] Age/Sex: 64 / F ADM Date: 01/08/25 Loc: [facility] Attending Dr: Brittny Jean-Baptiste MD Ordering Physician: Brittny Jean-Baptiste MD Date of Service: 01/08/25 Procedure(s): NM hepatobiliary w pharm Accession Number(s): [id number] cc: Naomi Montague MD; Brittny Jean-Baptiste MD [...] 01/08/25 1112 DD/ 0816 TD/TT: 01/08/25 1010 Bearing Grinder: Procedure Note Donotuseinterpreter, Image - 01/08/2025 [place] [address] Nuclear Medicine Report Signed Patient: Ricky Sun#: [id number] : 1960Acct:[id number] Age/Sex: 64 / FADM Date: 01/08/25 Loc: [facility] Attending Dr: Brittny Jean-Baptiste MD Ordering Physician: Brittny Jean-Baptiste MD Date of Service: 01/08/25 Procedure(s): NM hepatobiliary w pharm Accession Number(s): [id number] cc: Naomi Montague MD; Brittny Jean-Baptiste MD [...] 01/08/25 1112 DD/ 0816 TD/TT: 01/08/25 1010 Bearing Grinder: [facility] External Provider IMG NM PROCEDURES Final Result * Vitamin B12 (Cobalamin) and Folate Panel, Serum (01/04/2025 9:35 AM EDT) Vitamin B12 337 200 - 900 pg/mL [facility] Comment:NORMAL 200-900 PG/ML INDETERMINATE 160-199 PG/ML DEFICIENT < 160 PG/ML Folate 11.4 > or = 4.0 ng/mL [facility] Comment:Reference Values:> o r = 4.0 ng/mL< 4.0 ng/mL suggests folate deficiency Methotrexate, aminopterin and folinic acid(leucovorin) are chemotherapeutic agents whose molecularstructures are similar to folate; therefore, the Architectfolate assay cannot be used for patients using these drugs. 01/04/2025 9:35 AM EDT 01/04/2025 9:35 AM EDT us Generic External Data Provider LAB BLOOD ORDERAB LES Final Result Performing Organization Address City/[facility]/ZIP Co de Phone Number [facility] [address] [place] [phone] * Iron And Total Iron Binding Capacity (01/04/2025 9:35 AM EDT) Iron 78 30 - 160 mcg/dL [facility] Total Iron Binding Capacity 270 228 - 428 mcg/dL [facility] Percent Iron Saturation 29 15 - 50 % [facility] Unsaturated Iron Binding 192 ug/dL [facility] Blood Venous blood specimen / Unknown 01/04/2025 9:35 AM EDT 01/04/2025 9:35 AM EDT us Naomi Montague MD LAB BLOOD ORDERABLES Final Re sult Performing Organization Address [facility] Co de Phone Number [facility] [address] [place] [phone] * Vitamin A (01/04/2025 9:35 AM EDT) Pathologist [facility] Vitamin A (Retinol) 51 38 - 98 mcg/dL [facility] Comment:Vitamin supplementat ion within 24 hours prior toblood draw may affect the accuracy of the results.This test was developed and its analytical performancecharacteristics have been determined by [facility] [place], [place]. It hasnot been cleared or approved by the U.S. Food and DrugAdministration. This assay has been validated pursuantto the CLIA regulations and is used for clinicalpurposes.THIS TEST WAS PERFORMED AT:[employer]/[id number] [place] [address]JJZITRZMARGARET PASTOR MD,PHD 01/04/2025 9:35 AM EDT 01/04/2025 9:35 AM EDT us Generic External Data Provider LAB BLOOD ORDERAB LES Final Result Performing Organization Address City/[facility]/ZIP Co de Phone Number [facility] [address] [place] [address] [phone] * (ABNORMAL) Fructosamine (01/04/2025 9:35 AM EDT) Pathologist [facility] Fructosamine 294(A) 205 - 285 umol/L [facility] Comment:THIS TEST WAS PERFOR MED AT:[employer] [id number] [place] [address]NRARNEH W. MASON,MD,PHD Blood Venous blood specimen / Unknown 01/04/2025 9:35 AM EDT 01/04/2025 9:35 AM EDT us Naomi Montague MD LAB BLOOD ORDERABLES Final Re sult Performing Organization Address [facility]/ZIP Co de Phone Number [facility] [address] [place] [phone] [phone] * (ABNORMAL) CBC (01/04/2025 9:35 AM EDT) [facility] White Blood Count 4.7(L) 4.8 - 10.8 X10*3/uL [facility] Red Blood Count 4.31 4.20 - 5.50 X10*6/uL [facility] Hemoglobin 12.0 12.0 - 16.0 g/dl [facility] Hematocrit 35.4(L) 37.0 - 47.0 % [facility] Mean Corpuscular Volume 82.1 80.0 - 98.0 fL [facility] Mean Corpuscular Hemoglobin 27.8 27.0 - 33.0 pg [facility] Mean Corpuscular HGB Conc 33.9 31.0 - 35.0 g/dl [facility] Red Cell Distribution Width 12.3 11.0 - 16.0 % [facility] Platelet Count 210 160 - 400 X10*3/uL [facility] Mean Platelet Volume 10.1 9.4 - 12.3 fL [facility] [facility] NRBC Pct Auto 0.0 0.0 - 0.2 /100WBC [facility] NRBC Abs Auto 0.000 0.0 - 0.012 X10*3/uL [facility] 01/04/2025 9:35 AM EDT 01/04/2025 9:35 AM EDT us Generic External Data Provider LAB BLOOD ORDERAB LES Final Result Performing Organization Address [facility] Co de Phone Number [facility] [address] [place] [phone] * Type and screen (01/04/2025 9:24 AM EDT) Blood Type BP [facility] Antibody Screen NEGATIVE [facility] 01/04/2025 9:24 AM EDT 01/04/2025 10:11 AM EDT Narrative [facility] - 01/04/2025 11:06 AM EDT Witnessed by DIANE us Generic External Data Provider LAB BLOOD BANK TE ST ORDERABLES Final Result Performing Organization Address [facility] de Phone Number [facility] [address] [place] [phone] * Albumin, Random Urine W/Creatinine (01/04/2025 9:23 AM EDT) Creatinine, Urine 39.05 mg/dL [facility] Microalbumin Urine <5.0 mg/L [facility] Microalbum Creatinine Ratio Ur TNP <30 ug/mg cr [facility] Comment:Unable to calculate albumin/creatinine ratio due to lowmicroalbumin or creatinine result. Urine (Urine, Random) 01/04/2025 9:23 AM EDT 01/04/2025 10:19 AM EDT us Naomi Montague MD LAB URINE ORDERABLES Final Re sult [facility] [address] [place] [address] [phone] * POCT Glucose (01/01/2025 10:36 AM EDT) Glucose Blood, POC 165 60 - 200 mg/dL QC Media Lot # [id number] Lot# Expiration Date Blood Capillary blood specimen / Unknown 01/01/2025 10:36 AM EDT Naomi Montague MD POINT OF CARE TEST ENTER/EDIT ORDERABLES Final Result * Colonoscopy (11/25/2024 3:37 PM EDT) Historical Provider HEALTH MAINTENANCE Final Result * (ABNORMAL) Lipid Panel, Standard (11/23/2024 1:21 PM EDT) Triglycerides 164(H) <150 mg/dL [facility] Comment:Desirable Triglyceri de: less than 150 mg/dLBorderline High Triglyceride 150-199 mg/dLHigh Triglyceride: 200-499 mg/dLVery High Triglyceride: greater than or equal to 5OO mg/dL Cholesterol 128 <200 mg/dL [facility] Comment:Desirable Cholestero l: less than 200 mg/dLBorderline High Cholesterol: 200-239 mg/dLHigh Cholesterol: greater than 239 mg/dL LDL Cholesterol Calculated 62 <100 mg/dL [facility] Comment:Desirable LDL: less than 100 mg/dLNear Optimal/Above Optimal LDL: 110- 129 mg/dLBorderline High LDL: 130-159 mg/dLHigh LDL: 160-189 mg/dLVery High LDL: greater than or equal to 190 mg/dL HDL Cholesterol 34(L) >40 mg/dL [facility] Comment:Desirable HDL: great er than 40 mg/dL Note: This HDL assay may give artificially low results in patients with liver disease. Blood Venous blood specimen / Unknown 11/23/2024 1:21 PM EDT 11/23/2024 1:21 PM EDT us Naomi Montague MD LAB BLOOD ORDERABLES Final Re sult Performing Organization Address [facility] Co de Phone Number [facility] [address] [place] [phone] * Hepatitis C Ab (07/24/2024 1:38 PM EDT) Hepatitis C Antibody Nonreactive Nonreactive [facility] Comment:Antibodies to HCV no t detected; does not exclude early acuteHCV infection. 07/24/2024 1:38 PM EDT 07/24/2024 1:38 PM EDT us Generic External Data Provider LAB BLOOD ORDERAB LES Final Result Performing Organization Address [facility] de Phone Number [facility] [address] [place] [phone] * Cologuard?? colon cancer screening (02/05/2023 5:40 AM EDT) Cologuard Result Negative Negative 02/14/20 2:34 AM EDT [facility] (CLIA #:[id number]) Comment: NEGATIVE TEST RESULT. A negative Cologuard [...] (Dickson Sampson al, N Engl J Med 2014;370(14):4216-7464) The normal value (reference range) for this assay is negative. COLOGUARD RE-SCREENING RECOMMENDATION: Periodic colorectal cancer screening is an important part of preventive healthcare for asymptomatic individuals at average risk for colorectal cancer. Following a negative Cologuard result, the [place] [employer] and U.S. Multi-Society Task Force screening guidelines recommend a Cologuard re-screening interval of 3 years. References: [place] [employer] Guideline for Colorectal Cancer Screening: https://www.cancer.org/cancer/zelny-wsnwii-zsukai/rdlsrcwxa-fghkftamz-fozkezk/ac s-rec ommendations.html.; Abdulkadir DK, Zi CR, Luzmaria PrakashK, Colorectal Cancer Screening: Recommendations for Physicians and Patients from the U.S. Multi-Society Task Force on Colorectal Cancer Screening , Am J Gastroenterology 2017; 112:5361-3410. TEST DESCRIPTION: Composite algorithmic analysis of stool [...] (Dickson Sampson al, N Engl J Med 2014;370(14):6655-6904.) Cologuard may produce a false negative or false positive result (no colorectal cancer or precancerous polyp present at colonoscopy follow up). A negative Cologuard test result does not guarantee the absence of CRC or advanced adenoma (pre-cancer). The current Cologuard screening interval is every 3 years. ([place] [employer] and U.S. Multi-Society Task Force). Cologuard performance data in a 10,000 patient pivotal study using colonoscopy as the reference method can be accessed at the following location: www.Ujogo.vocaltap/results. Additional description of the Cologuard test process, warnings and precautions can be found at www.colMetis Legacy Grouprd.com. Stool specimen (specimen) 02/05/2023 5:40 AM EDT 02/06/2023 9:11 PM EDT us Naomi Montague MD LAB MOLECULAR DIAGNOSTICS ORD ERABLES Final Result [facility] (CLIA #:[id number]) [address] [place] [address], from Last 3 Months or Most Recently Relevant to Health Maintenance Additional Health Concerns Active Problems Noted Date Diagnosed Date Help patients manage their type 2 diabetes 02/26 Patient has chronic kidney disease 02/26/2025 Patient has chronic kidney disease 03/19/2025 Patient has chronic kidney disease 03/22/2025 Insurance [facility] D[facility] - HSN PARTIAL (MEDICAID) DENTAL - HSN PARTIAL (MEDICAID) Care Teams Extractor Operator Solvent Process Relationship Specialty Start Date End Date Naomi Montague MD [address] [place] [phone] PCP - General Family Medicine 02/01/22
--- OUTSIDE RECORDS SUMMARY | 2025-03-26 17:21 | XMS_ITS | Encounter Summary ---
Author Organization [employer] Address [address] [facility] [address] [place] [address] Care Team Providers Care Virtual Assistant Name Role Phone Naomi Montague MD Primary Care Provider [phone] Encounter Details Date Type Department Care Team (Late st Contact Info) Description 01/08/2025 Abstract [facility] [address] [place] [address] Naomi Montague MD [address] [place] [address] Social History Tobacco Use Types Packs/Day Years [...] Description 04/23/2025 9:00 AM EST Office Visit [facility] ADULT DENTAL [address] [place] [address] Patel Montague DDS [address] [place] [address] 04/30/2025 1:00 PM EST Office Visit [facility] OPTOM[facility] [address] [place] [address] CarlozKristi, OD [address] [place] [address] 05/21/2025 11:30 AM EST Office Visit [facility] MED & PEDS [address] [place] [address] Naomi Montague MD [address] [place] [address] 09/03/2025 8:45 AM EDT Office Visit [facility] ADULT DENTAL [address] [place] [address] Gauragn Stevenson documented as of this encounter Procedures Procedure Name Priority Date/Time Associated Diagnosis Comments HM COLONOSCOPY Routine 11/25/2024 10:24 AM EDT documented in this encounter Visit Diagnoses Not on filedocumented in this encounter Additional Health Concerns Assessment Noted Time PHQ-9 Depression Total Score: 2 04/30/19 25 9:35 AM EST documented as of this encounter Care Teams Virtual Assistant Relationship Specialty Start Date End Date Naomi Montague MD [address] [place] [address] PCP - General Family Medicine 02/01/22 documented as of this encounter
== END 2025-03-26 12:04 | disposition home or self-care (01) ==
LOC: HO.LAB 12:03
PROVIDERS: PCP Family Medicine; Visit Provider Internal Medicine
DX: D64.9 Anemia, unspecified (principal)
CPT/HCPCS: 36415; 80076; 82728; 85025

== ENCOUNTER 2025-03-29 10:06 | Outpatient (AMB) | payer OTHER, SELFPAY ==
--- NOTE | 2025-03-29 10:17 | A.OFFVIS_ITS ---
Vital Signs 03/29/25 10:26 Height 5 ft 3 in Weight 136 lb 10.986 oz BMI 24.2 BP 124/63 Blood Pressure Location Lt brachial Position Sitting Pulse 69 Intake Visit Reasons: 4 month followup Intake Note: Ru presents in the office as a 4 month follow up. CC: She states that she has vomiting and diarrhea - has been going on for a week. States that the medication that she puts under her tongue gives her constipation for a few days. If she does not have that she has the diarrhea and the vomiting. States that it happens on and off. She was referred out but they said they do not take her insurane so she needs to be sent elsewhere. [facility] [place] Required: Yes Allergies No Known Allergies Allergy (Verified 03/29/25 10:27) HPI Comments Details: 63 y.o Cantonese speaking female (originally from [place]) who was referred to our office for multiple liver cysts. Seen with the help of [email or web address] process environmental technician. present as well. Pt herself reports hx of abd pain with N/V/D back in may that prompted ER visit. Resolved within 2 weeks. Currently asymptomatic. No abd pain, N,V, dysphagia or regurgitation. When pt seen in ER she had US done that showed complex liver cysts. This was then followed up with a CT see below. CT abdomen: No infiltrates within the lung bases. Bones are osteopenic. No acute fracture. Mild de leon chamber cardiac dilation. Concentric wall thickening distal esophagus with small hiatal hernia. Gwbn-qd-xhvswtmu fluid distention of the stomach with areas of gastric wall thickening along the proximal to mid gastric body. Fluid-filled loops of borderline dilated small bowel is seen within the abdomen pelvis. Small bowel loops are dilated to 0.8 cm. There are scattered small bowel air-fluid levels. Small-bowel wall thickening and small-bowel wall hyperenhancement is seen in association with these fluid-filled loops of small bowel. Generalized low attenuation throughout the liver indicative of fatty infiltration. Numerous hypodense lesions within the liver corresponding to the ultrasound abnormalities. The largest is within the lateral segment of the left lobe measuring 6.5 x 6.9 cm in size. These are all fluid attenuation lesions. No solid hepatic mass lesions identified. Main portal vein is patent. Spleen, pancreas, gallbladder, and adrenal glands are unremarkable. Symmetric enhancement of the kidneys without mass or hydronephrosis. CT pelvis: Suture material seen of the anal rectal junction. Mild fluid distention of the cecum and ascending colon. Fluid-filled small bowel is seen within the pelvis as discussed above. Appendix is normal. No free fluid or free air. Uterus is surgically absent. Fluid attenuation structure is seen at the level of the vaginal cuff measuring 4.2 x 2.5 x 2.6 cm in size. No enlarged lymph nodes. No fam hx of gastric or esophageal ca. Father: cholangiocarcinoma - pt not aware if he had liver fluke infection Pt does not smoke. Occ wine use. Has hx of hysterectomy as well as hemorrhoidectomy. 10/21/24: Here for follow up. Cyst aspiration results reviewed. No mucinous or cancerous cells identified. No echinococcal parasites identified. Reviewed with the pt that could possible have polycystic liver disease. No renal cysts. Will refer to dedicated liver center for any further evaluation. She also has abnormal colon wall and stomach wall thickening. Will be set up for EGD/colo. 11/20/24: 1. Normal esophagus (biopsy) 2. Normal stomach (biopsy) 3. Gastric polyps (polypectomy) 4. Duodenitis (biopsy) 5. Normal colon and terminal ileum mucosa (biopsy) 6. One polyp removed 7. Internal hemorrhoids Diagnosis A. Duodenum, biopsy: Duodenal mucosa with predominantly preserved villi and chronic/non-specific duodenitis. B. Gastric antrum, greater curvature, biopsy: Gastric antral mucosa with mild reactive changes and minimal chronic inactive gastritis; negative for intestinal metaplasia and dysplasia. C. Gastric antrum, lesser curvature, biopsy: Gastric antral mucosa with focal ectatic vessels, reactive changes, and minimal chronic inactive gastritis; negative for intestinal metaplasia and dysplasia. D. Gastric incisura, biopsy: Gastric antral mucosa with minimal chronic inactive gastritis; negative for intestinal metaplasia and dysplasia. B. Gastric body, greater curvature, biopsy: Gastric body mucosa with minimal chronic inactive gastritis; negative for intestinal metaplasia and dysplasia. F. Gastric body, lesser curvature, biopsy: Gastric body mucosa with minimal chronic inactive gastritis; negative for intestinal metaplasia and dysplasia. D. Esophagus, lower, biopsy: Squamous mucosa with focal submucosal glands and no specific change; no columnar mucosa present. H. Esophagus, middle, biopsy: Squamous mucosa with no specific change; no columnar mucosa present. I. Gastric polyps: Fundic gland polyps with focal minimal chronic inactive inflammation; negative for intestinal metaplasia and dysplasia J. Colon, right, biopsy: Colonic mucosa with no specific change. K. Colon, left, biopsy: Colonic mucosa with no specific change. L colon, sigmoid, polyp: Colonic mucosa with focal minimal hyperplastic changes on initial levels (see comment) 11/25/24: 1. Normal esophagus 2. Previous healing polypectomies in stomach 3. Normal duodenum 4. Post polypectomy ulcer in sigmoid colon (endoclips x 2) 5. Internal hemorrhoids 12/21/24: Here for follow up. Accompanied by . Seen with online [email or web address] process environmental technician [id number] Pt had a complicated course after egd/colo - developed post polypectomy bleeding from a diminutive polyp removed from sigmoid colon requiring hospital admission and repeat endoscopy 11/25 s/p endoclip placement. Today, no acute abd issues. Cont to report post prandial nausea and R sided pain. No gallstones on US. Also has other generalized sx like dizziness when she tries to walk too fast, night blindness. Has seen an eye doctor and an MRI brain is pending. For liver cysts, [facility] does not take her insurance. [facility] referral pending. 03/29/25: Here for follow up. [place] [facility] [place]. [facility] does not contract with [facility] [employer] despite an insurance authorization on file. CC remains abd discomfort and N/V post prandially that occurs intermittently - 1-2 times a month. Vomiting is forceful, does not report regurgitation or rumination. Not assoc with fevers, chills, outside food. Nonbilious emesis. No blood. Abd bloating and discomfort does go away with vomiting. To recall w/up including EGD, US Abd, HIDA is all ok. Duo bx neg but can get celiac serology. Will also check for CVID. ?? Gastroparesis. Otherwise anemia resolved. No issues with bowels. [facility] Medical History GERD (gastroesophageal reflux disease) Diabetes Hyperlipidemia Hypertension Surgical History History of surgery Hx of colonoscopy History of esophagogastroduodenoscopy (EGD) Family History Brother Colon cancer Social History (Reviewed 12/21/24 @ 11:12 by JASEN Mckeon Household Members: Spouse and Family Housing: House Are you a primary career center advisor to a significant other at home: No Do you presently have visiting nurse or other home services: No Alcohol intake: current Alcohol intake frequency: holidays/special occasions only Comment: Family in room and assists with ambulation, pt to be dc'd home today Patient Tobacco Use Status: Never used Tobacco service: No Review of Systems Const All systems reviewed & are unremarkable except as noted in HPI and below Physical Exam Exam Exam: No apparent distress Nonicteric Abdomen soft, nondistended Alert and oriented x3, normal gait Vital Signs: Last Vital Signs Pulse 69 03/29/25 10:26 BP 124/63 03/29/25 10:26 BMI result Body Mass Index 24.2 Assessment & Plan Assessment & Plan (1) Postprandial vomiting: Code(s): R11.10 - Vomiting, unspecified Category: Medical (2) Postprandial abdominal pain in right upper quadrant: Code(s): R10.11 - Right upper quadrant pain Category: Medical (3) Hepatic cyst: Code(s): K76.89 - Other specified diseases of liver Category: Medical (4) Family history of cholangiocarcinoma: Code(s): Z80.0 - Family history of malignant neoplasm of digestive organs Category: Medical Plan 1. Epigastric pain with postprandial vomiting Ddx include gastroparesis, MCAS, angioedema of gut, abd migraine, MALS syndrome. Central cause r/o MRI brain normal. Plan: - Labs as below - GES - If above non-revealing, can consider CTA abd/pel vs UGIS 2. liver cysts: Ddx including polycytic liver disease. No echinoccocus isolated from cyst aspiration. Also neg for fasciola. Referred to [facility] hepatology initially for further eval but insurance denied coverage. Plan: - Will follow up on [facility] [place] Follow up 2 months Orders: Orders NM gastric emptying study Today R11.10 - Vomiting, unspecified Complement C4 Today R11.10 - Vomiting, unspecified C1 Esterase Inhibitor Today R11.10 - Vomiting, unspecified C1 Inhibitor Protein Today R11.10 - Vomiting, unspecified Transglutaminase IgA Today R11.10 - Vomiting, unspecified Immunoglobulins,IgG IgA IgM Today R11.10 - Vomiting, unspecified Tryptase Today R11.10 - Vomiting, unspecified Coding Level of Care Code Est Pt Level 4 (38707) Diagnoses Postprandial vomiting R11.10 Postprandial abdominal pain in right upper quadrant R10.11 Hepatic cyst K76.89 Family history of cholangiocarcinoma Z80.0
[2025-03-29 10:26] VITALS: BP 124/63; PULSE 69; BMI 24.2
== END 2025-03-29 11:22 | disposition home or self-care (01) ==
LOC: HO.HGI 10:07
PROVIDERS: PCP Family Medicine; Visit Provider Internal Medicine
DX: R11.10 Vomiting, unspecified (principal); R10.11 Right upper quadrant pain; K76.89 Other specified diseases of liver; Z80.0 Family history of malignant neoplasm of digestive organs
CPT/HCPCS: 99214

== ENCOUNTER 2025-03-29 10:06 | Outpatient (REF) | payer OTHER, SELFPAY | END 2025-03-29 10:07 | disposition home or self-care (01) | LOC: HO.LAB 10:06 | PROVIDERS: PCP Family Medicine; Visit Provider Internal Medicine | DX: K76.89 Other specified diseases of liver (principal); R10.11 Right upper quadrant pain; R11.10 Vomiting, unspecified; Z80.0 Family history of malignant neoplasm of digestive organs | CPT/HCPCS: 36415; 82784; 83520; 86160; 86161; 86364; 99212 ==